=== PATIENT | male | born 1985 | race American Indian/Alaskan Native ===

== ENCOUNTER 2019-05-19 21:50 | Emergency (ER) | payer OTHER ==
--- NOTE | 2019-05-19 22:34 | Event Note ---
ED Screening Note Date of service: 05/19/19 Time: 22:33 ED Screening Note: 34 y/o male comes in for boil on stomach times 7 days. PMH DM. pain /. This initial assessment/diagnostic orders/clinical plan/treatment(s) is/are subject to change based on patients health status, clinical progression and re- assessment by fellow clinical providers in the ED. Further treatment and workup at subsequent clinical providers discretion. Patient/guardian urged not to elope from the ED as their condition may be serious if not clinically assessed and managed. Initial orders include:
[2019-05-19] MEDS ORDERED: IBUPROFEN PO ONE (23:41)
--- NOTE | 2019-05-19 23:49 | Emergency Department Report ---
- General Chief complaint: Skin/Abscess/Foreign Body Stated complaint: BOIL ON STOMACH Time Seen by Provider: 05/19/19 22:58 Source: patient Mode of arrival: Ambulatory Limitations: No Limitations - History of Present Illness Initial comments: Patient is a 34-year-old male who presents to the emergency room complaints of an abscess to his abdomen that began 7 days ago. He states he has had subjective fever. He denies any drainage. He states he gets these often. Patient states he drains them himself by using a needle. He denies any recent antibiotics. He has a past medical history of diabetes and uses insulin. He denies any allergies to medications. - Related Data Previous Rx's Medication Instructions Recorded Last Taken Type Sulfamethoxazole/Trimethoprim 1 each PO BID 14 Days #28 tablet 05/19/19 Unknown Rx [Bactrim DS TAB] Allergies Allergy/AdvReac Type Severity Reaction Status Date / Time No Known Allergies Allergy Unverified 05/19/19 22:05 Abscess Boil HPI - HPI Chief Complaint: Skin/Abscess/Foreign Body Stated Complaint: BOIL ON STOMACH Time Seen by Provider: 05/19/19 22:58 Home Medications: Previous Rx's Medication Instructions Recorded Last Taken Type Sulfamethoxazole/Trimethoprim 1 each PO BID 14 Days #28 tablet 05/19/19 Unknown Rx [Bactrim DS TAB] Allergies/Adverse Reactions: Allergies Allergy/AdvReac Type Severity Reaction Status Date / Time No Known Allergies Allergy Unverified 05/19/19 22:05 ED Review of Systems ROS: Stated complaint: BOIL ON STOMACH Other details as noted in HPI Comment: All other systems reviewed and negative ED Past Medical Hx - Past Medical History Previous Medical History?: Yes Hx Diabetes: Yes Additional medical history: Morbid Obesity - Social History Smoking Status: Never Smoker Substance Use Type: None - Medications Home Medications: Home Medications Medication Instructions Recorded Confirmed Last Taken Type Sulfamethoxazole/Trimethoprim 1 each PO BID 14 Days #28 tablet 05/19/19 Unknown Rx [Bactrim DS TAB] ED Physical Exam - General Limitations: No Limitations General appearance: alert, in no apparent distress - Head Head exam: Present: atraumatic, normocephalic - ENT ENT exam: Present: mucous membranes moist - Respiratory Respiratory exam: Present: normal lung sounds bilaterally. Absent: respiratory distress, wheezes, rales, rhonchi, stridor, chest wall tenderness, accessory muscle use, decreased breath sounds, prolonged expiratory - Cardiovascular Cardiovascular Exam: Present: regular rate, normal rhythm, normal heart sounds. Absent: systolic murmur, diastolic murmur, rubs, gallop - Neurological Exam Neurological exam: Present: alert, oriented X3 - Psychiatric Psychiatric exam: Present: normal affect, normal mood - Skin Skin exam: Present: other (multiple areas of scarring to the abdomen from previous abscess, 7 cm area of induration to the lower abdomen with multiple small areas of fluctuance, surrounding erythema) ED Course Vital Signs 05/19/19 05/20/19 05/20/19 22:33 00:07 00:10 Temperature 99.1 F 98.1 F Pulse Rate 100 H 98 H Respiratory 20 16 16 Rate Blood Pressure 146/98 Blood Pressure 137/80 [Left] O2 Sat by Pulse 98 100 Oximetry ED Medical Decision Making - Medical Decision Making Patient is a 34-year-old male who presents to the emergency room complaints of an abscess to his abdomen that began 7 days ago. He states he has had subjective fever. He denies any drainage. He states he gets these often. Patient states he drains them himself by using a needle. He denies any recent antibiotics. He has a past medical history of diabetes and uses insulin. He denies any allergies to medications. VSS. on exam: multiple areas of scarring to the abdomen from previous abscess, 7 cm area of induration to the lower abdomen with multiple small areas of fluctuance, surrounding erythema. there is not one central area of fluctuance that could be I&D, there are multiple small areas with a larger area of cellulitis present, will place on abx to cover for MRSA and have pt see a general surgeon for a surgical evaluation, pt is afebrile, non toxic appearing, and tolerating PO intake at this time, can follow up as an outpatient in 24 hours with general surgery. advised pt to please no longer use needles at home to drain the areas as this is not sterile and could be the cause of his cellulitis/abscesses currently. pt given prescription for bactrim, advised to take as prescribed. discussed with pt to follow up with a general surgeon in the next 24 hours. Return to the emergency room for any new or worsening symptoms. also discussed to follow up with PCP for better glycemic control. Critical care attestation.: If time is entered above; I have spent that time in minutes in the direct care of this critically ill patient, excluding procedure time. ED Disposition Clinical Impression: Abscess Cellulitis Qualifiers: Site of cellulitis: trunk Site of cellulitis of trunk: abdominal wall Qualified Code(s): L03.311 - Cellulitis of abdominal wall Disposition: TO HOME OR SELFCARE Is pt being admited?: No Does the pt Need Aspirin: No Condition: Stable Instructions: Cellulitis (ED), Abscess (ED) Additional Instructions: Please take medication as prescribed to completion. Follow up with a general surgeon in the next 24 hours. Return to the emergency room for any new or worsening symptoms. Prescriptions: Sulfamethoxazole/Trimethoprim [Bactrim DS TAB] 1 each PO BID 14 Days #28 tablet Referrals: [facility] [Outside] - 3-5 Days [facility] [Provider Group] - 3-5 Days [facility] [Outside] - 3-5 Days BARBARA HINKLE MD [Staff Physician] - 24 Hours Forms: Work/School Release Form(ED) Time of Disposition: 23:51 Print Language: POLISH
[2019-05-20 00:45] VITALS: BP 137/80
== END 2019-05-20 00:10 | disposition home or self-care (01) ==
LOC: ED 21:50
DX: L03.311 Cellulitis of abdominal wall (principal); L02.211 Cutaneous abscess of abdominal wall; E11.9 Type 2 diabetes mellitus without complications; E66.01 Morbid (severe) obesity due to excess calories; Z79.4 Long term (current) use of insulin

== ENCOUNTER 2019-05-27 21:42 | Inpatient (IN) | payer OTHER ==
--- NOTE | 2019-05-27 21:51 | Event Note ---
ED Screening Note ED Screening Note: pt was evaluated in the ED last week for cellulitis/abscess of the abdomen placed on bactrim advised to follow up with a general surgeon in the next 24 hours pt did not follow up presents now with worsening erythema and tachycardia, fever states the abscess has been draining BG 200-250 at home per pt This initial assessment/diagnostic orders/clinical plan/treatment(s) is/are subject to change based on patients health status, clinical progression and re- assessment by fellow clinical providers in the ED. Further treatment and workup at subsequent clinical providers discretion. Patient/guardian urged not to elope from the ED as their condition may be serious if not clinically assessed and managed. Initial orders include: sepsis protocol
[2019-05-27] MEDS ORDERED: NACL 0.9% 1000 ML IV ONE ×2 (21:52→22:18)
[2019-05-27 22:08] LABS: Hemoglobin 13.5 gm/dl (11.8-15.2); Mean Corpuscular HGB Conc 34 % (32-34); Mean Corpuscular Volume 90 fl (84-94); Platelet Count 266 K/mm3 (140-440); Red Blood Count 4.45 M/mm3 (3.65-5.03); Red Cell Distribution Width 15.1 % (13.2-15.2)
[2019-05-27] MEDS ORDERED: VANCOMYCIN 2,000 MG in NACL 0.9% 500 ML 500 ML IV ONE (22:18)
[2019-05-27 22:39] LABS: Alanine Aminotransferase 48 units/L (7-56); Albumin 2.7 g/dL (3.9-5); BUN/Creatinine Ratio 13; Blood Urea Nitrogen 12 mg/dL (9-20); Calcium 9.7 mg/dL (8.4-10.2); Hemolysis Index 40
[2019-05-27 22:43] LABS: Basophils % (Manual) 0 % (0.0-1.8); Total Cells Counted 100
[2019-05-27 22:44] LABS: Anisocytosis Few
[2019-05-27] MEDS: ZOSYN/NS 4.5GM/100ML 4.5 GM/100 ML VIAL IV SCH (22:57)
[2019-05-27] MEDS ORDERED: TYLENOL PO ONE (22:59)
[2019-05-27] MEDS ORDERED: MORPHINE IV ONE (22:59)
[2019-05-27] MEDS ORDERED: VANCOMYCIN PHARMACY TO DOSE IV SCH (23:00)
[2019-05-27 23:47] LABS: Bilirubin,Urine NEG (Negative); Blood,Urine NEG (Negative); Color,Urine Yellow (Yellow); RBC,Urine < 1.0 /HPF (0.0-6.0); WBC,Urine < 1.0 /HPF (0.0-6.0)
--- NOTE | 2019-05-28 00:23 | Cat Scan Report ---
CT ABDOMEN AND PELVIS WITH IV CONTRAST INDICATION: LLQ abdominal wall abscess cellulitis. COMPARISON: None available. TECHNIQUE: All CT scans at this facility use dose modulation, automated exposure control, iterative reconstructi on or weight based dosing, when appropriate, to reduce radiation dose to as low as reasonably achieva ble. FINDINGS: Lung Bases: Clear. Skeletal System: No acute abnormality. ABDOMEN: Liver: Normal. Gallbladder: Normal. Bile Ducts: Normal. Pancreas: Normal. Spleen: Normal. Adrenals: Normal. Right Kidney: Normal. Left Kidney: Normal. Stomach and Bowel: Normal. Lymph Nodes: No significant adenopathy. Aorta: No significant abnormality. Additional Findings: There is stranding within the left lower quadrant abdominal wall subcutaneous fa t. Inferomedially, there are a few punctate foci of gas in the superficial subcutaneous fat. No drain able fluid collection is seen. PELVIS: Colon: Normal aside from diverticulosis. Urinary Bladder and Distal Ureters: Normal. Appendix: Normal. Lymph Nodes: Left groin and left external iliac chain adenopathy is likely reactive. Additional Findings: None. IMPRESSION: 1. Cellulitis left lower quadrant abdominal wall. There are a few punctate foci of gas in the infero medial aspect of the inflammation facial is fat. No discrete, drainable abscess is seen. There is shannan ctive left groin/pelvic adenopathy. Signer Name: Lucius Anderson MD Signed: 05/28/2019 12:19 AM Workstation Name: [id number]
[2019-05-28] MEDS ORDERED: HumuLIN R IV ONE ×2 (00:48→14:54)
--- NOTE | 2019-05-28 00:48 | Emergency Department Report ---
ED Fever HPI - General Chief Complaint: Skin/Abscess/Foreign Body Stated Complaint: LEFT SIDE STOMACH PAIN/REDNESS Time Seen by Provider: 05/27/19 21:48 Source: patient, family, old records Exam Limitations: no limitations - History of Present Illness Initial Comments: Mr. Graves is a 34 yo male with hx of diabetes mellitus who presents with abscess cellulitis of the left lower abdominal wall. One week ago he was evaluated in our emergency department for abscess. In spite antibiotics the redness and abscess became larger. He has fever. He has generalized malaise. He has severe tenderness at the site of infection. His diabetes has not been well controlled due to lack of insurance. He does not have a primary physician. Timing/Duration: week (1), getting worse Fever Severity/Quality: greater than 100.5 F Associated Symptoms: rash ED Review of Systems ROS: Stated complaint: LEFT SIDE STOMACH PAIN/REDNESS Other details as noted in HPI Comment: All other systems reviewed and negative Constitutional: fever, malaise Skin: rash, lesions, change in color ED Past Medical Hx - Past Medical History Previous Medical History?: Yes Hx Diabetes: Yes Additional medical history: Morbid Obesity - Surgical History Past Surgical History?: No - Social History Smoking Status: Current Every Day Smoker Substance Use Type: Alcohol - Medications Home Medications: Home Medications Medication Instructions Recorded Confirmed Last Taken Type Sulfamethoxazole/Trimethoprim 1 each PO BID 14 Days #28 tablet 05/19/19 Unknown Rx [Bactrim DS TAB] ED Physical Exam - General Limitations: No Limitations General appearance: alert, in no apparent distress - Head Head exam: Present: atraumatic, normocephalic - Eye Eye exam: Present: normal appearance - ENT ENT exam: Present: mucous membranes moist - Neck Neck exam: Present: normal inspection, full ROM - Respiratory Respiratory exam: Present: normal lung sounds bilaterally. Absent: respiratory distress, wheezes, rales, rhonchi - Cardiovascular Cardiovascular Exam: Present: normal rhythm, tachycardia, normal heart sounds. Absent: systolic murmur, diastolic murmur, rubs, gallop - GI/Abdominal GI/Abdominal exam: Present: soft, normal bowel sounds. Absent: distended, tenderness, guarding, rebound - Rectal Rectal exam: Present: deferred - Extremities Exam Extremities exam: Present: normal inspection - Back Exam Back exam: Present: normal inspection - Neurological Exam Neurological exam: Present: alert, oriented X3 - Psychiatric Psychiatric exam: Present: normal affect, normal mood - Skin Skin exam: Present: warm, other (left lower abdominal wall: large area of erythema with scaling skin multiple Ulcers with underlying purulent) ED Course Vital Signs 05/27/19 05/27/19 05/27/19 21:48 22:14 22:16 Temperature 100.5 F H Pulse Rate 135 H 122 H 122 H Respiratory 18 19 18 Rate Blood Pressure 141/79 O2 Sat by Pulse 96 99 99 Oximetry 05/27/19 05/27/19 05/27/19 22:20 22:26 22:30 Temperature Pulse Rate 120 H 116 H 114 H Respiratory 15 22 23 Rate Blood Pressure O2 Sat by Pulse 98 99 98 Oximetry 05/27/19 05/27/19 05/27/19 22:36 22:40 22:44 Temperature 101.5 F H Pulse Rate 116 H 113 H Respiratory 21 19 Rate Blood Pressure O2 Sat by Pulse 98 99 Oximetry 05/27/19 05/27/19 05/27/19 22:46 22:50 22:55 Temperature Pulse Rate 114 H 120 H 117 H Respiratory 18 19 15 Rate Blood Pressure 154/85 O2 Sat by Pulse 99 100 99 Oximetry 05/27/19 05/27/19 05/28/19 23:26 23:30 00:16 Temperature Pulse Rate 112 H 110 H Respiratory 19 26 H Rate Blood Pressure 154/85 176/86 146/82 O2 Sat by Pulse 100 100 96 Oximetry ED Medical Decision Making - Lab Data Result diagrams: 05/27/19 21:55 05/27/19 21:55 Laboratory Results - last 24 hr 05/27/19 05/27/19 05/27/19 21:55 21:55 21:55 WBC 12.2 H RBC 4.45 Hgb 13.5 Hct 40.0 MCV 90 MCH 30 MCHC 34 RDW 15.1 Plt Count 266 Add Manual Diff Complete Total Counted 100 Seg Neuts % (Manual) 82.0 H Band Neutrophils % 0 Lymphocytes % (Manual) 10.0 L Reactive Lymphs % (Man) 0 Monocytes % (Manual) 7.0 Eosinophils % (Manual) 1.0 Basophils % (Manual) 0 Metamyelocytes % 0 Myelocytes % 0 Promyelocytes % 0 Blast Cells % 0 Nucleated RBC % Not Reportable Seg Neutrophils # Man 10.0 H Band Neutrophils # 0.0 Lymphocytes # (Manual) 1.2 Abs React Lymphs (Man) 0.0 Monocytes # (Manual) 0.9 H Eosinophils # (Manual) 0.1 Basophils # (Manual) 0.0 Metamyelocytes # 0.0 Myelocytes # 0.0 Promyelocytes # 0.0 Blast Cells # 0.0 WBC Morphology Not Reportable Hypersegmented Neuts Not Reportable Hyposegmented Neuts Not Reportable Hypogranular Neuts Not Reportable Smudge Cells Not Reportable Toxic Granulation Not Reportable Toxic Vacuolation Not Reportable Dohle Bodies Not Reportable Pelger-Huet Anomaly Not Reportable Carlotta Rods Not Reportable Platelet Estimate Appears normal Clumped Platelets Not Reportable Plt Clumps, EDTA Not Reportable Large Platelets Not Reportable Giant Platelets Not Reportable Platelet Satelliting Not Reportable Plt Morphology Comment Not Reportable RBC Morphology Not Reportable Dimorphic RBCs Not Reportable Polychromasia Not Reportable Hypochromasia Not Reportable Poikilocytosis Not Reportable Anisocytosis Few Microcytosis Not Reportable Macrocytosis Not Reportable Spherocytes Not Reportable Pappenheimer Bodies Not Reportable Sickle Cells Not Reportable Target Cells Not Reportable Tear Drop Cells Not Reportable Ovalocytes Not Reportable Helmet Cells Not Reportable [place] Bodies Not Reportable [place] Rings Not Reportable Grey Cells Not Reportable Bite Cells Not Reportable Crenated Cell Not Reportable Elliptocytes Not Reportable Acanthocytes (Spur) Not Reportable Rouleaux Not Reportable Hemoglobin C Crystals Not Reportable Schistocytes Not Reportable Malaria parasites Not Reportable Garth Bodies Not Reportable Hem Pathologist Commnt No Sodium 131 L Potassium 4.3 Chloride 95.1 L Carbon Dioxide 18 L Anion Gap 22 BUN 12 Creatinine 0.9 Estimated GFR > 60 BUN/Creatinine Ratio 13 Glucose 480 H Lactic Acid 1.60 Calcium 9.7 Total Bilirubin 0.30 AST 43 H ALT 48 Alkaline Phosphatase 163 H Total Protein 7.9 Albumin 2.7 L Albumin/Globulin Ratio 0.5 Urine Color Urine Turbidity Urine pH Ur Specific [place] Urine Protein Urine Glucose (UA) Urine Ketones Urine Blood Urine Nitrite Urine Bilirubin Urine Urobilinogen Ur Leukocyte Esterase Urine WBC (Auto) Urine RBC (Auto) U Epithel Cells (Auto) 05/27/19 23:33 WBC RBC Hgb Hct MCV MCH MCHC RDW Plt Count Add Manual Diff Total Counted Seg Neuts % (Manual) Band Neutrophils % Lymphocytes % (Manual) Reactive Lymphs % (Man) Monocytes % (Manual) Eosinophils % (Manual) Basophils % (Manual) Metamyelocytes % Myelocytes % Promyelocytes % Blast Cells % Nucleated RBC % Seg Neutrophils # Man Band Neutrophils # Lymphocytes # (Manual) Abs React Lymphs (Man) Monocytes # (Manual) Eosinophils # (Manual) Basophils # (Manual) Metamyelocytes # Myelocytes # Promyelocytes # Blast Cells # WBC Morphology Hypersegmented Neuts Hyposegmented Neuts Hypogranular Neuts Smudge Cells Toxic Granulation Toxic Vacuolation Dohle Bodies Pelger-Huet Anomaly Carlotta Rods Platelet Estimate Clumped Platelets Plt Clumps, EDTA Large Platelets Giant Platelets Platelet Satelliting Plt Morphology Comment RBC Morphology Dimorphic RBCs Polychromasia Hypochromasia Poikilocytosis Anisocytosis Microcytosis Macrocytosis Spherocytes Pappenheimer Bodies Sickle Cells Target Cells Tear Drop Cells Ovalocytes Helmet Cells [place] Bodies [place] Rings Grey Cells Bite Cells Crenated Cell Elliptocytes Acanthocytes (Spur) Rouleaux Hemoglobin C Crystals Schistocytes Malaria parasites Garth Bodies Hem Pathologist Commnt Sodium Potassium Chloride Carbon Dioxide Anion Gap BUN Creatinine Estimated GFR BUN/Creatinine Ratio Glucose Lactic Acid Calcium Total Bilirubin AST ALT Alkaline Phosphatase Total Protein Albumin Albumin/Globulin Ratio Urine Color Yellow Urine Turbidity Clear Urine pH 6.0 Ur Specific [place] 1.030 Urine Protein 30 mg/dl Urine Glucose (UA) >=500 Urine Ketones 20 Urine Blood Neg Urine Nitrite Neg Urine Bilirubin Neg Urine Urobilinogen 2.0 Ur Leukocyte Esterase Neg Urine WBC (Auto) < 1.0 Urine RBC (Auto) < 1.0 U Epithel Cells (Auto) 3.0 - Radiology Data Radiology results: report reviewed CT abdomen and pelvis revealed stranding in the subcutaneous fat with small foci of gas air - Medical Decision Making Extensive abdominal wall cellulitis and abscess admitted to the hospital service. Zosyn and vancomycin instituted in the emergency department. Code sepsis with appropriate protocol also initiated. Critical care attestation.: If time is entered above; I have spent that time in minutes in the direct care of this critically ill patient, excluding procedure time. ED Disposition Clinical Impression: Abscess, Cellulitis, Abdominal wall cellulitis, Diabetes mellitus type 1, uncontrolled, Acute hyperglycemia Disposition: [id number] OP ADMIT IP TO THIS HOSP Is pt being admited?: No Does the pt Need Aspirin: No Condition: Stable Referrals: PRIMARY CARE, [Primary Care Provider] - 3-5 Days
[2019-05-28] MEDS ORDERED: TYLENOL PO PRN (02:10)
[2019-05-28] MEDS ORDERED: D50W (25GM) Syringe IV PRN (02:13)
[2019-05-28] MEDS ORDERED: NACL 0.9% 1000 ML 1,000 ML IV SCH (03:00)
[2019-05-28] MEDS: ZOSYN/NS 4.5GM/100ML 4.5 GM/100 ML VIAL IV SCH ×3 (06:30→22:13)
[2019-05-28] MEDS: MORPHINE IV PRN (06:36)
--- NOTE | 2019-05-28 07:56 | History and Physical Report ---
CHIEF COMPLAINT: Pain and swelling in the anterior abdominal wall on the left side. HISTORY OF PRESENT ILLNESS: The patient is a 34-year-old male who said he had a boil in the anterior abdominal wall area located towards the center of the anterior abdominal area and he came to the Emergency Room. He was given a prescription for Bactrim and he went home and took the Bactrim for one week, but the swelling, pain and redness in the area continued to grow bigger with associated history of fever or chills. The patient denied history of nausea or vomiting. Denied history of chest pain or shortness of breath, and presented for evaluation. PAST MEDICAL HISTORY: Pertinent for diabetes mellitus, morbid obesity. PAST SURGICAL HISTORY: Unremarkable. FAMILY HISTORY: Reviewed and noncontributory. SOCIAL HISTORY: The patient smokes cigarettes, drinks alcohol, does not use illicit drug. MEDICATIONS: The patient is on Bactrim double strength one by mouth twice daily. ALLERGIES: There are no known drug allergies. REVIEW OF SYSTEMS: CONSTITUTIONAL: There is fever, there are chills, but no diaphoresis. HEENT: There is no headache or sore throat. CARDIOVASCULAR SYSTEM: There is no chest pain or orthopnea. RESPIRATORY SYSTEM: There is no shortness of breath or cough. GASTROINTESTINAL SYSTEM: There is no nausea, no vomiting, but there is abdominal pain and no constipation or diarrhea. NEUROLOGICAL SYSTEM: There is no numbness, no dizziness, no altered mental status. MUSCULOSKELETAL SYSTEM: There is no joint pain or swelling. DERMATOLOGICAL SYSTEM: There is skin swelling and redness and area of drainage, but no itching. GENITOURINARY SYSTEM: There is no dysuria, hematuria or flank pain. Rest of system review is normal. PHYSICAL EXAMINATION: GENERAL: At the time of exam, the patient was found to be alert, oriented x 3 and in mild distress due to pain in the anterior abdominal wall. VITAL SIGNS: Showed at the initial time of presentation, temperature of 100.5 degrees Fahrenheit, pulse of 135, respirations of 18, blood pressure 141/79, O2 sat of 96% on room air. HEENT: Showed pupils to be equal, round, reactive to light and accommodating. Extraocular muscles are intact. NECK: Supple with no JVD or carotid bruit. CARDIOVASCULAR SYSTEM: Showed normal first and second heart sounds with no gallops or murmurs. RESPIRATORY SYSTEM: Showed good air entry on both sides of the lungs with no abnormal breath sounds. GASTROINTESTINAL SYSTEM: Showed abdomen to be full, soft with tenderness in the lower left abdominal quadrant area and lower abdominal area below the umbilicus. There is no organomegaly elicited. NEUROLOGICAL SYSTEM: There is no focal neurological deficit. MUSCULOSKELETAL SYSTEM: There is no joint pain or swelling. DERMATOLOGICAL SYSTEM: Shows indurated area extending from the midline infraumbilical area stretching to the left lower quadrant abdominal area, going to the back with redness of the area and tenderness and area of fluid drainage. GENITOURINARY SYSTEM: There is no costovertebral angle tenderness. PERTINENT IMAGING STUDIES: The patient had CT of the abdomen and pelvis done which shows that there is stranding within the left lower quadrant abdominal wall subcutaneous fat. Inferomedially, there are a few punctate foci of gas in the superficial subcutaneous fat. No drainable fluid collection was seen. The pelvis area shows colon to be normal aside from diverticulosis seen and the urinary bladder was unremarkable. The CT reading was noted as showing cellulitis of the left lower quadrant abdominal wall with few punctate foci of gas in the inframedial aspect of the inflammation and no discrete drainable abscess was seen. There was finding of reactive left groin or pelvic adenopathy. LABORATORY RESULTS: The patient's CBC showed elevated white count of 12.2 thousand with normal hemoglobin, normal hematocrit and CBC differential showing elevated segmented neutrophil count of 82%. The patient's chemistry showed low sodium level of 131 and low chloride level of 95.1 with elevated blood glucose level of 480. The patient's liver transaminases show slight increase in AST of 43 with normal ALT and low albumin level of 2.7. The patient's urinalysis was unremarkable. DIAGNOSES: 1. Cellulitis of the anterior abdominal wall with small abscess. 2. Sepsis. PLAN OF CARE: 1. The patient will be admitted to telemetry. 2. The patient will continue IV vancomycin started in the Emergency Room with pharmacy to dose. 3. The patient will be on IV Zosyn 4.5 g q. 8 hours. 4. The patient will be on IV normal saline at 150 mL an hour having received the bolus dosing as needed for initial treatment of sepsis. 5. The patient will be on IV morphine 2 mg every 3 hours as needed for pain and IV Zofran 4 mg every 8 hours as needed for nausea and vomiting. 6. The patient will have surgical consult with Dr. Jaeger for possible drainage of an abscess. 7. The patient will be on Tylenol 650 mg by mouth every 4 hours for fever and headache and will be on heparin 5000 units subcutaneously q. 12 hours for DVT prophylaxis. 8. The patient will be on Accu-Chek before meals and at bedtime followed by moderate dose sliding scale using regular insulin coverage. 9. The patient's diet will be consistent carbohydrate diet. 10. The patient would continue Bactrim double strength that was prescribed for 2 weeks one by mouth twice daily. 11. Further management of the patient's condition will be dependent on the treatment status so far and surgical consult. JOB# [id number] OCN/NTS
[2019-05-28] MEDS: HEPARIN SUB-Q SCH ×2 (09:48→22:14)
[2019-05-28] MEDS: HumuLIN R SUB-Q SCH ×4 (09:54→22:15)
[2019-05-28] MEDS ORDERED: BACTRIM DS PO SCH (10:00)
[2019-05-28] MEDS: VANCOMYCIN 2,000 MG in NACL 0.9% 500 ML 500 ML IV SCH (13:54)
[2019-05-28] MEDS ORDERED: ROBINUL ONE (14:00)
[2019-05-28] MEDS ORDERED: ZOFRAN IV PRN (14:08)
[2019-05-28] MEDS ORDERED: SUBLIMAZE IV PRN (14:08)
--- NOTE | 2019-05-28 14:17 | Consultation ---
History of Present Illness Consult date: 05/28/19 Chief complaint: boil on abdomen - History of present illness History of present illness: 34 yo M with uncontrolled DM presented to ER due to increased pain and swelling at Left lower abdominal wall . He presented to ER 1 week ago with similar complaints and was diagnosed with cellulitis and given antibiotics. He returned however because the symptoms were worse. He has noticed that the redness and swelling now travels to the left side of his back. It is very tender. No drainage. No trauma. + fevers. He has had boils before which he drained on his own. Past History Past Medical History: diabetes, other (obesity) Past Surgical History: No surgical history Social history: smoking (1 pack per week) Family history: no significant family history Medications and Allergies Allergies Allergy/AdvReac Type Severity Reaction Status Date / Time No Known Allergies Allergy Verified 05/27/19 22:21 Home Medications Medication Instructions Recorded Confirmed Last Taken Type No Known Home Medications [No 05/28/19 05/28/19 Unknown History Reported Home Medications] Active Meds: Active Medications Acetaminophen (Tylenol) 650 mg PO Q4H PRN PRN Reason: Fever >101 Dextrose (D50w (25gm) Syringe) 50 ml IV PRN PRN PRN Reason: Hypoglycemia Fentanyl (Sublimaze) 50 mcg IV Q5MIN PRN PRN Reason: Pain , Severe (7-10) Heparin Sodium (Porcine) (Heparin) 5,000 unit SUB-Q Q12HR [facility] Last Admin: 05/28/19 09:48 Dose: 5,000 unit Documented by: Piperacillin Sod/Tazobactam Sod (Zosyn/Ns 4.5gm/100ml) 4.5 gm in 100 mls @ 200 mls/hr IV Q8HR [facility]; Protocol Last Admin: 05/28/19 13:56 Dose: 200 mls/hr Documented by: Sodium Chloride (Nacl 0.9% 1000 Ml) 1,000 mls @ 150 mls/hr IV DIRECT [facility] Vancomycin HCl 2,000 mg/ (Sodium Chloride) 540 mls @ 250 mls/hr IV Q12H [facility] Last Admin: 05/28/19 13:54 Dose: 250 mls/hr Documented by: Insulin Glargine (Lantus) 15 units SUB-Q QHS [facility] Insulin Human Regular (Humulin R) 0 units SUB-Q [facility]; Protocol Last Admin: 05/28/19 13:55 Dose: 6 units Documented by: Insulin Human Regular (Humulin R) 0 units SUB-Q QHS [facility]; Protocol Morphine Sulfate (Morphine) 2 mg IV Q3H PRN PRN Reason: Pain, Moderate (4-6) Last Admin: 05/28/19 06:36 Dose: 2 mg Documented by: Ondansetron HCl (Zofran) 4 mg IV Q8H PRN PRN Reason: Nausea And Vomiting Ondansetron HCl (Zofran) 4 mg IV ONCE PRN PRN Reason: Nausea And Vomiting Review of Systems All systems: negative (10 pt ROS performed and negative except for that listed in HPI) Exam Vital Signs Temp Pulse Resp BP Pulse Ox 100.5 F H 135 H 18 141/79 96 05/27/19 21:48 05/27/19 21:48 05/27/19 21:48 05/27/19 21:48 05/27/19 21:48 Narrative exam: Gen: AAOx3. NAD ENT: no scleral icterus or conjunctival pallor CV: S1, S2+ Resp: even and unlabored Abd: soft, ND, obese. L lower abdominal wall cellulitis, induration from mid lower abdomen towards the left lateral abdomen. 6-7 cm area in the left lower abdomen with skin changes, erythema, exquisite point tenderness. No crepitus or drainage. Small fluid filled blisters along area of induration Ext: no c/c/e Results - Labs 05/27/19 21:55 05/27/19 21:55 Abnormal lab results 05/27/19 05/27/19 05/28/19 Range/Units 21:55 21:55 02:38 WBC 12.2 H (4.5-11.0) K/mm3 Seg Neuts % (Manual) 82.0 H (40.0-70.0) % Lymphocytes % (Manual) 10.0 L (13.4-35.0) % Seg Neutrophils # Man 10.0 H (1.8-7.7) K/mm3 Monocytes # (Manual) 0.9 H (0.0-0.8) K/mm3 Sodium 131 L (137-145) mmol/L Chloride 95.1 L (98-107) mmol/L Carbon Dioxide 18 L (22-30) mmol/L Glucose 480 H (75-100) mg/dL POC Glucose 315 H (70-105) AST 43 H (5-40) units/L Alkaline Phosphatase 163 H (35-129) units/L Albumin 2.7 L (3.9-5) g/dL 05/28/19 Range/Units 08:49 WBC (4.5-11.0) K/mm3 Seg Neuts % (Manual) (40.0-70.0) % Lymphocytes % (Manual) (13.4-35.0) % Seg Neutrophils # Man (1.8-7.7) K/mm3 Monocytes # (Manual) (0.0-0.8) K/mm3 Sodium (137-145) mmol/L Chloride (98-107) mmol/L Carbon Dioxide (22-30) mmol/L Glucose (75-100) mg/dL POC Glucose 243 H (70-105) AST (5-40) units/L Alkaline Phosphatase (35-129) units/L Albumin (3.9-5) g/dL Diabetes panel 05/27/19 Range/Units 21:55 Sodium 131 L (137-145) mmol/L Potassium 4.3 (3.6-5.0) mmol/L Chloride 95.1 L (98-107) mmol/L Carbon Dioxide 18 L (22-30) mmol/L BUN 12 (9-20) mg/dL Creatinine 0.9 (0.8-1.5) mg/dL Glucose 480 H (75-100) mg/dL Calcium 9.7 (8.4-10.2) mg/dL AST 43 H (5-40) units/L ALT 48 (7-56) units/L Alkaline Phosphatase 163 H (35-129) units/L Total Protein 7.9 (6.3-8.2) g/dL Albumin 2.7 L (3.9-5) g/dL Calcium panel 05/27/19 Range/Units 21:55 Calcium 9.7 (8.4-10.2) mg/dL Albumin 2.7 L (3.9-5) g/dL Pituitary panel 05/27/19 Range/Units 21:55 Sodium 131 L (137-145) mmol/L Potassium 4.3 (3.6-5.0) mmol/L Chloride 95.1 L (98-107) mmol/L Carbon Dioxide 18 L (22-30) mmol/L BUN 12 (9-20) mg/dL Creatinine 0.9 (0.8-1.5) mg/dL Glucose 480 H (75-100) mg/dL Calcium 9.7 (8.4-10.2) mg/dL Adrenal panel 05/27/19 Range/Units 21:55 Sodium 131 L (137-145) mmol/L Potassium 4.3 (3.6-5.0) mmol/L Chloride 95.1 L (98-107) mmol/L Carbon Dioxide 18 L (22-30) mmol/L BUN 12 (9-20) mg/dL Creatinine 0.9 (0.8-1.5) mg/dL Glucose 480 H (75-100) mg/dL Calcium 9.7 (8.4-10.2) mg/dL Total Bilirubin 0.30 (0.1-1.2) mg/dL AST 43 H (5-40) units/L ALT 48 (7-56) units/L Alkaline Phosphatase 163 H (35-129) units/L Total Protein 7.9 (6.3-8.2) g/dL Albumin 2.7 L (3.9-5) g/dL - Imaging CT scan - abdomen: report reviewed, image reviewed CT scan - pelvis: report reviewed, image reviewed Assessment and Plan 34 yo m with 1. abdominal wall cellulitis, likely necrotizing soft tissue infection 2. uncontrolled DM 3. obesity Plan: 1. NPO 2. IVF 3. IV abx 4. ID consult 5. strict glucose control 6. needs urgent incision and drainage with debridement of devitalized tissue. All risks, benefits, alternatives discussed with patient and consent obtained. 7. wound care consult post op Thank you, please call with questions. D/W Dr. De La Torre
--- NOTE | 2019-05-28 14:24 | Anesthesia Day of Surgery ---
Anesthesia Day of Surgery - Day of Surgery Patient Examined: Yes Patient H&P Reviewed: Yes Patient is NPO: No (LUNCH)
--- NOTE | 2019-05-28 14:27 | Anesthesia Consultation ---
Anesthesia Consult and Med Hx Date of service: 05/28/19 - Airway Anesthetic Teeth Evaluation: Good ROM Head & Neck: Adequate Mental/Hyoid Distance: Adequate Mallampati Class: Class II Intubation Access Assessment: Probably Good - Pre-Operative Health Status ASA Pre-Surgery Classification: ASA3, Emergency Proposed Anesthetic Plan: General - Pulmonary Hx Smoking: Yes Hx Asthma: No COPD: No Hx Pneumonia: No Hx Sleep Apnea: No - Cardiovascular System Hx Heart Attack/AMI: No Hx Angina: No - Central Nervous System Hx Psychiatric Problems: No - Endocrine Hx End Stage Renal Disease: No Hx Liver Disease: Yes (Increased LFTs. Albumin 2.7) Hx Insulin Dependent Diabetes: Yes - Hematic Hx Anemia: No - Other Systems Hx Cancer: No
[2019-05-28] MEDS ORDERED: TYLENOL PO ONE (14:29)
[2019-05-28] MEDS ORDERED: NACL 0.9% 1000 ML 1,000 ML ONE (14:33)
[2019-05-28] MEDS ORDERED: DIPRIVAN 10 MG/ML IV ONE (14:37)
[2019-05-28] MEDS: NACL 0.9% 1000 ML 1,000 ML IV SCH (14:55)
[2019-05-28] MEDS ORDERED: VERSED IV NR (15:00)
[2019-05-28] MEDS ORDERED: REGLAN IV NR (15:00)
[2019-05-28] MEDS ORDERED: NEURONTIN PO NR (15:00)
[2019-05-28] MEDS ORDERED: KETALAR ONE (15:24)
[2019-05-28] MEDS ORDERED: MORPHINE IV ONE (15:29)
[2019-05-28] MEDS ORDERED: PROTONIX IV ONE (15:30)
[2019-05-28] MEDS ORDERED: BICITRA PO ONE (15:31)
[2019-05-28] MEDS ORDERED: SUBLIMAZE ONE ×2 (15:47→16:17)
[2019-05-28] MEDS ORDERED: NEO SYNEPHRINE/NS Syringe(OR USE) IV ONE (15:54)
[2019-05-28] MEDS ORDERED: ZOFRAN ONE (15:54)
[2019-05-28] MEDS ORDERED: XYLOCAINE MPF 2% ONE (15:54)
[2019-05-28] MEDS ORDERED: QUELICIN ONE (15:54)
--- NOTE | 2019-05-28 16:25 | Post Operative Note ---
Date of procedure: 05/28/19 Pre-op diagnosis: necrotizing fasciitis of lower abdominal wall Post-op diagnosis: same Findings: two large abscess cavities with necrotic tissue extending to the fascia. Medial lower abdominal wall wound: 2.2cmx2.5cmx1.2cm with 11cm tunneling towards 2 oclock Lateral left lower abdominal wall wound: 4.5cmx 8cm x 4.5cm with tunneling towards 2, 3, and 7 oclock Procedure: excisional debridement of lower abdominal wall necrotizing fasciitis Anesthesia: GUILLEA Surgeon: CASSI GONZALEZ Estimated blood loss: other (25cc) Pathology: list (wound cultures) Specimen disposition: to lab Condition: stable Disposition: PACU
--- NOTE | 2019-05-28 18:37 | Event Note ---
Date: 05/28/19 Patient 34-year-old presented with extensive abdominal wall cellulitis and abscess. Patient started on Zosyn and vancomycin. Hospital course complicated by uncontrolled diabetes. We'll #1 continue aggressive treatment of diabetes will most likely need increased doses of insulin and sliding scale. Patient evaluated by surgery found to have possible necrotizing fasciitis and was taken to the OR.
[2019-05-28] MEDS ORDERED: LANTUS SUB-Q SCH (22:00)
[2019-05-29] MEDS: TORADOL IV SCH ×4 (00:05→17:30)
[2019-05-29] MEDS: VANCOMYCIN 2,000 MG in NACL 0.9% 500 ML 500 ML IV SCH ×3 (00:06→23:55)
[2019-05-29] MEDS: ZOSYN/NS 4.5GM/100ML 4.5 GM/100 ML VIAL IV SCH ×3 (05:21→19:24)
[2019-05-29] MEDS: PERCOCET 5/325 PO PRN (05:27)
[2019-05-29 06:44] LABS: Hematocrit 32.3 % (35.5-45.6); Hemoglobin 10.9 gm/dl (11.8-15.2); Mean Corpuscular HGB Conc 34 % (32-34); Mean Corpuscular Volume 89 fl (84-94); Platelet Count 249 K/mm3 (140-440); Red Blood Count 3.63 M/mm3 (3.65-5.03)
[2019-05-29 07:41] LABS: Basophils % (Manual) 0 % (0.0-1.8); Total Cells Counted 100
[2019-05-29 07:42] LABS: Anisocytosis 1+; Platelet Estimate Consistent w Auto
[2019-05-29] MEDS: HEPARIN SUB-Q SCH ×2 (10:33→21:56)
[2019-05-29] MEDS: HumuLIN R SUB-Q SCH ×4 (10:36→21:57)
--- NOTE | 2019-05-29 10:47 | Progress Note ---
Assessment and Plan 34 yo M s/p excisional debridement of lower abdominal wall necrotizing fasciitis, POD 1 Plan: 1. IV abx 2. ID consult 3. follow up OR cultures 4. prn pain control 5. wound care consult - wounds seen with pewter caster - will apply wound vac to both open wounds and alginate dressing to superficial wounds 6. strict glucose control 7. diabetic diet 8. discussed with case management - will need wound vac, wound care clinic follow up on discharge Thank you, please call with questions Subjective Date of service: 05/29/19 Narrative: Pt seen and examined. Afebrile since surgery. No n/v. Pain is controlled. Objective Vital Signs - 12hr 05/28/19 05/29/19 05/29/19 23:11 00:05 03:27 Temperature 98.8 F 99.3 F Pulse Rate 87 93 H Respiratory 18 20 20 Rate Blood Pressure 154/75 153/90 O2 Sat by Pulse 100 93 Oximetry 05/29/19 05/29/19 05/29/19 04:00 05:27 09:26 Temperature 98.5 F Pulse Rate 93 H 100 H Respiratory 20 24 Rate Blood Pressure 127/75 O2 Sat by Pulse 95 Oximetry - General physical appearance Narrative Exam: Gen; AAOx3. NAD CV: s1, S2+ resp: even and unlabored Abd: soft, obese, ND. Mild TTP near sites of wound in lower abdomen. + erythema, induration. Partial thickness wounds along left lower abdominal wall at site of blisters. Slough at wound base. Open wounds - packing removed. Wounds clean without odor or drainage. Ext: no c/c/e - Labs 05/29/19 05:24 05/27/19 21:55 Diabetes panel 05/29/19 Range/Units 05:22 Hemoglobin A1c 17.1 H (4-6) %
[2019-05-29] MEDS ORDERED: DILAUDID IV ONE (11:00)
[2019-05-29] MEDS ORDERED: ALUM-MAG HYDROX-SIMETH 200-200-20MG/5ML PO ONE (11:11)
--- NOTE | 2019-05-29 13:38 | Consultation ---
History of Present Illness - Reason for Consult Consult date: 05/29/19 Nec fasciitis, abdominal wall abscess Requesting physician: CASSI GONZALEZ - History of Present Illness The patient is a 34-year-old male with morbid obesity, diabetes mellitus, prior skin infections requiring I&D presented to the emergency room a week prior with lower left abdominal wall cellulitis and abscess. He was given oral Bactrim and discharged. He returned to the emergency room and 05/27/2019 with worsening and no response to antibiotics. CT findings were concerning for cellulitis as well as some. General surgery was consulted and on 05/28/2019, patient was taken to the OR, underwent abscess drainage as well as debridement. OR findings showed large abscess cavities with necrotic tissue extending down to the level of the fascia. Infectious diseases was consulted for antibiotic recommendations. Patient otherwise denies any fever or chills. MAXIMUM TEMPERATURE on admission was 101.5. Afebrile today. Complains of abdominal pain on the left lower side especially when the medication wears off. Denies any antibiotic allergies. Review of Systems: General: no fevers,chills or rigors at present. Fever on admission. HEENT: no new visual disturbance Respiratory: No cough, sputum, hemoptysis or shortness of breath Cardiovascular: No chest pain, syncope Gastrointestinal: No nausea, vomiting or diarrhea Genitourinary: No dysuria or hematuria Musculoskeletal: No new or worsening neck pain or back pain Neurologic: No headaches, seizures Hematologic: No easy bruising or bleeding Endocrine: No night sweats or acute weight loss Skin: negative for rash, jaundice Psychiatric: No suicidal or homicidal ideation Past History Past Medical History: diabetes, other (obesity) Past Surgical History: No surgical history Social history: smoking (1 pack per week) Family history: no significant family history Medications and Allergies Allergies Allergy/AdvReac Type Severity Reaction Status Date / Time No Known Allergies Allergy Verified 05/27/19 22:21 Home Medications Medication Instructions Recorded Confirmed Last Taken Type No Known Home Medications [No 05/28/19 05/28/19 Unknown History Reported Home Medications] Active Meds: Active Medications Acetaminophen (Tylenol) 650 mg PO Q4H PRN PRN Reason: Fever >101 Dextrose (D50w (25gm) Syringe) 50 ml IV PRN PRN PRN Reason: Hypoglycemia Heparin Sodium (Porcine) (Heparin) 5,000 unit SUB-Q Q12HR [facility] Last Admin: 05/29/19 10:33 Dose: 5,000 unit Documented by: Vancomycin HCl 2,000 mg/ (Sodium Chloride) 540 mls @ 250 mls/hr IV Q12H [facility] Last Admin: 05/29/19 10:59 Dose: 250 mls/hr Documented by: Sodium Chloride (Nacl 0.9% 1000 Ml) 1,000 mls @ 75 mls/hr IV DIRECT [facility] Last Admin: 05/28/19 14:55 Dose: 75 mls/hr Documented by: Piperacillin Sod/Tazobactam Sod (Zosyn/Ns 4.5gm/100ml) 4.5 gm in 100 mls @ 200 mls/hr IV Q6HR [facility]; Protocol Insulin Glargine (Lantus) 25 units SUB-Q QHS [facility] Insulin Glargine (Lantus) 10 units SUB-Q QHS [facility] Insulin Human Isoph/Insulin Regular (Humulin 70/30) 30 unit SUB-Q BIDDIAB [facility] Insulin Human Regular (Humulin R) 0 units SUB-Q AC [facility]; Protocol Last Admin: 05/29/19 12:15 Dose: 8 units Documented by: Insulin Human Regular (Humulin R) 0 units SUB-Q QHS [facility]; Protocol Last Admin: 05/28/19 22:15 Dose: 8 units Documented by: Ketorolac Tromethamine (Toradol) 30 mg IV Q8H [facility] Stop: 06/02/19 16:59 Last Admin: 05/29/19 10:38 Dose: 30 mg Documented by: Morphine Sulfate (Morphine) 2 mg IV Q3H PRN PRN Reason: Pain , Severe (7-10) Last Admin: 05/28/19 06:36 Dose: 2 mg Documented by: Ondansetron HCl (Zofran) 4 mg IV Q8H PRN PRN Reason: Nausea And Vomiting Ondansetron HCl (Zofran) 4 mg IV ONCE PRN PRN Reason: Nausea And Vomiting Oxycodone/Acetaminophen (Percocet 5/325) 2 tab PO Q4H PRN PRN Reason: Pain, Moderate (4-6) Last Admin: 05/29/19 05:27 Dose: 2 tab Documented by: Physical Examination - Physical Exam Narrative exam: Physical Exam: Constitutional: Alert, cooperative. No acute distress. morbidly obese Head, Ears, Nose: Normocephalic, atraumatic. External ears, nose normal Eyes: Conjunctivae/corneas clear. No icterus. No ptosis. Neck: Supple, no meningeal signs Oral: dentition fair, no thrush Cardiovascular: S1, S2 normal. Respiratory: Good air entry, clear to auscultation bilaterally GI: Soft; bowel sounds normal. No peritoneal signs. LLQ abdominal wall with woundVAC, edema and tenderness Musculoskeletal: No pedal edema, no cyanosis. Morbidly obese Skin: No rash. Dry skin. Hem/Lymphatic: No palpable cervical or supraclavicular nodes. No lymphangitis Psych: Mood ok. Affect normal Neurological: Awake, alert, oriented. No gross abnormality - Constitutional Vitals: Vital Signs Temp Pulse Resp BP Pulse Ox 98.5 F 100 H 24 127/75 95 05/29/19 09:26 05/29/19 09:26 05/29/19 09:26 05/29/19 09:26 05/29/19 09:26 Temperature -Last 24 Hours Temperature 98.5 F Temperature 99.3 F Temperature 98.8 F Temperature 97.5 F Temperature 97.6 F Temperature 97.4 F Temperature 100.4 F Temperature 100.4 F Results - Labs CBC & Chem 7: 05/29/19 05:24 05/27/19 21:55 Labs: Abnormal lab results 05/28/19 05/28/19 05/28/19 Range/Units 14:59 16:46 20:57 RBC (3.65-5.03) M/mm3 Hgb (11.8-15.2) gm/dl Hct (35.5-45.6) % Seg Neuts % (Manual) (40.0-70.0) % Monocytes % (Manual) (0.0-7.3) % POC Glucose 376 H 221 H 403 H (70-105) Hemoglobin A1c (4-6) % 05/29/19 05/29/19 05/29/19 Range/Units 05:22 05:24 07:46 RBC 3.63 L (3.65-5.03) M/mm3 Hgb 10.9 L (11.8-15.2) gm/dl Hct 32.3 L D (35.5-45.6) % Seg Neuts % (Manual) 73.0 H (40.0-70.0) % Monocytes % (Manual) 10.0 H (0.0-7.3) % POC Glucose 294 H (70-105) Hemoglobin A1c 17.1 H (4-6) % 05/29/19 Range/Units 11:57 RBC (3.65-5.03) M/mm3 Hgb (11.8-15.2) gm/dl Hct (35.5-45.6) % Seg Neuts % (Manual) (40.0-70.0) % Monocytes % (Manual) (0.0-7.3) % POC Glucose 389 H (70-105) Hemoglobin A1c (4-6) % - Imaging and Cardiology CT scan - abdomen: report reviewed, image reviewed (LLQ abdominal wall cellulitis with gas.) Assessment and Plan Cultures: 05/27/2019 blood culture: No growth 05/28/2019 OR culture: In process. Gram stain showing gram-positive cocci in pairs and Gram variable rods. A/P: 34-year-old male with morbid obesity, diabetes mellitus, prior skin infections requiring I&D, admitted with: 1) Sepsis secondary to left lower abdominal wall abscess with necrotizing fasciitis: s/p OR on 05/28/2019, findings showed 2 large abscess cavities with necrotic tissue extending down to the level of the fascia. Failed Bactrim as outpatient. ?beta-hemolytic Strep infection. 2) Morbid obesity: dose abx accordingly. 3) Diabetes mellitus type 2, uncontrolled: recommend tight control. HbA1c 17.1. Recs: increased Zosyn dose to 4.5 gm q6 hrs given morbid obesity continue IV Vancomycin, target trough: 10-20 mcg/ml monitor creatinine continue wound care follow up OR culture Will follow along. Pricilla Oakley MD, FACP [facility] ([facility] C: [phone] O: [phone] F: [phone]
[2019-05-29] MEDS: MORPHINE IV PRN (15:42)
--- NOTE | 2019-05-29 18:35 | Progress Note ---
Assessment and Plan - Patient Problems (1) Abdominal wall cellulitis Current Visit: Yes Status: Acute Plan to address problem: Abdominal wall cellulitis turned into necrotizing fasciitis with gas. Patient status post surgical correction. Treat with Rocephin and vancomycin and aggressive local wound treatment. May need PICC line with IV antibiotics. (2) Diabetes mellitus type 1, uncontrolled Current Visit: Yes Status: Acute Plan to address problem: Patient has extremely uncontrolled diabetes noncompliant. Hemoglobin A1c was 17. We'll add insulin 70 3030 units twice a day and titrate accordingly. We'll give him some short acting and long-acting insulin. (3) Necrotizing fasciitis Current Visit: Yes Status: Acute Plan to address problem: Status post surgical debridement. Pain fairly well controlled. History Interval history: A shunt resting comfortably. After surgery. Pain relatively well controlled. Patient blood sugar was very high. Long discussion about patient vision to go home. Understands that he has to stay. Hospitalist Physical - Constitutional Vitals: Temp Pulse Resp BP Pulse Ox 98.2 F 89 22 126/69 97 05/29/19 13:36 05/29/19 13:36 05/29/19 13:36 05/29/19 13:36 05/29/19 13:36 General appearance: Present: no acute distress - EENT Eyes: Present: PERRL, EOM intact ENT: hearing intact, clear oral mucosa, dentition normal, no oropharyngeal erythema, no poor dentition, no thrush - Neck Neck: Absent: supple, normal ROM, enlarged thyroid, masses or JVD, cervical LAD - Respiratory Respiratory: bilateral: CTA - Cardiovascular Rhythm: regular Heart Sounds: Present: S1 & S2 - Extremities Extremities: no ischemia, pulses intact, pulses symmetrical, Full ROM Extremity abnormal: edema, erythema Peripheral Pulses: within normal limits - Abdominal General gastrointestinal: soft, tender, normal bowel sounds, absent bowel sounds, other (she has extensive cellulitis now bandaged with small amount of serosanguineous drainage.), no hepatomegaly, no splenomegaly - Integumentary Integumentary: Present: clear, warm, dry - Psychiatric Psychiatric: appropriate mood/affect, intact judgment & insight, memory intact - Neurologic Neurologic: CNII-XII intact, no focal deficits, moves all extremities Results - Labs CBC & Chem 7: 05/29/19 05:24 05/27/19 21:55 Labs: Laboratory Last Values WBC 8.2 K/mm3 (4.5-11.0) 05/29/19 05:24 RBC 3.63 M/mm3 (3.65-5.03) L 05/29/19 05:24 Hgb 10.9 gm/dl (11.8-15.2) L 05/29/19 05:24 Hct 32.3 % (35.5-45.6) L D 05/29/19 05:24 MCV 89 fl (84-94) 05/29/19 05:24 MCH 30 pg (28-32) 05/29/19 05:24 MCHC 34 % (32-34) 05/29/19 05:24 RDW 15.0 % (13.2-15.2) 05/29/19 05:24 Plt Count 249 K/mm3 (140-440) 05/29/19 05:24 Add Manual Diff Complete 05/29/19 05:24 Total Counted 100 05/29/19 05:24 Seg Neuts % (Manual) 73.0 % (40.0-70.0) H 05/29/19 05:24 0 % 05/29/19 05:24 15.0 % (13.4-35.0) 05/29/19 05:24 Reactive Lymphs % (Man) 1.0 % 05/29/19 05:24 10.0 % (0.0-7.3) H 05/29/19 05:24 1.0 % (0.0-4.3) 05/29/19 05:24 0 % (0.0-1.8) 05/29/19 05:24 0 % 05/29/19 05:24 0 % 05/29/19 05:24 0 % 05/29/19 05:24 0 % 05/29/19 05:24 Nucleated RBC % Not Reportable 05/29/19 05:24 Seg Neutrophils # Man 6.0 K/mm3 (1.8-7.7) 05/29/19 05:24 Band Neutrophils # 0.0 K/mm3 05/29/19 05:24 1.2 K/mm3 (1.2-5.4) 05/29/19 05:24 Abs React Lymphs (Man) 0.1 K/mm3 05/29/19 05:24 0.8 K/mm3 (0.0-0.8) 05/29/19 05:24 0.1 K/mm3 (0.0-0.4) 05/29/19 05:24 0.0 K/mm3 (0.0-0.1) 05/29/19 05:24 0.0 K/mm3 05/29/19 05:24 0.0 K/mm3 05/29/19 05:24 0.0 K/mm3 05/29/19 05:24 Blast Cells # 0.0 K/mm3 05/29/19 05:24 WBC Morphology Not Reportable 05/29/19 05:24 Hypersegmented Neuts Not Reportable 05/29/19 05:24 Hyposegmented Neuts Not Reportable 05/29/19 05:24 Hypogranular Neuts Not Reportable 05/29/19 05:24 Not Reportable 05/29/19 05:24 Not Reportable 05/29/19 05:24 Not Reportable 05/29/19 05:24 Not Reportable 05/29/19 05:24 Not Reportable 05/29/19 05:24 Not Reportable 05/29/19 05:24 Consistent w auto 05/29/19 05:24 Not Reportable 05/29/19 05:24 Plt Clumps, EDTA Not Reportable 05/29/19 05:24 Not Reportable 05/29/19 05:24 Not Reportable 05/29/19 05:24 Not Reportable 05/29/19 05:24 Plt Morphology Comment Not Reportable 05/29/19 05:24 RBC Morphology Not Reportable 05/29/19 05:24 Dimorphic RBCs Not Reportable 05/29/19 05:24 Not Reportable 05/29/19 05:24 Not Reportable 05/29/19 05:24 Not Reportable 05/29/19 05:24 1+ 05/29/19 05:24 Not Reportable 05/29/19 05:24 Not Reportable 05/29/19 05:24 Not Reportable 05/29/19 05:24 Not Reportable 05/29/19 05:24 Not Reportable 05/29/19 05:24 Not Reportable 05/29/19 05:24 Not Reportable 05/29/19 05:24 Not Reportable 05/29/19 05:24 Not Reportable 05/29/19 05:24 Not Reportable 05/29/19 05:24 Not Reportable 05/29/19 05:24 Not Reportable 05/29/19 05:24 Not Reportable 05/29/19 05:24 Not Reportable 05/29/19 05:24 Not Reportable 05/29/19 05:24 Acanthocytes (Spur) Not Reportable 05/29/19 05:24 Rouleaux Not Reportable 05/29/19 05:24 Not Reportable 05/29/19 05:24 Not Reportable 05/29/19 05:24 Not Reportable 05/29/19 05:24 Not Reportable 05/29/19 05:24 Hem Pathologist Commnt No 05/29/19 05:24 Sodium 131 mmol/L (137-145) L 05/27/19 21:55 Potassium 4.3 mmol/L (3.6-5.0) 05/27/19 21:55 Chloride 95.1 mmol/L (98-107) L 05/27/19 21:55 Carbon Dioxide 18 mmol/L (22-30) L 05/27/19 21:55 22 mmol/L 05/27/19 21:55 BUN 12 mg/dL (9-20) 05/27/19 21:55 0.9 mg/dL (0.8-1.5) 05/27/19 21:55 Estimated GFR > 60 ml/min 05/27/19 21:55 13 % 05/27/19 21:55 Glucose 480 mg/dL (75-100) H 05/27/19 21:55 POC Glucose 362 (70-105) H 05/29/19 16:38 17.1 % (4-6) H 05/29/19 05:22 Lactic Acid 0.80 mmol/L (0.7-2.0) 05/28/19 00:27 Calcium 9.7 mg/dL (8.4-10.2) 05/27/19 21:55 0.30 mg/dL (0.1-1.2) 05/27/19 21:55 AST 43 units/L (5-40) H 05/27/19 21:55 ALT 48 units/L (7-56) 05/27/19 21:55 163 units/L (35-129) H 05/27/19 21:55 7.9 g/dL (6.3-8.2) 05/27/19 21:55 2.7 g/dL (3.9-5) L 05/27/19 21:55 0.5 % 05/27/19 21:55 Yellow (Yellow) 05/27/19 23:33 Clear (Clear) 05/27/19 23:33 6.0 (5.0-7.0) 05/27/19 23:33 Ur Specific [place] 1.030 (1.003-1.030) 05/27/19 23:33 30 mg/dl mg/dL (Negative) 05/27/19 23:33 >=500 mg/dL (Negative) 05/27/19 23:33 20 mg/dL (Negative) 05/27/19 23:33 Neg (Negative) 05/27/19 23:33 Neg (Negative) 05/27/19 23:33 Neg (Negative) 05/27/19 23:33 2.0 mg/dL (<2.0) 05/27/19 23:33 Ur Leukocyte Esterase Neg (Negative) 05/27/19 23:33 < 1.0 /HPF (0.0-6.0) 05/27/19 23:33 < 1.0 /HPF (0.0-6.0) 05/27/19 23:33 U Epithel Cells (Auto) 3.0 /HPF (0-13.0) 05/27/19 23:33 Vancomycin Trough 8.4 ug/mL (5.0-20.0) 05/29/19 11:02 Active Medications - Current Medications Current Medications: Generic Name Dose Route Start Last Admin Trade Name Freq PRN Reason Stop Dose Admin Acetaminophen 650 mg 05/28/19 02:10 Tylenol PO Q4H PRN Fever >101 Dextrose 50 ml 05/28/19 02:13 D50w (25gm) Syringe IV PRN PRN Hypoglycemia Heparin Sodium (Porcine) 5,000 unit 05/28/19 10:00 05/29/19 10:33 Heparin SUB-Q 5,000 unit Q12HR LIBERTAD Administration Vancomycin HCl 2,000 mg/ 540 mls @ 250 mls/hr 05/28/19 12:00 05/29/19 10:59 Sodium Chloride IV 250 mls/hr Q12H LIBERTAD Administration Sodium Chloride 1,000 mls @ 75 mls/hr 05/28/19 16:00 05/28/19 14:55 Nacl 0.9% 1000 Ml IV 75 mls/hr DIRECT LIBERTAD Administration Piperacillin Sod/Tazobactam Sod 4.5 gm in 100 mls @ 200 mls/hr 05/29/19 14:00 05/29/19 15:44 Zosyn/Ns 4.5gm/100ml IV 200 mls/hr Q6HR LIBERTAD Administration Protocol Insulin Glargine 10 units 05/29/19 22:00 Lantus SUB-Q QHS LIBERTAD Insulin Human Isoph/Insulin Regular 30 unit 05/29/19 17:00 05/29/19 17:33 Humulin 70/30 SUB-Q 30 unit BIDDIAB LIBERTAD Administration Insulin Human Regular 0 units 05/28/19 07:30 05/29/19 17:33 Humulin R SUB-Q 8 units AC LIBERTAD Administration Protocol Insulin Human Regular 0 units 05/28/19 22:00 05/28/19 22:15 Humulin R SUB-Q 8 units QHS LIBERTAD Administration Protocol Ketorolac Tromethamine 30 mg 05/28/19 17:00 05/29/19 17:30 Toradol IV 06/02/19 16:59 30 mg Q8H LIBERTAD Administration Morphine Sulfate 2 mg 05/28/19 02:09 05/29/19 15:42 Morphine IV 2 mg Q3H PRN Administration Pain , Severe (7-10) Ondansetron HCl 4 mg 05/28/19 02:10 Zofran IV Q8H PRN Nausea And Vomiting Ondansetron HCl 4 mg 05/28/19 14:08 Zofran IV ONCE PRN Nausea And Vomiting Oxycodone/Acetaminophen 2 tab 05/28/19 16:20 05/29/19 05:27 Percocet 5/325 PO 2 tab Q4H PRN Administration Pain, Moderate (4-6) Nutrition/Malnutrition Assess - Dietary Evaluation Nutrition/Malnutrition Findings: Nutrition Notes Start: 05/28/19 13:42 Freq: Status: Active Protocol: Document 05/28/19 13:42 LANEY (Rec: 05/28/19 13:50 LANEY [email or web address]) Nutrition Notes Need for Assessment generated from: residential support worker,MST Initial or Follow up Brief Note Current Diagnosis Diabetes,Sepsis Other Pertinent Diagnosis Cellulitis of anterior abdominal wall with small abscess Current Diet Consistent CHO Labs/Tests BG 480 Na 131 Pertinent Medications Reviewed Height 6 ft 1 in Weight 151.2 kg [place] Body Weight (kg) 83.63 BMI 43.9 Intake Prior to Admission Fair Weight Status Morbidly Obese Subjective/Other Information Pt screened for malnutrition risk. He was diagnosed with DM 10 yrs ago; says he checks BS 2-3 times daily and takes insulin as prescribed. He does admit to overconsumption of CHO-rich foods. Very receptive to review of CHO- controlled diet principles and A1C. 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 Burn Absent Trauma Absent #1 Nutrition Diagnosis Limited adherence to nutrition -related recommendations Etiology knowledge deficit As Evidenced by Signs and Symptoms pt admission of the need to review DM diet principles and unaware of the relationship between wound healing and BS levels Nutrition Intervention Teaching Recipient Patient Learning Readiness Good Teaching Methods Discussion,Handout Response to Teaching Verbalize understanding Education Handouts Provided Hemoglobin A1C and Blood Sugar Control Carbohydrate Counting for People with Diabetes (Food Sources of Carbohydrates) Barriers to Learning No Barriers RD phone number provided Yes Patient aware of follow up options Yes Goal #1 Improved BS control Goal #2 Adherence to CHO-controlled diet Anticipated Discharge Needs: CHO-controlled diet Revisit per MD consult or patient Sign Off request:
--- NOTE | 2019-05-29 20:40 | Operative Report ---
PREOPERATIVE DIAGNOSIS: Necrotizing fasciitis of the lower abdominal wall. POSTOPERATIVE DIAGNOSIS: Necrotizing fasciitis of the lower abdominal wall. FINDINGS: Two large abscess cavities with necrotic tissue extending to the fascia, #1 medial lower abdominal wall wound measured 2.2 cm x 2.5 cm x 1.2 cm with 11 cm tunneling towards 2 o'clock position. A #2 lateral left lower abdominal wall wound 4.5 cm x 8 cm x 4.5 cm with tunneling towards the 2, 3 and 7 o'clock positions. PROCEDURE: Excisional debridement of lower abdominal wall necrotizing fasciitis. ANESTHESIA: General endotracheal anesthesia. SURGEON: Lakshmi Acharya DO ESTIMATED BLOOD LOSS: 25 mL. PATHOLOGY: Wound culture specimen. DISPOSITION: To lab. CONDITION AND DISPOSITION: The patient is stable to PACU. HISTORY OF PRESENT ILLNESS AND INDICATION: The patient is a 34-year-old male with uncontrolled diabetes, who presented to the hospital with complaints of worsening left lower abdominal cellulitis and pain. He was found to have an elevated white blood cell count and was continuing to have fevers. On physical exam, he was found to have a severe cellulitis of the lower abdominal wall on the left hand side with blistering as well as what appeared to be ischemia of portions of the skin and grayish drainage. Based on the physical exam, this was consistent with necrotizing fasciitis. The need for surgical debridement was explained to the patient and all questions answered. Consent was obtained. PROCEDURE IN DETAIL: The patient was identified in the preoperative area, taken back to the operating room and placed on the operating table in supine position. After anesthesia was induced, the abdomen was prepped and draped in the usual sterile fashion. Timeout was performed. I first started with the wound in the medial aspect of the lower abdominal wall. There were 2 open wounds here, which were draining purulent fluid. The skin bridge between the 2 wounds was excised using a #10 blade and the necrotic subcutaneous tissue was debrided using a combination of forceps electrocautery and scissors. The cavity was probed bluntly with a gloved finger until all loculations were broken up. The cavity tunneled to the 2 o'clock position, approximately 11 cm. All the purulent material was expressed. Hemostasis was achieved using electrocautery and pressure. I then turned my attention to the left lateral lower abdominal wall wound. The necrotic skin was excised using a #10 blade. Deep to the necrotic skin, there was a large cavity consisting of necrotic subcutaneous tissue extending to the fascia. This was debrided sharply using a combination of forceps, scissors and electrocautery. There were multiple abscess cavities tunneling to the 2, 3 and 7 o'clock position. The tunnels were extensive and could not be measured. There was a copious amount of purulent fluid. The wound was cultured. Once all loculations were broken up bluntly and all purulent material expressed and necrotic tissue excised, both wounds were irrigated with Pulsavac irrigation. Hemostasis was carefully ensured with electrocautery and pressure. Once hemostasis was ensured, the wounds were packed with a piece of saline moistened Kerlix, one in each wound. Wounds were covered with dry 4 x 4s, fluff gauze, ABD pads and Medipore tape. At the end of the case, all sponge, instrument, sharp counts were correct x 2. The patient was awoken from anesthesia, extubated, and taken to PACU in stable condition. JOB# [id number] TESSIE/DIANA
[2019-05-29] MEDS: LANTUS SUB-Q SCH (21:55)
[2019-05-29] MEDS ORDERED: LANTUS SUB-Q SCH (22:00)
[2019-05-30] MEDS: TORADOL IV SCH ×3 (00:01→17:01)
[2019-05-30] MEDS: ZOSYN/NS 4.5GM/100ML 4.5 GM/100 ML VIAL IV SCH ×4 (00:02→17:32)
[2019-05-30] MEDS: MORPHINE IV PRN ×2 (05:26→20:23)
[2019-05-30] MEDS: HumuLIN R SUB-Q SCH ×4 (09:10→21:48)
[2019-05-30] MEDS: HEPARIN SUB-Q SCH ×2 (09:19→21:46)
[2019-05-30] MEDS: NACL 0.9% 1000 ML 1,000 ML IV SCH (10:07)
--- NOTE | 2019-05-30 10:44 | Progress Note ---
Assessment and Plan Cultures: 05/27/2019 blood culture: No growth 05/28/2019 OR culture: In process. Gram stain showing gram-positive cocci in pairs and Gram variable rods. A/P: 34-year-old male with morbid obesity, diabetes mellitus, prior skin infections requiring I&D, admitted with: 1) Sepsis Improved, secondary to left lower abdominal wall abscess with necrotizing fasciitis: s/p OR on 05/28/2019, findings showed 2 large abscess cavities with necrotic tissue extending down to the level of the fascia. Failed Bactrim as outpatient. ?beta-hemolytic Strep infection. 2) Morbid obesity: dose abx accordingly. 3) Diabetes mellitus type 2, uncontrolled: recommend tight control. HbA1c 17.1. Recs: increased Zosyn dose to 4.5 gm q6 hrs given morbid obesity continue IV Vancomycin, target trough: 10-20 mcg/ml monitor creatinine continue wound care follow up OR culture Anticipate discharge on PO antibiotics NADIA [facility] M: [id number] O:[phone] Subjective Date of service: 05/30/19 Interval history: Patient seen and examined. Asleep, no acute distress reported. No fevers. Objective - Exam Narrative Exam: Constitutional: Asleep. Easy to arouse. No acute distress. morbidly obese Head, Ears, Nose: Normocephalic, atraumatic. External ears, nose normal Eyes: Conjunctivae/corneas clear. No icterus. No ptosis. Neck: Supple, no meningeal signs Oral: dentition fair, no thrush Cardiovascular: S1, S2 normal. Respiratory: Good air entry, clear to auscultation bilaterally GI: Soft; bowel sounds normal. No peritoneal signs. LLQ abdominal wall with woundVAC, edema and tenderness Musculoskeletal: No pedal edema, no cyanosis. Morbidly obese Skin: No rash. Dry skin. Hem/Lymphatic: No palpable cervical or supraclavicular nodes. No lymphangitis Psych: Mood ok. Affect normal Neurological: Asleep, easy to arouse. No gross abnormality - Constitutional Vitals: Vital Signs Temp Pulse Resp BP Pulse Ox 99.0 F 93 H 16 150/92 100 05/30/19 08:26 05/30/19 08:26 05/30/19 09:10 05/30/19 08:26 05/30/19 08:26 Temperature -Last 24 Hours Temperature 99.0 F Temperature 98.0 F Temperature 98.0 F Temperature 98.9 F Temperature 98.2 F Temperature 98.2 F - Labs CBC & Chem 7: 05/30/19 12:18 05/30/19 12:18 Labs: Abnormal lab results 05/29/19 05/29/19 05/29/19 Range/Units 11:57 16:38 20:40 POC Glucose 389 H 362 H 322 H (70-105) 05/30/19 Range/Units 07:32 POC Glucose 221 H (70-105)
[2019-05-30 12:36] LABS: Basophils % (Auto) 0.5 % (0.0-1.8); Eosinophils # (Auto) 0.1 K/mm3 (0.0-0.4); Eosinophils % (Auto) 1.4 % (0.0-4.3); Hematocrit 32.8 % (35.5-45.6); Lymphocytes # (Auto) 1.4 K/mm3 (1.2-5.4); Lymphocytes % (Auto) 19.4 % (13.4-35.0); Mean Corpuscular HGB Conc 33 % (32-34); Mean Corpuscular Volume 90 fl (84-94); Monocytes # (Auto) 0.8 K/mm3 (0.0-0.8); Monocytes % (Auto) 10.8 % (0.0-7.3); Platelet Count 281 K/mm3 (140-440); Red Blood Count 3.66 M/mm3 (3.65-5.03); Red Cell Distribution Width 15.2 % (13.2-15.2)
[2019-05-30 12:54] LABS: Calcium 8.3 mg/dL (8.4-10.2)
--- NOTE | 2019-05-30 13:27 | Progress Note ---
Assessment and Plan - Patient Problems (1) Abdominal wall cellulitis Current Visit: Yes Status: Acute Plan to address problem: Abdominal wall cellulitis turned into necrotizing fasciitis with gas. Patient status post surgical correction. Patient responding to surgical correction. Still has drain. Antibiotics changed to by mouth today. Will need to be observed over the weekend for necrotizing fasciitis. (2) Diabetes mellitus type 1, uncontrolled Current Visit: Yes Status: Acute Plan to address problem: PICC line necessary. Remains suboptimally controlled. We'll increase long- acting insulin to 35 twice a day. (3) Necrotizing fasciitis Current Visit: Yes Status: Acute Plan to address problem: Status post surgical debridement. Pain fairly well controlled. (4) Morbid obesity Current Visit: Yes Status: Acute Plan to address problem: Encourage decreased caloric intake and increase exercise. History Interval history: Patient doing well pain is controlled. Change to by mouth antibiotics today. Surgery watch patient over the weekend. Hospitalist Physical - Constitutional Vitals: Temp Pulse Resp BP Pulse Ox 99.0 F 94 H 16 150/92 100 05/30/19 08:26 05/30/19 11:37 05/30/19 09:40 05/30/19 08:26 05/30/19 08:26 General appearance: Present: no acute distress - EENT Eyes: Present: PERRL, EOM intact ENT: hearing intact, clear oral mucosa, dentition normal - Neck Neck: Present: supple, normal ROM. Absent: enlarged thyroid, masses or JVD, cervical LAD - Respiratory Respiratory effort: normal Respiratory: bilateral: CTA - Cardiovascular Rhythm: regular - Extremities Extremities: no ischemia, pulses intact, pulses symmetrical, No edema, normal temperature, normal color Peripheral Pulses: within normal limits - Abdominal General gastrointestinal: tender, non-distended, normal bowel sounds, other (patient has drain at the abdominal area serosanguineous drainage.) - Integumentary Integumentary: Present: clear - Psychiatric Psychiatric: appropriate mood/affect, intact judgment & insight - Neurologic Neurologic: CNII-XII intact, focal deficits, moves all extremities Results - Labs CBC & Chem 7: 05/30/19 12:18 05/30/19 12:18 Labs: Laboratory Last Values WBC 7.2 K/mm3 (4.5-11.0) 05/30/19 12:18 RBC 3.66 M/mm3 (3.65-5.03) 05/30/19 12:18 Hgb 11.0 gm/dl (11.8-15.2) L 05/30/19 12:18 Hct 32.8 % (35.5-45.6) L 05/30/19 12:18 MCV 90 fl (84-94) 05/30/19 12:18 MCH 30 pg (28-32) 05/30/19 12:18 MCHC 33 % (32-34) 05/30/19 12:18 RDW 15.2 % (13.2-15.2) 05/30/19 12:18 Plt Count 281 K/mm3 (140-440) 05/30/19 12:18 Lymph % (Auto) 19.4 % (13.4-35.0) 05/30/19 12:18 [place] % (Auto) 10.8 % (0.0-7.3) H 05/30/19 12:18 Eos % (Auto) 1.4 % (0.0-4.3) 05/30/19 12:18 Baso % (Auto) 0.5 % (0.0-1.8) 05/30/19 12:18 Lymph # 1.4 K/mm3 (1.2-5.4) 05/30/19 12:18 [place] # 0.8 K/mm3 (0.0-0.8) 05/30/19 12:18 Eos # 0.1 K/mm3 (0.0-0.4) 05/30/19 12:18 Baso # 0.0 K/mm3 (0.0-0.1) 05/30/19 12:18 Add Manual Diff Complete 05/29/19 05:24 Total Counted 100 05/29/19 05:24 Seg Neutrophils % 67.9 % (40.0-70.0) 05/30/19 12:18 Seg Neuts % (Manual) 73.0 % (40.0-70.0) H 05/29/19 05:24 0 % 05/29/19 05:24 15.0 % (13.4-35.0) 05/29/19 05:24 Reactive Lymphs % (Man) 1.0 % 05/29/19 05:24 10.0 % (0.0-7.3) H 05/29/19 05:24 1.0 % (0.0-4.3) 05/29/19 05:24 0 % (0.0-1.8) 05/29/19 05:24 0 % 05/29/19 05:24 0 % 05/29/19 05:24 0 % 05/29/19 05:24 0 % 05/29/19 05:24 Nucleated RBC % Not Reportable 05/29/19 05:24 Seg Neutrophils # 4.9 K/mm3 (1.8-7.7) 05/30/19 12:18 Seg Neutrophils # Man 6.0 K/mm3 (1.8-7.7) 05/29/19 05:24 Band Neutrophils # 0.0 K/mm3 05/29/19 05:24 1.2 K/mm3 (1.2-5.4) 05/29/19 05:24 Abs React Lymphs (Man) 0.1 K/mm3 05/29/19 05:24 0.8 K/mm3 (0.0-0.8) 05/29/19 05:24 0.1 K/mm3 (0.0-0.4) 05/29/19 05:24 0.0 K/mm3 (0.0-0.1) 05/29/19 05:24 0.0 K/mm3 05/29/19 05:24 0.0 K/mm3 05/29/19 05:24 0.0 K/mm3 05/29/19 05:24 Blast Cells # 0.0 K/mm3 05/29/19 05:24 WBC Morphology Not Reportable 05/29/19 05:24 Hypersegmented Neuts Not Reportable 05/29/19 05:24 Hyposegmented Neuts Not Reportable 05/29/19 05:24 Hypogranular Neuts Not Reportable 05/29/19 05:24 Not Reportable 05/29/19 05:24 Not Reportable 05/29/19 05:24 Not Reportable 05/29/19 05:24 Not Reportable 05/29/19 05:24 Not Reportable 05/29/19 05:24 Not Reportable 05/29/19 05:24 Consistent w auto 05/29/19 05:24 Not Reportable 05/29/19 05:24 Plt Clumps, EDTA Not Reportable 05/29/19 05:24 Not Reportable 05/29/19 05:24 Not Reportable 05/29/19 05:24 Not Reportable 05/29/19 05:24 Plt Morphology Comment Not Reportable 05/29/19 05:24 RBC Morphology Not Reportable 05/29/19 05:24 Dimorphic RBCs Not Reportable 05/29/19 05:24 Not Reportable 05/29/19 05:24 Not Reportable 05/29/19 05:24 Not Reportable 05/29/19 05:24 1+ 05/29/19 05:24 Not Reportable 05/29/19 05:24 Not Reportable 05/29/19 05:24 Not Reportable 05/29/19 05:24 Not Reportable 05/29/19 05:24 Not Reportable 05/29/19 05:24 Not Reportable 05/29/19 05:24 Not Reportable 05/29/19 05:24 Not Reportable 05/29/19 05:24 Not Reportable 05/29/19 05:24 Not Reportable 05/29/19 05:24 Not Reportable 05/29/19 05:24 Not Reportable 05/29/19 05:24 Not Reportable 05/29/19 05:24 Not Reportable 05/29/19 05:24 Not Reportable 05/29/19 05:24 Acanthocytes (Spur) Not Reportable 05/29/19 05:24 Rouleaux Not Reportable 05/29/19 05:24 Not Reportable 05/29/19 05:24 Not Reportable 05/29/19 05:24 Not Reportable 05/29/19 05:24 Not Reportable 05/29/19 05:24 Hem Pathologist Commnt No 05/29/19 05:24 Sodium 135 mmol/L (137-145) L 05/30/19 12:18 Potassium 4.2 mmol/L (3.6-5.0) 05/30/19 12:18 Chloride 103.5 mmol/L (98-107) 05/30/19 12:18 Carbon Dioxide 22 mmol/L (22-30) 05/30/19 12:18 14 mmol/L 05/30/19 12:18 BUN 10 mg/dL (9-20) 05/30/19 12:18 1.7 mg/dL (0.8-1.5) H D 05/30/19 12:18 Estimated GFR 57 ml/min 05/30/19 12:18 6 % 05/30/19 12:18 Glucose 364 mg/dL (75-100) H 05/30/19 12:18 POC Glucose 337 (70-105) H 05/30/19 11:52 17.1 % (4-6) H 05/29/19 05:22 Lactic Acid 0.80 mmol/L (0.7-2.0) 05/28/19 00:27 Calcium 8.3 mg/dL (8.4-10.2) L 05/30/19 12:18 0.30 mg/dL (0.1-1.2) 05/27/19 21:55 AST 43 units/L (5-40) H 05/27/19 21:55 ALT 48 units/L (7-56) 05/27/19 21:55 163 units/L (35-129) H 05/27/19 21:55 7.9 g/dL (6.3-8.2) 05/27/19 21:55 2.7 g/dL (3.9-5) L 05/27/19 21:55 0.5 % 05/27/19 21:55 Yellow (Yellow) 05/27/19 23:33 Clear (Clear) 05/27/19 23:33 6.0 (5.0-7.0) 05/27/19 23:33 Ur Specific [place] 1.030 (1.003-1.030) 05/27/19 23:33 30 mg/dl mg/dL (Negative) 05/27/19 23:33 >=500 mg/dL (Negative) 05/27/19 23:33 20 mg/dL (Negative) 05/27/19 23:33 Neg (Negative) 05/27/19 23:33 Neg (Negative) 05/27/19 23:33 Neg (Negative) 05/27/19 23:33 2.0 mg/dL (<2.0) 05/27/19 23:33 Ur Leukocyte Esterase Neg (Negative) 05/27/19 23:33 < 1.0 /HPF (0.0-6.0) 05/27/19 23:33 < 1.0 /HPF (0.0-6.0) 05/27/19 23:33 U Epithel Cells (Auto) 3.0 /HPF (0-13.0) 05/27/19 23:33 Vancomycin Trough 8.4 ug/mL (5.0-20.0) 05/29/19 11:02 Active Medications - Current Medications Current Medications: Generic Name Dose Route Start Last Admin Trade Name Freq PRN Reason Stop Dose Admin Acetaminophen 650 mg 05/28/19 02:10 Tylenol PO Q4H PRN Fever >101 Dextrose 50 ml 05/28/19 02:13 D50w (25gm) Syringe IV PRN PRN Hypoglycemia Heparin Sodium (Porcine) 5,000 unit 05/28/19 10:00 05/30/19 09:19 Heparin SUB-Q 5,000 unit Q12HR LIBERTAD Administration Sodium Chloride 1,000 mls @ 75 mls/hr 05/28/19 16:00 05/30/19 10:07 Nacl 0.9% 1000 Ml IV 75 mls/hr DIRECT LIBERTAD Administration Piperacillin Sod/Tazobactam Sod 4.5 gm in 100 mls @ 200 mls/hr 05/29/19 14:00 05/30/19 12:05 Zosyn/Ns 4.5gm/100ml IV 200 mls/hr Q6HR LIBERTAD Administration Protocol Vancomycin HCl 1,750 mg/ 535 mls @ 333.333 mls/hr 05/30/19 14:00 Sodium Chloride IV Q8HR LIBERTAD Insulin Glargine 10 units 05/29/19 22:00 05/29/19 21:55 Lantus SUB-Q 10 units QHS LIBERTAD Administration Insulin Human Isoph/Insulin Regular 35 unit 05/30/19 17:00 Humulin 70/30 SUB-Q BIDDIAB LIBERTAD Insulin Human Regular 0 units 05/28/19 07:30 05/30/19 12:04 Humulin R SUB-Q 6 units AC LIBERTAD Administration Protocol Insulin Human Regular 0 units 05/28/19 22:00 05/29/19 21:57 Humulin R SUB-Q 6 units QHS LIBERTAD Administration Protocol Ketorolac Tromethamine 30 mg 05/28/19 17:00 05/30/19 09:10 Toradol IV 06/02/19 16:59 30 mg Q8H LIBERTAD Administration Morphine Sulfate 2 mg 05/28/19 02:09 05/30/19 05:26 Morphine IV 2 mg Q3H PRN Administration Pain , Severe (7-10) Ondansetron HCl 4 mg 05/28/19 02:10 Zofran IV Q8H PRN Nausea And Vomiting Ondansetron HCl 4 mg 05/28/19 14:08 Zofran IV ONCE PRN Nausea And Vomiting Oxycodone/Acetaminophen 2 tab 05/28/19 16:20 05/29/19 05:27 Percocet 5/325 PO 2 tab Q4H PRN Administration Pain, Moderate (4-6) Nutrition/Malnutrition Assess - Dietary Evaluation Nutrition/Malnutrition Findings: Nutrition Notes Start: 05/28/19 13:42 Freq: Status: Active Protocol: Document 05/28/19 13:42 LANEY (Rec: 05/28/19 13:50 LANEY SRW- [email or web address]) Nutrition Notes 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 He was diagnosed with DM 10 yrs ago; says he checks BS 2-3 times daily and takes insulin as prescribed. He does admit to overconsumption of CHO-rich foods. Very receptive to review of CHO- controlled diet principles and A1C. Reports poor appetite [employer] (likely sec to sepsis). Burn Absent Trauma Absent #1 Nutrition Diagnosis Limited adherence to nutrition -related recommendations Etiology knowledge deficit As Evidenced by Signs and Symptoms pt admission of the need to review DM diet principles and unaware of the relationship between wound healing and BS levels Nutrition Intervention Teaching Recipient Patient Learning Readiness Good Teaching Methods Discussion,Handout Response to Teaching Verbalize understanding Education Handouts Provided Hemoglobin A1C and Blood Sugar Control Carbohydrate Counting for People with Diabetes (Food Sources of Carbohydrates) Barriers to Learning No Barriers RD phone number provided Yes Patient aware of follow up options Yes Goal #1 Improved BS control Goal #2 Adherence to CHO-controlled diet Anticipated Discharge Needs: CHO-controlled diet Revisit per MD consult or patient Sign Off request:
[2019-05-30] MEDS: VANCOMYCIN 1,750 MG in NACL 0.9% 500 ML 500 ML IV SCH ×2 (14:05→21:49)
--- NOTE | 2019-05-30 15:54 | Progress Note ---
Assessment and Plan 34 yo M s/p excisional debridement of lower abdominal wall necrotizing fasciitis, POD 2 Plan: 1. c/w IV abx per ID 2. c/w wound vac 3. follow up OR cultures 4. prn pain control 5. strict glucose control - BS still in 200s-300s 6. NPO p MN for OR tomorrow - Purulent fluid in wound vac. Needs wound washout, possible further debridement and wound vac placement. 7. discussed with case management - will need wound vac, wound care clinic follow up on discharge Discussed plan with patient who is agreeable. Thank you, please call with questions Subjective Date of service: 05/30/19 Narrative: Pt seen and examined. No acute complaints. No f/c. Objective Vital Signs - 12hr 05/30/19 05/30/19 05/30/19 04:00 04:38 05:26 Temperature 98.0 F Pulse Rate 88 89 Respiratory 18 20 Rate Blood Pressure 140/82 O2 Sat by Pulse 97 Oximetry 05/30/19 05/30/19 05/30/19 08:26 09:10 09:40 Temperature 99.0 F Pulse Rate 93 H Respiratory 16 16 16 Rate Blood Pressure 150/92 O2 Sat by Pulse 100 Oximetry 05/30/19 11:37 Temperature Pulse Rate 94 H Respiratory Rate Blood Pressure O2 Sat by Pulse Oximetry - General physical appearance Narrative Exam: Gen; AAOx3. NAD CV; s1, S2+ resp; even and unlabored Abd: soft, NT, ND. Induration of lower abdomen mildly improved, cellulitis. Wound vac and dressings in place. No leak from wound vac. Purulent drainage in vac tubing and canister. - Labs 05/30/19 12:18 05/30/19 12:18 Diabetes panel 05/30/19 Range/Units 12:18 Sodium 135 L (137-145) mmol/L Potassium 4.2 (3.6-5.0) mmol/L Chloride 103.5 (98-107) mmol/L Carbon Dioxide 22 (22-30) mmol/L BUN 10 (9-20) mg/dL Creatinine 1.7 H D (0.8-1.5) mg/dL Glucose 364 H (75-100) mg/dL Calcium 8.3 L (8.4-10.2) mg/dL Calcium panel 05/30/19 Range/Units 12:18 Calcium 8.3 L (8.4-10.2) mg/dL Pituitary panel 05/30/19 Range/Units 12:18 Sodium 135 L (137-145) mmol/L Potassium 4.2 (3.6-5.0) mmol/L Chloride 103.5 (98-107) mmol/L Carbon Dioxide 22 (22-30) mmol/L BUN 10 (9-20) mg/dL Creatinine 1.7 H D (0.8-1.5) mg/dL Glucose 364 H (75-100) mg/dL Calcium 8.3 L (8.4-10.2) mg/dL Adrenal panel 05/30/19 Range/Units 12:18 Sodium 135 L (137-145) mmol/L Potassium 4.2 (3.6-5.0) mmol/L Chloride 103.5 (98-107) mmol/L Carbon Dioxide 22 (22-30) mmol/L BUN 10 (9-20) mg/dL Creatinine 1.7 H D (0.8-1.5) mg/dL Glucose 364 H (75-100) mg/dL Calcium 8.3 L (8.4-10.2) mg/dL
[2019-05-30] MEDS: LANTUS SUB-Q SCH (21:47)
[2019-05-31] MEDS: TORADOL IV SCH ×3 (01:05→18:30)
[2019-05-31] MEDS: ZOSYN/NS 4.5GM/100ML 4.5 GM/100 ML VIAL IV SCH ×4 (02:30→18:29)
[2019-05-31] MEDS: ZOFRAN IV PRN ×2 (03:12→18:27)
[2019-05-31] MEDS ORDERED: BACITRACIN IR SCH (06:00)
[2019-05-31] MEDS: VANCOMYCIN 1,750 MG in NACL 0.9% 500 ML 500 ML IV SCH (06:10)
--- NOTE | 2019-05-31 08:11 | Progress Note ---
Assessment and Plan Assessment and plan: Abdominal wall necrotizing fasciitis/abscess. Patient is status post excisional debridement. Surgery following. Patient will have wound washout, possible further debridement and wound vac placement today. Continue with antibiotics per ID recommendations. Continue with wound VAC and follow-up or cultures. Pain control. Sepsis. Etiology secondary to above. Continue to follow cultures as above. Antibiotics per ID. Diabetes mellitus type 2, uncontrolled. Morbid obesity. History Interval history: No new issues overnight. Patient still complains of abdominal pain. Hospitalist Physical - Constitutional Vitals: Temp Pulse Resp BP Pulse Ox 98.0 F 75 18 128/78 97 05/31/19 04:12 05/31/19 04:12 05/31/19 04:12 05/31/19 04:12 05/31/19 04:12 General appearance: Present: no acute distress - EENT Eyes: Present: PERRL, EOM intact ENT: hearing intact, clear oral mucosa, dentition normal - Neck Neck: Present: supple, normal ROM - Respiratory Respiratory effort: normal Respiratory: bilateral: CTA - Cardiovascular Rhythm: regular Heart Sounds: Present: S1 & S2. Absent: gallop, rub - Extremities Extremities: no ischemia, No edema, Full ROM - Abdominal General gastrointestinal: soft, non-tender, non-distended, normal bowel sounds - Integumentary Integumentary: Present: clear, warm, dry - Neurologic Neurologic: CNII-XII intact, moves all extremities Results - Labs CBC & Chem 7: 05/30/19 12:18 05/30/19 12:18 Labs: Laboratory Last Values WBC 7.2 K/mm3 (4.5-11.0) 05/30/19 12:18 RBC 3.66 M/mm3 (3.65-5.03) 05/30/19 12:18 Hgb 11.0 gm/dl (11.8-15.2) L 05/30/19 12:18 Hct 32.8 % (35.5-45.6) L 05/30/19 12:18 MCV 90 fl (84-94) 05/30/19 12:18 MCH 30 pg (28-32) 05/30/19 12:18 MCHC 33 % (32-34) 05/30/19 12:18 RDW 15.2 % (13.2-15.2) 05/30/19 12:18 Plt Count 281 K/mm3 (140-440) 05/30/19 12:18 Lymph % (Auto) 19.4 % (13.4-35.0) 05/30/19 12:18 [place] % (Auto) 10.8 % (0.0-7.3) H 05/30/19 12:18 Eos % (Auto) 1.4 % (0.0-4.3) 05/30/19 12:18 Baso % (Auto) 0.5 % (0.0-1.8) 05/30/19 12:18 Lymph # 1.4 K/mm3 (1.2-5.4) 05/30/19 12:18 [place] # 0.8 K/mm3 (0.0-0.8) 05/30/19 12:18 Eos # 0.1 K/mm3 (0.0-0.4) 05/30/19 12:18 Baso # 0.0 K/mm3 (0.0-0.1) 05/30/19 12:18 Add Manual Diff Complete 05/29/19 05:24 Total Counted 100 05/29/19 05:24 Seg Neutrophils % 67.9 % (40.0-70.0) 05/30/19 12:18 Seg Neuts % (Manual) 73.0 % (40.0-70.0) H 05/29/19 05:24 0 % 05/29/19 05:24 15.0 % (13.4-35.0) 05/29/19 05:24 Reactive Lymphs % (Man) 1.0 % 05/29/19 05:24 10.0 % (0.0-7.3) H 05/29/19 05:24 1.0 % (0.0-4.3) 05/29/19 05:24 0 % (0.0-1.8) 05/29/19 05:24 0 % 05/29/19 05:24 0 % 05/29/19 05:24 0 % 05/29/19 05:24 0 % 05/29/19 05:24 Nucleated RBC % Not Reportable 05/29/19 05:24 Seg Neutrophils # 4.9 K/mm3 (1.8-7.7) 05/30/19 12:18 Seg Neutrophils # Man 6.0 K/mm3 (1.8-7.7) 05/29/19 05:24 Band Neutrophils # 0.0 K/mm3 05/29/19 05:24 1.2 K/mm3 (1.2-5.4) 05/29/19 05:24 Abs React Lymphs (Man) 0.1 K/mm3 05/29/19 05:24 0.8 K/mm3 (0.0-0.8) 05/29/19 05:24 0.1 K/mm3 (0.0-0.4) 05/29/19 05:24 0.0 K/mm3 (0.0-0.1) 05/29/19 05:24 0.0 K/mm3 05/29/19 05:24 0.0 K/mm3 05/29/19 05:24 0.0 K/mm3 05/29/19 05:24 Blast Cells # 0.0 K/mm3 05/29/19 05:24 WBC Morphology Not Reportable 05/29/19 05:24 Hypersegmented Neuts Not Reportable 05/29/19 05:24 Hyposegmented Neuts Not Reportable 05/29/19 05:24 Hypogranular Neuts Not Reportable 05/29/19 05:24 Not Reportable 05/29/19 05:24 Not Reportable 05/29/19 05:24 Not Reportable 05/29/19 05:24 Not Reportable 05/29/19 05:24 Not Reportable 05/29/19 05:24 Not Reportable 05/29/19 05:24 Consistent w auto 05/29/19 05:24 Not Reportable 05/29/19 05:24 Plt Clumps, EDTA Not Reportable 05/29/19 05:24 Not Reportable 05/29/19 05:24 Not Reportable 05/29/19 05:24 Not Reportable 05/29/19 05:24 Plt Morphology Comment Not Reportable 05/29/19 05:24 RBC Morphology Not Reportable 05/29/19 05:24 Dimorphic RBCs Not Reportable 05/29/19 05:24 Not Reportable 05/29/19 05:24 Not Reportable 05/29/19 05:24 Not Reportable 05/29/19 05:24 1+ 05/29/19 05:24 Not Reportable 05/29/19 05:24 Not Reportable 05/29/19 05:24 Not Reportable 05/29/19 05:24 Not Reportable 05/29/19 05:24 Not Reportable 05/29/19 05:24 Not Reportable 05/29/19 05:24 Not Reportable 05/29/19 05:24 Not Reportable 05/29/19 05:24 Not Reportable 05/29/19 05:24 Not Reportable 05/29/19 05:24 Not Reportable 05/29/19 05:24 Not Reportable 05/29/19 05:24 Not Reportable 05/29/19 05:24 Not Reportable 05/29/19 05:24 Not Reportable 05/29/19 05:24 Acanthocytes (Spur) Not Reportable 05/29/19 05:24 Rouleaux Not Reportable 05/29/19 05:24 Not Reportable 05/29/19 05:24 Not Reportable 05/29/19 05:24 Not Reportable 05/29/19 05:24 Not Reportable 05/29/19 05:24 Hem Pathologist Commnt No 05/29/19 05:24 Sodium 135 mmol/L (137-145) L 05/30/19 12:18 Potassium 4.2 mmol/L (3.6-5.0) 05/30/19 12:18 Chloride 103.5 mmol/L (98-107) 05/30/19 12:18 Carbon Dioxide 22 mmol/L (22-30) 05/30/19 12:18 14 mmol/L 05/30/19 12:18 BUN 10 mg/dL (9-20) 05/30/19 12:18 1.7 mg/dL (0.8-1.5) H D 05/30/19 12:18 Estimated GFR 57 ml/min 05/30/19 12:18 6 % 05/30/19 12:18 Glucose 364 mg/dL (75-100) H 05/30/19 12:18 POC Glucose 195 (70-105) H 05/31/19 07:36 17.1 % (4-6) H 05/29/19 05:22 Lactic Acid 0.80 mmol/L (0.7-2.0) 05/28/19 00:27 Calcium 8.3 mg/dL (8.4-10.2) L 05/30/19 12:18 0.30 mg/dL (0.1-1.2) 05/27/19 21:55 AST 43 units/L (5-40) H 05/27/19 21:55 ALT 48 units/L (7-56) 05/27/19 21:55 163 units/L (35-129) H 05/27/19 21:55 7.9 g/dL (6.3-8.2) 05/27/19 21:55 2.7 g/dL (3.9-5) L 05/27/19 21:55 0.5 % 05/27/19 21:55 Yellow (Yellow) 05/27/19 23:33 Clear (Clear) 05/27/19 23:33 6.0 (5.0-7.0) 05/27/19 23:33 Ur Specific [place] 1.030 (1.003-1.030) 05/27/19 23:33 30 mg/dl mg/dL (Negative) 05/27/19 23:33 >=500 mg/dL (Negative) 05/27/19 23:33 20 mg/dL (Negative) 05/27/19 23:33 Neg (Negative) 05/27/19 23:33 Neg (Negative) 05/27/19 23:33 Neg (Negative) 05/27/19 23:33 2.0 mg/dL (<2.0) 05/27/19 23:33 Ur Leukocyte Esterase Neg (Negative) 05/27/19 23:33 < 1.0 /HPF (0.0-6.0) 05/27/19 23:33 < 1.0 /HPF (0.0-6.0) 05/27/19 23:33 U Epithel Cells (Auto) 3.0 /HPF (0-13.0) 05/27/19 23:33 Vancomycin Trough 8.4 ug/mL (5.0-20.0) 05/29/19 11:02 Active Medications - Current Medications Current Medications: Generic Name Dose Route Start Last Admin Trade Name Freq PRN Reason Stop Dose Admin Acetaminophen 650 mg 05/28/19 02:10 Tylenol PO Q4H PRN Fever >101 Bacitracin 50,000 unit 05/31/19 06:00 Bacitracin IR 05/31/19 23:00 ONCE LIBERTAD Dextrose 50 ml 05/28/19 02:13 D50w (25gm) Syringe IV PRN PRN Hypoglycemia Heparin Sodium (Porcine) 5,000 unit 05/28/19 10:00 05/30/19 21:46 Heparin SUB-Q 5,000 unit Q12HR LIBERTAD Administration Sodium Chloride 1,000 mls @ 75 mls/hr 05/28/19 16:00 05/30/19 10:07 Nacl 0.9% 1000 Ml IV 75 mls/hr DIRECT LIBERTAD Administration Piperacillin Sod/Tazobactam Sod 4.5 gm in 100 mls @ 200 mls/hr 05/29/19 14:00 05/31/19 05:21 Zosyn/Ns 4.5gm/100ml IV 200 mls/hr Q6HR LIBERTAD Administration Protocol Vancomycin HCl 1,750 mg/ 535 mls @ 333.333 mls/hr 05/30/19 14:00 05/31/19 06:10 Sodium Chloride IV 333.333 mls/hr Q8HR LIBERTAD Administration Insulin Glargine 10 units 05/29/19 22:00 05/30/19 21:47 Lantus SUB-Q 10 units QHS LIBERTAD Administration Insulin Human Isoph/Insulin Regular 35 unit 05/30/19 17:00 05/30/19 17:33 Humulin 70/30 SUB-Q 35 unit BIDDIAB LIBERTAD Administration Insulin Human Regular 0 units 05/28/19 07:30 05/30/19 17:32 Humulin R SUB-Q 6 units AC LIBERTAD Administration Protocol Insulin Human Regular 0 units 05/28/19 22:00 05/30/19 21:48 Humulin R SUB-Q 6 units QHS LIBERTAD Administration Protocol Ketorolac Tromethamine 30 mg 05/28/19 17:00 05/31/19 01:05 Toradol IV 06/02/19 16:59 30 mg Q8H LIBERTAD Administration Morphine Sulfate 2 mg 05/28/19 02:09 05/30/19 20:23 Morphine IV 2 mg Q3H PRN Administration Pain , Severe (7-10) Ondansetron HCl 4 mg 05/28/19 02:10 05/31/19 03:12 Zofran IV 4 mg Q8H PRN Administration Nausea And Vomiting Ondansetron HCl 4 mg 05/28/19 14:08 Zofran IV ONCE PRN Nausea And Vomiting Oxycodone/Acetaminophen 2 tab 05/28/19 16:20 05/29/19 05:27 Percocet 5/325 PO 2 tab Q4H PRN Administration Pain, Moderate (4-6) Nutrition/Malnutrition Assess - Dietary Evaluation Nutrition/Malnutrition Findings: Nutrition Notes Start: 05/28/19 13:42 Freq: Status: Active Protocol: Document 05/28/19 13:42 LANEY (Rec: 05/28/19 13:50 LANEY [email or web address]) Nutrition Notes 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 He was diagnosed with DM 10 yrs ago; says he checks BS 2-3 times daily and takes insulin as prescribed. He does admit to overconsumption of CHO-rich foods. Very receptive to review of CHO- controlled diet principles and A1C. Reports poor appetite [employer]ENTICE (likely sec to sepsis). Burn Absent Trauma Absent #1 Nutrition Diagnosis Limited adherence to nutrition -related recommendations Etiology knowledge deficit As Evidenced by Signs and Symptoms pt admission of the need to review DM diet principles and unaware of the relationship between wound healing and BS levels Nutrition Intervention Teaching Recipient Patient Learning Readiness Good Teaching Methods Discussion,Handout Response to Teaching Verbalize understanding Education Handouts Provided Hemoglobin A1C and Blood Sugar Control Carbohydrate Counting for People with Diabetes (Food Sources of Carbohydrates) Barriers to Learning No Barriers RD phone number provided Yes Patient aware of follow up options Yes Goal #1 Improved BS control Goal #2 Adherence to CHO-controlled diet Anticipated Discharge Needs: CHO-controlled diet Revisit per MD consult or patient Sign Off request:
[2019-05-31] MEDS: HumuLIN R SUB-Q SCH ×4 (09:08→22:14)
[2019-05-31] MEDS: HEPARIN SUB-Q SCH ×2 (09:08→22:13)
--- NOTE | 2019-05-31 10:35 | Anesthesia Day of Surgery ---
Anesthesia Day of Surgery - Day of Surgery Patient Examined: Yes Patient H&P Reviewed: Yes Patient is NPO: Yes
[2019-05-31] MEDS ORDERED: DILAUDID ONE ×3 (10:40→13:12)
[2019-05-31] MEDS ORDERED: DIPRIVAN 10 MG/ML IV ONE ×3 (10:40→12:23)
[2019-05-31] MEDS ORDERED: XYLOCAINE MPF 2% ONE (10:40)
[2019-05-31] MEDS ORDERED: BACITRACIN ONE (10:44)
[2019-05-31] MEDS ORDERED: NACL P/F VIAL (10 ML) 10 ML ONE (10:44)
--- NOTE | 2019-05-31 11:08 | Progress Note ---
Assessment and Plan Cultures: 05/27/2019 blood culture: No growth 05/28/2019 OR culture: Moderated growth of usual skin julee 05/28/2019 Anaerobic culture: no growth A/P: 34-year-old male with morbid obesity, diabetes mellitus, prior skin infections requiring I&D, admitted with: 1) Sepsis Resolved, secondary to left lower abdominal wall abscess with necrotizing fasciitis: s/p OR on 05/28/2019, findings showed 2 large abscess cavities with necrotic tissue extending down to the level of the fascia. Failed Bactrim as outpatient. ?beta-hemolytic Strep infection. Purulent fluid in wound vac. Needs wound washout, possible further debridement and wound vac placement today- Dr. Acharya following 2) Morbid obesity: dose abx accordingly. 3) Diabetes mellitus type 2, uncontrolled: recommend tight control. HbA1c 17.1. Recs: Continue Zosyn dose to 4.5 gm q6 hrs given morbid obesity, D3 Discontinue IV Vancomycin, Anticipate discharge of Augmentin 875 mg PO BID for 5 days post Wound debridement monitor creatinine continue wound care follow-up ID clinic in 2 weeks (sent to curing supervisor) [facility]IA [facility] M: [phone] O:[phone] Subjective Date of service: 05/31/19 Objective - Constitutional Vitals: Vital Signs Temp Pulse Resp BP Pulse Ox 98.3 F 70 18 144/92 98 05/31/19 10:48 05/31/19 10:48 05/31/19 10:48 05/31/19 10:48 05/31/19 10:48 Temperature -Last 24 Hours Temperature 98.3 F Temperature 98.2 F Temperature 98.0 F Temperature 98.0 F Temperature 98.0 F Temperature 98.6 F - Labs CBC & Chem 7: 05/30/19 12:18 05/30/19 12:18 Labs: Abnormal lab results 05/30/19 05/30/19 05/30/19 Range/Units 11:52 12:18 12:18 Hgb 11.0 L (11.8-15.2) gm/dl Hct 32.8 L (35.5-45.6) % [place] % (Auto) 10.8 H (0.0-7.3) % Sodium 135 L (137-145) mmol/L Creatinine 1.7 H D (0.8-1.5) mg/dL Glucose 364 H (75-100) mg/dL POC Glucose 337 H (70-105) Calcium 8.3 L (8.4-10.2) mg/dL 05/30/19 05/30/19 05/31/19 Range/Units 16:57 21:07 07:36 Hgb (11.8-15.2) gm/dl Hct (35.5-45.6) % [place] % (Auto) (0.0-7.3) % Sodium (137-145) mmol/L Creatinine (0.8-1.5) mg/dL Glucose (75-100) mg/dL POC Glucose 318 H 327 H 195 H (70-105) Calcium (8.4-10.2) mg/dL
[2019-05-31] MEDS ORDERED: VERSED ONE (11:55)
[2019-05-31] MEDS ORDERED: XYLOCAINE 1% 20 mL ONE (11:59)
[2019-05-31] MEDS ORDERED: NACL 0.9% 1000 ML 1,000 ML ONE (12:04)
[2019-05-31] MEDS ORDERED: XYLOCAINE 2% INFILTRATI ONE (12:05)
[2019-05-31] MEDS ORDERED: BACITRACIN IR ONE (12:20)
[2019-05-31] MEDS ORDERED: DAKIN'S FULL STRENGTH IR ONE (13:00)
[2019-05-31] MEDS: DILAUDID IV PRN ×2 (13:10→13:20)
[2019-05-31] MEDS ORDERED: VERSED IV PRN (13:12)
--- NOTE | 2019-05-31 13:50 | Progress Note ---
Assessment and Plan Cultures: 05/27/2019 blood culture: No growth 05/28/2019 OR culture: Usual skin julee. A/P: 34-year-old male with morbid obesity, diabetes mellitus, prior skin infections requiring I&D, admitted with: 1) Sepsis secondary to left lower abdominal wall abscess with necrotizing fasciitis: s/p OR on 05/28/2019, findings showed 2 large abscess cavities with necrotic tissue extending down to the level of the fascia. Failed Bactrim as outpatient. ?beta-hemolytic Strep infection. Planned for additional debridement 05/31/2019 2) Morbid obesity: dose abx accordingly. 3) Diabetes mellitus type 2, uncontrolled: recommend tight control. HbA1c 17.1. Recs: continue high dose IV Zosyn 4.5 gm q6 hrs due to morbid obesity discontinued Vancomycin given no MRSA growth follow up OR findings today. Plan to continue abx for 5 days from last debridement. When ready for discharge, could do PO Augmentin 875 mg BID to complete the course continue tight glycemic control wound care Pricilla Oakley MD, FACP [facility] ([facility] C: [phone] O: [phone] F: [phone] Subjective Date of service: 05/31/19 Interval history: No fever. Denies any new complaints. Objective - Exam Narrative Exam: Physical Exam: Constitutional: Alert, cooperative. No acute distress. morbidly obese Head, Ears, Nose: Normocephalic, atraumatic. External ears, nose normal Eyes: Conjunctivae/corneas clear. No icterus. No ptosis. Neck: Supple, no meningeal signs Cardiovascular: S1, S2 normal. Respiratory: Good air entry, clear to auscultation bilaterally GI: Soft; bowel sounds normal. No peritoneal signs. LLQ abdominal wall with woundVAC, tenderness + Musculoskeletal: No pedal edema, no cyanosis. Morbidly obese Skin: No rash. Hem/Lymphatic: No palpable cervical or supraclavicular nodes. No lymphangitis Psych: Mood ok. Affect normal Neurological: Awake, alert, oriented. No gross abnormality - Constitutional Vitals: Vital Signs Temp Pulse Resp BP Pulse Ox 97.9 F 69 15 120/69 98 05/31/19 12:55 05/31/19 13:40 05/31/19 13:40 05/31/19 13:40 05/31/19 13:40 Temperature -Last 24 Hours Temperature 97.9 F Temperature 98.3 F Temperature 98.2 F Temperature 98.0 F Temperature 98.0 F Temperature 98.0 F Temperature 98.6 F - Labs CBC & Chem 7: 05/30/19 12:18 05/30/19 12:18 Labs: Abnormal lab results 05/30/19 05/30/19 05/31/19 Range/Units 16:57 21:07 07:36 POC Glucose 318 H 327 H 195 H (70-105) 05/31/19 05/31/19 Range/Units 10:58 13:12 POC Glucose 205 H 176 H (70-105)
--- NOTE | 2019-05-31 13:57 | Post Operative Note ---
Date of procedure: 05/31/19 Pre-op diagnosis: necrotizing fasciitis abdominal wall Post-op diagnosis: same Findings: multiple abscess cavities along lateral left abdominal wall with copious amount of purulent drainage and necrotic subcutaneous tissue Procedure: debridement of abdominal wall wound Anesthesia: MAC, local Surgeon: CASSI GONZALEZ Estimated blood loss: minimal Pathology: none Specimen disposition: to lab Condition: stable Disposition: PACU
[2019-05-31] MEDS ORDERED: BENADRYL PO ONE (14:40)
[2019-05-31] MEDS: NACL 0.9% 1000 ML 1,000 ML IV SCH (22:05)
[2019-05-31] MEDS: LANTUS SUB-Q SCH (22:13)
[2019-05-31] MEDS: MORPHINE IV PRN (22:14)
[2019-06-01] MEDS: TORADOL IV SCH ×3 (00:42→17:51)
[2019-06-01] MEDS: ZOSYN/NS 4.5GM/100ML 4.5 GM/100 ML VIAL IV SCH ×2 (00:43→05:09)
[2019-06-01] MEDS: HumuLIN R SUB-Q SCH ×4 (07:41→22:27)
--- NOTE | 2019-06-01 09:11 | Progress Note ---
Assessment and Plan Assessment and plan: Abdominal wall necrotizing fasciitis/abscess. Patient is status post excisional debridement 05/28/19. Surgery following. Patient with further debridement of abdominal wall on 05/31/19 that revealed multiple abscess cavities along lateral left abdominal wall with copious amount of purulent drainage and necrotic subcutaneous tissue. Continue with antibiotics per ID recommendations. Continue with wound VAC and follow-up OR cultures. Pain control. Dyspepsia. Add simethicone. Sepsis. Etiology secondary to above. Continue to follow cultures as above. Antibiotics per ID. Diabetes mellitus type 2, uncontrolled. Morbid obesity. History Interval history: No new issues overnight. Patient still complains of abdominal pain but more gas related this morning. Hospitalist Physical - Constitutional Vitals: Temp Pulse Resp BP Pulse Ox 98.2 F 76 18 157/93 95 06/01/19 08:14 06/01/19 08:14 06/01/19 08:14 06/01/19 08:14 06/01/19 08:14 General appearance: Present: no acute distress - EENT Eyes: Present: PERRL, EOM intact ENT: hearing intact, clear oral mucosa, dentition normal - Neck Neck: Present: supple, normal ROM - Respiratory Respiratory effort: normal Respiratory: bilateral: CTA - Cardiovascular Rhythm: regular Heart Sounds: Present: S1 & S2. Absent: gallop, rub - Extremities Extremities: no ischemia, No edema, Full ROM - Abdominal General gastrointestinal: soft, non-tender, non-distended, normal bowel sounds - Integumentary Integumentary: Present: clear, warm, dry - Neurologic Neurologic: CNII-XII intact, moves all extremities Results - Labs CBC & Chem 7: 05/30/19 12:18 06/01/19 05:45 Labs: Laboratory Last Values WBC 7.2 K/mm3 (4.5-11.0) 05/30/19 12:18 RBC 3.66 M/mm3 (3.65-5.03) 05/30/19 12:18 Hgb 11.0 gm/dl (11.8-15.2) L 05/30/19 12:18 Hct 32.8 % (35.5-45.6) L 05/30/19 12:18 MCV 90 fl (84-94) 05/30/19 12:18 MCH 30 pg (28-32) 05/30/19 12:18 MCHC 33 % (32-34) 05/30/19 12:18 RDW 15.2 % (13.2-15.2) 05/30/19 12:18 Plt Count 281 K/mm3 (140-440) 05/30/19 12:18 Lymph % (Auto) 19.4 % (13.4-35.0) 05/30/19 12:18 [place] % (Auto) 10.8 % (0.0-7.3) H 05/30/19 12:18 Eos % (Auto) 1.4 % (0.0-4.3) 05/30/19 12:18 Baso % (Auto) 0.5 % (0.0-1.8) 05/30/19 12:18 Lymph # 1.4 K/mm3 (1.2-5.4) 05/30/19 12:18 [place] # 0.8 K/mm3 (0.0-0.8) 05/30/19 12:18 Eos # 0.1 K/mm3 (0.0-0.4) 05/30/19 12:18 Baso # 0.0 K/mm3 (0.0-0.1) 05/30/19 12:18 Add Manual Diff Complete 05/29/19 05:24 Total Counted 100 05/29/19 05:24 Seg Neutrophils % 67.9 % (40.0-70.0) 05/30/19 12:18 Seg Neuts % (Manual) 73.0 % (40.0-70.0) H 05/29/19 05:24 0 % 05/29/19 05:24 15.0 % (13.4-35.0) 05/29/19 05:24 Reactive Lymphs % (Man) 1.0 % 05/29/19 05:24 10.0 % (0.0-7.3) H 05/29/19 05:24 1.0 % (0.0-4.3) 05/29/19 05:24 0 % (0.0-1.8) 05/29/19 05:24 0 % 05/29/19 05:24 0 % 05/29/19 05:24 0 % 05/29/19 05:24 0 % 05/29/19 05:24 Nucleated RBC % Not Reportable 05/29/19 05:24 Seg Neutrophils # 4.9 K/mm3 (1.8-7.7) 05/30/19 12:18 Seg Neutrophils # Man 6.0 K/mm3 (1.8-7.7) 05/29/19 05:24 Band Neutrophils # 0.0 K/mm3 05/29/19 05:24 1.2 K/mm3 (1.2-5.4) 05/29/19 05:24 Abs React Lymphs (Man) 0.1 K/mm3 05/29/19 05:24 0.8 K/mm3 (0.0-0.8) 05/29/19 05:24 0.1 K/mm3 (0.0-0.4) 05/29/19 05:24 0.0 K/mm3 (0.0-0.1) 05/29/19 05:24 0.0 K/mm3 05/29/19 05:24 0.0 K/mm3 05/29/19 05:24 0.0 K/mm3 05/29/19 05:24 Blast Cells # 0.0 K/mm3 05/29/19 05:24 WBC Morphology Not Reportable 05/29/19 05:24 Hypersegmented Neuts Not Reportable 05/29/19 05:24 Hyposegmented Neuts Not Reportable 05/29/19 05:24 Hypogranular Neuts Not Reportable 05/29/19 05:24 Not Reportable 05/29/19 05:24 Not Reportable 05/29/19 05:24 Not Reportable 05/29/19 05:24 Not Reportable 05/29/19 05:24 Not Reportable 05/29/19 05:24 Not Reportable 05/29/19 05:24 Consistent w auto 05/29/19 05:24 Not Reportable 05/29/19 05:24 Plt Clumps, EDTA Not Reportable 05/29/19 05:24 Not Reportable 05/29/19 05:24 Not Reportable 05/29/19 05:24 Not Reportable 05/29/19 05:24 Plt Morphology Comment Not Reportable 05/29/19 05:24 RBC Morphology Not Reportable 05/29/19 05:24 Dimorphic RBCs Not Reportable 05/29/19 05:24 Not Reportable 05/29/19 05:24 Not Reportable 05/29/19 05:24 Not Reportable 05/29/19 05:24 1+ 05/29/19 05:24 Not Reportable 05/29/19 05:24 Not Reportable 05/29/19 05:24 Not Reportable 05/29/19 05:24 Not Reportable 05/29/19 05:24 Not Reportable 05/29/19 05:24 Not Reportable 05/29/19 05:24 Not Reportable 05/29/19 05:24 Not Reportable 05/29/19 05:24 Not Reportable 05/29/19 05:24 Not Reportable 05/29/19 05:24 Not Reportable 05/29/19 05:24 Not Reportable 05/29/19 05:24 Not Reportable 05/29/19 05:24 Not Reportable 05/29/19 05:24 Not Reportable 05/29/19 05:24 Acanthocytes (Spur) Not Reportable 05/29/19 05:24 Rouleaux Not Reportable 05/29/19 05:24 Not Reportable 05/29/19 05:24 Not Reportable 05/29/19 05:24 Not Reportable 05/29/19 05:24 Not Reportable 05/29/19 05:24 Hem Pathologist Commnt No 05/29/19 05:24 Sodium 142 mmol/L (137-145) D 06/01/19 05:45 Potassium 4.4 mmol/L (3.6-5.0) 06/01/19 05:45 Chloride 109.2 mmol/L (98-107) H 06/01/19 05:45 Carbon Dioxide 20 mmol/L (22-30) L 06/01/19 05:45 17 mmol/L 06/01/19 05:45 BUN 26 mg/dL (9-20) H 06/01/19 05:45 5.6 mg/dL (0.8-1.5) H D 06/01/19 05:45 Estimated GFR 14 ml/min 06/01/19 05:45 5 % 06/01/19 05:45 Glucose 85 mg/dL (75-100) 06/01/19 05:45 POC Glucose 87 (70-105) 06/01/19 08:09 17.1 % (4-6) H 05/29/19 05:22 Lactic Acid 0.80 mmol/L (0.7-2.0) 05/28/19 00:27 Calcium 8.0 mg/dL (8.4-10.2) L 06/01/19 05:45 0.30 mg/dL (0.1-1.2) 05/27/19 21:55 AST 43 units/L (5-40) H 05/27/19 21:55 ALT 48 units/L (7-56) 05/27/19 21:55 163 units/L (35-129) H 05/27/19 21:55 7.9 g/dL (6.3-8.2) 05/27/19 21:55 2.7 g/dL (3.9-5) L 05/27/19 21:55 0.5 % 05/27/19 21:55 Yellow (Yellow) 05/27/19 23:33 Clear (Clear) 05/27/19 23:33 6.0 (5.0-7.0) 05/27/19 23:33 Ur Specific [place] 1.030 (1.003-1.030) 05/27/19 23:33 30 mg/dl mg/dL (Negative) 05/27/19 23:33 >=500 mg/dL (Negative) 05/27/19 23:33 20 mg/dL (Negative) 05/27/19 23:33 Neg (Negative) 05/27/19 23:33 Neg (Negative) 05/27/19 23:33 Neg (Negative) 05/27/19 23:33 2.0 mg/dL (<2.0) 05/27/19 23:33 Ur Leukocyte Esterase Neg (Negative) 05/27/19 23:33 < 1.0 /HPF (0.0-6.0) 05/27/19 23:33 < 1.0 /HPF (0.0-6.0) 05/27/19 23:33 U Epithel Cells (Auto) 3.0 /HPF (0-13.0) 05/27/19 23:33 Vancomycin Trough 67.6 ug/mL (5.0-20.0) H 05/31/19 15:08 Active Medications - Current Medications Current Medications: Generic Name Dose Route Start Last Admin Trade Name Freq PRN Reason Stop Dose Admin Acetaminophen 650 mg 05/28/19 02:10 Tylenol PO Q4H PRN Fever >101 Dextrose 50 ml 05/28/19 02:13 D50w (25gm) Syringe IV PRN PRN Hypoglycemia Heparin Sodium (Porcine) 5,000 unit 05/28/19 10:00 05/31/19 22:13 Heparin SUB-Q 5,000 unit Q12HR LIBERTAD Administration Hydromorphone HCl 0.5 mg 05/31/19 13:08 05/31/19 13:20 Dilaudid IV 0.5 mg Q10MIN PRN Administration Pain , Severe (7-10) Sodium Chloride 1,000 mls @ 75 mls/hr 05/28/19 16:00 05/31/19 22:05 Nacl 0.9% 1000 Ml IV 75 mls/hr DIRECT LIBERTAD Administration Piperacillin Sod/Tazobactam Sod 4.5 gm in 100 mls @ 200 mls/hr 05/29/19 14:00 06/01/19 05:09 Zosyn/Ns 4.5gm/100ml IV 200 mls/hr Q6HR LIBERTAD Administration Protocol Insulin Glargine 10 units 05/29/19 22:00 05/31/19 22:13 Lantus SUB-Q 10 units QHS [facility] Administration Insulin Human Isoph/Insulin Regular 35 unit 05/30/19 17:00 06/01/19 07:41 Humulin 70/30 SUB-Q Not Given BIDDIAB [facility] Insulin Human Regular 0 units 05/28/19 07:30 06/01/19 07:41 Humulin R SUB-Q Not Given AC [facility] Protocol Insulin Human Regular 0 units 05/28/19 22:00 05/31/19 22:14 Humulin R SUB-Q 4 units QHS [facility] Administration Protocol Ketorolac Tromethamine 30 mg 05/28/19 17:00 06/01/19 00:42 Toradol IV 06/02/19 16:59 30 mg Q8H LIBERTAD Administration Morphine Sulfate 2 mg 05/28/19 02:09 05/31/19 22:14 Morphine IV 2 mg Q3H PRN Administration Pain , Severe (7-10) Ondansetron HCl 4 mg 05/28/19 02:10 05/31/19 18:27 Zofran IV 4 mg Q8H PRN Administration Nausea And Vomiting Oxycodone/Acetaminophen 2 tab 05/28/19 16:20 05/29/19 05:27 Percocet 5/325 PO 2 tab Q4H PRN Administration Pain, Moderate (4-6) Nutrition/Malnutrition Assess - Dietary Evaluation Nutrition/Malnutrition Findings: Nutrition Notes Start: 05/28/19 13:42 Freq: Status: Active Protocol: Document 05/28/19 13:42 LANEY (Rec: 05/28/19 13:50 LANEY [email or web address]) Nutrition Notes Need for Assessment generated from: 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 He was diagnosed with DM 10 yrs ago; says he checks BS 2-3 times daily and takes insulin as prescribed. He does admit to overconsumption of CHO-rich foods. Very receptive to review of CHO- controlled diet principles and A1C. 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 Burn Absent Trauma Absent #1 Nutrition Diagnosis Limited adherence to nutrition -related recommendations Etiology knowledge deficit As Evidenced by Signs and Symptoms pt admission of the need to review DM diet principles and unaware of the relationship between wound healing and BS levels Nutrition Intervention Teaching Recipient Patient Learning Readiness Good Teaching Methods Discussion,Handout Response to Teaching Verbalize understanding Education Handouts Provided Hemoglobin A1C and Blood Sugar Control Carbohydrate Counting for People with Diabetes (Food Sources of Carbohydrates) Barriers to Learning No Barriers RD phone number provided Yes Patient aware of follow up options Yes Goal #1 Improved BS control Goal #2 Adherence to CHO-controlled diet Anticipated Discharge Needs: CHO-controlled diet Revisit per MD consult or patient Sign Off request:
[2019-06-01] MEDS: HEPARIN SUB-Q SCH ×2 (10:07→22:24)
--- NOTE | 2019-06-01 10:47 | Progress Note ---
Assessment and Plan - Patient Problems (1) Necrotizing fasciitis Current Visit: Yes Status: Acute Plan to address problem: 34 yo M s/p excisional debridement of lower abdominal wall necrotizing fasciitis x 2, POD 4, POD1 Plan: 1. c/w IV abx per ID 2. dressings to be changed in OR on Monday 3. follow up OR cultures 4. prn pain control 5. strict glucose control - BS still in 200s-300s 6. discussed with case management - will need wound vac, wound care clinic follow up on discharge 7. Dulcolax for constipation Subjective Date of service: 06/01/19 Patient Reports: Positive: nausea, other (constipation) Objective Vital Signs - 12hr 05/31/19 06/01/19 06/01/19 22:50 00:00 03:44 Temperature 98.5 F 98.2 F Pulse Rate 87 83 81 Pulse Rate [ From Monitor] Respiratory 19 20 Rate Blood Pressure 123/80 126/68 O2 Sat by Pulse 92 97 Oximetry 06/01/19 06/01/19 06/01/19 08:00 08:14 10:00 Temperature 98.2 F Pulse Rate 70 76 Pulse Rate [ 76 From Monitor] Respiratory 18 18 Rate Blood Pressure 157/93 O2 Sat by Pulse 95 95 Oximetry - General physical appearance no distress, no pain, other (easily awakened) - Respiratory normal expansion, normal respiratory effort - Abdomen soft, other (dressings intact. moderate drainage on flank dressing.) - Psychiatric oriented to time, oriented to person, oriented to place, speech is normal, memory intact - Labs 05/30/19 12:18 06/01/19 05:45 Diabetes panel 06/01/19 Range/Units 05:45 Sodium 142 D (137-145) mmol/L Potassium 4.4 (3.6-5.0) mmol/L Chloride 109.2 H (98-107) mmol/L Carbon Dioxide 20 L (22-30) mmol/L BUN 26 H (9-20) mg/dL Creatinine 5.6 H D (0.8-1.5) mg/dL Glucose 85 (75-100) mg/dL Calcium 8.0 L (8.4-10.2) mg/dL Calcium panel 06/01/19 Range/Units 05:45 Calcium 8.0 L (8.4-10.2) mg/dL Pituitary panel 06/01/19 Range/Units 05:45 Sodium 142 D (137-145) mmol/L Potassium 4.4 (3.6-5.0) mmol/L Chloride 109.2 H (98-107) mmol/L Carbon Dioxide 20 L (22-30) mmol/L BUN 26 H (9-20) mg/dL Creatinine 5.6 H D (0.8-1.5) mg/dL Glucose 85 (75-100) mg/dL Calcium 8.0 L (8.4-10.2) mg/dL Adrenal panel 06/01/19 Range/Units 05:45 Sodium 142 D (137-145) mmol/L Potassium 4.4 (3.6-5.0) mmol/L Chloride 109.2 H (98-107) mmol/L Carbon Dioxide 20 L (22-30) mmol/L BUN 26 H (9-20) mg/dL Creatinine 5.6 H D (0.8-1.5) mg/dL Glucose 85 (75-100) mg/dL Calcium 8.0 L (8.4-10.2) mg/dL
[2019-06-01] MEDS ORDERED: DULCOLAX PO ONE (11:00)
[2019-06-01] MEDS: NACL 0.9% 1000 ML 1,000 ML IV SCH (12:38)
[2019-06-01] MEDS: ZOSYN/NS 2.25 GM/50ML 2.25 GM/50 ML BAG IV SCH ×3 (12:38→23:25)
[2019-06-01] MEDS: LANTUS SUB-Q SCH (22:24)
[2019-06-01] MEDS: ZOFRAN IV PRN (23:22)
[2019-06-01] MEDS: MYLICON PO PRN (23:22)
[2019-06-02] MEDS: TORADOL IV SCH ×2 (01:55→09:34)
[2019-06-02] MEDS: NACL 0.9% 1000 ML 1,000 ML IV SCH (03:35)
[2019-06-02] MEDS: ZOSYN/NS 2.25 GM/50ML 2.25 GM/50 ML BAG IV SCH (05:42)
[2019-06-02 06:09] LABS: Basophils % (Auto) 0.1 % (0.0-1.8); Eosinophils # (Auto) 0.1 K/mm3 (0.0-0.4); Eosinophils % (Auto) 1.8 % (0.0-4.3); Hematocrit 30.9 % (35.5-45.6); Hemoglobin 10.3 gm/dl (11.8-15.2); Lymphocytes # (Auto) 1.7 K/mm3 (1.2-5.4); Lymphocytes % (Auto) 21.3 % (13.4-35.0); Mean Corpuscular HGB Conc 33 % (32-34); Mean Corpuscular Volume 91 fl (84-94); Monocytes % (Auto) 13.3 % (0.0-7.3); Platelet Count 344 K/mm3 (140-440); Red Blood Count 3.41 M/mm3 (3.65-5.03); Red Cell Distribution Width 15.3 % (13.2-15.2)
[2019-06-02 06:41] LABS: Calcium 8.1 mg/dL (8.4-10.2)
[2019-06-02] MEDS: HumuLIN R SUB-Q SCH ×4 (09:24→22:19)
[2019-06-02] MEDS: HEPARIN SUB-Q SCH ×2 (09:50→22:05)
--- NOTE | 2019-06-02 11:57 | Progress Note ---
Assessment and Plan Assessment and plan: Abdominal wall necrotizing fasciitis/abscess. Patient is status post excisional debridement 05/28/19. Surgery following. Patient with further debridement of abdominal wall on 05/31/19 that revealed multiple abscess cavities along lateral left abdominal wall with copious amount of purulent drainage and necrotic subcutaneous tissue. Continue with antibiotics per ID recommendations. Continue with wound VAC and follow-up OR cultures. Pain control. Sepsis. Etiology secondary to above. Continue to follow cultures as above. Antibiotics per ID. PEYTON. Etiology likely from supratherapeutic vancomycin. Vancomycin was discontinued on 05/24/2019. Urine eosinophils ordered, to evaluate for possibility of AIN. Also, consider sepsis/ATN as contributing as well. Nephrology consulted. Diabetes mellitus type 2. Better controlled. Continue Lantus insulin 70/30 insulin. Accu-Cheks and sliding scale insulin Morbid obesity. History Interval history: No new issues overnight. Patient still complains of abdominal pain Hospitalist Physical - Constitutional Vitals: Temp Pulse Resp BP Pulse Ox 98.4 F 70 18 146/88 96 06/02/19 08:10 06/02/19 08:10 06/02/19 08:10 06/02/19 08:10 06/02/19 08:10 General appearance: Present: no acute distress - EENT Eyes: Present: PERRL, EOM intact ENT: hearing intact, clear oral mucosa, dentition normal - Neck Neck: Present: supple, normal ROM - Respiratory Respiratory effort: normal Respiratory: bilateral: CTA - Cardiovascular Rhythm: regular Heart Sounds: Present: S1 & S2. Absent: gallop, rub - Extremities Extremities: no ischemia, No edema, Full ROM - Abdominal General gastrointestinal: soft, non-tender, non-distended, normal bowel sounds - Integumentary Integumentary: Present: clear, warm, dry - Neurologic Neurologic: CNII-XII intact, moves all extremities Results - Labs CBC & Chem 7: 06/02/19 04:24 06/02/19 04:24 Labs: Laboratory Last Values WBC 7.9 K/mm3 (4.5-11.0) 06/02/19 04:24 RBC 3.41 M/mm3 (3.65-5.03) L 06/02/19 04:24 Hgb 10.3 gm/dl (11.8-15.2) L 06/02/19 04:24 Hct 30.9 % (35.5-45.6) L 06/02/19 04:24 MCV 91 fl (84-94) 06/02/19 04:24 MCH 30 pg (28-32) 06/02/19 04:24 MCHC 33 % (32-34) 06/02/19 04:24 RDW 15.3 % (13.2-15.2) H 06/02/19 04:24 Plt Count 344 K/mm3 (140-440) 06/02/19 04:24 Lymph % (Auto) 21.3 % (13.4-35.0) 06/02/19 04:24 [place] % (Auto) 13.3 % (0.0-7.3) H 06/02/19 04:24 Eos % (Auto) 1.8 % (0.0-4.3) 06/02/19 04:24 Baso % (Auto) 0.1 % (0.0-1.8) 06/02/19 04:24 Lymph # 1.7 K/mm3 (1.2-5.4) 06/02/19 04:24 [place] # 1.0 K/mm3 (0.0-0.8) H 06/02/19 04:24 Eos # 0.1 K/mm3 (0.0-0.4) 06/02/19 04:24 Baso # 0.0 K/mm3 (0.0-0.1) 06/02/19 04:24 Add Manual Diff Complete 05/29/19 05:24 Total Counted 100 05/29/19 05:24 Seg Neutrophils % 63.5 % (40.0-70.0) 06/02/19 04:24 Seg Neuts % (Manual) 73.0 % (40.0-70.0) H 05/29/19 05:24 0 % 05/29/19 05:24 15.0 % (13.4-35.0) 05/29/19 05:24 Reactive Lymphs % (Man) 1.0 % 05/29/19 05:24 10.0 % (0.0-7.3) H 05/29/19 05:24 1.0 % (0.0-4.3) 05/29/19 05:24 0 % (0.0-1.8) 05/29/19 05:24 0 % 05/29/19 05:24 0 % 05/29/19 05:24 0 % 05/29/19 05:24 0 % 05/29/19 05:24 Nucleated RBC % Not Reportable 05/29/19 05:24 Seg Neutrophils # 5.0 K/mm3 (1.8-7.7) 06/02/19 04:24 Seg Neutrophils # Man 6.0 K/mm3 (1.8-7.7) 05/29/19 05:24 Band Neutrophils # 0.0 K/mm3 05/29/19 05:24 1.2 K/mm3 (1.2-5.4) 05/29/19 05:24 Abs React Lymphs (Man) 0.1 K/mm3 05/29/19 05:24 0.8 K/mm3 (0.0-0.8) 05/29/19 05:24 0.1 K/mm3 (0.0-0.4) 05/29/19 05:24 0.0 K/mm3 (0.0-0.1) 05/29/19 05:24 0.0 K/mm3 05/29/19 05:24 0.0 K/mm3 05/29/19 05:24 0.0 K/mm3 05/29/19 05:24 Blast Cells # 0.0 K/mm3 05/29/19 05:24 WBC Morphology Not Reportable 05/29/19 05:24 Hypersegmented Neuts Not Reportable 05/29/19 05:24 Hyposegmented Neuts Not Reportable 05/29/19 05:24 Hypogranular Neuts Not Reportable 05/29/19 05:24 Not Reportable 05/29/19 05:24 Not Reportable 05/29/19 05:24 Not Reportable 05/29/19 05:24 Not Reportable 05/29/19 05:24 Not Reportable 05/29/19 05:24 Not Reportable 05/29/19 05:24 Consistent w auto 05/29/19 05:24 Not Reportable 05/29/19 05:24 Plt Clumps, EDTA Not Reportable 05/29/19 05:24 Not Reportable 05/29/19 05:24 Not Reportable 05/29/19 05:24 Not Reportable 05/29/19 05:24 Plt Morphology Comment Not Reportable 05/29/19 05:24 RBC Morphology Not Reportable 05/29/19 05:24 Dimorphic RBCs Not Reportable 05/29/19 05:24 Not Reportable 05/29/19 05:24 Not Reportable 05/29/19 05:24 Not Reportable 05/29/19 05:24 1+ 05/29/19 05:24 Not Reportable 05/29/19 05:24 Not Reportable 05/29/19 05:24 Not Reportable 05/29/19 05:24 Not Reportable 05/29/19 05:24 Not Reportable 05/29/19 05:24 Not Reportable 05/29/19 05:24 Not Reportable 05/29/19 05:24 Not Reportable 05/29/19 05:24 Not Reportable 05/29/19 05:24 Not Reportable 05/29/19 05:24 Not Reportable 05/29/19 05:24 Not Reportable 05/29/19 05:24 Not Reportable 05/29/19 05:24 Not Reportable 05/29/19 05:24 Not Reportable 05/29/19 05:24 Acanthocytes (Spur) Not Reportable 05/29/19 05:24 [place]leaux Not Reportable 05/29/19 05:24 Not Reportable 05/29/19 05:24 Not Reportable 05/29/19 05:24 Not Reportable 05/29/19 05:24 Not Reportable 05/29/19 05:24 Hem Pathologist Commnt No 05/29/19 05:24 Sodium 142 mmol/L (137-145) 06/02/19 04:24 Potassium 4.7 mmol/L (3.6-5.0) 06/02/19 04:24 Chloride 109.1 mmol/L (98-107) H 06/02/19 04:24 Carbon Dioxide 18 mmol/L (22-30) L 06/02/19 04:24 20 mmol/L 06/02/19 04:24 BUN 29 mg/dL (9-20) H 06/02/19 04:24 6.5 mg/dL (0.8-1.5) H 06/02/19 04:24 Estimated GFR 12 ml/min 06/02/19 04:24 4 % 06/02/19 04:24 Glucose 121 mg/dL (75-100) H 06/02/19 04:24 POC Glucose 123 (70-105) H 06/02/19 08:15 17.1 % (4-6) H 05/29/19 05:22 Lactic Acid 0.80 mmol/L (0.7-2.0) 05/28/19 00:27 Calcium 8.1 mg/dL (8.4-10.2) L 06/02/19 04:24 0.30 mg/dL (0.1-1.2) 05/27/19 21:55 AST 43 units/L (5-40) H 05/27/19 21:55 ALT 48 units/L (7-56) 05/27/19 21:55 163 units/L (35-129) H 05/27/19 21:55 7.9 g/dL (6.3-8.2) 05/27/19 21:55 2.7 g/dL (3.9-5) L 05/27/19 21:55 0.5 % 05/27/19 21:55 Yellow (Yellow) 05/27/19 23:33 Clear (Clear) 05/27/19 23:33 6.0 (5.0-7.0) 05/27/19 23:33 Ur Specific [place] 1.030 (1.003-1.030) 05/27/19 23:33 30 mg/dl mg/dL (Negative) 05/27/19 23:33 >=500 mg/dL (Negative) 05/27/19 23:33 20 mg/dL (Negative) 05/27/19 23:33 Neg (Negative) 05/27/19 23:33 Neg (Negative) 05/27/19 23:33 Neg (Negative) 05/27/19 23:33 2.0 mg/dL (<2.0) 05/27/19 23:33 Ur Leukocyte Esterase Neg (Negative) 05/27/19 23:33 < 1.0 /HPF (0.0-6.0) 05/27/19 23:33 < 1.0 /HPF (0.0-6.0) 05/27/19 23:33 U Epithel Cells (Auto) 3.0 /HPF (0-13.0) 05/27/19 23:33 Vancomycin Trough 67.6 ug/mL (5.0-20.0) H 05/31/19 15:08 Active Medications - Current Medications Current Medications: Generic Name Dose Route Start Last Admin Trade Name Freq PRN Reason Stop Dose Admin Acetaminophen 650 mg 05/28/19 02:10 Tylenol PO Q4H PRN Fever >101 Dextrose 50 ml 05/28/19 02:13 D50w (25gm) Syringe IV PRN PRN Hypoglycemia Heparin Sodium (Porcine) 5,000 unit 05/28/19 10:00 06/02/19 09:50 Heparin SUB-Q 5,000 unit Q12HR LIBERTAD Administration Hydromorphone HCl 0.5 mg 05/31/19 13:08 05/31/19 13:20 Dilaudid IV 0.5 mg Q10MIN PRN Administration Pain , Severe (7-10) Sodium Chloride 1,000 mls @ 75 mls/hr 05/28/19 16:00 06/02/19 03:35 Nacl 0.9% 1000 Ml IV 75 mls/hr DIRECT LIBERTAD Administration Piperacillin Sod/Tazobactam Sod 2.25 gm in 50 mls @ 100 mls/hr 06/01/19 12:00 06/02/19 05:42 Zosyn/Ns 2.25 Gm/50ml IV 100 mls/hr Q6HR LIEBRTAD Administration Insulin Glargine 10 units 05/29/19 22:00 06/01/19 22:24 Lantus SUB-Q 10 units QHS LIBERTAD Administration Insulin Human Isoph/Insulin Regular 35 unit 05/30/19 17:00 06/02/19 09:37 Humulin 70/30 SUB-Q 35 unit BIDDIAB LIBERTAD Administration Insulin Human Regular 0 units 05/28/19 07:30 06/02/19 09:24 Humulin R SUB-Q Not Given AC LIBERTAD Protocol Insulin Human Regular 0 units 05/28/19 22:00 06/01/19 22:27 Humulin R SUB-Q 2 units QHS LIBERTAD Administration Protocol Ketorolac Tromethamine 30 mg 05/28/19 17:00 06/02/19 09:34 Toradol IV 06/02/19 16:59 30 mg Q8H LIBERTAD Administration Morphine Sulfate 2 mg 05/28/19 02:09 05/31/19 22:14 Morphine IV 2 mg Q3H PRN Administration Pain , Severe (7-10) Ondansetron HCl 4 mg 05/28/19 02:10 06/01/19 23:22 Zofran IV 4 mg Q8H PRN Administration Nausea And Vomiting Oxycodone/Acetaminophen 2 tab 05/28/19 16:20 05/29/19 05:27 Percocet 5/325 PO 2 tab Q4H PRN Administration Pain, Moderate (4-6) Simethicone 80 mg 06/01/19 09:11 06/01/19 23:22 Mylicon PO 80 mg Q6H PRN Administration Gas pain Nutrition/Malnutrition Assess - Dietary Evaluation Nutrition/Malnutrition Findings: Nutrition Notes Start: 05/28/19 13:42 Freq: Status: Active Protocol: Document 05/28/19 13:42 LANEY (Rec: 05/28/19 13:50 LANEY [email or web address]) Nutrition Notes Need for Assessment generated from: field court researcher,MST Initial or Follow up Brief Note Current Diagnosis Diabetes,Sepsis Other Pertinent Diagnosis Cellulitis of anterior abdominal wall with small abscess Current Diet Consistent CHO Labs/Tests BG 480 Na 131 Pertinent Medications Reviewed Height 6 ft 1 in Weight 151.2 kg [place] Body Weight (kg) 83.63 BMI 43.9 Intake Prior to Admission Fair Weight Status Morbidly Obese Subjective/Other Information Pt screened for malnutrition risk. He was diagnosed with DM 10 yrs ago; says he checks BS 2-3 times daily and takes insulin as prescribed. He does admit to overconsumption of CHO-rich foods. Very receptive to review of CHO- controlled diet principles and A1C. Reports poor appetite [employer]EE[employer] (likely sec to sepsis). Burn Absent Trauma Absent #1 Nutrition Diagnosis Limited adherence to nutrition -related recommendations Etiology knowledge deficit As Evidenced by Signs and Symptoms pt admission of the need to review DM diet principles and unaware of the relationship between wound healing and BS levels Nutrition Intervention Teaching Recipient Patient Learning Readiness Good Teaching Methods Discussion,Handout Response to Teaching Verbalize understanding Education Handouts Provided Hemoglobin A1C and Blood Sugar Control Carbohydrate Counting for People with Diabetes (Food Sources of Carbohydrates) Barriers to Learning No Barriers RD phone number provided Yes Patient aware of follow up options Yes Goal #1 Improved BS control Goal #2 Adherence to CHO-controlled diet Anticipated Discharge Needs: CHO-controlled diet Revisit per MD consult or patient Sign Off request:
--- NOTE | 2019-06-02 12:26 | Progress Note ---
Assessment and Plan - Patient Problems (1) Necrotizing fasciitis Current Visit: Yes Status: Acute Plan to address problem: 34 yo M s/p excisional debridement of lower abdominal wall necrotizing fasciitis x 2, POD 5, POD2 Plan: 1. c/w IV abx per ID 2. dressings to be changed in OR on Monday. (I asked the nursing staff to change the overlying ABD pads today. Packing will be changed in OR). 3. follow up OR cultures 4. prn pain control 5. strict glucose control - BS still in 200s-300s 6. discussed with case management - will need wound vac, wound care clinic follow up on discharge 7) Will discuss need for LESTER discharge with Dr. Acharya Subjective Date of service: 06/02/19 Patient Reports: Positive: nausea, other (Constipation better. Very worried about financial situation and losing home. Needs to be discharged LESTER). Negative: vomiting Objective Vital Signs - 12hr 06/02/19 06/02/19 06/02/19 04:03 06:00 08:10 Temperature 98.5 F 98.4 F Pulse Rate 67 67 70 Respiratory 20 18 Rate Blood Pressure 139/93 146/88 Blood Pressure [Right] O2 Sat by Pulse 97 96 Oximetry 06/02/19 12:20 Temperature 98.4 F Pulse Rate 74 Respiratory 18 Rate Blood Pressure Blood Pressure 188/106 [Right] O2 Sat by Pulse 95 Oximetry - General physical appearance no distress, no pain, other (sitting up in bed. Looks good) - Eyes normal occular movement - Respiratory normal expansion, normal respiratory effort - Integumentary other (dressing with moderate drainage) - Psychiatric oriented to time, oriented to person, oriented to place, speech is normal, memor y intact - Labs 06/02/19 04:24 06/02/19 04:24 Diabetes panel 06/02/19 Range/Units 04:24 Sodium 142 (137-145) mmol/L Potassium 4.7 (3.6-5.0) mmol/L Chloride 109.1 H (98-107) mmol/L Carbon Dioxide 18 L (22-30) mmol/L BUN 29 H (9-20) mg/dL Creatinine 6.5 H (0.8-1.5) mg/dL Glucose 121 H (75-100) mg/dL Calcium 8.1 L (8.4-10.2) mg/dL Calcium panel 06/02/19 Range/Units 04:24 Calcium 8.1 L (8.4-10.2) mg/dL Pituitary panel 06/02/19 Range/Units 04:24 Sodium 142 (137-145) mmol/L Potassium 4.7 (3.6-5.0) mmol/L Chloride 109.1 H (98-107) mmol/L Carbon Dioxide 18 L (22-30) mmol/L BUN 29 H (9-20) mg/dL Creatinine 6.5 H (0.8-1.5) mg/dL Glucose 121 H (75-100) mg/dL Calcium 8.1 L (8.4-10.2) mg/dL Adrenal panel 06/02/19 Range/Units 04:24 Sodium 142 (137-145) mmol/L Potassium 4.7 (3.6-5.0) mmol/L Chloride 109.1 H (98-107) mmol/L Carbon Dioxide 18 L (22-30) mmol/L BUN 29 H (9-20) mg/dL Creatinine 6.5 H (0.8-1.5) mg/dL Glucose 121 H (75-100) mg/dL Calcium 8.1 L (8.4-10.2) mg/dL
--- NOTE | 2019-06-02 13:23 | Progress Note ---
Assessment and Plan Cultures: 05/27/2019 blood culture: No growth 05/28/2019 OR culture: Usual skin julee. A/P: 34-year-old male with morbid obesity, diabetes mellitus, prior skin infections requiring I&D, admitted with: 1) Sepsis secondary to left lower abdominal wall abscess with necrotizing fasciitis: s/p OR on 05/28/2019, findings showed 2 large abscess cavities with necrotic tissue extending down to the level of the fascia. Failed Bactrim as outpatient. ?beta-hemolytic Strep infection. s/p additional debridement 05/31/2019. 2) Morbid obesity: dose abx accordingly. 3) Diabetes mellitus type 2, uncontrolled: recommend tight control. HbA1c 17.1. 4) PEYTON: creatinine much worsened. Likely from supratherapeutic vancomycin. Vancomycin was discontinued on 05/24/2019. Urine eosinophils ordered, to evaluate for possibility of AIN. Will avoid beta-lactams as well. Recs: d/florentin Zosyn urine eosinophils ordered started PO Linezolid 600 mg BID consider nephrology consult continue tight glycemic control wound care patient extremely concerned about finances, consider SW consult Pricilla Oakley MD, FACP [facility] C: [phone] O: [phone] F: [phone] Subjective Date of service: 06/02/19 Interval history: Denies any complaints but wants to go home. I explained him about his renal function. Objective - Exam Narrative Exam: Physical Exam: Constitutional: Alert, cooperative. No acute distress. morbidly obese Head, Ears, Nose: Normocephalic, atraumatic. External ears, nose normal Eyes: Conjunctivae/corneas clear. No icterus. No ptosis. Neck: Supple, no meningeal signs Cardiovascular: S1, S2 normal. Respiratory: Good air entry, clear to auscultation bilaterally GI: Soft; bowel sounds normal. No peritoneal signs. LLQ abdominal wall with drainage and dressings, tenderness + Musculoskeletal: No pedal edema, no cyanosis. Morbidly obese Skin: No rash. Hem/Lymphatic: No palpable cervical or supraclavicular nodes. No lymphangitis Psych: Mood ok. Affect normal Neurological: Awake, alert, oriented. No gross abnormality - Constitutional Vitals: Vital Signs Temp Pulse Resp BP Pulse Ox 98.4 F 74 18 188/106 95 06/02/19 12:20 06/02/19 12:20 06/02/19 12:20 06/02/19 12:20 06/02/19 12:20 Temperature -Last 24 Hours Temperature 98.4 F Temperature 98.4 F Temperature 98.5 F Temperature 98.4 F Temperature 98.4 F Temperature 98.4 F - Labs CBC & Chem 7: 06/02/19 04:24 06/02/19 04:24 Labs: Abnormal lab results 06/01/19 06/01/19 06/02/19 Range/Units 16:51 20:58 04:24 RBC 3.41 L (3.65-5.03) M/mm3 Hgb 10.3 L (11.8-15.2) gm/dl Hct 30.9 L (35.5-45.6) % RDW 15.3 H (13.2-15.2) % [place] % (Auto) 13.3 H (0.0-7.3) % [place] # 1.0 H (0.0-0.8) K/mm3 Chloride (98-107) mmol/L Carbon Dioxide (22-30) mmol/L BUN (9-20) mg/dL Creatinine (0.8-1.5) mg/dL Glucose (75-100) mg/dL POC Glucose 172 H 192 H (70-105) Calcium (8.4-10.2) mg/dL 06/02/19 06/02/19 06/02/19 Range/Units 04:24 08:15 12:15 RBC (3.65-5.03) M/mm3 Hgb (11.8-15.2) gm/dl Hct (35.5-45.6) % RDW (13.2-15.2) % [place] % (Auto) (0.0-7.3) % [place] # (0.0-0.8) K/mm3 Chloride 109.1 H (98-107) mmol/L Carbon Dioxide 18 L (22-30) mmol/L BUN 29 H (9-20) mg/dL Creatinine 6.5 H (0.8-1.5) mg/dL Glucose 121 H (75-100) mg/dL POC Glucose 123 H 147 H (70-105) Calcium 8.1 L (8.4-10.2) mg/dL
[2019-06-02] MEDS: ZYVOX PO SCH ×2 (16:30→22:04)
[2019-06-02] MEDS: ZOFRAN IV PRN (19:56)
--- NOTE | 2019-06-02 21:00 | Ultrasound Report ---
ULTRASOUND RENAL INDICATION: ARF COMPARISON: CT abdomen 05/27/2019. Graph note: Study was difficult and detail is limited due to the pat ient's size. FINDINGS: RIGHT KIDNEY: Size: 11.5 cm. Echogenicity: Normal. Cortical thickness: Normal. Stones: None. Hydronephrosis: None. Cyst or mass: None. LEFT KIDNEY: Size: 12.8 cm. Echogenicity: Normal. Cortical thickness: Normal. Stones: None. Hydronephrosis: None. Cyst or mass: None. Urinary Bladder: No significant abnormality. Free Fluid: None. Additional Findings: None. IMPRESSION: No acute sonographic abnormality of the kidneys Signer Name: Otilio Cooley MD Signed: 06/02/2019 8:55 PM Workstation Name: [id number]
[2019-06-02] MEDS: MORPHINE IV PRN (22:05)
[2019-06-02] MEDS: LANTUS SUB-Q SCH (22:18)
[2019-06-03] MEDS: ZOSYN/NS 2.25 GM/50ML 2.25 GM/50 ML BAG IV SCH (02:55)
[2019-06-03] MEDS: MYLICON PO PRN (03:03)
[2019-06-03] MEDS: HumuLIN R SUB-Q SCH ×4 (09:04→21:35)
--- NOTE | 2019-06-03 09:21 | Consultation ---
History of Present Illness - History of Present Illness Thank you for the consultation ! Patient was evaluated today,Please note that patient has been very disrespectful, It was very hard to obtain history from him, You kept on playing on his phone and would not pay attention, To the conversation Patient also has not been followed by physicain He Is poorly educated about his overall health which is not very good My assessment and plan are as follows Acute kidney injury in a patient who is 34-year-old creatinine was 1.7 on 05/30 and currently at 6.5, etiology of renal failure appears to be complex and multifactorial, we'll order labs as well as renal imaging Patient has also been exposed to radiocontrast on 05/27/2019, possibility of radiocontrast nephropathy could not be ruled out Rule out drug-induced renal failure/vancomycin toxicity may also have contributed to renal failure Patient has also been febrile, and is being treated for sepsis Was taking Bactrim in outpatient setting Treated for necrotizing fasciitis of lower abdominal wall, with surgery resulting in excisional debridement of the lower abdominal wall Patient's creatinine was normal baseline 0.9 as of 05/27/2019 Blood cultures negative for last 5 days Diabetes mellitus type 2 very poorly controlled hemoglobin A1c was 17.1 Vancomycin level was 67.6 Upon admission urinalysis showed evidence of 30 mg of protein but glucose was more than 500, admission blood sugar was 480 Metabolic acidosis current bicarbonate around 18 which was 22 on May 30 Anemia in renal failure current hemoglobin has declined to 10.3 from 11.0 Had a detailed discussion with patient about the plan of care from renal standpoint. All questions were answered labs and pertinent imaging findings were explained to the patient and simple Turkmen. Prognosis: Poor from renal standpoint patient quite likely may require renal replacement therapy We'll continue to follow and make recommendation from renal standpoint Thank you for the consultation. History of presenting illness; Patient is a 34-year-old the male who has been admitted here with the abdominal abscess, underwent surgical evacuation, has also been treated for sepsis, patient baseline creatinine was 0.9 upon admission which has currently increased to over 6 patient is also developing metabolic acidosis during this hospitalization, he has also been noted to have vancomycin toxicity. Patient denies using any form of mono struggle drug outpatient he was treated with Bactrim therapy that failed, Patient was also exposed radiocontrast during this admission, Events of this hospitalization noted Consultation was placed for management of acute renal failure He's a very poor historian, Throughout the conversation he used abusive language, Foul language, Have a significant number of curse words He was also very abrasive very rude Past medical history significant for: Poorly controlled diabetes Patient has not been seen and followed by physicians and outpatient setting He has known history of long-standing diabetes which is very poorly controlled Morbid obesity Lack of healthcare Current allergies: Reviewed Home medication/present medication: Reviewed Social history: Reviewed from the current chart Family history: Reviewed from the current chart Review of system is positive for; All other review of systems were negative Physical examination Vitals: Reviewed from this admission Gen.: No acute distress HEENT: Normocephalic/atraumatic skull oral mucosa moist minimal pallor no icterus or uremic order Neck: Supple without any thyromegaly nodular mass or JVD Chest: Clear to auscultation anteriorly few faint basilar crackles otherwise unremarkable Heart: Regular rate and rhythm S1 and S2 heard no S3-S4 no pericardial rub Abdomen: Soft nontender no guarding rigidity rebound organomegaly no suprapubic masses, no CVA tenderness no renal bruit Post surgical abdomen Back: No CVA tenderness Derm: No petechial rashes dry skin Extremity: Pulses palpable no peripheral cyanosis, 1+ edema dry skin Neurological: Alert awake follows commands Psychiatric: No agitation and aggression Labs and x-rays: Were reviewed from this admission Past History Past Medical History: diabetes, other (obesity) Past Surgical History: No surgical history Social history: smoking (1 pack per week) Family history: no significant family history Medications and Allergies Allergies Allergy/AdvReac Type Severity Reaction Status Date / Time No Known Allergies Allergy Verified 05/27/19 22:21 Home Medications Medication Instructions Recorded Confirmed Last Taken Type No Known Home Medications [No 05/28/19 05/28/19 Unknown History Reported Home Medications] Active Meds: Active Medications Acetaminophen (Tylenol) 650 mg PO Q4H PRN PRN Reason: Fever >101 Dextrose (D50w (25gm) Syringe) 50 ml IV PRN PRN PRN Reason: Hypoglycemia Last Admin: 06/03/19 08:48 Dose: 50 ml Documented by: Heparin Sodium (Porcine) (Heparin) 5,000 unit SUB-Q Q12HR LIBERTAD Last Admin: 06/02/19 22:05 Dose: 5,000 unit Documented by: Hydromorphone HCl (Dilaudid) 0.5 mg IV Q10MIN PRN PRN Reason: Pain , Severe (7-10) Last Admin: 05/31/19 13:20 Dose: 0.5 mg Documented by: Sodium Chloride (Nacl 0.9% 1000 Ml) 1,000 mls @ 75 mls/hr IV DIRECT LIBERTAD Last Admin: 06/02/19 03:35 Dose: 75 mls/hr Documented by: Insulin Glargine (Lantus) 10 units SUB-Q QHS [facility] Last Admin: 06/02/19 22:18 Dose: Not Given Documented by: Insulin Human Isoph/Insulin Regular (Humulin 70/30) 35 unit SUB-Q BIDDIAB [facility] Last Admin: 06/03/19 09:04 Dose: Not Given Documented by: Insulin Human Regular (Humulin R) 0 units SUB-Q [facility]; Protocol Last Admin: 06/03/19 09:04 Dose: Not Given Documented by: Insulin Human Regular (Humulin R) [facility]; Protocol Last Admin: 06/02/19 22:19 Dose: Not Given Documented by: Linezolid (Zyvox) 600 mg PO Q12HR [facility]; Protocol Last Admin: 06/02/19 22:04 Dose: 600 mg Documented by: Morphine Sulfate (Morphine) 2 mg IV Q3H PRN PRN Reason: Pain , Severe (7-10) Last Admin: 06/02/19 22:05 Dose: 2 mg Documented by: Ondansetron HCl (Zofran) 4 mg IV Q8H PRN PRN Reason: Nausea And Vomiting Last Admin: 06/02/19 19:56 Dose: 4 mg Documented by: Oxycodone/Acetaminophen (Percocet 5/325) 2 tab PO Q4H PRN PRN Reason: Pain, Moderate (4-6) Last Admin: 05/29/19 05:27 Dose: 2 tab Documented by: Simethicone (Mylicon) 80 mg PO Q6H PRN PRN Reason: Gas pain Last Admin: 06/03/19 03:03 Dose: 80 mg Documented by: Exam - Vital Signs Vital signs: Vital Signs Temp Pulse Resp BP Pulse Ox 100.5 F H 135 H 18 141/79 96 05/27/19 21:48 05/27/19 21:48 05/27/19 21:48 05/27/19 21:48 05/27/19 21:48 Results - Lab Results 06/02/19 04:24 06/03/19 09:40 Most recent lab results Calcium 8.1 mg/dL (8.4-10.2) L 06/02/19 04:24
[2019-06-03] MEDS: HEPARIN SUB-Q SCH ×2 (09:49→21:34)
[2019-06-03] MEDS: ZYVOX PO SCH ×2 (09:49→21:34)
--- NOTE | 2019-06-03 10:13 | Anesthesia Day of Surgery ---
Anesthesia Day of Surgery - Day of Surgery Patient Examined: Yes Patient H&P Reviewed: Yes Patient is NPO: Yes Beta Blockers: No
--- NOTE | 2019-06-03 10:16 | Anesthesia Consultation ---
Anesthesia Consult and Med Hx Date of service: 06/03/19 - Airway Anesthetic Teeth Evaluation: Poor ROM Head & Neck: Adequate Mental/Hyoid Distance: Adequate Mallampati Class: Class III Intubation Access Assessment: Possibly Difficult - Pulmonary Exam CTA: Yes - Cardiac Exam Cardiac Exam: No Murmur - Pre-Operative Health Status ASA Pre-Surgery Classification: ASA3 Proposed Anesthetic Plan: General - Pulmonary Hx Smoking: Yes Hx Asthma: No COPD: No Hx Pneumonia: No Hx Sleep Apnea: No - Cardiovascular System Hx Heart Attack/AMI: No Hx Angina: No - Central Nervous System Hx Psychiatric Problems: No - Endocrine Hx End Stage Renal Disease: No Hx Liver Disease: Yes (Increased LFTs. Albumin 2.7) Hx Insulin Dependent Diabetes: Yes - Hematic Hx Anemia: No - Other Systems Hx Cancer: No Hx Obesity: Yes
--- NOTE | 2019-06-03 10:17 | Progress Note ---
Assessment and Plan Cultures: 05/27/2019 blood culture: No growth 05/28/2019 OR culture: Usual skin julee. A/P: 34-year-old male with morbid obesity, diabetes mellitus, prior skin infections requiring I&D, admitted with: 1) Sepsis: secondary to left lower abdominal wall abscess with necrotizing fasciitis: s/p OR on 05/28/2019, findings showed 2 large abscess cavities with necrotic tissue extending down to the level of the fascia. Failed Bactrim as outpatient. ?beta-hemolytic Strep infection. s/p additional debridement 05/31/2019. OR culture +normal skin julee. 2) Morbid obesity: dose abx accordingly. 3) Diabetes mellitus type 2, uncontrolled: recommend tight control. HbA1c 17.1. 4) PEYTON: worsening ? vancomycin toxicity. Likely from supratherapeutic vancomycin. Vancomycin was discontinued on 05/31/2019. Urine eosinophils ordered, to evaluate for possibility of AIN. Will avoid beta-lactams as well. Recs: renal on board - patient may require HD urine eosinophils ordered continue PO Linezolid 600 mg BID D7 of 14 (D7, was on vancomycin 05/28-05/31) continue tight glycemic control wound care patient desires to go home minoo, I explained need to monitor his kidney function in patient. Will follow Nancy Collins MD Infectious Diseases [employer] [facility] M [phone] O [phone] Subjective Date of service: 06/03/19 Principal diagnosis: abdominal wall abscess Interval history: Patient feels frustrated, wants to go home. No fever. ROS +mild surg site pain, no fever, N/V/D Objective - Exam Narrative Exam: General: Alert, cooperative. Obese. Head, Ears, Nose: Normocephalic, atraumatic. External ears, nose normal Eyes: Conjunctivae/corneas clear. No icterus. No ptosis. Neck: Supple, no meningeal signs Cardiovascular: RRR Respiratory: Good air entry, clear to auscultation bilaterally GI: Soft; bowel sounds normal. No peritoneal signs. LLQ abdominal wall with drainage and dressings, tenderness + Musculoskeletal: No pedal edema, no cyanosis. Morbidly obese Skin: No rash. Hem/Lymphatic: No palpable cervical or supraclavicular nodes. No lymphangitis Psych: Mood ok. Affect normal Neurological: Awake, alert, oriented. - Constitutional Vitals: Vital Signs Temp Pulse Resp BP Pulse Ox 97.4 F L 71 20 140/76 98 06/03/19 03:41 06/03/19 03:41 06/03/19 03:41 06/03/19 03:41 06/03/19 03:41 Temperature -Last 24 Hours Temperature 97.4 F Temperature 97.2 F Temperature 98.2 F Temperature 98.3 F Temperature 98.4 F - Labs CBC & Chem 7: 06/02/19 04:24 06/03/19 09:40 Labs: Abnormal lab results 06/02/19 06/02/19 06/03/19 Range/Units 12:15 16:07 07:41 POC Glucose 147 H 125 H 67 L (70-105)
[2019-06-03 10:24] LABS: Calcium 8.7 mg/dL (8.4-10.2)
--- NOTE | 2019-06-03 11:05 | Progress Note ---
Assessment and Plan Assessment and plan: Abdominal wall necrotizing fasciitis/abscess. Patient is status post excisional debridement 05/28/19. Surgery following. Patient with further debridement of abdominal wall on 05/31/19 that revealed multiple abscess cavities along lateral left abdominal wall with copious amount of purulent drainage and necrotic subcutaneous tissue. Patient to have a third debridement today per surgery. Continue with antibiotics per ID recommendations. Pain control. Sepsis. Etiology secondary to above. Blood cultures negative. Antibiotics per ID. PEYTON. Creatinine continues to worsen. Patient may need renal replacement therapy. Etiology multifactorial potentially related to supratherapeutic vancomycin, radiocontrast nephropathy and sepsis/ATN. Vancomycin was discontinued on 05/24/2019. Urine eosinophils ordered, to evaluate for possibility of AIN. Nephrology following. Follow-up imaging. Diabetes mellitus type 2. Better controlled. Continue Lantus insulin 70/30 insulin. Accu-Cheks and sliding scale insulin Morbid obesity. History Interval history: Patient is a 34-year-old the male who has been admitted here with the abdominal abscess, underwent surgical evacuation, has also been treated for sepsis, patient baseline creatinine was 0.9 upon admission which has currently increased to over 6 patient is also developing metabolic acidosis during this hospitalization, he has also been noted to have vancomycin toxicity. Hospitalist Physical - Constitutional Vitals: Temp Pulse Resp BP Pulse Ox 97.4 F L 71 20 140/76 98 06/03/19 03:41 06/03/19 03:41 06/03/19 03:41 06/03/19 03:41 06/03/19 03:41 General appearance: Present: no acute distress - EENT Eyes: Present: PERRL, EOM intact ENT: hearing intact, clear oral mucosa, dentition normal - Neck Neck: Present: supple, normal ROM - Respiratory Respiratory effort: normal Respiratory: bilateral: CTA - Cardiovascular Rhythm: regular Heart Sounds: Present: S1 & S2. Absent: gallop, rub - Extremities Extremities: no ischemia, No edema, Full ROM - Abdominal General gastrointestinal: soft, non-tender, non-distended, normal bowel sounds - Integumentary Integumentary: Present: clear, warm, dry - Neurologic Neurologic: CNII-XII intact, moves all extremities Results - Labs CBC & Chem 7: 06/02/19 04:24 06/03/19 09:40 Labs: Laboratory Last Values WBC 7.9 K/mm3 (4.5-11.0) 06/02/19 04:24 RBC 3.41 M/mm3 (3.65-5.03) L 06/02/19 04:24 Hgb 10.3 gm/dl (11.8-15.2) L 06/02/19 04:24 Hct 30.9 % (35.5-45.6) L 06/02/19 04:24 MCV 91 fl (84-94) 06/02/19 04:24 MCH 30 pg (28-32) 06/02/19 04:24 MCHC 33 % (32-34) 06/02/19 04:24 RDW 15.3 % (13.2-15.2) H 06/02/19 04:24 Plt Count 344 K/mm3 (140-440) 06/02/19 04:24 Lymph % (Auto) 21.3 % (13.4-35.0) 06/02/19 04:24 [place] % (Auto) 13.3 % (0.0-7.3) H 06/02/19 04:24 Eos % (Auto) 1.8 % (0.0-4.3) 06/02/19 04:24 Baso % (Auto) 0.1 % (0.0-1.8) 06/02/19 04:24 Lymph # 1.7 K/mm3 (1.2-5.4) 06/02/19 04:24 [place] # 1.0 K/mm3 (0.0-0.8) H 06/02/19 04:24 Eos # 0.1 K/mm3 (0.0-0.4) 06/02/19 04:24 Baso # 0.0 K/mm3 (0.0-0.1) 06/02/19 04:24 Add Manual Diff Complete 05/29/19 05:24 Total Counted 100 05/29/19 05:24 Seg Neutrophils % 63.5 % (40.0-70.0) 06/02/19 04:24 Seg Neuts % (Manual) 73.0 % (40.0-70.0) H 05/29/19 05:24 0 % 05/29/19 05:24 15.0 % (13.4-35.0) 05/29/19 05:24 Reactive Lymphs % (Man) 1.0 % 05/29/19 05:24 10.0 % (0.0-7.3) H 05/29/19 05:24 1.0 % (0.0-4.3) 05/29/19 05:24 0 % (0.0-1.8) 05/29/19 05:24 0 % 05/29/19 05:24 0 % 05/29/19 05:24 0 % 05/29/19 05:24 0 % 05/29/19 05:24 Nucleated RBC % Not Reportable 05/29/19 05:24 Seg Neutrophils # 5.0 K/mm3 (1.8-7.7) 06/02/19 04:24 Seg Neutrophils # Man 6.0 K/mm3 (1.8-7.7) 05/29/19 05:24 Band Neutrophils # 0.0 K/mm3 05/29/19 05:24 1.2 K/mm3 (1.2-5.4) 05/29/19 05:24 Abs React Lymphs (Man) 0.1 K/mm3 05/29/19 05:24 0.8 K/mm3 (0.0-0.8) 05/29/19 05:24 0.1 K/mm3 (0.0-0.4) 05/29/19 05:24 0.0 K/mm3 (0.0-0.1) 05/29/19 05:24 0.0 K/mm3 05/29/19 05:24 0.0 K/mm3 05/29/19 05:24 0.0 K/mm3 05/29/19 05:24 Blast Cells # 0.0 K/mm3 05/29/19 05:24 WBC Morphology Not Reportable 05/29/19 05:24 Hypersegmented Neuts Not Reportable 05/29/19 05:24 Hyposegmented Neuts Not Reportable 05/29/19 05:24 Hypogranular Neuts Not Reportable 05/29/19 05:24 Not Reportable 05/29/19 05:24 Not Reportable 05/29/19 05:24 Not Reportable 05/29/19 05:24 Not Reportable 05/29/19 05:24 Not Reportable 05/29/19 05:24 Not Reportable 05/29/19 05:24 Consistent w auto 05/29/19 05:24 Not Reportable 05/29/19 05:24 Plt Clumps, EDTA Not Reportable 05/29/19 05:24 Not Reportable 05/29/19 05:24 Not Reportable 05/29/19 05:24 Not Reportable 05/29/19 05:24 Plt Morphology Comment Not Reportable 05/29/19 05:24 RBC Morphology Not Reportable 05/29/19 05:24 Dimorphic RBCs Not Reportable 05/29/19 05:24 Not Reportable 05/29/19 05:24 Not Reportable 05/29/19 05:24 Not Reportable 05/29/19 05:24 1+ 05/29/19 05:24 Not Reportable 05/29/19 05:24 Not Reportable 05/29/19 05:24 Not Reportable 05/29/19 05:24 Not Reportable 05/29/19 05:24 Not Reportable 05/29/19 05:24 Not Reportable 05/29/19 05:24 Not Reportable 05/29/19 05:24 Not Reportable 05/29/19 05:24 Not Reportable 05/29/19 05:24 Not Reportable 05/29/19 05:24 Not Reportable 05/29/19 05:24 Not Reportable 05/29/19 05:24 Not Reportable 05/29/19 05:24 Not Reportable 05/29/19 05:24 Not Reportable 05/29/19 05:24 Acanthocytes (Spur) Not Reportable 05/29/19 05:24 Rouleaux Not Reportable 05/29/19 05:24 Not Reportable 05/29/19 05:24 Not Reportable 05/29/19 05:24 Not Reportable 05/29/19 05:24 Not Reportable 05/29/19 05:24 Hem Pathologist Commnt No 05/29/19 05:24 Sodium 140 mmol/L (137-145) 06/03/19 09:40 Potassium 4.5 mmol/L (3.6-5.0) 06/03/19 09:40 Chloride 106.2 mmol/L (98-107) 06/03/19 09:40 Carbon Dioxide 16 mmol/L (22-30) L 06/03/19 09:40 22 mmol/L 06/03/19 09:40 BUN 32 mg/dL (9-20) H 06/03/19 09:40 7.8 mg/dL (0.8-1.5) H 06/03/19 09:40 Estimated GFR 10 ml/min 06/03/19 09:40 4 % 06/03/19 09:40 Glucose 73 mg/dL (75-100) L 06/03/19 09:40 POC Glucose 67 (70-105) L 06/03/19 07:41 17.1 % (4-6) H 05/29/19 05:22 292 Mosm/kg 06/03/19 09:40 Lactic Acid 0.80 mmol/L (0.7-2.0) 05/28/19 00:27 Calcium 8.7 mg/dL (8.4-10.2) 06/03/19 09:40 0.30 mg/dL (0.1-1.2) 05/27/19 21:55 AST 43 units/L (5-40) H 05/27/19 21:55 ALT 48 units/L (7-56) 05/27/19 21:55 163 units/L (35-129) H 05/27/19 21:55 66 units/L (55-170) 06/03/19 09:40 7.9 g/dL (6.3-8.2) 05/27/19 21:55 2.7 g/dL (3.9-5) L 05/27/19 21:55 0.5 % 05/27/19 21:55 Yellow (Yellow) 05/27/19 23:33 Clear (Clear) 05/27/19 23:33 6.0 (5.0-7.0) 05/27/19 23:33 Ur Specific [place] 1.030 (1.003-1.030) 05/27/19 23:33 30 mg/dl mg/dL (Negative) 05/27/19 23:33 >=500 mg/dL (Negative) 05/27/19 23:33 20 mg/dL (Negative) 05/27/19 23:33 Neg (Negative) 05/27/19 23:33 Neg (Negative) 05/27/19 23:33 Neg (Negative) 05/27/19 23:33 2.0 mg/dL (<2.0) 05/27/19 23:33 Ur Leukocyte Esterase Neg (Negative) 05/27/19 23:33 < 1.0 /HPF (0.0-6.0) 05/27/19 23:33 < 1.0 /HPF (0.0-6.0) 05/27/19 23:33 U Epithel Cells (Auto) 3.0 /HPF (0-13.0) 05/27/19 23:33 Vancomycin Trough 67.6 ug/mL (5.0-20.0) H 05/31/19 15:08 Active Medications - Current Medications Current Medications: Generic Name Dose Route Start Last Admin Trade Name Freq PRN Reason Stop Dose Admin Acetaminophen 650 mg 05/28/19 02:10 Tylenol PO Q4H PRN Fever >101 Dextrose 50 ml 05/28/19 02:13 06/03/19 08:48 D50w (25gm) Syringe IV 50 ml PRN PRN Administration Hypoglycemia Heparin Sodium (Porcine) 5,000 unit 05/28/19 10:00 06/03/19 09:49 Heparin SUB-Q Not Given Q12HR [facility] Hydromorphone HCl 0.5 mg 05/31/19 13:08 05/31/19 13:20 Dilaudid IV 0.5 mg Q10MIN PRN Administration Pain , Severe (7-10) Dextrose/Sodium Chloride 1,000 mls @ 100 mls/hr 06/03/19 11:00 D5/0.45ns IV DIRECT [facility] Insulin Glargine 10 units 05/29/19 22:00 06/02/19 22:18 Lantus SUB-Q Not Given QHS [facility] Insulin Human Isoph/Insulin Regular 35 unit 05/30/19 17:00 06/03/19 09:04 Humulin 70/30 SUB-Q Not Given BIDDIAB LIBERTAD Insulin Human Regular 0 units 05/28/19 07:30 06/03/19 09:04 Humulin R SUB-Q Not Given AC [facility] Protocol Insulin Human Regular 0 units 05/28/19 22:00 06/02/19 22:19 Humulin R SUB-Q Not Given QHS [facility] Protocol Linezolid 600 mg 06/02/19 13:00 06/03/19 09:49 Zyvox PO Not Given Q12HR [facility] Protocol Morphine Sulfate 2 mg 05/28/19 02:09 06/02/19 22:05 Morphine IV 2 mg Q3H PRN Administration Pain , Severe (7-10) Ondansetron HCl 4 mg 05/28/19 02:10 06/02/19 19:56 Zofran IV 4 mg Q8H PRN Administration Nausea And Vomiting Oxycodone/Acetaminophen 2 tab 05/28/19 16:20 05/29/19 05:27 Percocet 5/325 PO 2 tab Q4H PRN Administration Pain, Moderate (4-6) Simethicone 80 mg 06/01/19 09:11 06/03/19 03:03 Mylicon PO 80 mg Q6H PRN Administration Gas pain Nutrition/Malnutrition Assess - Dietary Evaluation Nutrition/Malnutrition Findings: Nutrition Notes Start: 05/28/19 13:42 Freq: Status: Active Protocol: Document 05/28/19 13:42 LANEY (Rec: 05/28/19 13:50 LANEY [email or web address]) Nutrition Notes Need for Assessment generated from: vocational rehabilitation specialist,MST Initial or Follow up Brief Note Current Diagnosis Diabetes,Sepsis Other Pertinent Diagnosis Cellulitis of anterior abdominal wall with small abscess Current Diet Consistent CHO Labs/Tests BG 480 Na 131 Pertinent Medications Reviewed Height 6 ft 1 in Weight 151.2 kg [place] Body Weight (kg) 83.63 BMI 43.9 Intake Prior to Admission Fair Weight Status Morbidly Obese Subjective/Other Information Pt screened for malnutrition risk. He was diagnosed with DM 10 yrs ago; says he checks BS 2-3 times daily and takes insulin as prescribed. He does admit to overconsumption of CHO-rich foods. Very receptive to review of CHO- controlled diet principles and A1C. 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 Burn Absent Trauma Absent #1 Nutrition Diagnosis Limited adherence to nutrition -related recommendations Etiology knowledge deficit As Evidenced by Signs and Symptoms pt admission of the need to review DM diet principles and unaware of the relationship between wound healing and BS levels Nutrition Intervention Teaching Recipient Patient Learning Readiness Good Teaching Methods Discussion,Handout Response to Teaching Verbalize understanding Education Handouts Provided Hemoglobin A1C and Blood Sugar Control Carbohydrate Counting for People with Diabetes (Food Sources of Carbohydrates) Barriers to Learning No Barriers RD phone number provided Yes Patient aware of follow up options Yes Goal #1 Improved BS control Goal #2 Adherence to CHO-controlled diet Anticipated Discharge Needs: CHO-controlled diet Revisit per MD consult or patient Sign Off request:
[2019-06-03] MEDS ORDERED: HYDROGEN PEROXIDE ONE (12:41)
[2019-06-03] MEDS ORDERED: MARCAINE 0.5% INFILTRATI ONE (12:41)
[2019-06-03] MEDS ORDERED: DIPRIVAN 10 MG/ML IV ONE ×2 (13:14→14:50)
[2019-06-03] MEDS ORDERED: SUBLIMAZE ONE (13:15)
--- NOTE | 2019-06-03 13:28 | Operative Report ---
PREOPERATIVE DIAGNOSIS: Necrotizing fasciitis of abdominal wall. POSTOPERATIVE DIAGNOSIS: Necrotizing fasciitis of abdominal wall. FINDINGS: Multiple abscess cavities along the left lateral abdominal wall with copious amount of purulent drainage and necrotic subcutaneous tissue. PROCEDURE: Debridement of abdominal wall wound. ANESTHESIA: MAC and local. SURGEON: Lakshmi Acharya DO ESTIMATED BLOOD LOSS: Minimal. PATHOLOGY: None. SPECIMEN DISPOSITION: None. CONDITION AND DISPOSITION: The patient is stable to PACU. HISTORY OF PRESENT ILLNESS AND INDICATION: The patient is a 34-year-old male with uncontrolled diabetes and hemoglobin A1c of 17, who presented to the Emergency Room with cellulitis of his left side of his abdominal wall along with some wounds. He was found to have necrotizing fasciitis and taken to the operating room urgently for debridement. The wounds were debrided and upon dressing change the following day, the wounds appeared clean and a wound VAC was placed. The patient was followed and the wound VAC started to put out purulent fluid and so the recommendation was to take him back to the operating room for further washout and possible debridement. All risks, benefits and alternatives to surgery were discussed with the patient. Consent obtained. PROCEDURE IN DETAIL: The patient was identified in his hospital room and taken down to the operating room and placed on the operating table in supine position. After anesthesia was induced, the abdomen and the area of the wound was prepped with Betadine and draped in the usual sterile fashion. Timeout was performed. An excisional debridement was performed of all necrotic skin and subcutaneous tissue of the abdomen using forceps Bovie electrocautery and 10 blade. Once all necrotic tissue, skin and subcutaneous tissue were debrided, the wounds were probed using a gloved finger in order to break up all loculations. Multiple tracts were found containing pus. All of the wounds on the left lateral abdominal wound were contiguous and formed and connected. The wounds were irrigated copiously with pulse lavage irrigation containing bacitracin. Once the wounds were copiously irrigated, the wounds were checked for hemostasis, which was carefully ensured carefully obtained using the Bovie electrocautery pressure as well as Surgicel packing. Once hemostasis was achieved, the wound was packed with Dakin's moistened Kerlix x 3 pieces. The wounds were then covered with 4 x 4 fluff gauze, ABD pads and Medipore tape. The patient tolerated the procedure well. He was awoken from anesthesia and taken to PACU in stable condition. At the end of the case, all sponge, instrument and sharp counts were correct x 2. JOB# [id number] TESSIE/DIANA
[2019-06-03] MEDS ORDERED: NACL 0.9% 1000 ML 1,000 ML ONE ×2 (13:54→15:59)
[2019-06-03] MEDS ORDERED: DILAUDID ONE ×2 (14:56→15:24)
[2019-06-03] MEDS ORDERED: ZEMURON IV ONE (15:00)
[2019-06-03] MEDS ORDERED: QUELICIN ONE (15:00)
[2019-06-03] MEDS ORDERED: ZOFRAN ONE (15:00)
--- NOTE | 2019-06-03 15:19 | Post Operative Note ---
Date of procedure: 06/03/19 Pre-op diagnosis: necrotizing fasciitis of abdominal wall Post-op diagnosis: same Findings: medial wound: 11cm x 3cm x 1.5cm lateral wound: 13.5 cm x 5.5 x 4.5 cm with tunneling towards 9 oclock about 11 cm and towards two other lateral wounds 2 small lateral wounds: 2 x1.2 x4.5 cm 2 x 1.5 x 4.5 cm All lateral wounds are connected Procedure: excisional debridement of abdominal wall necrotizing faciitis Anesthesia: GETA Surgeon: CASSI GONZALEZ Estimated blood loss: minimal Pathology: none Condition: stable Disposition: PACU
[2019-06-03] MEDS: MORPHINE IV PRN (16:43)
--- NOTE | 2019-06-03 16:56 | Post Anesthesia Evaluation ---
- Post Anesthesia Evaluation Patient Participated: Yes Airway Patent: Yes Stable Respiratory Function: Yes Nausea/Vomiting: No Temp > 96.8F: Yes Pain Manageable: Yes Adequeate Hydration: Yes Anesthesia Complications: No
[2019-06-03] MEDS: D5/0.45NS 1,000 ML IV SCH (17:05)
[2019-06-03 19:21] LABS: Creatinine,Urine 48.8 mg/dL (0.1-20.0)
[2019-06-03 19:22] LABS: Bacteria,Urine 1+ /HPF (Negative); Bilirubin,Urine NEG (Negative); Blood,Urine NEG (Negative); Color,Urine Straw (Yellow); Protein,Urine <15 mg/dL mg/dL (Negative); Urobilinogen,Urine < 2.0 mg/dL (<2.0)
[2019-06-03] MEDS: DILAUDID IV PRN (21:33)
[2019-06-03] MEDS: LANTUS SUB-Q SCH (21:35)
[2019-06-04] MEDS: D5/0.45NS 1,000 ML IV SCH (02:43)
[2019-06-04] MEDS: ZOFRAN IV PRN (04:50)
[2019-06-04] MEDS: MYLICON PO PRN (05:04)
[2019-06-04 06:36] LABS: Basophils % (Auto) 0.2 % (0.0-1.8); Eosinophils # (Auto) 0.1 K/mm3 (0.0-0.4); Eosinophils % (Auto) 1.3 % (0.0-4.3); Hematocrit 30.7 % (35.5-45.6); Hemoglobin 10.2 gm/dl (11.8-15.2); Lymphocytes # (Auto) 1.4 K/mm3 (1.2-5.4); Lymphocytes % (Auto) 18.8 % (13.4-35.0); Mean Corpuscular HGB Conc 33 % (32-34); Mean Corpuscular Volume 92 fl (84-94); Monocytes # (Auto) 0.7 K/mm3 (0.0-0.8); Monocytes % (Auto) 9.8 % (0.0-7.3); Red Blood Count 3.33 M/mm3 (3.65-5.03); Red Cell Distribution Width 15.5 % (13.2-15.2)
[2019-06-04 06:54] LABS: Platelet Count 377 K/mm3 (140-440)
[2019-06-04 06:56] LABS: Calcium 8.2 mg/dL (8.4-10.2)
[2019-06-04] MEDS ORDERED: D50W (25GM) Vial IV STA (07:54)
[2019-06-04] MEDS ORDERED: HumuLIN R IV ONE (08:15)
[2019-06-04] MEDS ORDERED: D50W (25GM) Syringe IV ONE (08:15)
[2019-06-04] MEDS ORDERED: CALCIUM GLUCONATE 1,000 MG in NACL 0.9% 100 ML IV ONE (08:30)
[2019-06-04] MEDS: KIONEX PO SCH ×2 (08:32→15:30)
--- NOTE | 2019-06-04 08:49 | Progress Note ---
Assessment and Plan Assessment and plan: Patient is a 34-year-old the male who has been admitted here with the abdominal abscess, underwent surgical evacuation, has also been treated for sepsis, patient baseline creatinine was 0.9 upon admission which has currently increased to over 6 patient is also developing metabolic acidosis during this h ospitalization, he has also been noted to have vancomycin toxicity. Abdominal wall necrotizing fasciitis/abscess. Patient is status post excisional debridement 05/28/19. Surgery following. Patient with further debridement of abdominal wall on 05/31/19 that revealed multiple abscess cavities along lateral left abdominal wall with copious amount of purulent drainage and necrotic subcutaneous tissue. Continue with antibiotics per ID recommendations. Pain control. Sepsis. Etiology secondary to above. Blood cultures negative. Antibiotics per ID. PEYTON due to ATN. Creatinine continues to worsen. Patient will need renal replacement therapy. Etiology multifactorial potentially related to supratherapeutic vancomycin, radiocontrast nephropathy and sepsis/ATN. Vancomycin was discontinued on 05/24/2019. Urine eosinophils ordered, to evaluate for possibility of AIN. Nephrology following. Discussed with Nephrology. Dr. Schumacher recommends vasc cath to start hemodialysis. Hyperkalemia gave Insulin, Dextrose, kayexalate, calcium gluconate. To start hemodialysis Diabetes mellitus type 2. Continue Lantus insulin 70/30 insulin. Accu-Cheks and sliding scale insulin Morbid obesity. patient states he wants to go home. I discussed with him that he needs to be stable before discharge. History Interval history: Patient states he wants to go home Hospitalist Physical - Physical exam Narrative exam: Gen: Not in acute distress, sitting up in bed, morbidly obese HEENT: Normocephalic, atraumatic Neck: supple, no JVD Heart: S1 and S2 reg, no murmurs, rubs or gallop Lungs: Clear, no crackles or wheeze Abd: soft, non tender, non distended, normal BS, wound vac to abdomen Ext: No edema, no clubbing, no cyanosis Neuro:awake,alert, Oriented X 3. No focal neuro signs Psych: agitated - Constitutional Vitals: Temp Pulse Resp BP Pulse Ox 98.4 F 70 18 138/76 97 06/04/19 08:27 06/04/19 08:27 06/04/19 08:27 06/04/19 08:27 06/04/19 08:27 General appearance: Present: no acute distress Results - Labs CBC & Chem 7: 06/04/19 05:43 06/04/19 05:43 Labs: Laboratory Last Values WBC 7.2 K/mm3 (4.5-11.0) 06/04/19 05:43 RBC 3.33 M/mm3 (3.65-5.03) L 06/04/19 05:43 Hgb 10.2 gm/dl (11.8-15.2) L 06/04/19 05:43 Hct 30.7 % (35.5-45.6) L 06/04/19 05:43 MCV 92 fl (84-94) 06/04/19 05:43 MCH 31 pg (28-32) 06/04/19 05:43 MCHC 33 % (32-34) 06/04/19 05:43 RDW 15.5 % (13.2-15.2) H 06/04/19 05:43 Plt Count 377 K/mm3 (140-440) 06/04/19 05:43 Lymph % (Auto) 18.8 % (13.4-35.0) 06/04/19 05:43 [place]aca % (Auto) 9.8 % (0.0-7.3) H 06/04/19 05:43 Eos % (Auto) 1.3 % (0.0-4.3) 06/04/19 05:43 Baso % (Auto) 0.2 % (0.0-1.8) 06/04/19 05:43 Lymph # 1.4 K/mm3 (1.2-5.4) 06/04/19 05:43 Baca # 0.7 K/mm3 (0.0-0.8) 06/04/19 05:43 Eos # 0.1 K/mm3 (0.0-0.4) 06/04/19 05:43 Baso # 0.0 K/mm3 (0.0-0.1) 06/04/19 05:43 Add Manual Diff Complete 05/29/19 05:24 Total Counted 100 05/29/19 05:24 Seg Neutrophils % 69.9 % (40.0-70.0) 06/04/19 05:43 Seg Neuts % (Manual) 73.0 % (40.0-70.0) H 05/29/19 05:24 0 % 05/29/19 05:24 15.0 % (13.4-35.0) 05/29/19 05:24 Reactive Lymphs % (Man) 1.0 % 05/29/19 05:24 10.0 % (0.0-7.3) H 05/29/19 05:24 1.0 % (0.0-4.3) 05/29/19 05:24 0 % (0.0-1.8) 05/29/19 05:24 0 % 05/29/19 05:24 0 % 05/29/19 05:24 0 % 05/29/19 05:24 0 % 05/29/19 05:24 Nucleated RBC % Not Reportable 05/29/19 05:24 Seg Neutrophils # 5.0 K/mm3 (1.8-7.7) 06/04/19 05:43 Seg Neutrophils # Man 6.0 K/mm3 (1.8-7.7) 05/29/19 05:24 Band Neutrophils # 0.0 K/mm3 05/29/19 05:24 1.2 K/mm3 (1.2-5.4) 05/29/19 05:24 Abs React Lymphs (Man) 0.1 K/mm3 05/29/19 05:24 0.8 K/mm3 (0.0-0.8) 05/29/19 05:24 0.1 K/mm3 (0.0-0.4) 05/29/19 05:24 0.0 K/mm3 (0.0-0.1) 05/29/19 05:24 0.0 K/mm3 05/29/19 05:24 0.0 K/mm3 05/29/19 05:24 0.0 K/mm3 05/29/19 05:24 Blast Cells # 0.0 K/mm3 05/29/19 05:24 WBC Morphology Not Reportable 05/29/19 05:24 Hypersegmented Neuts Not Reportable 05/29/19 05:24 Hyposegmented Neuts Not Reportable 05/29/19 05:24 Hypogranular Neuts Not Reportable 05/29/19 05:24 Not Reportable 05/29/19 05:24 Not Reportable 05/29/19 05:24 Not Reportable 05/29/19 05:24 Not Reportable 05/29/19 05:24 Not Reportable 05/29/19 05:24 Not Reportable 05/29/19 05:24 Consistent w auto 05/29/19 05:24 Not Reportable 05/29/19 05:24 Plt Clumps, EDTA Not Reportable 05/29/19 05:24 Not Reportable 05/29/19 05:24 Not Reportable 05/29/19 05:24 Not Reportable 05/29/19 05:24 Plt Morphology Comment Not Reportable 05/29/19 05:24 RBC Morphology Not Reportable 05/29/19 05:24 Dimorphic RBCs Not Reportable 05/29/19 05:24 Not Reportable 05/29/19 05:24 Not Reportable 05/29/19 05:24 Not Reportable 05/29/19 05:24 1+ 05/29/19 05:24 Not Reportable 05/29/19 05:24 Not Reportable 05/29/19 05:24 Not Reportable 05/29/19 05:24 Not Reportable 05/29/19 05:24 Not Reportable 05/29/19 05:24 Not Reportable 05/29/19 05:24 Not Reportable 05/29/19 05:24 Not Reportable 05/29/19 05:24 Not Reportable 05/29/19 05:24 Not Reportable 05/29/19 05:24 Not Reportable 05/29/19 05:24 Not Reportable 05/29/19 05:24 Not Reportable 05/29/19 05:24 Not Reportable 05/29/19 05:24 Not Reportable 05/29/19 05:24 Acanthocytes (Spur) Not Reportable 05/29/19 05:24 Rouleaux Not Reportable 05/29/19 05:24 Not Reportable 05/29/19 05:24 Not Reportable 05/29/19 05:24 Not Reportable 05/29/19 05:24 Not Reportable 05/29/19 05:24 Hem Pathologist Commnt No 05/29/19 05:24 Sodium 140 mmol/L (137-145) 06/04/19 05:43 Potassium 5.7 mmol/L (3.6-5.0) H D 06/04/19 05:43 Chloride 109.7 mmol/L (98-107) H 06/04/19 05:43 Carbon Dioxide 18 mmol/L (22-30) L 06/04/19 05:43 18 mmol/L 06/04/19 05:43 BUN 36 mg/dL (9-20) H 06/04/19 05:43 8.4 mg/dL (0.8-1.5) H 06/04/19 05:43 Estimated GFR 9 ml/min 06/04/19 05:43 4 % 06/04/19 05:43 Glucose 187 mg/dL (75-100) H 06/04/19 05:43 POC Glucose 182 (70-105) H 06/04/19 07:51 17.1 % (4-6) H 05/29/19 05:22 292 Mosm/kg 06/03/19 09:40 Lactic Acid 0.80 mmol/L (0.7-2.0) 05/28/19 00:27 Calcium 8.2 mg/dL (8.4-10.2) L 06/04/19 05:43 0.30 mg/dL (0.1-1.2) 05/27/19 21:55 AST 43 units/L (5-40) H 05/27/19 21:55 ALT 48 units/L (7-56) 05/27/19 21:55 163 units/L (35-129) H 05/27/19 21:55 66 units/L (55-170) 06/03/19 09:40 7.9 g/dL (6.3-8.2) 05/27/19 21:55 2.7 g/dL (3.9-5) L 05/27/19 21:55 0.5 % 05/27/19 21:55 Straw (Yellow) 06/03/19 18:44 Clear (Clear) 06/03/19 18:44 5.0 (5.0-7.0) 06/03/19 18:44 Ur Specific [place] 1.005 (1.003-1.030) 06/03/19 18:44 <15 mg/dl mg/dL (Negative) 06/03/19 18:44 Neg mg/dL (Negative) 06/03/19 18:44 Neg mg/dL (Negative) 06/03/19 18:44 Neg (Negative) 06/03/19 18:44 Neg (Negative) 06/03/19 18:44 Neg (Negative) 06/03/19 18:44 < 2.0 mg/dL (<2.0) 06/03/19 18:44 Ur Leukocyte Esterase Neg (Negative) 06/03/19 18:44 5.0 /HPF (0.0-6.0) 06/03/19 18:44 3.0 /HPF (0.0-6.0) 06/03/19 18:44 U Epithel Cells (Auto) < 1.0 /HPF (0-13.0) 06/03/19 18:44 1+ /HPF (Negative) 06/03/19 18:44 None seen (None Seen) 06/03/19 18:44 48.8 mg/dL (0.1-20.0) H 06/03/19 18:44 74 mmol/L 06/03/19 18:44 Vancomycin Trough 67.6 ug/mL (5.0-20.0) H 05/31/19 15:08 Active Medications - Current Medications Current Medications: Generic Name Dose Route Start Last Admin Trade Name Freq PRN Reason Stop Dose Admin Acetaminophen 650 mg 05/28/19 02:10 Tylenol PO Q4H PRN Fever >101 Dextrose 50 ml 05/28/19 02:13 06/03/19 08:48 D50w (25gm) Syringe IV 50 ml PRN PRN Administration Hypoglycemia Heparin Sodium (Porcine) 5,000 unit 05/28/19 10:00 06/03/19 21:34 Heparin SUB-Q 5,000 unit Q12HR LIBERTAD Administration Hydromorphone HCl 0.5 mg 06/03/19 14:48 06/03/19 21:33 Dilaudid IV 0.5 mg Q10MIN PRN Administration Pain , Severe (7-10) Insulin Glargine 10 units 05/29/19 22:00 06/03/19 21:35 Lantus SUB-Q 10 units QHS LIBERTAD Administration Insulin Human Regular 0 units 05/28/19 07:30 06/03/19 17:24 Humulin R SUB-Q Not Given [facility] Protocol Insulin Human Regular 0 units 05/28/19 22:00 06/03/19 21:35 Humulin R SUB-Q 3 units QHS LIBERTAD Administration Protocol Linezolid 600 mg 06/02/19 13:00 06/03/19 21:34 Zyvox PO 600 mg Q12HR LIBERTAD Administration Protocol Morphine Sulfate 2 mg 05/28/19 02:09 06/03/19 16:43 Morphine IV 2 mg Q3H PRN Administration Pain , Severe (7-10) Ondansetron HCl 4 mg 05/28/19 02:10 06/04/19 04:50 Zofran IV 4 mg Q8H PRN Administration Nausea And Vomiting Oxycodone/Acetaminophen 2 tab 05/28/19 16:20 05/29/19 05:27 Percocet 5/325 PO 2 tab Q4H PRN Administration Pain, Moderate (4-6) Simethicone 80 mg 06/01/19 09:11 06/04/19 05:04 Mylicon PO 80 mg Q6H PRN Administration Gas pain Sodium Polystyrene Sulfonate 30 gm 06/04/19 09:00 06/04/19 08:32 Kionex PO 06/04/19 15:01 30 gm Q6H LIBERTAD Administration Nutrition/Malnutrition Assess - Dietary Evaluation Nutrition/Malnutrition Findings: Nutrition Notes Start: 05/28/19 13:42 Freq: Status: Active Protocol: Document 05/28/19 13:42 LANEY (Rec: 05/28/19 13:50 LANEY [email or web address]) Nutrition Notes Need for Assessment 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 He was diagnosed with DM 10 yrs ago; says he checks BS 2-3 times daily and takes insulin as prescribed. He does admit to overconsumption of CHO-rich foods. Very receptive to review of CHO- controlled diet principles and A1C. 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 Burn Absent Trauma Absent #1 Nutrition Diagnosis Limited adherence to nutrition -related recommendations Etiology knowledge deficit As Evidenced by Signs and Symptoms pt admission of the need to review DM diet principles and unaware of the relationship between wound healing and BS levels Nutrition Intervention Teaching Recipient Patient Learning Readiness Good Teaching Methods Discussion,Handout Response to Teaching Verbalize understanding Education Handouts Provided Hemoglobin A1C and Blood Sugar Control Carbohydrate Counting for People with Diabetes (Food Sources of Carbohydrates) Barriers to Learning No Barriers RD phone number provided Yes Patient aware of follow up options Yes Goal #1 Improved BS control Goal #2 Adherence to CHO-controlled diet Anticipated Discharge Needs: CHO-controlled diet Revisit per MD consult or patient Sign Off request:
[2019-06-04] MEDS: HumuLIN R SUB-Q SCH ×4 (08:52→22:04)
[2019-06-04] MEDS: DILAUDID IV PRN (09:05)
[2019-06-04] MEDS: ZYVOX PO SCH ×2 (09:05→22:03)
[2019-06-04] MEDS: HEPARIN SUB-Q SCH ×2 (09:05→22:05)
--- NOTE | 2019-06-04 09:09 | Progress Note ---
Subjective Principal diagnosis: abdominal wall abscess Interval history: Patient was seen today for follow-up, regarding multiple renal related issues Events of 24 hours were noted Renal function is rapidly worsening Potassium is now 5.7 Patient is still very upset Patient denies any complaints of chest pain pressure or shortness of breath Interdisciplinary Notes were also reviewed from past 24 hours Vitals labs intake output medications: Reviewed Past medical history: Reviewed Allergies: Reviewed Social history: Reviewed Family history: Reviewed Physical examination Gen.: No acute distress HEENT: Mild pallor nor icterus no uremic order Neck: Supple without any mass or JVD Chest: Clear to auscultation anteriorly Heart: Regular rate and rhythm S1 and S2 heard Abdomen: Soft nontender no suprapubic fullness no masses no renal bruit Extremity: Edema , no peripheral cyanosis Skin: No petechial rashes dry skin Assessment and plan Rapidly evolving renal failure in a patient who is 34-year-old admitted with abd ominal wall abscess, vancomycin toxicity, now developing hyperkalemia worsening renal failure, patient does require immediate initiation of renal replacement therapy have educated him to the best of my knowledge and believe he remains very upset, despite counseling and education Have educated him about the nature and severity of renal failure need for immediate renal replacement therapy, it possibly may require renal biopsy if his renal function fail to improve but quite likely he does appear to have vancomycin-induced renal failure given the clinical scenario Possibility of infectious GN needs to be also ruled out, we'll follow-up on the complement levels, Patient is a very poorly educated as far as his health is concerned he did not had consistent healthcare, he feels very frustrated about his health issues, continues to use foul language despite counseling and education Have educated him to the best of my knowledge and believe about his renal failure need to start dialysis immediately today Renal prognosis remains guarded at this time Renal ultrasonogram does not show any abnormality at this point, which could be a normal looking diabetic kidney Significant lab finding were discussed with patient unexplained and simple Ukrainian Patient does have good understanding about renal related issues We'll continue to follow and make recommendation from renal standpoint Objective - Vital Signs Vital signs: Vital Signs - 12hr 06/03/19 06/03/19 06/03/19 21:33 21:52 22:03 Temperature Pulse Rate Respiratory 18 18 Rate Respiratory 18 Rate [abd] Blood Pressure O2 Sat by Pulse Oximetry 06/03/19 06/03/1919 22:21 22:46 03:19 Temperature 98.3 F 98.2 F Pulse Rate 75 61 Respiratory 18 20 19 Rate Respiratory Rate [abd] Blood Pressure 137/74 139/87 O2 Sat by Pulse 96 92 100 Oximetry 06/04/19 08:27 Temperature 98.4 F Pulse Rate 70 Respiratory 18 Rate Respiratory Rate [abd] Blood Pressure 138/76 O2 Sat by Pulse 97 Oximetry - Lab 06/04/19 05:43 06/04/19 05:43 Most recent lab results Calcium 8.2 mg/dL (8.4-10.2) L 06/04/19 05:43 48.8 mg/dL (0.1-20.0) H 06/03/19 18:44 74 mmol/L 06/03/19 18:44 Medications & Allergies - Medications Allergies/Adverse Reactions: Allergies No Known Allergies Allergy (Verified 05/27/19 22:21) Home Medications: Home Medications Medication Instructions Recorded Confirmed Last Taken Type No Known Home Medications [No 05/28/19 05/28/19 Unknown History Reported Home Medications] Active Medications: Generic Name Dose Route Start Last Admin Trade Name Freq PRN Reason Stop Dose Admin Acetaminophen 650 mg 05/28/19 02:10 Tylenol PO Q4H PRN Fever >101 Dextrose 50 ml 05/28/19 02:13 06/03/19 08:48 D50w (25gm) Syringe IV 50 ml PRN PRN Administration Hypoglycemia Heparin Sodium (Porcine) 5,000 unit 05/28/19 10:00 06/03/19 21:34 Heparin SUB-Q 5,000 unit Q12HR LIBERTAD Administration Hydromorphone HCl 0.5 mg 06/03/19 14:48 06/03/19 21:33 Dilaudid IV 0.5 mg Q10MIN PRN Administration Pain , Severe (7-10) Insulin Glargine 10 units 05/29/19 22:00 06/03/19 21:35 Lantus SUB-Q 10 units QHS LIBERTAD Administration Insulin Human Regular 0 units 05/28/19 07:30 06/04/19 08:52 Humulin R SUB-Q Not Given [facility] Protocol Insulin Human Regular 0 units 05/28/19 22:00 06/03/19 21:35 Humulin R SUB-Q 3 units QHS LIBERTAD Administration Protocol Linezolid 600 mg 06/02/19 13:00 06/03/19 21:34 Zyvox PO 600 mg Q12HR LIBERTAD Administration Protocol Morphine Sulfate 2 mg 05/28/19 02:09 06/03/19 16:43 Morphine IV 2 mg Q3H PRN Administration Pain , Severe (7-10) Ondansetron HCl 4 mg 05/28/19 02:10 06/04/19 04:50 Zofran IV 4 mg Q8H PRN Administration Nausea And Vomiting Oxycodone/Acetaminophen 2 tab 05/28/19 16:20 05/29/19 05:27 Percocet 5/325 PO 2 tab Q4H PRN Administration Pain, Moderate (4-6) Simethicone 80 mg 06/01/19 09:11 06/04/19 05:04 Mylicon PO 80 mg Q6H PRN Administration Gas pain Sodium Polystyrene Sulfonate 30 gm 06/04/19 09:00 06/04/19 08:32 Kionex PO 06/04/19 15:01 30 gm Q6H LIBERTAD Administration
--- NOTE | 2019-06-04 09:15 | Progress Note ---
Assessment and Plan 34 yo M s/p excisional debridement of lower abdominal wall necrotizing fasciitis and placement of wound vac, POD 1 s/p Excisional debridement of lower abdominal wall necrotizing fasciitis x 2 - 05/31/19 and 05/28/19 1. necrotizing fasciitis of abdominal wall 2. sepsis 3. uncontrolled DM 4. PEYTON Plan: 1. c/w abx per ID - on PO linezolid 2. c/w Wound vac to -125mmHg suction - to be changed by life insurance sales on scheduled basis. Home wound vac at bedside. 3. follow up OR cultures 4. prn PO pain control 5. strict glucose control 6. discussed with case management - will need wound care clinic follow up on discharge 7. 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 Understandably he is frustrated. I explained to him his current medical situation. I explained that he could have severe complications from the wound if it is left without proper wound care and that with his current kidney function, elevated K it is unsafe for him to go home. However, if he decides to go home, he will be doing so against medical advice. From surgical standpoint, he will need wound care clinic follow up set up prior to discharge. Subjective Date of service: 06/04/19 Narrative: Pt seen and examined. No acute medical complaints. He is upset about being in the hospital this long and frustrated about his home social situation. He states he needs to go back to work. Objective Vital Signs - 12hr 06/03/19 06/03/19 06/03/19 21:33 21:52 22:03 Temperature Pulse Rate Respiratory 18 18 Rate Respiratory 18 Rate [abd] Blood Pressure O2 Sat by Pulse Oximetry 06/03/19 06/03/19 06/04/19 22:21 22:46 03:19 Temperature 98.3 F 98.2 F Pulse Rate 75 61 Respiratory 18 20 19 Rate Respiratory Rate [abd] Blood Pressure 137/74 139/87 O2 Sat by Pulse 96 92 100 Oximetry 06/04/19 08:27 Temperature 98.4 F Pulse Rate 70 Respiratory 18 Rate Respiratory Rate [abd] Blood Pressure 138/76 O2 Sat by Pulse 97 Oximetry - General physical appearance Narrative Exam: Gen: AAOx3. NAD CV: S1, S2+ Resp: even and unlabored Abd: wound vac in place with good seal, dark serosang fluid in canister Ext: no c/c/e - Labs 06/04/19 05:43 06/04/19 05:43 Diabetes panel 06/03/19 06/04/19 Range/Units 09:40 05:43 Sodium 140 140 (137-145) mmol/L Potassium 4.5 5.7 H D (3.6-5.0) mmol/L Chloride 106.2 109.7 H (98-107) mmol/L Carbon Dioxide 16 L 18 L (22-30) mmol/L BUN 32 H 36 H (9-20) mg/dL Creatinine 7.8 H 8.4 H (0.8-1.5) mg/dL Glucose 73 L 187 H (75-100) mg/dL Calcium 8.7 8.2 L (8.4-10.2) mg/dL Calcium panel 06/03/19 06/04/19 Range/Units 09:40 05:43 Calcium 8.7 8.2 L (8.4-10.2) mg/dL Pituitary panel 06/03/19 06/04/19 Range/Units 09:40 05:43 Sodium 140 140 (137-145) mmol/L Potassium 4.5 5.7 H D (3.6-5.0) mmol/L Chloride 106.2 109.7 H (98-107) mmol/L Carbon Dioxide 16 L 18 L (22-30) mmol/L BUN 32 H 36 H (9-20) mg/dL Creatinine 7.8 H 8.4 H (0.8-1.5) mg/dL Glucose 73 L 187 H (75-100) mg/dL Calcium 8.7 8.2 L (8.4-10.2) mg/dL Adrenal panel 06/03/19 06/04/19 Range/Units 09:40 05:43 Sodium 140 140 (137-145) mmol/L Potassium 4.5 5.7 H D (3.6-5.0) mmol/L Chloride 106.2 109.7 H (98-107) mmol/L Carbon Dioxide 16 L 18 L (22-30) mmol/L BUN 32 H 36 H (9-20) mg/dL Creatinine 7.8 H 8.4 H (0.8-1.5) mg/dL Glucose 73 L 187 H (75-100) mg/dL Calcium 8.7 8.2 L (8.4-10.2) mg/dL
--- NOTE | 2019-06-04 09:45 | Operative Report ---
PREOPERATIVE DIAGNOSIS: Necrotizing fasciitis of abdominal wall. POSTOPERATIVE DIAGNOSIS: Necrotizing fasciitis of abdominal wall. FINDINGS: Four wounds 1. Medial most wound measured 11 x 3 cm x 1.5 cm 2. Lateral wound is 13.5 x 5.5 x 4.5 cm with tunneling towards 9 o'clock at about 11 cm, and towards two other lateral wounds 3. Two smaller little lateral wounds -- 2 x 1.2 x 4.5 cm, 2 x 1.5 x 4.5 cm. 4. All lateral wounds are connected. PROCEDURES: 1. Excisional debridement of abdominal wall necrotizing fasciitis. 2. Placement of abdominal wound VAC. ANESTHESIA: General endotracheal anesthesia, SURGEON: Lakshmi Acharya DO. ESTIMATED BLOOD LOSS: Minimal. PATHOLOGY: None. CONDITION DISPOSITION: The patient is stable to PACU. HISTORY OF PRESENT ILLNESS AND INDICATIONS: The patient is a 34-year-old male presented to the hospital with abdominal wall cellulitis, sepsis, and uncontrolled glucose. He was found to have necrotizing fasciitis and urgently taken to the operating room for debridement. This is his third debridement in the operating room. All risks, benefits and alternatives to surgery were discussed with the patient and consent obtained. DESCRIPTION OF PROCEDURE IN DETAIL: The patient was identified in the preoperative area, taken back to the operating room, placed on the operating table in supine position. After anesthesia was induced, the abdominal wall was prepped and draped in the usual sterile fashion. Timeout was performed. An excisional debridement was performed of all 4 wounds. The necrotic skin and subcutaneous tissue as well as slough was sharply debrided using forceps 10 blade and a curette. Once all of the necrotic tissue and slough was removed from all 4 wounds, the wounds were irrigated with pulse lavage. Hemostasis was then carefully obtained using a combination of pressure, Bovie electrocautery, and Leta powder. Once hemostasis was ensured, the wounds were measured and the measurements listed above. The wound VAC was then applied. One piece of black foam was placed in the medial most wound and secured with a Tegaderm dressing. A second piece of black foam was placed in the larger lateral wound, which was tunneled to the connecting two smaller lateral wounds. An additional one small piece of black foam was placed in each small lateral wound in order to fill in the wound. A total of 4 black sponge pieces were placed in the wounds collectively. Tegaderm dressings were applied. The wounds were bridged together in the usual fashion and the wound VAC applied. The wound VAC was set to -125 mmHg suction and all the foam was seen to be compressed. There was no leak and there was a good seal. At the end of the case, all sponge, instrument, sharp counts were correct x 2. The patient was awoken from anesthesia, extubated, and taken to PACU in stable condition. JOB# [id number] TESSIE/DIANA
[2019-06-04] MEDS: PERCOCET 5/325 PO PRN (11:30)
[2019-06-04] MEDS ORDERED: NACL 0.9% 100 ML IV PRN (12:12)
--- NOTE | 2019-06-04 12:44 | Progress Note ---
Assessment and Plan Cultures: 05/27/2019 blood culture: No growth 05/28/2019 OR culture: Usual skin julee. A/P: 34-year-old male with morbid obesity, diabetes mellitus, prior skin infections requiring I&D, admitted with: 1) Sepsis: secondary to left lower abdominal wall abscess with necrotizing fasciitis: s/p OR on 05/28/2019, findings showed 2 large abscess cavities with necrotic tissue extending down to the level of the fascia. Failed Bactrim as outpatient. ?beta-hemolytic Strep infection. s/p additional debridement 05/31/2019. OR culture +normal skin julee. Further debridement on 06/03 and wound VAC placement. 2) Morbid obesity: dose abx accordingly. 3) Diabetes mellitus type 2, uncontrolled: recommend tight control. HbA1c 17.1. 4) PEYTON: worsening ? vancomycin toxicity. Likely from supratherapeutic vancomycin. Vancomycin was discontinued on 05/31/2019. Urine eosinophils ordered, to evaluate for possibility of AIN. Will avoid beta-lactams as well. Recs: renal on board - patient may require HD continue PO Linezolid 600 mg BID D8 of 14 (D8, was on vancomycin 05/28-05/31) continue tight glycemic control wound care Will follow Nancy Collins MD Infectious Diseases [employer] [facility] M [phone] O [phone] Subjective Date of service: 06/04/19 Principal diagnosis: abdominal wall abscess Interval history: No complaints. wants to go home. No fever. ROS +mild surg site pain, no fever, N/V/D Objective - Exam Narrative Exam: General: Alert, cooperative. Obese. Head, Ears, Nose: Normocephalic, atraumatic. External ears, nose normal Eyes: Conjunctivae/corneas clear. No icterus. No ptosis. Neck: Supple, no meningeal signs Cardiovascular: RRR Respiratory: Good air entry, clear to auscultation bilaterally GI: Soft; bowel sounds normal. No peritoneal signs. LLQ abdominal wall with wound VAC Musculoskeletal: No pedal edema, no cyanosis. Morbidly obese Skin: No rash. Hem/Lymphatic: No palpable cervical or supraclavicular nodes. No lymphangitis Psych: Mood ok. Affect normal Neurological: Awake, alert, oriented. - Constitutional Vitals: Vital Signs Temp Pulse Resp BP Pulse Ox 98.4 F 70 18 138/76 97 06/04/19 08:27 06/04/19 08:27 06/04/19 08:27 06/04/19 08:27 06/04/19 08:27 Temperature -Last 24 Hours Temperature 98.4 F Temperature 98.2 F Temperature 98.3 F Temperature 97.7 F Temperature 97.8 F - Labs CBC & Chem 7: 06/04/19 05:43 06/04/19 05:43 Labs: Abnormal lab results 06/03/19 06/03/19 06/04/19 Range/Units 18:44 20:51 05:43 RBC 3.33 L (3.65-5.03) M/mm3 Hgb 10.2 L (11.8-15.2) gm/dl Hct 30.7 L (35.5-45.6) % RDW 15.5 H (13.2-15.2) % [place] % (Auto) 9.8 H (0.0-7.3) % Potassium (3.6-5.0) mmol/L Chloride (98-107) mmol/L Carbon Dioxide (22-30) mmol/L BUN (9-20) mg/dL Creatinine (0.8-1.5) mg/dL Glucose (75-100) mg/dL POC Glucose 235 H (70-105) Calcium (8.4-10.2) mg/dL Urine Creatinine 48.8 H (0.1-20.0) mg/dL 06/04/19 06/04/19 Range/Units 05:43 07:51 RBC (3.65-5.03) M/mm3 Hgb (11.8-15.2) gm/dl Hct (35.5-45.6) % RDW (13.2-15.2) % [place] % (Auto) (0.0-7.3) % Potassium 5.7 H D (3.6-5.0) mmol/L Chloride 109.7 H (98-107) mmol/L Carbon Dioxide 18 L (22-30) mmol/L BUN 36 H (9-20) mg/dL Creatinine 8.4 H (0.8-1.5) mg/dL Glucose 187 H (75-100) mg/dL POC Glucose 182 H (70-105) Calcium 8.2 L (8.4-10.2) mg/dL Urine Creatinine (0.1-20.0) mg/dL
[2019-06-04 14:13] LABS: Hepatitis B Surface Antigen Non-Reactive (Negative); Hepatitis C Virus Antibody Non-Reactive (NonReactive)
[2019-06-04] MEDS ORDERED: HEPARIN/NS 5000 UNIT/500ML(CATH LAB) 500 ML IR ONE (16:27)
[2019-06-04] MEDS ORDERED: XYLOCAINE 1%/ EPI 1:100,000 INFILTRATI ONE (16:27)
[2019-06-04] MEDS ORDERED: NACL 0.9% 250ML 250 ML ONE (16:27)
[2019-06-04] MEDS ORDERED: SUBLIMAZE ONE (16:52)
[2019-06-04] MEDS: HEPARIN 10,000 UNITS/10 ML ONE ×2 (16:52→16:53)
--- NOTE | 2019-06-04 18:24 | Operative Report ---
Operative Report Operative Report: Date of Procedure: 06/04/2019 Pre-operative Diagnosis: Acute Renal Failure Post-operative Diagnosis: Same Procedure(s): 1. Ultrasound-Guided Access Right Internal Jugular Vein 2. Placement of 16 cm Pre-Curved Vas-Cath 3. Radiologic Supervision with Interpretation Surgeon: Oscar Alexander M.D. Electrical Engineering Director: Sky Anesthesia: 2% lidocaine EBL: Minimal Counts: Correct Complications: None Condition: Stable Findings: Successful placement of right internal jugular vas cath with tip in the right atrium. Specimen: None Indication: The patient is a 34-year-old male who was admitted with necrotizing fasciitis requiring debridement. He is on vancomycin that has caused him to have acute renal failure progressing to needing dialysis. He is in need of a Vas-Cath for immediate dialysis. He was given the risks, benefits, and alternative procedures and consented to the procedure. Description of Procedure: The patient was brought to the laboratory administrative director and laid in supine position. His right neck and chest were then prepped and draped in normal sterile fashion. Ultrasound was used to identify the right internal jugular vein and confirmed patency. Once patency was confirmed the skin and soft tissue was anesthetized with lidocaine. An 11 blade was used to make a small stab incision and a jayleen ropuncture needle was used with ultrasound guidance and the right internal jugular vein. A 0.018 wire was advanced to the Ranjith puncture needle and the needle was removed and exchanged for a micropuncture sheath. The dilator and wire were removed and a 0.035 J-wire was advanced through the sheath and down into the inferior vena cava. The micropuncture sheath was removed and the tract was dilated. The Vas-Cath was then inserted by Seldinger technique. The wire was removed and both ports were aspirated and flushed and probably the appropriate amount of heparin. The catheter was then sewn into position with a 2-0 Ethilon and then dressed with sterile dressing. The final fluoroscopy demonstrated the catheter was in adequate position without any evidence and with arise. The patient tolerated the procedure well. All sponge, needle, instrument counts were correct. The patient was transported to the recovery area in stable condition.
[2019-06-04] MEDS: MORPHINE IV PRN (22:04)
[2019-06-04] MEDS: LANTUS SUB-Q SCH (22:05)
[2019-06-05] MEDS: MYLICON PO PRN (04:28)
[2019-06-05] MEDS: ZOFRAN IV PRN ×2 (04:28→17:32)
[2019-06-05 06:45] LABS: Hematocrit 26.9 % (35.5-45.6); Hemoglobin 9.1 gm/dl (11.8-15.2); Mean Corpuscular HGB Conc 34 % (32-34); Mean Corpuscular Volume 90 fl (84-94); Platelet Count 360 K/mm3 (140-440)
[2019-06-05 07:05] LABS: Calcium 8.5 mg/dL (8.4-10.2)
[2019-06-05] MEDS: HumuLIN R SUB-Q SCH ×4 (07:54→21:57)
--- NOTE | 2019-06-05 09:11 | Progress Note ---
Assessment and Plan Assessment and plan: Patient is a 34-year-old the male who has been admitted here with the abdominal abscess, underwent surgical evacuation, has also been treated for sepsis, patient baseline creatinine was 0.9 upon admission which has currently increased to over 6 patient is also developing metabolic acidosis during this h ospitalization, he has also been noted to have vancomycin toxicity. Abdominal wall necrotizing fasciitis/abscess. Patient is status post excisional debridement 05/28/19. Surgery following. Patient with further debridement of abdominal wall on 05/31/19 that revealed multiple abscess cavities along lateral left abdominal wall with copious amount of purulent drainage and necrotic subcutaneous tissue. Continue with antibiotics per ID recommendations. Pain control. Sepsis. Etiology secondary to above. Blood cultures negative. Antibiotics per ID. PEYTON due to ATN. Creatinine continues to worsen. Patient will need renal replacement therapy. Etiology multifactorial potentially related to supratherapeutic vancomycin, radiocontrast nephropathy and sepsis/ATN. Vancomycin was discontinued on 05/24/2019. Nephrology following. Discussed with Nephrology. Dr. Schumacher recommended vasc cath, placed 06/04 started hemodialysis 06/04. Hyperkalemia Now resolved after Insulin, Dextrose, kayexalate, calcium gluconate. Started hemodialysis 06/05 Diabetes mellitus type 2. Continue Lantus insulin 70/30 insulin. Accu-Cheks and sliding scale insulin Morbid obesity. patient again states he wants to go home. I discussed with him that he needs to be stable before discharge. History Interval history: Started on dialysis yesterday Hospitalist Physical - Physical exam Narrative exam: Gen: Not in acute distress, sitting up in bed, morbidly obese HEENT: Normocephalic, atraumatic Neck: supple, no JVD Heart: S1 and S2 reg, no murmurs, rubs or gallop Lungs: Clear, no crackles or wheeze Abd: soft, non tender, non distended, normal BS, wound vac to abdomen Ext: No edema, no clubbing, no cyanosis Neuro:awake,alert, Oriented X 3. No focal neuro signs Psych: normal mood - Constitutional Vitals: Temp Pulse Resp BP Pulse Ox 98.8 F 68 18 146/68 95 06/05/19 07:26 06/05/19 07:26 06/05/19 07:26 06/05/19 07:26 06/05/19 07:26 General appearance: Present: no acute distress Results - Labs CBC & Chem 7: 06/05/19 04:57 06/05/19 04:57 Labs: Laboratory Last Values WBC 8.0 K/mm3 (4.5-11.0) 06/05/19 04:57 RBC 3.00 M/mm3 (3.65-5.03) L 06/05/19 04:57 Hgb 9.1 gm/dl (11.8-15.2) L 06/05/19 04:57 Hct 26.9 % (35.5-45.6) L 06/05/19 04:57 MCV 90 fl (84-94) 06/05/19 04:57 MCH 31 pg (28-32) 06/05/19 04:57 MCHC 34 % (32-34) 06/05/19 04:57 RDW 15.0 % (13.2-15.2) 06/05/19 04:57 Plt Count 360 K/mm3 (140-440) 06/05/19 04:57 Lymph % (Auto) 18.8 % (13.4-35.0) 06/04/19 05:43 [place] % (Auto) 9.8 % (0.0-7.3) H 06/04/19 05:43 Eos % (Auto) 1.3 % (0.0-4.3) 06/04/19 05:43 Baso % (Auto) 0.2 % (0.0-1.8) 06/04/19 05:43 Lymph # 1.4 K/mm3 (1.2-5.4) 06/04/19 05:43 [place] # 0.7 K/mm3 (0.0-0.8) 06/04/19 05:43 Eos # 0.1 K/mm3 (0.0-0.4) 06/04/19 05:43 Baso # 0.0 K/mm3 (0.0-0.1) 06/04/19 05:43 Add Manual Diff Complete 05/29/19 05:24 Total Counted 100 05/29/19 05:24 Seg Neutrophils % 69.9 % (40.0-70.0) 06/04/19 05:43 Seg Neuts % (Manual) 73.0 % (40.0-70.0) H 05/29/19 05:24 0 % 05/29/19 05:24 15.0 % (13.4-35.0) 05/29/19 05:24 Reactive Lymphs % (Man) 1.0 % 05/29/19 05:24 10.0 % (0.0-7.3) H 05/29/19 05:24 1.0 % (0.0-4.3) 05/29/19 05:24 0 % (0.0-1.8) 05/29/19 05:24 0 % 05/29/19 05:24 0 % 05/29/19 05:24 0 % 05/29/19 05:24 0 % 05/29/19 05:24 Nucleated RBC % Not Reportable 05/29/19 05:24 Seg Neutrophils # 5.0 K/mm3 (1.8-7.7) 06/04/19 05:43 Seg Neutrophils # Man 6.0 K/mm3 (1.8-7.7) 05/29/19 05:24 Band Neutrophils # 0.0 K/mm3 05/29/19 05:24 1.2 K/mm3 (1.2-5.4) 05/29/19 05:24 Abs React Lymphs (Man) 0.1 K/mm3 05/29/19 05:24 0.8 K/mm3 (0.0-0.8) 05/29/19 05:24 0.1 K/mm3 (0.0-0.4) 05/29/19 05:24 0.0 K/mm3 (0.0-0.1) 05/29/19 05:24 0.0 K/mm3 05/29/19 05:24 0.0 K/mm3 05/29/19 05:24 0.0 K/mm3 05/29/19 05:24 Blast Cells # 0.0 K/mm3 05/29/19 05:24 WBC Morphology Not Reportable 05/29/19 05:24 Hypersegmented Neuts Not Reportable 05/29/19 05:24 Hyposegmented Neuts Not Reportable 05/29/19 05:24 Hypogranular Neuts Not Reportable 05/29/19 05:24 Not Reportable 05/29/19 05:24 Not Reportable 05/29/19 05:24 Not Reportable 05/29/19 05:24 Not Reportable 05/29/19 05:24 Not Reportable 05/29/19 05:24 Not Reportable 05/29/19 05:24 Consistent w auto 05/29/19 05:24 Not Reportable 05/29/19 05:24 Plt Clumps, EDTA Not Reportable 05/29/19 05:24 Not Reportable 05/29/19 05:24 Not Reportable 05/29/19 05:24 Not Reportable 05/29/19 05:24 Plt Morphology Comment Not Reportable 05/29/19 05:24 RBC Morphology Not Reportable 05/29/19 05:24 Dimorphic RBCs Not Reportable 05/29/19 05:24 Not Reportable 05/29/19 05:24 Not Reportable 05/29/19 05:24 Not Reportable 05/29/19 05:24 1+ 05/29/19 05:24 Not Reportable 05/29/19 05:24 Not Reportable 05/29/19 05:24 Not Reportable 05/29/19 05:24 Not Reportable 05/29/19 05:24 Not Reportable 05/29/19 05:24 Not Reportable 05/29/19 05:24 Not Reportable 05/29/19 05:24 Not Reportable 05/29/19 05:24 Not Reportable 05/29/19 05:24 Not Reportable 05/29/19 05:24 Not Reportable 05/29/19 05:24 Not Reportable 05/29/19 05:24 Not Reportable 05/29/19 05:24 Not Reportable 05/29/19 05:24 Not Reportable 05/29/19 05:24 Acanthocytes (Spur) Not Reportable 05/29/19 05:24 Rouleaux Not Reportable 05/29/19 05:24 Not Reportable 05/29/19 05:24 Not Reportable 05/29/19 05:24 Not Reportable 05/29/19 05:24 Not Reportable 05/29/19 05:24 Hem Pathologist Commnt No 05/29/19 05:24 Sodium 142 mmol/L (137-145) 06/05/19 04:57 Potassium 4.3 mmol/L (3.6-5.0) D 06/05/19 04:57 Chloride 105.3 mmol/L (98-107) 06/05/19 04:57 Carbon Dioxide 25 mmol/L (22-30) D 06/05/19 04:57 16 mmol/L 06/05/19 04:57 BUN 19 mg/dL (9-20) 06/05/19 04:57 5.7 mg/dL (0.8-1.5) H 06/05/19 04:57 Estimated GFR 14 ml/min 06/05/19 04:57 3 % 06/05/19 04:57 Glucose 122 mg/dL (75-100) H 06/05/19 04:57 POC Glucose 112 (70-105) H 06/05/19 07:24 17.1 % (4-6) H 05/29/19 05:22 292 Mosm/kg 06/03/19 09:40 Lactic Acid 0.80 mmol/L (0.7-2.0) 05/28/19 00:27 Calcium 8.5 mg/dL (8.4-10.2) 06/05/19 04:57 0.30 mg/dL (0.1-1.2) 05/27/19 21:55 AST 43 units/L (5-40) H 05/27/19 21:55 ALT 48 units/L (7-56) 05/27/19 21:55 163 units/L (35-129) H 05/27/19 21:55 66 units/L (55-170) 06/03/19 09:40 7.9 g/dL (6.3-8.2) 05/27/19 21:55 2.7 g/dL (3.9-5) L 05/27/19 21:55 0.5 % 05/27/19 21:55 Straw (Yellow) 06/03/19 18:44 Clear (Clear) 06/03/19 18:44 5.0 (5.0-7.0) 06/03/19 18:44 Ur Specific Hye 1.005 (1.003-1.030) 06/03/19 18:44 <15 mg/dl mg/dL (Negative) 06/03/19 18:44 Neg mg/dL (Negative) 06/03/19 18:44 Neg mg/dL (Negative) 06/03/19 18:44 Neg (Negative) 06/03/19 18:44 Neg (Negative) 06/03/19 18:44 Neg (Negative) 06/03/19 18:44 < 2.0 mg/dL (<2.0) 06/03/19 18:44 Ur Leukocyte Esterase Neg (Negative) 06/03/19 18:44 5.0 /HPF (0.0-6.0) 06/03/19 18:44 3.0 /HPF (0.0-6.0) 06/03/19 18:44 U Epithel Cells (Auto) < 1.0 /HPF (0-13.0) 06/03/19 18:44 1+ /HPF (Negative) 06/03/19 18:44 None seen (None Seen) 06/03/19 18:44 48.8 mg/dL (0.1-20.0) H 06/03/19 18:44 74 mmol/L 06/03/19 18:44 Vancomycin Trough 67.6 ug/mL (5.0-20.0) H 05/31/19 15:08 Hepatitis A IgM Ab Non-reactive (NonReactive) 06/04/19 12:58 Hep Bs Antigen Non-reactive (Negative) 06/04/19 12:58 Hep B Core IgM Ab Non-reactive (NonReactive) 06/04/19 12:58 Non-reactive (NonReactive) 06/04/19 12:58 Active Medications - Current Medications Current Medications: Generic Name Dose Route Start Last Admin Trade Name Freq PRN Reason Stop Dose Admin Acetaminophen 650 mg 05/28/19 02:10 Tylenol PO Q4H PRN Fever >101 Dextrose 50 ml 05/28/19 02:13 06/03/19 08:48 D50w (25gm) Syringe IV 50 ml PRN PRN Administration Hypoglycemia Heparin Sodium (Porcine) 5,000 unit 05/28/19 10:00 06/04/19 22:05 Heparin SUB-Q 5,000 unit Q12HR LIBERTAD Administration Sodium Chloride 100 mls @ 999 mls/hr 06/04/19 12:12 Nacl 0.9% IV DANG PRN Hypotension Insulin Glargine 10 units 05/29/19 22:00 06/04/19 22:05 Lantus SUB-Q 10 units QHS LIBERTAD Administration Insulin Human Regular 0 units 05/28/19 07:30 06/05/19 07:54 Humulin R SUB-Q Not Given AC [facility] Protocol Insulin Human Regular 0 units 05/28/19 22:00 06/04/19 22:04 Humulin R SUB-Q 2 units QHS [facility] Administration Protocol Linezolid 600 mg 06/02/19 13:00 06/04/19 22:03 Zyvox PO 600 mg Q12HR [facility] Administration Protocol Morphine Sulfate 2 mg 05/28/19 02:09 06/04/19 22:04 Morphine IV 2 mg Q3H PRN Administration Pain , Severe (7-10) Ondansetron HCl 4 mg 06/04/19 22:23 06/05/19 04:28 Zofran IV 4 mg Q4H PRN Administration Nausea And Vomiting Oxycodone/Acetaminophen 2 tab 05/28/19 16:20 06/04/19 11:30 Percocet 5/325 PO 2 tab Q4H PRN Administration Pain, Moderate (4-6) Simethicone 80 mg 06/01/19 09:11 06/05/19 04:28 Mylicon PO 80 mg Q6H PRN Administration Gas pain Nutrition/Malnutrition Assess - Dietary Evaluation Nutrition/Malnutrition Findings: Nutrition Notes Start: 05/28/19 13:42 Freq: Status: Active Protocol: Document 05/28/19 13:42 LANEY (Rec: 05/28/19 13:50 LANEY [email or web address]) Nutrition Notes Need for Assessment generated from: finish sander,MST Initial or Follow up Brief Note Current Diagnosis Diabetes,Sepsis Other Pertinent Diagnosis Cellulitis of anterior abdominal wall with small abscess Current Diet Consistent CHO Labs/Tests BG 480 Na 131 Pertinent Medications Reviewed Height 6 ft 1 in Weight 151.2 kg [place] Body Weight (kg) 83.63 BMI 43.9 Intake Prior to Admission Fair Weight Status Morbidly Obese Subjective/Other Information Pt screened for malnutrition risk. He was diagnosed with DM 10 yrs ago; says he checks BS 2-3 times daily and takes insulin as prescribed. He does admit to overconsumption of CHO-rich foods. Very receptive to review of CHO- controlled diet principles and A1C. 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 Burn Absent Trauma Absent #1 Nutrition Diagnosis Limited adherence to nutrition -related recommendations Etiology knowledge deficit As Evidenced by Signs and Symptoms pt admission of the need to review DM diet principles and unaware of the relationship between wound healing and BS levels Nutrition Intervention Teaching Recipient Patient Learning Readiness Good Teaching Methods Discussion,Handout Response to Teaching Verbalize understanding Education Handouts Provided Hemoglobin A1C and Blood Sugar Control Carbohydrate Counting for People with Diabetes (Food Sources of Carbohydrates) Barriers to Learning No Barriers RD phone number provided Yes Patient aware of follow up options Yes Goal #1 Improved BS control Goal #2 Adherence to CHO-controlled diet Anticipated Discharge Needs: CHO-controlled diet Revisit per MD consult or patient Sign Off request:
[2019-06-05] MEDS: ZYVOX PO SCH ×2 (09:31→21:56)
[2019-06-05] MEDS: HEPARIN SUB-Q SCH ×2 (09:31→21:57)
[2019-06-05] MEDS: MORPHINE IV PRN ×2 (10:51→17:26)
--- NOTE | 2019-06-05 12:25 | Progress Note ---
Subjective Principal diagnosis: abdominal wall abscess Interval history: Patient was seen today for follow-up, regarding multiple renal related issues Post HD , non oliguric Patient denies any complaints of chest pain pressure or shortness of breath Interdisciplinary Notes were also reviewed from past 24 hours Vitals labs intake output medications: Reviewed Past medical history: Reviewed Allergies: Reviewed Social history: Reviewed Family history: Reviewed Physical examination Gen.: No acute distress HEENT: Mild pallor nor icterus no uremic order Neck: Supple without any mass or JVD Chest: Clear to auscultation anteriorly Heart: Regular rate and rhythm S1 and S2 heard Abdomen: Soft nontender no suprapubic fullness no masses no renal bruit Extremity: Edema , no peripheral cyanosis Skin: No petechial rashes dry skin Assessment and plan acute kidney injury multifactorial etiology required hemodialysis, nonoliguric Currentlys/p HD x 1 , non oliguric Hold HD today, monitor labs Possibility of infectious GN needs to be also ruled out, we'll follow-up on the complement levels, Patient is a very poorly educated as far as his health is concerned he did not had consistent healthcare, he feels very frustrated about his health issues, continues to use foul language despite counseling and education Acute kidney injury: No indication for renal replacement therapy patient is currently nonoliguric has clear lung robin no peripheral edema increase oral hydration patient appears to have adjusted very well Extensively counseled and educated regarding all the renal-related issues now has much better understanding, he seems to be more receptive to treatment Educated about uncontrolled diabetes lifestyle changes that needs to be made need to lose weight, patient is receptive Monitor dialysis-related labs reevaluate him tomorrow morning when necessary dialysis for now Follow and make recommendation from renal standpoint Renal ultrasonogram does not show any abnormality at this point, which could be a normal looking diabetic kidney We'll continue to follow and make recommendation from renal standpoint Objective - Vital Signs Vital signs: Vital Signs - 12hr 06/05/19 06/05/19 03:45 07:26 Temperature 98.8 F 98.8 F Pulse Rate 75 68 Respiratory 20 18 Rate Blood Pressure 159/91 146/68 O2 Sat by Pulse 91 95 Oximetry - Lab 06/05/19 04:57 06/05/19 04:57 Most recent lab results Calcium 8.5 mg/dL (8.4-10.2) 06/05/19 04:57 48.8 mg/dL (0.1-20.0) H 06/03/19 18:44 74 mmol/L 06/03/19 18:44 Medications & Allergies - Medications Allergies/Adverse Reactions: Allergies No Known Allergies Allergy (Verified 05/27/19 22:21) Home Medications: Home Medications Medication Instructions Recorded Confirmed Last Taken Type No Known Home Medications [No 05/28/19 05/28/19 Unknown History Reported Home Medications] Active Medications: Generic Name Dose Route Start Last Admin Trade Name Lester PRN Reason Stop Dose Admin Acetaminophen 650 mg 05/28/19 02:10 Tylenol PO Q4H PRN Fever >101 Dextrose 50 ml 05/28/19 02:13 06/03/19 08:48 D50w (25gm) Syringe IV 50 ml PRN PRN Administration Hypoglycemia Heparin Sodium (Porcine) 5,000 unit 05/28/19 10:00 06/05/19 09:31 Heparin SUB-Q 5,000 unit Q12HR LIBERTAD Administration Sodium Chloride 100 mls @ 999 mls/hr 06/04/19 12:12 Nacl 0.9% IV DANG PRN Hypotension Insulin Glargine 10 units 05/29/19 22:00 06/04/19 22:05 Lantus SUB-Q 10 units QHS [facility] Administration Insulin Human Regular 0 units 05/28/19 07:30 06/05/19 07:54 Humulin R SUB-Q Not Given AC [facility] Protocol Insulin Human Regular 0 units 05/28/19 22:00 06/04/19 22:04 Humulin R SUB-Q 2 units QHS [facility] Administration Protocol Linezolid 600 mg 06/02/19 13:00 06/05/19 09:31 Zyvox PO 600 mg Q12HR [facility] Administration Protocol Morphine Sulfate 2 mg 05/28/19 02:09 06/05/19 10:51 Morphine IV 2 mg Q3H PRN Administration Pain , Severe (7-10) Ondansetron HCl 4 mg 06/04/19 22:23 06/05/19 04:28 Zofran IV 4 mg Q4H PRN Administration Nausea And Vomiting Oxycodone/Acetaminophen 2 tab 05/28/19 16:20 06/04/19 11:30 Percocet 5/325 PO 2 tab Q4H PRN Administration Pain, Moderate (4-6) Simethicone 80 mg 06/01/19 09:11 06/05/19 04:28 Mylicon PO 80 mg Q6H PRN Administration Gas pain
[2019-06-05] MEDS: LANTUS SUB-Q SCH (21:56)
[2019-06-06 05:22] LABS: Calcium 8.3 mg/dL (8.4-10.2)
[2019-06-06] MEDS: HumuLIN R SUB-Q SCH ×4 (08:43→22:00)
--- NOTE | 2019-06-06 09:00 | Progress Note ---
Assessment and Plan Assessment and plan: Patient is a 34-year-old the male who has been admitted here with the abdominal abscess, underwent surgical evacuation, has also been treated for sepsis, patient baseline creatinine was 0.9 upon admission which has currently increased to over 6 patient is also developing metabolic acidosis during this h ospitalization, he has also been noted to have vancomycin toxicity. Abdominal wall necrotizing fasciitis/abscess. Patient is status post excisional debridement 05/28/19. Surgery following. Patient with further debridement of abdominal wall on 05/31/19 that revealed multiple abscess cavities along lateral left abdominal wall with copious amount of purulent drainage and necrotic subcutaneous tissue. Continue with antibiotics per ID recommendations. Pain control. Sepsis. Etiology secondary to above. Blood cultures negative. Antibiotics per ID. PEYTON due to ATN. Creatinine continues to worsen. Patient will need renal replacement therapy. Etiology multifactorial potentially related to supratherapeutic vancomycin, radiocontrast nephropathy and sepsis/ATN. Vancomycin was discontinued on 05/24/2019. Nephrology following. Discussed with Nephrology. Dr. Schumacher recommended vasc cath, placed 06/04 started hemodialysis 06/04. Hyperkalemia Now resolved after Insulin, Dextrose, kayexalate, calcium gluconate. Started hemodialysis 06/04 Diabetes mellitus type 2. Continue Lantus insulin 70/30 insulin. Accu-Cheks and sliding scale insulin Morbid obesity. History Interval history: Started on dialysis Hospitalist Physical - Physical exam Narrative exam: Gen: Not in acute distress, sitting up in bed, morbidly obese HEENT: Normocephalic, atraumatic Neck: supple, no JVD Heart: S1 and S2 reg, no murmurs, rubs or gallop Lungs: Clear, no crackles or wheeze Abd: soft, non tender, non distended, normal BS, wound vac to abdomen Ext: No edema, no clubbing, no cyanosis Neuro:awake,alert, Oriented X 3. No focal neuro signs Psych: normal mood - Constitutional Vitals: Temp Pulse Resp BP Pulse Ox 98.2 F 59 L 20 142/80 97 06/06/19 04:27 06/06/19 04:27 06/06/19 04:27 06/06/19 04:27 06/06/19 04:27 General appearance: Present: no acute distress Results - Labs CBC & Chem 7: 06/05/19 04:57 06/06/19 04:20 Labs: Laboratory Last Values WBC 8.0 K/mm3 (4.5-11.0) 06/05/19 04:57 RBC 3.00 M/mm3 (3.65-5.03) L 06/05/19 04:57 Hgb 9.1 gm/dl (11.8-15.2) L 06/05/19 04:57 Hct 26.9 % (35.5-45.6) L 06/05/19 04:57 MCV 90 fl (84-94) 06/05/19 04:57 MCH 31 pg (28-32) 06/05/19 04:57 MCHC 34 % (32-34) 06/05/19 04:57 RDW 15.0 % (13.2-15.2) 06/05/19 04:57 Plt Count 360 K/mm3 (140-440) 06/05/19 04:57 Lymph % (Auto) 18.8 % (13.4-35.0) 06/04/19 05:43 [place] % (Auto) 9.8 % (0.0-7.3) H 06/04/19 05:43 Eos % (Auto) 1.3 % (0.0-4.3) 06/04/19 05:43 Baso % (Auto) 0.2 % (0.0-1.8) 06/04/19 05:43 Lymph # 1.4 K/mm3 (1.2-5.4) 06/04/19 05:43 [place]les # 0.7 K/mm3 (0.0-0.8) 06/04/19 05:43 Eos # 0.1 K/mm3 (0.0-0.4) 06/04/19 05:43 Baso # 0.0 K/mm3 (0.0-0.1) 06/04/19 05:43 Add Manual Diff Complete 05/29/19 05:24 Total Counted 100 05/29/19 05:24 Seg Neutrophils % 69.9 % (40.0-70.0) 06/04/19 05:43 Seg Neuts % (Manual) 73.0 % (40.0-70.0) H 05/29/19 05:24 0 % 05/29/19 05:24 15.0 % (13.4-35.0) 05/29/19 05:24 Reactive Lymphs % (Man) 1.0 % 05/29/19 05:24 10.0 % (0.0-7.3) H 05/29/19 05:24 1.0 % (0.0-4.3) 05/29/19 05:24 0 % (0.0-1.8) 05/29/19 05:24 0 % 05/29/19 05:24 0 % 05/29/19 05:24 0 % 05/29/19 05:24 0 % 05/29/19 05:24 Nucleated RBC % Not Reportable 05/29/19 05:24 Seg Neutrophils # 5.0 K/mm3 (1.8-7.7) 06/04/19 05:43 Seg Neutrophils # Man 6.0 K/mm3 (1.8-7.7) 05/29/19 05:24 Band Neutrophils # 0.0 K/mm3 05/29/19 05:24 1.2 K/mm3 (1.2-5.4) 05/29/19 05:24 Abs React Lymphs (Man) 0.1 K/mm3 05/29/19 05:24 0.8 K/mm3 (0.0-0.8) 05/29/19 05:24 0.1 K/mm3 (0.0-0.4) 05/29/19 05:24 0.0 K/mm3 (0.0-0.1) 05/29/19 05:24 0.0 K/mm3 05/29/19 05:24 0.0 K/mm3 05/29/19 05:24 0.0 K/mm3 05/29/19 05:24 Blast Cells # 0.0 K/mm3 05/29/19 05:24 WBC Morphology Not Reportable 05/29/19 05:24 Hypersegmented Neuts Not Reportable 05/29/19 05:24 Hyposegmented Neuts Not Reportable 05/29/19 05:24 Hypogranular Neuts Not Reportable 05/29/19 05:24 Not Reportable 05/29/19 05:24 Not Reportable 05/29/19 05:24 Not Reportable 05/29/19 05:24 Not Reportable 05/29/19 05:24 Not Reportable 05/29/19 05:24 Not Reportable 05/29/19 05:24 Consistent w auto 05/29/19 05:24 Not Reportable 05/29/19 05:24 Plt Clumps, EDTA Not Reportable 05/29/19 05:24 Not Reportable 05/29/19 05:24 Not Reportable 05/29/19 05:24 Not Reportable 05/29/19 05:24 Plt Morphology Comment Not Reportable 05/29/19 05:24 RBC Morphology Not Reportable 05/29/19 05:24 Dimorphic RBCs Not Reportable 05/29/19 05:24 Not Reportable 05/29/19 05:24 Not Reportable 05/29/19 05:24 Not Reportable 05/29/19 05:24 1+ 05/29/19 05:24 Not Reportable 05/29/19 05:24 Not Reportable 05/29/19 05:24 Not Reportable 05/29/19 05:24 Not Reportable 05/29/19 05:24 Not Reportable 05/29/19 05:24 Not Reportable 05/29/19 05:24 Not Reportable 05/29/19 05:24 Not Reportable 05/29/19 05:24 Not Reportable 05/29/19 05:24 Not Reportable 05/29/19 05:24 Not Reportable 05/29/19 05:24 Not Reportable 05/29/19 05:24 Not Reportable 05/29/19 05:24 Not Reportable 05/29/19 05:24 Not Reportable 05/29/19 05:24 Acanthocytes (Spur) Not Reportable 05/29/19 05:24 Rouleaux Not Reportable 05/29/19 05:24 Not Reportable 05/29/19 05:24 Not Reportable 05/29/19 05:24 Not Reportable 05/29/19 05:24 Not Reportable 05/29/19 05:24 Hem Pathologist Commnt No 05/29/19 05:24 Sodium 143 mmol/L (137-145) 06/06/19 04:20 Potassium 4.7 mmol/L (3.6-5.0) 06/06/19 04:20 Chloride 104.4 mmol/L (98-107) 06/06/19 04:20 Carbon Dioxide 25 mmol/L (22-30) 06/06/19 04:20 18 mmol/L 06/06/19 04:20 BUN 24 mg/dL (9-20) H 06/06/19 04:20 6.8 mg/dL (0.8-1.5) H 06/06/19 04:20 Estimated GFR 11 ml/min 06/06/19 04:20 4 % 06/06/19 04:20 Glucose 107 mg/dL (75-100) H 06/06/19 04:20 POC Glucose 109 (70-105) H 06/06/19 08:38 17.1 % (4-6) H 05/29/19 05:22 292 Mosm/kg 06/03/19 09:40 Lactic Acid 0.80 mmol/L (0.7-2.0) 05/28/19 00:27 Calcium 8.3 mg/dL (8.4-10.2) L 06/06/19 04:20 0.30 mg/dL (0.1-1.2) 05/27/19 21:55 AST 43 units/L (5-40) H 05/27/19 21:55 ALT 48 units/L (7-56) 05/27/19 21:55 163 units/L (35-129) H 05/27/19 21:55 66 units/L (55-170) 06/03/19 09:40 7.9 g/dL (6.3-8.2) 05/27/19 21:55 2.7 g/dL (3.9-5) L 05/27/19 21:55 0.5 % 05/27/19 21:55 Straw (Yellow) 06/03/19 18:44 Clear (Clear) 06/03/19 18:44 5.0 (5.0-7.0) 06/03/19 18:44 Ur Specific [place] 1.005 (1.003-1.030) 06/03/19 18:44 <15 mg/dl mg/dL (Negative) 06/03/19 18:44 Neg mg/dL (Negative) 06/03/19 18:44 Neg mg/dL (Negative) 06/03/19 18:44 Neg (Negative) 06/03/19 18:44 Neg (Negative) 07/15/19 18:44 Neg (Negative) 06/03/19 18:44 < 2.0 mg/dL (<2.0) 06/03/19 18:44 Ur Leukocyte Esterase Neg (Negative) 06/03/19 18:44 5.0 /HPF (0.0-6.0) 06/03/19 18:44 3.0 /HPF (0.0-6.0) 06/03/19 18:44 U Epithel Cells (Auto) < 1.0 /HPF (0-13.0) 06/03/19 18:44 1+ /HPF (Negative) 06/03/19 18:44 None seen (None Seen) 06/03/19 18:44 48.8 mg/dL (0.1-20.0) H 06/03/19 18:44 74 mmol/L 06/03/19 18:44 Vancomycin Trough 67.6 ug/mL (5.0-20.0) H 05/31/19 15:08 204 mg/dL (82-185) H 06/03/19 09:40 40 mg/dL (15-53) 06/03/19 09:40 Hepatitis A IgM Ab Non-reactive (NonReactive) 06/04/19 12:58 Hep Bs Antigen Non-reactive (Negative) 06/04/19 12:58 Hep B Core IgM Ab Non-reactive (NonReactive) 06/04/19 12:58 Non-reactive (NonReactive) 06/04/19 12:58 Active Medications - Current Medications Current Medications: Generic Name Dose Route Start Last Admin Trade Name Freq PRN Reason Stop Dose Admin Acetaminophen 650 mg 05/28/19 02:10 Tylenol PO Q4H PRN Fever >101 Dextrose 50 ml 05/28/19 02:13 06/03/19 08:48 D50w (25gm) Syringe IV 50 ml PRN PRN Administration Hypoglycemia Heparin Sodium (Porcine) 5,000 unit 05/28/19 10:00 06/05/19 21:57 Heparin SUB-Q 5,000 unit Q12HR [facility] Administration Hydromorphone HCl 0.5 mg 06/06/19 11:00 Dilaudid IV 06/06/19 16:00 ONCE NR Sodium Chloride 100 mls @ 999 mls/hr 06/04/19 12:12 Nacl 0.9% IV DANG PRN Hypotension Insulin Glargine 10 units 05/29/19 22:00 06/05/19 21:56 Lantus SUB-Q 10 units QHS [facility] Administration Insulin Human Regular 0 units 05/28/19 07:30 06/06/19 08:43 Humulin R SUB-Q Not Given AC [facility] Protocol Insulin Human Regular 0 units 05/28/19 22:00 06/05/19 21:57 Humulin R SUB-Q Not Given QHS [facility] Protocol Linezolid 600 mg 06/02/19 13:00 06/05/19 21:56 Zyvox PO 600 mg Q12HR [facility] Administration Protocol Morphine Sulfate 2 mg 05/28/19 02:09 06/05/19 17:26 Morphine IV 2 mg Q3H PRN Administration Pain , Severe (7-10) Ondansetron HCl 4 mg 06/04/19 22:23 06/05/19 17:32 Zofran IV 4 mg Q4H PRN Administration Nausea And Vomiting Oxycodone/Acetaminophen 2 tab 05/28/19 16:20 06/04/19 11:30 Percocet 5/325 PO 2 tab Q4H PRN Administration Pain, Moderate (4-6) Simethicone 80 mg 06/01/19 09:11 06/05/19 04:28 Mylicon PO 80 mg Q6H PRN Administration Gas pain Nutrition/Malnutrition Assess - Dietary Evaluation Nutrition/Malnutrition Findings: Nutrition Notes Start: 05/28/19 13:42 Freq: Status: Active Protocol: Document 05/28/19 13:42 LANEY (Rec: 05/28/19 13:50 LANEY [email or web address]) Nutrition Notes 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 He was diagnosed with DM 10 yrs ago; says he checks BS 2-3 times daily and takes insulin as prescribed. He does admit to overconsumption of CHO-rich foods. Very receptive to review of CHO- controlled diet principles and A1C. 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 Burn Absent Trauma Absent #1 Nutrition Diagnosis Limited adherence to nutrition -related recommendations Etiology knowledge deficit As Evidenced by Signs and Symptoms pt admission of the need to review DM diet principles and unaware of the relationship between wound healing and BS levels Nutrition Intervention Teaching Recipient Patient Learning Readiness Good Teaching Methods Discussion,Handout Response to Teaching Verbalize understanding Education Handouts Provided Hemoglobin A1C and Blood Sugar Control Carbohydrate Counting for People with Diabetes (Food Sources of Carbohydrates) Barriers to Learning No Barriers RD phone number provided Yes Patient aware of follow up options Yes Goal #1 Improved BS control Goal #2 Adherence to CHO-controlled diet Anticipated Discharge Needs: CHO-controlled diet Revisit per MD consult or patient Sign Off request:
--- NOTE | 2019-06-06 09:05 | Progress Note ---
Subjective Principal diagnosis: abdominal wall abscess Interval history: Patient was seen today for follow-up of multiple renal related issues No complaints of any chest pain pressure or shortness of breath no nausea vomiting Tolerating dialysis treatment very well No swelling or shortness of breath Interdisciplinary notes that also reviewed Events of 24 hours vitals labs intake output medications were reviewed Past medical history: Reviewed Family history: Reviewed Social history: Reviewed Allergies: Reviewed Physical examination: Vitals: Reviewed HEENT: No pallor or icterus oral mucosa moist Central venous catheter site unremarkable Neck: Supple no JVD no thyromegaly Chest: Bilateral clear to auscultation anteriorly Heart: Regular rate and rhythm S1-S2 heard no S3-S4 Abdomen: Soft nontender no voluntary guarding rigidity rebound Extremity: Dry skin less than 1+ peripheral edema Psychiatric: No evidence of agitation and aggression noted Dermatology: No petechial rashes Labs and x-rays: Reviewed from today Assessment and plan Acute kidney injury: Multifactorial in etiology resulting from contrast, vancomycin toxicity patient may have underlying chronic kidney disease possibility of immune complex GN could not be ruled out he is already getting treatment for infection however patient will need renal replacement therapy today, we will arrange for that and follow up on the lab Treatment plan was discussed with patient He will need to be reassessed on a daily basis Currently he is nonoliguric does not appear to have any swelling Patient currently does not have any JVD, Avoid nephrotoxic medication monitor renal function Likely he will require renal replacement therapy if his creatinine continues to worsen/ or ifthe renal function does not improve We'll continue to follow and make recommendation for renal standpoint Objective - Vital Signs Vital signs: Vital Signs - 12hr 06/05/19 06/06/19 06/06/19 23:19 00:26 04:27 Temperature 98.2 F 98.2 F 98.2 F Pulse Rate 58 L 62 59 L Respiratory 18 18 20 Rate Blood Pressure 142/80 Blood Pressure 137/77 [Left] O2 Sat by Pulse 98 97 Oximetry - Lab 06/05/19 04:57 06/07/19 04:56 Most recent lab results Calcium 8.3 mg/dL (8.4-10.2) L 06/06/19 04:20 48.8 mg/dL (0.1-20.0) H 06/03/19 18:44 74 mmol/L 06/03/19 18:44 Medications & Allergies - Medications Allergies/Adverse Reactions: Allergies No Known Allergies Allergy (Verified 05/27/19 22:21) Home Medications: Home Medications Medication Instructions Recorded Confirmed Last Taken Type No Known Home Medications [No 05/28/19 05/28/19 Unknown History Reported Home Medications] Active Medications: Generic Name Dose Route Start Last Admin Trade Name Freq PRN Reason Stop Dose Admin Acetaminophen 650 mg 05/28/19 02:10 Tylenol PO Q4H PRN Fever >101 Dextrose 50 ml 05/28/19 02:13 06/03/19 08:48 D50w (25gm) Syringe IV 50 ml PRN PRN Administration Hypoglycemia Heparin Sodium (Porcine) 5,000 unit 05/28/19 10:00 06/05/19 21:57 Heparin SUB-Q 5,000 unit Q12HR [facility] Administration Hydromorphone HCl 0.5 mg 06/06/19 11:00 Dilaudid IV 06/06/19 16:00 ONCE NR Sodium Chloride 100 mls @ 999 mls/hr 06/04/19 12:12 Nacl 0.9% IV DANG PRN Hypotension Insulin Glargine 10 units 05/29/19 22:00 06/05/19 21:56 Lantus SUB-Q 10 units QHS [facility] Administration Insulin Human Regular 0 units 05/28/19 07:30 06/06/19 08:43 Humulin R SUB-Q Not Given [facility] Protocol Insulin Human Regular 0 units 05/28/19 22:00 06/05/19 21:57 [facility] Protocol Linezolid 600 mg 06/02/19 13:00 06/05/19 21:56 Zyvox PO 600 mg Q12HR [facility] Administration Protocol Morphine Sulfate 2 mg 05/28/19 02:09 06/05/19 17:26 Morphine IV 2 mg Q3H PRN Administration Pain , Severe (7-10) Ondansetron HCl 4 mg 06/04/19 22:23 06/05/19 17:32 Zofran IV 4 mg Q4H PRN Administration Nausea And Vomiting Oxycodone/Acetaminophen 2 tab 05/28/19 16:20 06/04/19 11:30 Percocet 5/325 PO 2 tab Q4H PRN Administration Pain, Moderate (4-6) Simethicone 80 mg 06/01/19 09:11 06/05/19 04:28 Mylicon PO 80 mg Q6H PRN Administration Gas pain
[2019-06-06] MEDS ORDERED: NACL 0.9% 100 ML IV PRN (09:26)
[2019-06-06] MEDS: HEPARIN SUB-Q SCH ×2 (09:37→21:38)
[2019-06-06] MEDS: ZYVOX PO SCH ×2 (09:37→21:38)
[2019-06-06] MEDS ORDERED: DILAUDID IV NR (11:00)
--- NOTE | 2019-06-06 17:05 | Event Note ---
Date: 06/06/19 Patient in HD for most of the afternoon and wound vac could not be changed by photo equipment technician. Will follow up in am and attempt vac change at bedside. Will premedicate with pain meds. If he does not tolerate bedside vac change, may need to consider return to OR and vac change under sedation. Chart reviewed. Vitals are stable and WBC is within normal limits.
[2019-06-06] MEDS: LANTUS SUB-Q SCH (21:38)
[2019-06-06] MEDS: ZOFRAN IV PRN (21:38)
[2019-06-07 05:49] LABS: Calcium 8.3 mg/dL (8.4-10.2)
[2019-06-07] MEDS: HumuLIN R SUB-Q SCH ×4 (07:30→22:00)
--- NOTE | 2019-06-07 09:25 | Progress Note ---
Subjective Principal diagnosis: abdominal wall abscess Interval history: Patient was seen today for follow-up of multiple renal related issues No complaints of any chest pain pressure or shortness of breath he wants to know if he can go home and do dialysis outside He also wants to know why can't the machine improve his kidney function Interdisciplinary notes that also reviewed Events of 24 hours vitals labs intake output medications were reviewed Past medical history: Reviewed Family history: Reviewed Social history: Reviewed Allergies: Reviewed Physical examination: Vitals: Reviewed HEENT: No pallor or icterus oral mucosa moist Central venous catheter site unremarkable Neck: Supple no JVD no thyromegaly Chest: Bilateral clear to auscultation anteriorly Heart: Regular rate and rhythm S1-S2 heard no S3-S4 Abdomen: Soft nontender no voluntary guarding rigidity rebound Extremity: Dry skin less than 1+ peripheral edema Psychiatric: No evidence of agitation and aggression noted Dermatology: No petechial rashes Labs and x-rays: Reviewed from today Assessment and plan Acute kidney injury: Multifactorial in etiology resulting from contrast, vancomycin toxicity patient may have underlying chronic kidney disease given that he has long-standing history of diabetes and obesity and has never seen and followed up with physicians He has been initiated on renal replacement therapy due to acute severe renal failure, he will need to be reevaluated tomorrow morning for hemodialysis needs ? Catheter malfunction? Highly catabolic patient has had abscess that was evacuated Currently we will need to monitor his renal function and intake and output monitoring Patient is currently uninsured and cannot get outpatient dialysis facility [facility] educated this patient about his renal prognosis which is felt to be guarded to poor this time Likely he will require renal replacement therapy if his creatinine continues to worsen/ or ifthe renal function does not improve We'll continue to follow and make recommendation for renal standpoint Objective - Vital Signs Vital signs: Vital Signs - 12hr 06/06/19 06/07/19 06/07/19 22:00 00:20 04:20 Temperature 98.3 F 98.5 F Pulse Rate 51 L 53 L Respiratory 18 19 19 Rate Blood Pressure 147/98 152/84 O2 Sat by Pulse 98 98 90 Oximetry - Lab 06/05/19 04:57 06/07/19 04:56 Most recent lab results Calcium 8.3 mg/dL (8.4-10.2) L 06/07/19 04:56 48.8 mg/dL (0.1-20.0) H 06/03/19 18:44 74 mmol/L 06/03/19 18:44 Medications & Allergies - Medications Allergies/Adverse Reactions: Allergies No Known Allergies Allergy (Verified 05/27/19 22:21) Home Medications: Home Medications Medication Instructions Recorded Confirmed Last Taken Type No Known Home Medications [No 05/28/19 05/28/19 Unknown History Reported Home Medications] Active Medications: Generic Name Dose Route Start Last Admin Trade Name Freq PRN Reason Stop Dose Admin Acetaminophen 650 mg 05/28/19 02:10 Tylenol PO Q4H PRN Fever >101 Dextrose 50 ml 05/28/19 02:13 06/03/19 08:48 D50w (25gm) Syringe IV 50 ml PRN PRN Administration Hypoglycemia Heparin Sodium (Porcine) 5,000 unit 05/28/19 10:00 06/06/19 21:38 Heparin SUB-Q 5,000 unit Q12HR [facility] Administration Sodium Chloride 100 mls @ 999 mls/hr 06/06/19 09:26 Nacl 0.9% IV DANG PRN Hypotension Insulin Glargine 10 units 05/29/19 22:00 06/06/19 21:38 Lantus SUB-Q 10 units QHS [facility] Administration Insulin Human Regular 0 units 05/28/19 07:30 06/06/19 17:36 Humulin R SUB-Q Not Given [facility] Protocol Insulin Human Regular 0 units 05/28/19 22:00 06/06/19 22:00 [facility]Q [facility] Protocol Linezolid 600 mg 06/02/19 13:00 06/06/19 21:38 Zyvox PO 600 mg Q12HR [facility] Administration Protocol Morphine Sulfate 2 mg 05/28/19 02:09 06/05/19 17:26 Morphine IV 2 mg Q3H PRN Administration Pain , Severe (7-10) Ondansetron HCl 4 mg 06/04/19 22:23 06/06/19 21:38 Zofran IV 4 mg Q4H PRN Administration Nausea And Vomiting Oxycodone/Acetaminophen 2 tab 05/28/19 16:20 06/04/19 11:30 Percocet 5/325 PO 2 tab Q4H PRN Administration Pain, Moderate (4-6) Simethicone 80 mg 06/01/19 09:11 06/05/19 04:28 Mylicon PO 80 mg Q6H PRN Administration Gas pain
--- NOTE | 2019-06-07 09:43 | Progress Note ---
Assessment and Plan Assessment and plan: Patient is a 34-year-old the male who has been admitted here with the abdominal abscess, underwent surgical evacuation, has also been treated for sepsis, patient baseline creatinine was 0.9 upon admission which has currently increased to over 6 patient is also developing metabolic acidosis during this h ospitalization, he has also been noted to have vancomycin toxicity. Abdominal wall necrotizing fasciitis/abscess. Patient is status post excisional debridement 05/28/19. Surgery following. Patient with further debridement of abdominal wall on 05/31/19 that revealed multiple abscess cavities along lateral left abdominal wall with copious amount of purulent drainage and necrotic subcutaneous tissue. Wound vac to abdomen. Continue with antibiotics per ID recommendations. Pain control. Sepsis. Etiology secondary to above. Blood cultures negative. Antibiotics per ID. PEYTON due to ATN. Creatinine continues to worsen. Patient will need renal replacement therapy. Etiology multifactorial potentially related to supratherapeutic vancomycin, radiocontrast nephropathy and sepsis/ATN. Vancom ycin was discontinued on 05/24/2019. Nephrology following. Discussed with Nephrology. Dr. Schumacher recommended vasc cath, placed 06/04 started hemodialysis 06/04. Hyperkalemia Now resolved after Insulin, Dextrose, kayexalate, calcium gluconate. Started hemodialysis 06/04 Diabetes mellitus type 2. Continue Lantus insulin 70/30 insulin. Accu-Cheks and sliding scale insulin Morbid obesity. History Interval history: Started on dialysis Asking about going home Hospitalist Physical - Physical exam Narrative exam: Gen: Not in acute distress, sitting up in bed, morbidly obese HEENT: Normocephalic, atraumatic Neck: supple, no JVD Heart: S1 and S2 reg, no murmurs, rubs or gallop Lungs: Clear, no crackles or wheeze Abd: soft, non tender, non distended, normal BS, wound vac to abdomen Ext: No edema, no clubbing, no cyanosis Neuro:awake,alert, Oriented X 3. No focal neuro signs Psych: normal mood - Constitutional Vitals: Temp Pulse Resp BP Pulse Ox 98.5 F 53 L 19 152/84 90 06/07/19 04:20 06/07/19 04:20 06/07/19 04:20 06/07/19 04:20 06/07/19 04:20 General appearance: Present: no acute distress Results - Labs CBC & Chem 7: 06/05/19 04:57 06/07/19 04:56 Labs: Laboratory Last Values WBC 8.0 K/mm3 (4.5-11.0) 06/05/19 04:57 RBC 3.00 M/mm3 (3.65-5.03) L 06/05/19 04:57 Hgb 9.1 gm/dl (11.8-15.2) L 06/05/19 04:57 Hct 26.9 % (35.5-45.6) L 06/05/19 04:57 MCV 90 fl (84-94) 06/05/19 04:57 MCH 31 pg (28-32) 06/05/19 04:57 MCHC 34 % (32-34) 06/05/19 04:57 RDW 15.0 % (13.2-15.2) 06/05/19 04:57 Plt Count 360 K/mm3 (140-440) 06/05/19 04:57 Lymph % (Auto) 18.8 % (13.4-35.0) 06/04/19 05:43 [place] % (Auto) 9.8 % (0.0-7.3) H 06/04/19 05:43 Eos % (Auto) 1.3 % (0.0-4.3) 06/04/19 05:43 Baso % (Auto) 0.2 % (0.0-1.8) 06/04/19 05:43 Lymph # 1.4 K/mm3 (1.2-5.4) 06/04/19 05:43 [place] # 0.7 K/mm3 (0.0-0.8) 06/04/19 05:43 Eos # 0.1 K/mm3 (0.0-0.4) 06/04/19 05:43 Baso # 0.0 K/mm3 (0.0-0.1) 06/04/19 05:43 Add Manual Diff Complete 05/29/19 05:24 Total Counted 100 05/29/19 05:24 Seg Neutrophils % 69.9 % (40.0-70.0) 06/04/19 05:43 Seg Neuts % (Manual) 73.0 % (40.0-70.0) H 05/29/19 05:24 0 % 05/29/19 05:24 15.0 % (13.4-35.0) 05/29/19 05:24 Reactive Lymphs % (Man) 1.0 % 05/29/19 05:24 10.0 % (0.0-7.3) H 05/29/19 05:24 1.0 % (0.0-4.3) 05/29/19 05:24 0 % (0.0-1.8) 05/29/19 05:24 0 % 05/29/19 05:24 0 % 05/29/19 05:24 0 % 05/29/19 05:24 0 % 05/29/19 05:24 Nucleated RBC % Not Reportable 05/29/19 05:24 Seg Neutrophils # 5.0 K/mm3 (1.8-7.7) 06/04/19 05:43 Seg Neutrophils # Man 6.0 K/mm3 (1.8-7.7) 05/29/19 05:24 Band Neutrophils # 0.0 K/mm3 05/29/19 05:24 1.2 K/mm3 (1.2-5.4) 05/29/19 05:24 Abs React Lymphs (Man) 0.1 K/mm3 05/29/19 05:24 0.8 K/mm3 (0.0-0.8) 05/29/19 05:24 0.1 K/mm3 (0.0-0.4) 05/29/19 05:24 0.0 K/mm3 (0.0-0.1) 05/29/19 05:24 0.0 K/mm3 05/29/19 05:24 0.0 K/mm3 05/29/19 05:24 0.0 K/mm3 05/29/19 05:24 Blast Cells # 0.0 K/mm3 05/29/19 05:24 WBC Morphology Not Reportable 05/29/19 05:24 Hypersegmented Neuts Not Reportable 05/29/19 05:24 Hyposegmented Neuts Not Reportable 05/29/19 05:24 Hypogranular Neuts Not Reportable 05/29/19 05:24 Not Reportable 05/29/19 05:24 Not Reportable 05/29/19 05:24 Not Reportable 05/29/19 05:24 Not Reportable 05/29/19 05:24 Not Reportable 05/29/19 05:24 Not Reportable 05/29/19 05:24 Consistent w auto 05/29/19 05:24 Not Reportable 05/29/19 05:24 Plt Clumps, EDTA Not Reportable 05/29/19 05:24 Not Reportable 05/29/19 05:24 Not Reportable 05/29/19 05:24 Not Reportable 05/29/19 05:24 Plt Morphology Comment Not Reportable 05/29/19 05:24 RBC Morphology Not Reportable 05/29/19 05:24 Dimorphic RBCs Not Reportable 05/29/19 05:24 Not Reportable 05/29/19 05:24 Not Reportable 05/29/19 05:24 Not Reportable 05/29/19 05:24 1+ 05/29/19 05:24 Not Reportable 05/29/19 05:24 Not Reportable 05/29/19 05:24 Not Reportable 05/29/19 05:24 Not Reportable 05/29/19 05:24 Not Reportable 05/29/19 05:24 Not Reportable 05/29/19 05:24 Not Reportable 05/29/19 05:24 Not Reportable 05/29/19 05:24 Not Reportable 05/29/19 05:24 Not Reportable 05/29/19 05:24 Not Reportable 05/29/19 05:24 Not Reportable 05/29/19 05:24 Not Reportable 05/29/19 05:24 Not Reportable 05/29/19 05:24 Not Reportable 05/29/19 05:24 Acanthocytes (Spur) Not Reportable 05/29/19 05:24 Rouleaux Not Reportable 05/29/19 05:24 Not Reportable 05/29/19 05:24 Not Reportable 05/29/19 05:24 Not Reportable 05/29/19 05:24 Not Reportable 05/29/19 05:24 Hem Pathologist Commnt No 05/29/19 05:24 Sodium 143 mmol/L (137-145) 06/07/19 04:56 Potassium 4.3 mmol/L (3.6-5.0) 06/07/19 04:56 Chloride 103.0 mmol/L (98-107) 06/07/19 04:56 Carbon Dioxide 26 mmol/L (22-30) 06/07/19 04:56 18 mmol/L 06/07/19 04:56 BUN 20 mg/dL (9-20) 06/07/19 04:56 6.3 mg/dL (0.8-1.5) H 06/07/19 04:56 Estimated GFR 13 ml/min 06/07/19 04:56 3 % 06/07/19 04:56 Glucose 122 mg/dL (75-100) H 06/07/19 04:56 POC Glucose 115 (70-105) H 06/07/19 07:55 17.1 % (4-6) H 05/29/19 05:22 292 Mosm/kg 06/03/19 09:40 Lactic Acid 0.80 mmol/L (0.7-2.0) 05/28/19 00:27 Calcium 8.3 mg/dL (8.4-10.2) L 06/07/19 04:56 0.30 mg/dL (0.1-1.2) 05/27/19 21:55 AST 43 units/L (5-40) H 05/27/19 21:55 ALT 48 units/L (7-56) 05/27/19 21:55 163 units/L (35-129) H 05/27/19 21:55 66 units/L (55-170) 06/03/19 09:40 7.9 g/dL (6.3-8.2) 05/27/19 21:55 2.7 g/dL (3.9-5) L 05/27/19 21:55 0.5 % 05/27/19 21:55 Straw (Yellow) 06/03/19 18:44 Clear (Clear) 06/03/19 18:44 5.0 (5.0-7.0) 06/03/19 18:44 Ur Specific [place] 1.005 (1.003-1.030) 06/03/19 18:44 <15 mg/dl mg/dL (Negative) 06/03/19 18:44 Neg mg/dL (Negative) 06/03/19 18:44 Neg mg/dL (Negative) 06/03/19 18:44 Neg (Negative) 06/03/19 18:44 Neg (Negative) 06/03/19 18:44 Neg (Negative) 06/03/19 18:44 < 2.0 mg/dL (<2.0) 06/03/19 18:44 Ur Leukocyte Esterase Neg (Negative) 06/03/19 18:44 5.0 /HPF (0.0-6.0) 06/03/19 18:44 3.0 /HPF (0.0-6.0) 06/03/19 18:44 U Epithel Cells (Auto) < 1.0 /HPF (0-13.0) 06/03/19 18:44 1+ /HPF (Negative) 06/03/19 18:44 None seen (None Seen) 06/03/19 18:44 48.8 mg/dL (0.1-20.0) H 06/03/19 18:44 74 mmol/L 06/03/19 18:44 Vancomycin Trough 67.6 ug/mL (5.0-20.0) H 05/31/19 15:08 204 mg/dL (82-185) H 06/03/19 09:40 40 mg/dL (15-53) 06/03/19 09:40 Hepatitis A IgM Ab Non-reactive (NonReactive) 06/04/19 12:58 Hep Bs Antigen Non-reactive (Negative) 06/04/19 12:58 Hep B Core IgM Ab Non-reactive (NonReactive) 06/04/19 12:58 Non-reactive (NonReactive) 06/04/19 12:58 Active Medications - Current Medications Current Medications: Generic Name Dose Route Start Last Admin Trade Name Brentq PRN Reason Stop Dose Admin Acetaminophen 650 mg 05/28/19 02:10 Tylenol PO Q4H PRN Fever >101 Dextrose 50 ml 05/28/19 02:13 06/03/19 08:48 D50w (25gm) Syringe IV 50 ml PRN PRN Administration Hypoglycemia Heparin Sodium (Porcine) 5,000 unit 05/28/19 10:00 06/06/19 21:38 Heparin SUB-Q 5,000 unit Q12HR LIBERTAD Administration Sodium Chloride 100 mls @ 999 mls/hr 06/06/19 09:26 Nacl 0.9% IV DANG PRN Hypotension Insulin Glargine 10 units 05/29/19 22:00 06/06/19 21:38 Lantus SUB-Q 10 units QHS [facility] Administration Insulin Human Regular 0 units 05/28/19 07:30 06/06/19 17:36 Humulin R SUB-Q Not Given AC [facility] Protocol Insulin Human Regular 0 units 05/28/19 22:00 06/06/19 22:00 Humulin R SUB-Q Not Given QHS [facility] Protocol Linezolid 600 mg 06/02/19 13:00 06/06/19 21:38 Zyvox PO 600 mg Q12HR [facility] Administration Protocol Morphine Sulfate 2 mg 05/28/19 02:09 06/05/19 17:26 Morphine IV 2 mg Q3H PRN Administration Pain , Severe (7-10) Ondansetron HCl 4 mg 06/04/19 22:23 06/06/19 21:38 Zofran IV 4 mg Q4H PRN Administration Nausea And Vomiting Oxycodone/Acetaminophen 2 tab 05/28/19 16:20 06/04/19 11:30 Percocet 5/325 PO 2 tab Q4H PRN Administration Pain, Moderate (4-6) Simethicone 80 mg 06/01/19 09:11 06/05/19 04:28 Mylicon PO 80 mg Q6H PRN Administration Gas pain Nutrition/Malnutrition Assess - Dietary Evaluation Nutrition/Malnutrition Findings: Nutrition Notes Start: 05/28/19 13:42 Freq: Status: Active Protocol: Document 05/28/19 13:42 LANEY (Rec: 05/28/19 13:50 LANEY [email or web address]) Nutrition Notes Need for Assessment generated from: wood bucker,MST Initial or Follow up Brief Note Current Diagnosis Diabetes,Sepsis Other Pertinent Diagnosis Cellulitis of anterior abdominal wall with small abscess Current Diet Consistent CHO Labs/Tests BG 480 Na 131 Pertinent Medications Reviewed Height 6 ft 1 in Weight 151.2 kg [place] Body Weight (kg) 83.63 BMI 43.9 Intake Prior to Admission Fair Weight Status Morbidly Obese Subjective/Other Information Pt screened for malnutrition risk. He was diagnosed with DM 10 yrs ago; says he checks BS 2-3 times daily and takes insulin as prescribed. He does admit to overconsumption of CHO-rich foods. Very receptive to review of CHO- controlled diet principles and A1C. Reports poor appetite [employer] (likely sec to sepsis). Burn Absent Trauma Absent #1 Nutrition Diagnosis Limited adherence to nutrition -related recommendations Etiology knowledge deficit As Evidenced by Signs and Symptoms pt admission of the need to review DM diet principles and unaware of the relationship between wound healing and BS levels Nutrition Intervention Teaching Recipient Patient Learning Readiness Good Teaching Methods Discussion,Handout Response to Teaching Verbalize understanding Education Handouts Provided Hemoglobin A1C and Blood Sugar Control Carbohydrate Counting for People with Diabetes (Food Sources of Carbohydrates) Barriers to Learning No Barriers RD phone number provided Yes Patient aware of follow up options Yes Goal #1 Improved BS control Goal #2 Adherence to CHO-controlled diet Anticipated Discharge Needs: CHO-controlled diet Revisit per MD consult or patient Sign Off request:
[2019-06-07] MEDS: HEPARIN SUB-Q SCH ×2 (10:00→21:50)
[2019-06-07] MEDS: ZYVOX PO SCH ×2 (10:00→21:51)
[2019-06-07] MEDS ORDERED: DILAUDID IV STA (11:08)
--- NOTE | 2019-06-07 11:46 | Progress Note ---
Assessment and Plan 34 yo M s/p excisional debridement of lower abdominal wall necrotizing fasciitis and placement of wound vac, POD 4 s/p Excisional debridement of lower abdominal wall necrotizing fasciitis x 2 - 05/31/19 and 05/28/19 1. necrotizing fasciitis of abdominal wall 2. sepsis 3. uncontrolled DM 4. PEYTON Plan: 1. c/w abx per ID - on PO linezolid 2. Pt did not tolerate bedside wound vac change despite premedication- will need to remove and replace in OR today. Patient has been NPO. Consent obtained. 3. prn PO pain control 4. strict glucose control 5. discussed with case management - will need wound care clinic follow up on discharge I feel that due to the extensive nature of the wounds, the patient will greatly benefit from continued application of wound vac. This will accelerate healing and keep excess fluid out of the wounds. However, if patient continues to be noncompliant or demonstrates that he cannot tolerate vac changes at bedside once he is discharged, may need to start wet to dry dressing changes daily. While he is in the hospital, we will continue wound vac but this may require multiple trips back to the OR for sedation. I explained this to the patient and he understands. Subjective Date of service: 06/07/19 Narrative: Pt seen and examined. No f/c. Had HD yesterday. States he turned off the wound vac because it was beeping and indicating a blockage all day yesterday. Objective Vital Signs - 12hr 06/07/19 06/07/19 00:20 04:20 Temperature 98.3 F 98.5 F Pulse Rate 51 L 53 L Respiratory 19 19 Rate Blood Pressure 147/98 152/84 O2 Sat by Pulse 98 90 Oximetry - General physical appearance Narrative Exam: Gen: AAOx3. NAD CV: s1, S2+ resp: even and unlabored Abd; soft, NT, ND. Obese. Wound dressing soaked and peeling off. Wound vac co nnected but off. Wound vac change: Dressing removed after IV pain medication given to patient. Bl ack foam of medial-most wound and two lateral-most wounds removed (3 pieces). Attempted removal of black foam from lateral wound but patient did not tolerate this due to pain. Wounds covered with 4x4 gauze and coversite dressings. - Labs 06/05/19 04:57 06/07/19 04:56 Diabetes panel 06/07/19 Range/Units 04:56 Sodium 143 (137-145) mmol/L Potassium 4.3 (3.6-5.0) mmol/L Chloride 103.0 (98-107) mmol/L Carbon Dioxide 26 (22-30) mmol/L BUN 20 (9-20) mg/dL Creatinine 6.3 H (0.8-1.5) mg/dL Glucose 122 H (75-100) mg/dL Calcium 8.3 L (8.4-10.2) mg/dL Calcium panel 06/07/19 Range/Units 04:56 Calcium 8.3 L (8.4-10.2) mg/dL Pituitary panel 06/07/19 Range/Units 04:56 Sodium 143 (137-145) mmol/L Potassium 4.3 (3.6-5.0) mmol/L Chloride 103.0 (98-107) mmol/L Carbon Dioxide 26 (22-30) mmol/L BUN 20 (9-20) mg/dL Creatinine 6.3 H (0.8-1.5) mg/dL Glucose 122 H (75-100) mg/dL Calcium 8.3 L (8.4-10.2) mg/dL Adrenal panel 06/07/19 Range/Units 04:56 Sodium 143 (137-145) mmol/L Potassium 4.3 (3.6-5.0) mmol/L Chloride 103.0 (98-107) mmol/L Carbon Dioxide 26 (22-30) mmol/L BUN 20 (9-20) mg/dL Creatinine 6.3 H (0.8-1.5) mg/dL Glucose 122 H (75-100) mg/dL Calcium 8.3 L (8.4-10.2) mg/dL
[2019-06-07] MEDS ORDERED: DIPRIVAN 10 MG/ML IV ONE ×2 (14:45→15:12)
--- NOTE | 2019-06-07 15:32 | Operative Report ---
Operative Report Operative Report: Date of procedure: 06/07/19 Pre-op diagnosis: necrotizing fasciitis of abdominal wall Post-op diagnosis: same Findings: 1 piece of black sponge removed (3 other pieces removed at bedside) 4 pieces of black sponge placed into wounds No significant change in wound size Procedure: wound vac removal and placement Anesthesia: MAC Surgeon: CASSI GONZALEZ Estimated blood loss: minimal Pathology: none Condition: stable Disposition: PACU HPI and indication: 34 yo M with uncontrolled DM who was taken to OR multiple times for debridement of abdominal wall necrotizing fasciitis and wound vac placement. The patient was due for wound vac change and could not tolerate complete removal of the dressing at the bedside despite premedication with IV pain meds. It was therefore recommended the wound vac dressing be removed in OR under sedation and vac be replaced. Consent obtained from patient. Procedure in detail: Pt identified in his hospital bed and brought straight to the OR. After anesthesia was induced, time out was performed. The abdominal wall dressing was removed and one piece of black sponge from large lateral wound was removed. Three other pieces placed were already removed at bedside. The wound beds were clean with red granulation tissue. No purulent drainage or odor. The wound was checked for hemostasis which was achieved with minimal cautery and surgicel/pressure. 4 pieces of black sponge were placed total, one in to each wound bed. The wounds were bridged in the usual fashion. The wafer was applied to the largest, lateral wound and hooked to -125mmhg suction. All foam compressed. There was no leak and a good seal. The patient tolerated the procedure well. All instrument, sharp, and sponge counts were correct. The patient was awoken from anesthesia and taken to PACU in stable condition.
[2019-06-07] MEDS ORDERED: DILAUDID ONE (15:38)
[2019-06-07] MEDS ORDERED: XYLOCAINE MPF 2% ONE (15:41)
[2019-06-07] MEDS ORDERED: ZOFRAN IV PRN (15:45)
[2019-06-07] MEDS: DILAUDID IV PRN ×2 (15:46→15:56)
--- NOTE | 2019-06-07 17:54 | Anesthesia Day of Surgery ---
Anesthesia Day of Surgery - Day of Surgery Patient Examined: Yes Patient H&P Reviewed: Yes Patient is NPO: Yes
--- NOTE | 2019-06-07 18:19 | Progress Note ---
Assessment and Plan Cultures: 05/27/2019 blood culture: No growth 05/28/2019 OR culture: Usual skin julee. A/P: 34-year-old male with morbid obesity, diabetes mellitus, prior skin infections requiring I&D, admitted with: 1) Sepsis: secondary to left lower abdominal wall abscess with necrotizing fasciitis: s/p OR on 05/28/2019, findings showed 2 large abscess cavities with necrotic tissue extending down to the level of the fascia. Failed Bactrim as outpatient. ?beta-hemolytic Strep infection. s/p additional debridement 05/31/2019. OR culture +normal skin julee. Further debridement on 06/03 and wound VAC placement. 2) Morbid obesity: dose abx accordingly. 3) Diabetes mellitus type 2, uncontrolled: recommend tight control. HbA1c 17.1. 4) PEYTON: worsening ? vancomycin toxicity. Now on HD. Likely from supratherapeutic vancomycin. Vancomycin was discontinued on 05/31/2019. Urine eosinophils ordered, to evaluate for possibility of AIN. Will avoid beta-lactams as well. Recs: continue PO Linezolid 600 mg BID D10 of 14 (was on vancomycin 05/28-05/31) continue tight glycemic control wound care Will follow Nancy Collins MD Infectious Diseases [facility] [facility] M [phone] O [phone] Subjective Date of service: 06/07/19 Principal diagnosis: abdominal wall abscess Interval history: No complaints. No fever. ROS +mild surg site pain, no fever, N/V/D Objective - Exam Narrative Exam: General: Alert, cooperative. Obese. Head, Ears, Nose: Normocephalic, atraumatic. External ears, nose normal Eyes: Conjunctivae/corneas clear. No icterus. No ptosis. Neck: Supple, no meningeal signs Cardiovascular: RRR Respiratory: Good air entry, clear to auscultation bilaterally GI: Soft; bowel sounds normal. No peritoneal signs. LLQ abdominal wall with wound VAC with a leak Musculoskeletal: No pedal edema, no cyanosis. Morbidly obese Skin: No rash. Hem/Lymphatic: No palpable cervical or supraclavicular nodes. No lymphangitis Psych: Mood ok. Affect normal Neurological: Awake, alert, oriented. - Constitutional Vitals: Vital Signs Temp Pulse Resp BP Pulse Ox 97.5 F L 52 L 15 135/97 99 06/07/19 16:30 06/07/19 16:45 06/07/19 16:45 06/07/19 16:45 06/07/19 16:45 Temperature -Last 24 Hours Temperature 97.5 F Temperature 97.8 F Temperature 98.5 F Temperature 98.3 F Temperature 98.7 F - Labs CBC & Chem 7: 06/05/19 04:57 06/07/19 04:56 Labs: Abnormal lab results 06/06/19 06/07/19 06/07/19 Range/Units 21:37 04:56 07:55 Creatinine 6.3 H (0.8-1.5) mg/dL Glucose 122 H (75-100) mg/dL POC Glucose 145 H 115 H (70-105) Calcium 8.3 L (8.4-10.2) mg/dL 06/07/19 Range/Units 12:37 Creatinine (0.8-1.5) mg/dL Glucose (75-100) mg/dL POC Glucose 114 H (70-105) Calcium (8.4-10.2) mg/dL
[2019-06-07] MEDS: ZOFRAN IV PRN (21:50)
[2019-06-07] MEDS: LANTUS SUB-Q SCH (22:00)
[2019-06-07] MEDS: MORPHINE IV PRN (22:35)
[2019-06-08 05:45] LABS: Calcium 8.4 mg/dL (8.4-10.2)
[2019-06-08] MEDS: HumuLIN R SUB-Q SCH ×4 (07:30→21:30)
[2019-06-08] MEDS ORDERED: NACL 0.9% 100 ML IV PRN (09:02)
[2019-06-08] MEDS: ZYVOX PO SCH ×2 (09:59→21:28)
[2019-06-08] MEDS: HEPARIN SUB-Q SCH ×2 (09:59→21:29)
--- NOTE | 2019-06-08 11:32 | Progress Note ---
Assessment and Plan 34 yo M s/p wound vac change, POD 1 and excisional debridement of lower abdominal wall necrotizing fasciitis and placement of wound vac, POD 5 s/p Excisional debridement of lower abdominal wall necrotizing fasciitis x 2 - 05/31/19 and 05/28/19 1. necrotizing fasciitis of abdominal wall 2. sepsis 3. uncontrolled DM 4. PEYTON Plan: 1. c/w abx per ID - on PO linezolid 2. continue wound vac to -125mmHg suction - will need change on Monday 3. prn PO pain control 4. strict glucose control 5. discussed with case management - will need wound care clinic follow up on discharge I feel that due to the extensive nature of the wounds, the patient will greatly benefit from continued application of wound vac. This will accelerate healing and keep excess fluid out of the wounds. However, if patient continues to be noncompliant or demonstrates that he cannot tolerate vac changes at bedside once he is discharged, may need to start wet to dry dressing changes daily. While he is in the hospital, we will continue wound vac but this may require multiple trips back to the OR for sedation. I explained this to the patient and he understands. Objective Vital Signs - 12hr 06/08/19 06/08/19 06/08/19 00:54 04:27 08:28 Temperature 98.2 F 98.6 F Pulse Rate 56 L 56 L 55 L Pulse Rate [ From Monitor] Respiratory 18 20 16 Rate Blood Pressure 145/76 149/75 Blood Pressure 131/74 [Left] O2 Sat by Pulse 99 95 98 Oximetry 06/08/19 10:00 Temperature Pulse Rate Pulse Rate [ 55 L From Monitor] Respiratory 16 Rate Blood Pressure Blood Pressure [Left] O2 Sat by Pulse 98 Oximetry - Labs 06/05/19 04:57 06/08/19 04:43 Diabetes panel 06/08/19 Range/Units 04:43 Sodium 143 (137-145) mmol/L Potassium 4.5 (3.6-5.0) mmol/L Chloride 103.3 (98-107) mmol/L Carbon Dioxide 26 (22-30) mmol/L BUN 23 H (9-20) mg/dL Creatinine 7.5 H (0.8-1.5) mg/dL Glucose 115 H (75-100) mg/dL Calcium 8.4 (8.4-10.2) mg/dL Calcium panel 06/08/19 Range/Units 04:43 Calcium 8.4 (8.4-10.2) mg/dL Pituitary panel 06/08/19 Range/Units 04:43 Sodium 143 (137-145) mmol/L Potassium 4.5 (3.6-5.0) mmol/L Chloride 103.3 (98-107) mmol/L Carbon Dioxide 26 (22-30) mmol/L BUN 23 H (9-20) mg/dL Creatinine 7.5 H (0.8-1.5) mg/dL Glucose 115 H (75-100) mg/dL Calcium 8.4 (8.4-10.2) mg/dL Adrenal panel 06/08/19 Range/Units 04:43 Sodium 143 (137-145) mmol/L Potassium 4.5 (3.6-5.0) mmol/L Chloride 103.3 (98-107) mmol/L Carbon Dioxide 26 (22-30) mmol/L BUN 23 H (9-20) mg/dL Creatinine 7.5 H (0.8-1.5) mg/dL Glucose 115 H (75-100) mg/dL Calcium 8.4 (8.4-10.2) mg/dL
--- NOTE | 2019-06-08 12:27 | Progress Note ---
Assessment and Plan Impression * Acute kidney injury * Abdominal wall abscess * Obesity * Diabetes * Hyperkalemia Recommendations * Etiology of his acute kidney injury most likely ATN. Most likely secondary to contrast nephropathy, sepsis and vancomycin toxicity * No evidence of renal recovery at this time. * Patient is currently with a Vas-Cath. He will needed to be converted to PermCath prior to discharge once cleared by ID * Wound care and antibiotic as per infectious disease/surgical services * Patient is not ready for discharge from renal standpoint * Patient is scheduled for hemodialysis for today * Reassess need for next dialysis next Monday or Monday Subjective Date of service: 06/08/19 Principal diagnosis: abdominal wall abscess Interval history: Patient is awake and alert. Wants to go home. When I told him that he is medically not ready to go home, he became very angry and started cursing Objective - Vital Signs Vital signs: Vital Signs - 12hr 06/08/19 06/08/19 06/08/19 00:54 04:27 08:28 Temperature 98.2 F 98.6 F Pulse Rate 56 L 56 L 55 L Pulse Rate [ From Monitor] Respiratory 18 20 16 Rate Blood Pressure 145/76 149/75 Blood Pressure 131/74 [Left] O2 Sat by Pulse 99 95 98 Oximetry 06/08/19 10:00 Temperature Pulse Rate Pulse Rate [ 55 L From Monitor] Respiratory 16 Rate Blood Pressure Blood Pressure [Left] O2 Sat by Pulse 98 Oximetry - General Appearance General appearance: well-developed, well-nourished, appears stated age EENT: PERRL, mucous membranes moist Neck: no JVD, no thyromegaly, no carotid bruit, supple, other (right IJ Vas-Cath in place) Respiratory: Present: Clear to Ascultation Cardiology: regular, normal heart rate, S1S2, no murmurs Gastrointestinal: normoactive bowel sounds, other (wound VAC in his left a bdominal wall) Integumentary: other (1+ edema) - Lab 06/05/19 04:57 06/08/19 04:43 Most recent lab results Calcium 8.4 mg/dL (8.4-10.2) 06/08/19 04:43 48.8 mg/dL (0.1-20.0) H 06/03/19 18:44 74 mmol/L 06/03/19 18:44 Medications & Allergies - Medications Allergies/Adverse Reactions: Allergies No Known Allergies Allergy (Verified 05/27/19 22:21) Home Medications: Home Medications Medication Instructions Recorded Confirmed Last Taken Type No Known Home Medications [No 05/28/19 05/28/19 Unknown History Reported Home Medications] Active Medications: Generic Name Dose Route Start Last Admin Trade Name Freq PRN Reason Stop Dose Admin Acetaminophen 650 mg 05/28/19 02:10 Tylenol PO Q4H PRN Fever >101 Dextrose 50 ml 05/28/19 02:13 06/03/19 08:48 D50w (25gm) Syringe IV 50 ml PRN PRN Administration Hypoglycemia Heparin Sodium (Porcine) 5,000 unit 05/28/19 10:00 06/08/19 09:59 Heparin SUB-Q 5,000 unit Q12HR LIBERTAD Administration Sodium Chloride 100 mls @ 999 mls/hr 06/06/19 09:26 Nacl 0.9% IV DANG PRN Hypotension Sodium Chloride 100 mls @ 999 mls/hr 06/08/19 09:02 Nacl 0.9% IV DANG PRN Hypotension Insulin Glargine 10 units 05/29/19 22:00 06/07/19 22:00 Lantus SUB-Q Not Given QHS [facility] Insulin Human Regular 0 units 05/28/19 07:30 06/08/19 07:30 Humulin R SUB-Q Not Given [facility] Protocol Insulin Human Regular 0 units 05/28/19 22:00 06/07/19 22:00 [facility] Line[facility] 600 mg 06/02/19 13:00 06/08/19 09:59 Zyvox PO 600 mg Q12HR [facility] Administration Protocol Morphine Sulfate 2 mg 05/28/19 02:09 06/07/19 22:35 Morphine IV 2 mg Q3H PRN Administration Pain , Severe (7-10) Ondansetron HCl 4 mg 06/04/19 22:23 06/07/19 21:50 Zofran IV 4 mg Q4H PRN Administration Nausea And Vomiting Ondansetron HCl 4 mg 06/07/19 15:45 Zofran IV ONCE PRN Nausea And Vomiting Oxycodone/Acetaminophen 2 tab 05/28/19 16:20 06/04/19 11:30 Percocet 5/325 PO 2 tab Q4H PRN Administration Pain, Moderate (4-6) Simethicone 80 mg 06/01/19 09:11 06/05/19 04:28 Mylicon PO 80 mg Q6H PRN Administration Gas pain
--- NOTE | 2019-06-08 13:55 | Progress Note ---
Assessment and Plan Assessment and plan: Patient is a 34-year-old the male who has been admitted here with the abdominal abscess, underwent surgical evacuation, has also been treated for sepsis, patient baseline creatinine was 0.9 upon admission which has currently increased to over 6 patient is also developing metabolic acidosis during this h ospitalization, he has also been noted to have vancomycin toxicity. Abdominal wall necrotizing fasciitis/abscess. Patient is status post excisional debridement 05/28/19. Surgery following. Patient with further debridement of abdominal wall on 05/31/19 that revealed multiple abscess cavities along lateral left abdominal wall with copious amount of purulent drainage and necrotic subcutaneous tissue. Wound vac to abdomen. Continue with antibiotics per ID recommendations. Pain control. Sepsis. Etiology secondary to above. Blood cultures negative. Antibiotics per ID. PEYTON due to ATN. Creatinine continues to worsen. Patient will need renal replacement therapy. Etiology multifactorial potentially related to supratherapeutic vancomycin, radiocontrast nephropathy and sepsis/ATN. Vancom ycin was discontinued on 05/24/2019. Nephrology following. Discussed with Nephrology. Dr. Schumacher recommended vasc cath, placed 06/04 started hemodialysis 06/04. Hyperkalemia Now resolved after Insulin, Dextrose, kayexalate, calcium gluconate. Started hemodialysis 06/04 Diabetes mellitus type 2. Continue Lantus insulin 70/30 insulin. Accu-Cheks and sliding scale insulin Morbid obesity. History Interval history: Started on dialysis Asking about going home Hospitalist Physical - Physical exam Narrative exam: Gen: Not in acute distress, sitting up in bed, morbidly obese HEENT: Normocephalic, atraumatic Neck: supple, no JVD Heart: S1 and S2 reg, no murmurs, rubs or gallop Lungs: Clear, no crackles or wheeze Abd: soft, non tender, non distended, normal BS, wound vac to abdomen Ext: No edema, no clubbing, no cyanosis Neuro:awake,alert, Oriented X 3. No focal neuro signs Psych: normal mood - Constitutional Vitals: Temp Pulse Resp BP Pulse Ox 98.2 F 54 L 18 158/85 98 06/08/19 11:05 06/08/19 13:30 06/08/19 11:05 06/08/19 13:30 06/08/19 10:00 General appearance: Present: no acute distress Results - Labs CBC & Chem 7: 06/09/19 05:49 06/09/19 05:49 Labs: Laboratory Last Values WBC 8.0 K/mm3 (4.5-11.0) 06/05/19 04:57 RBC 3.00 M/mm3 (3.65-5.03) L 06/05/19 04:57 Hgb 9.1 gm/dl (11.8-15.2) L 06/05/19 04:57 Hct 26.9 % (35.5-45.6) L 06/05/19 04:57 MCV 90 fl (84-94) 06/05/19 04:57 MCH 31 pg (28-32) 06/05/19 04:57 MCHC 34 % (32-34) 06/05/19 04:57 RDW 15.0 % (13.2-15.2) 06/05/19 04:57 Plt Count 360 K/mm3 (140-440) 06/05/19 04:57 Lymph % (Auto) 18.8 % (13.4-35.0) 06/04/19 05:43 [place] % (Auto) 9.8 % (0.0-7.3) H 06/04/19 05:43 Eos % (Auto) 1.3 % (0.0-4.3) 06/04/19 05:43 Baso % (Auto) 0.2 % (0.0-1.8) 06/04/19 05:43 Lymph # 1.4 K/mm3 (1.2-5.4) 06/04/19 05:43 [place] # 0.7 K/mm3 (0.0-0.8) 06/04/19 05:43 Eos # 0.1 K/mm3 (0.0-0.4) 06/04/19 05:43 Baso # 0.0 K/mm3 (0.0-0.1) 06/04/19 05:43 Add Manual Diff Complete 05/29/19 05:24 Total Counted 100 05/29/19 05:24 Seg Neutrophils % 69.9 % (40.0-70.0) 06/04/19 05:43 Seg Neuts % (Manual) 73.0 % (40.0-70.0) H 05/29/19 05:24 0 % 05/29/19 05:24 15.0 % (13.4-35.0) 05/29/19 05:24 Reactive Lymphs % (Man) 1.0 % 05/29/19 05:24 10.0 % (0.0-7.3) H 05/29/19 05:24 1.0 % (0.0-4.3) 05/29/19 05:24 0 % (0.0-1.8) 05/29/19 05:24 0 % 05/29/19 05:24 0 % 05/29/19 05:24 0 % 05/29/19 05:24 0 % 05/29/19 05:24 Nucleated RBC % Not Reportable 05/29/19 05:24 Seg Neutrophils # 5.0 K/mm3 (1.8-7.7) 06/04/19 05:43 Seg Neutrophils # Man 6.0 K/mm3 (1.8-7.7) 05/29/19 05:24 Band Neutrophils # 0.0 K/mm3 05/29/19 05:24 1.2 K/mm3 (1.2-5.4) 05/29/19 05:24 Abs React Lymphs (Man) 0.1 K/mm3 05/29/19 05:24 0.8 K/mm3 (0.0-0.8) 05/29/19 05:24 0.1 K/mm3 (0.0-0.4) 05/29/19 05:24 0.0 K/mm3 (0.0-0.1) 05/29/19 05:24 0.0 K/mm3 05/29/19 05:24 0.0 K/mm3 05/29/19 05:24 0.0 K/mm3 05/29/19 05:24 Blast Cells # 0.0 K/mm3 05/29/19 05:24 WBC Morphology Not Reportable 05/29/19 05:24 Hypersegmented Neuts Not Reportable 05/29/19 05:24 Hyposegmented Neuts Not Reportable 05/29/19 05:24 Hypogranular Neuts Not Reportable 05/29/19 05:24 Not Reportable 05/29/19 05:24 Not Reportable 05/29/19 05:24 Not Reportable 05/29/19 05:24 Not Reportable 05/29/19 05:24 Not Reportable 05/29/19 05:24 Not Reportable 05/29/19 05:24 Consistent w auto 05/29/19 05:24 Not Reportable 05/29/19 05:24 Plt Clumps, EDTA Not Reportable 05/29/19 05:24 Not Reportable 05/29/19 05:24 Not Reportable 05/29/19 05:24 Not Reportable 05/29/19 05:24 Plt Morphology Comment Not Reportable 05/29/19 05:24 RBC Morphology Not Reportable 05/29/19 05:24 Dimorphic RBCs Not Reportable 05/29/19 05:24 Not Reportable 05/29/19 05:24 Not Reportable 05/29/19 05:24 Not Reportable 05/29/19 05:24 1+ 05/29/19 05:24 Not Reportable 05/29/19 05:24 Not Reportable 05/29/19 05:24 Not Reportable 05/29/19 05:24 Not Reportable 05/29/19 05:24 Not Reportable 05/29/19 05:24 Not Reportable 05/29/19 05:24 Not Reportable 05/29/19 05:24 Not Reportable 05/29/19 05:24 Not Reportable 05/29/19 05:24 Not Reportable 05/29/19 05:24 Not Reportable 05/29/19 05:24 Not Reportable 05/29/19 05:24 Not Reportable 05/29/19 05:24 Not Reportable 05/29/19 05:24 Not Reportable 05/29/19 05:24 Acanthocytes (Spur) Not Reportable 05/29/19 05:24 Rouleaux Not Reportable 05/29/19 05:24 Not Reportable 05/29/19 05:24 Not Reportable 05/29/19 05:24 Not Reportable 05/29/19 05:24 Not Reportable 05/29/19 05:24 Hem Pathologist Commnt No 05/29/19 05:24 Sodium 143 mmol/L (137-145) 06/08/19 04:43 Potassium 4.5 mmol/L (3.6-5.0) 06/08/19 04:43 Chloride 103.3 mmol/L (98-107) 06/08/19 04:43 Carbon Dioxide 26 mmol/L (22-30) 06/08/19 04:43 18 mmol/L 06/08/19 04:43 BUN 23 mg/dL (9-20) H 06/08/19 04:43 7.5 mg/dL (0.8-1.5) H 06/08/19 04:43 Estimated GFR 10 ml/min 06/08/19 04:43 3 % 06/08/19 04:43 Glucose 115 mg/dL (75-100) H 06/08/19 04:43 POC Glucose 109 (70-105) H 06/08/19 08:33 17.1 % (4-6) H 05/29/19 05:22 292 Mosm/kg 06/03/19 09:40 Lactic Acid 0.80 mmol/L (0.7-2.0) 05/28/19 00:27 Calcium 8.4 mg/dL (8.4-10.2) 06/08/19 04:43 0.30 mg/dL (0.1-1.2) 05/27/19 21:55 AST 43 units/L (5-40) H 05/27/19 21:55 ALT 48 units/L (7-56) 05/27/19 21:55 163 units/L (35-129) H 05/27/19 21:55 66 units/L (55-170) 06/03/19 09:40 7.9 g/dL (6.3-8.2) 05/27/19 21:55 2.7 g/dL (3.9-5) L 05/27/19 21:55 0.5 % 05/27/19 21:55 Straw (Yellow) 06/03/19 18:44 Clear (Clear) 06/03/19 18:44 5.0 (5.0-7.0) 06/03/19 18:44 Ur Specific [place] 1.005 (1.003-1.030) 06/03/19 18:44 <15 mg/dl mg/dL (Negative) 06/03/19 18:44 Neg mg/dL (Negative) 06/03/19 18:44 Neg mg/dL (Negative) 06/03/19 18:44 Neg (Negative) 06/03/19 18:44 Neg (Negative) 06/03/19 18:44 Neg (Negative) 06/03/19 18:44 < 2.0 mg/dL (<2.0) 06/03/19 18:44 Ur Leukocyte Esterase Neg (Negative) 06/03/19 18:44 5.0 /HPF (0.0-6.0) 06/03/19 18:44 3.0 /HPF (0.0-6.0) 06/03/19 18:44 U Epithel Cells (Auto) < 1.0 /HPF (0-13.0) 06/03/19 18:44 1+ /HPF (Negative) 06/03/19 18:44 None seen (None Seen) 06/03/19 18:44 48.8 mg/dL (0.1-20.0) H 06/03/19 18:44 74 mmol/L 06/03/19 18:44 Vancomycin Trough 67.6 ug/mL (5.0-20.0) H 05/31/19 15:08 204 mg/dL (82-185) H 06/03/19 09:40 40 mg/dL (15-53) 06/03/19 09:40 Hepatitis A IgM Ab Non-reactive (NonReactive) 06/04/19 12:58 Hep Bs Antigen Non-reactive (Negative) 06/04/19 12:58 Hep B Core IgM Ab Non-reactive (NonReactive) 06/04/19 12:58 Non-reactive (NonReactive) 06/04/19 12:58 Active Medications - Current Medications Current Medications: Generic Name Dose Route Start Last Admin Trade Name Freq PRN Reason Stop Dose Admin Acetaminophen 650 mg 05/28/19 02:10 Tylenol PO Q4H PRN Fever >101 Dextrose 50 ml 05/28/19 02:13 06/03/19 08:48 D50w (25gm) Syringe IV 50 ml PRN PRN Administration Hypoglycemia Heparin Sodium (Porcine) 5,000 unit 05/28/19 10:00 06/08/19 09:59 Heparin SUB-Q 5,000 unit Q12HR LIBERTAD Administration Sodium Chloride 100 mls @ 999 mls/hr 06/06/19 09:26 Nacl 0.9% IV DANG PRN Hypotension Sodium Chloride 100 mls @ 999 mls/hr 06/08/19 09:02 Nacl 0.9% IV DANG PRN Hypotension Insulin Glargine 10 units 05/29/19 22:00 06/07/19 22:00 Lantus SUB-Q Not Given QHS [facility] Insulin Human Regular 0 units 05/28/19 07:30 06/08/19 11:30 Humulin R SUB-Q Not Given [facility] Protocol Insulin Human Regular 0 units 05/28/19 22:00 06/07/19 22:00 [facility] Linezolid 600 mg 06/02/19 13:00 06/08/19 09:59 Zyvox PO 600 mg Q12HR [facility] Administration Protocol Morphine Sulfate 2 mg 05/28/19 02:09 06/07/19 22:35 Morphine IV 2 mg Q3H PRN Administration Pain , Severe (7-10) Ondansetron HCl 4 mg 06/04/19 22:23 06/07/19 21:50 Zofran IV 4 mg Q4H PRN Administration Nausea And Vomiting Ondansetron HCl 4 mg 06/07/19 15:45 Zofran IV ONCE PRN Nausea And Vomiting Oxycodone/Acetaminophen 2 tab 05/28/19 16:20 06/04/19 11:30 Percocet 5/325 PO 2 tab Q4H PRN Administration Pain, Moderate (4-6) Simethicone 80 mg 06/01/19 09:11 06/05/19 04:28 Mylicon PO 80 mg Q6H PRN Administration Gas pain Nutrition/Malnutrition Assess - Dietary Evaluation Nutrition/Malnutrition Findings: Nutrition Notes Start: 05/28/19 13:42 Freq: Status: Active Protocol: Document 05/28/19 13:42 LANEY (Rec: 05/28/19 13:50 LANEY [email or web address]) Nutrition Notes Need for Assessment generated from: faro dealer,MST Initial or Follow up Brief Note Current Diagnosis Diabetes,Sepsis Other Pertinent Diagnosis Cellulitis of anterior abdominal wall with small abscess Current Diet Consistent CHO Labs/Tests BG 480 Na 131 Pertinent Medications Reviewed Height 6 ft 1 in Weight 151.2 kg [place] Body Weight (kg) 83.63 BMI 43.9 Intake Prior to Admission Fair Weight Status Morbidly Obese Subjective/Other Information Pt screened for malnutrition risk. He was diagnosed with DM 10 yrs ago; says he checks BS 2-3 times daily and takes insulin as prescribed. He does admit to overconsumption of CHO-rich foods. Very receptive to review of CHO- controlled diet principles and A1C. 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 Burn Absent Trauma Absent #1 Nutrition Diagnosis Limited adherence to nutrition -related recommendations Etiology knowledge deficit As Evidenced by Signs and Symptoms pt admission of the need to review DM diet principles and unaware of the relationship between wound healing and BS levels Nutrition Intervention Teaching Recipient Patient Learning Readiness Good Teaching Methods Discussion,Handout Response to Teaching Verbalize understanding Education Handouts Provided Hemoglobin A1C and Blood Sugar Control Carbohydrate Counting for People with Diabetes (Food Sources of Carbohydrates) Barriers to Learning No Barriers RD phone number provided Yes Patient aware of follow up options Yes Goal #1 Improved BS control Goal #2 Adherence to CHO-controlled diet Anticipated Discharge Needs: CHO-controlled diet Revisit per MD consult or patient Sign Off request:
--- NOTE | 2019-06-08 15:35 | Event Note ---
Date: 06/08/19 Reviewed nephrology note. Once cleared from ID perspective for tunneled catheter placement, will place permcath from [facility] to facilitate dialysis as an outpatient.
--- NOTE | 2019-06-08 16:08 | Progress Note ---
Assessment and Plan 34 yo M s/p wound vac change, POD 1 s/p excisional debridement of lower abdominal wall necrotizing fasciitis and placement of wound vac, POD 5 s/p Excisional debridement of lower abdominal wall necrotizing fasciitis x 2 - 05/31/19 and 05/28/19 1. necrotizing fasciitis of abdominal wall 2. sepsis 3. uncontrolled DM 4. PEYTON on HD Plan: 1. c/w abx per ID - on PO linezolid 2. c/w wound vac to -125mmhg suction - will change on Monday. 3. prn PO pain control 4. strict glucose control 5. discussed with case management - will need wound care clinic follow up on discharge Thank you, please call with questions. Subjective Date of service: 06/08/19 Narrative: Pt seen and examined. No acute complaints. States vac turned off last night because it was not charged. Once plugged into international representative, it started working. No f/c Objective Vital Signs - 12hr 06/08/19 06/08/19 06/08/19 04:27 08:28 10:00 Temperature 98.2 F 98.6 F Pulse Rate 56 L 55 L Pulse Rate [ 55 L From Monitor] Respiratory 20 16 16 Rate Blood Pressure 149/75 Blood Pressure 131/74 [Left] O2 Sat by Pulse 95 98 98 Oximetry 06/08/19 06/08/19 06/08/19 11:05 11:12 11:15 Temperature 98.2 F Pulse Rate 63 50 L 50 L Pulse Rate [ From Monitor] Respiratory 18 Rate Blood Pressure 144/75 140/75 156/82 Blood Pressure [Left] O2 Sat by Pulse Oximetry 06/08/19 06/08/19 06/08/19 11:30 11:45 12:00 Temperature Pulse Rate 55 L 54 L 55 L Pulse Rate [ From Monitor] Respiratory Rate Blood Pressure 144/64 150/67 145/75 Blood Pressure [Left] O2 Sat by Pulse Oximetry 06/08/19 06/08/19 06/08/19 12:30 12:45 13:00 Temperature Pulse Rate 67 56 L 51 L Pulse Rate [ From Monitor] Respiratory Rate Blood Pressure 147/71 150/85 153/81 Blood Pressure [Left] O2 Sat by Pulse Oximetry 06/08/19 06/08/19 13:15 13:30 Temperature Pulse Rate 49 L 54 L Pulse Rate [ From Monitor] Respiratory Rate Blood Pressure 159/83 158/85 Blood Pressure [Left] O2 Sat by Pulse Oximetry - General physical appearance Narrative Exam: Gen: AAOx3. NAD CV: s1, S2+ Resp; even and unlabored Abd: soft, wound vac in place with good seal and no leak. Serosang drainage in canister Ext: no c/c/e - Labs 06/05/19 04:57 06/08/19 04:43 Diabetes panel 06/08/19 Range/Units 04:43 Sodium 143 (137-145) mmol/L Potassium 4.5 (3.6-5.0) mmol/L Chloride 103.3 (98-107) mmol/L Carbon Dioxide 26 (22-30) mmol/L BUN 23 H (9-20) mg/dL Creatinine 7.5 H (0.8-1.5) mg/dL Glucose 115 H (75-100) mg/dL Calcium 8.4 (8.4-10.2) mg/dL Calcium panel 06/08/19 Range/Units 04:43 Calcium 8.4 (8.4-10.2) mg/dL Pituitary panel 06/08/19 Range/Units 04:43 Sodium 143 (137-145) mmol/L Potassium 4.5 (3.6-5.0) mmol/L Chloride 103.3 (98-107) mmol/L Carbon Dioxide 26 (22-30) mmol/L BUN 23 H (9-20) mg/dL Creatinine 7.5 H (0.8-1.5) mg/dL Glucose 115 H (75-100) mg/dL Calcium 8.4 (8.4-10.2) mg/dL Adrenal panel 06/08/19 Range/Units 04:43 Sodium 143 (137-145) mmol/L Potassium 4.5 (3.6-5.0) mmol/L Chloride 103.3 (98-107) mmol/L Carbon Dioxide 26 (22-30) mmol/L BUN 23 H (9-20) mg/dL Creatinine 7.5 H (0.8-1.5) mg/dL Glucose 115 H (75-100) mg/dL Calcium 8.4 (8.4-10.2) mg/dL
[2019-06-08] MEDS: LANTUS SUB-Q SCH (21:29)
[2019-06-08] MEDS: MORPHINE IV PRN (21:29)
[2019-06-09 06:36] LABS: Hematocrit 25.4 % (35.5-45.6); Hemoglobin 8.6 gm/dl (11.8-15.2); Mean Corpuscular HGB Conc 34 % (32-34); Mean Corpuscular Volume 90 fl (84-94); Platelet Count 322 K/mm3 (140-440); Red Blood Count 2.83 M/mm3 (3.65-5.03); Red Cell Distribution Width 15.2 % (13.2-15.2)
[2019-06-09 06:58] LABS: Calcium 8.3 mg/dL (8.4-10.2)
[2019-06-09] MEDS: HumuLIN R SUB-Q SCH ×4 (07:30→21:25)
[2019-06-09] MEDS: PERCOCET 5/325 PO PRN ×4 (08:45→21:23)
--- NOTE | 2019-06-09 08:52 | Progress Note ---
Assessment and Plan Assessment and plan: Patient is a 34-year-old the male who has been admitted here with the abdominal abscess, underwent surgical evacuation, has also been treated for sepsis, patient baseline creatinine was 0.9 upon admission which has currently increased to over 6 patient is also developing metabolic acidosis during this h ospitalization, he has also been noted to have vancomycin toxicity. Abdominal wall necrotizing fasciitis/abscess. Patient is status post excisional debridement 05/28/19. Surgery following. Patient with further debridement of abdominal wall on 05/31/19 that revealed multiple abscess cavities along lateral left abdominal wall with copious amount of purulent drainage and necrotic subcutaneous tissue. Wound vac to abdomen. Continue with antibiotics per ID recommendations: Zyvox till . Sepsis. Etiology secondary to above. Blood cultures negative. Antibiotics per ID. PEYTON due to ATN. Creatinine continues to worsen. Patient will need renal replacement therapy. Etiology multifactorial potentially related to supratherapeutic vancomycin, radiocontrast nephropathy and sepsis/ATN. Van comycin was discontinued on 05/24/2019. Nephrology following. Discussed with Nephrology. Dr. Schumacher recommended vasc cath, placed 06/04 started hemodialysis 06/04. Cr 5.9 today Hyperkalemia Now resolved after Insulin, Dextrose, kayexalate, calcium gluconate. Started hemodialysis 06/04 Diabetes mellitus type 2. Continue Lantus insulin 70/30 insulin. Accu-Cheks and sliding scale insulin Morbid obesity. History Interval history: Started on dialysis Upset that he cannot go home yet Hospitalist Physical - Physical exam Narrative exam: Gen: Not in acute distress, sitting up in bed, morbidly obese HEENT: Normocephalic, atraumatic Neck: supple, no JVD Heart: S1 and S2 reg, no murmurs, rubs or gallop Lungs: Clear, no crackles or wheeze Abd: soft, non tender, non distended, normal BS, wound vac to abdomen Ext: No edema, no clubbing, no cyanosis Neuro:awake,alert, Oriented X 3. No focal neuro signs Psych: normal mood - Constitutional Vitals: Temp Pulse Resp BP Pulse Ox 98.4 F 52 L 18 143/82 100 06/09/19 04:31 06/09/19 04:31 06/09/19 04:31 06/09/19 04:31 06/09/19 04:31 General appearance: Present: no acute distress Results - Labs CBC & Chem 7: 06/09/19 05:49 06/09/19 05:49 Labs: Laboratory Last Values WBC 6.1 K/mm3 (4.5-11.0) 06/09/19 05:49 RBC 2.83 M/mm3 (3.65-5.03) L 06/09/19 05:49 Hgb 8.6 gm/dl (11.8-15.2) L 06/09/19 05:49 Hct 25.4 % (35.5-45.6) L 06/09/19 05:49 MCV 90 fl (84-94) 06/09/19 05:49 MCH 30 pg (28-32) 06/09/19 05:49 MCHC 34 % (32-34) 06/09/19 05:49 RDW 15.2 % (13.2-15.2) 06/09/19 05:49 Plt Count 322 K/mm3 (140-440) 06/09/19 05:49 Lymph % (Auto) 18.8 % (13.4-35.0) 06/04/19 05:43 [place] % (Auto) 9.8 % (0.0-7.3) H 06/04/19 05:43 Eos % (Auto) 1.3 % (0.0-4.3) 06/04/19 05:43 Baso % (Auto) 0.2 % (0.0-1.8) 06/04/19 05:43 Lymph # 1.4 K/mm3 (1.2-5.4) 06/04/19 05:43 [place] # 0.7 K/mm3 (0.0-0.8) 06/04/19 05:43 Eos # 0.1 K/mm3 (0.0-0.4) 06/04/19 05:43 Baso # 0.0 K/mm3 (0.0-0.1) 06/04/19 05:43 Add Manual Diff Complete 05/29/19 05:24 Total Counted 100 05/29/19 05:24 Seg Neutrophils % 69.9 % (40.0-70.0) 06/04/19 05:43 Seg Neuts % (Manual) 73.0 % (40.0-70.0) H 05/29/19 05:24 0 % 05/29/19 05:24 15.0 % (13.4-35.0) 05/29/19 05:24 Reactive Lymphs % (Man) 1.0 % 05/29/19 05:24 10.0 % (0.0-7.3) H 05/29/19 05:24 1.0 % (0.0-4.3) 05/29/19 05:24 0 % (0.0-1.8) 05/29/19 05:24 0 % 05/29/19 05:24 0 % 05/29/19 05:24 0 % 05/29/19 05:24 0 % 05/29/19 05:24 Nucleated RBC % Not Reportable 05/29/19 05:24 Seg Neutrophils # 5.0 K/mm3 (1.8-7.7) 06/04/19 05:43 Seg Neutrophils # Man 6.0 K/mm3 (1.8-7.7) 05/29/19 05:24 Band Neutrophils # 0.0 K/mm3 05/29/19 05:24 1.2 K/mm3 (1.2-5.4) 05/29/19 05:24 Abs React Lymphs (Man) 0.1 K/mm3 05/29/19 05:24 0.8 K/mm3 (0.0-0.8) 05/29/19 05:24 0.1 K/mm3 (0.0-0.4) 05/29/19 05:24 0.0 K/mm3 (0.0-0.1) 05/29/19 05:24 0.0 K/mm3 05/29/19 05:24 0.0 K/mm3 05/29/19 05:24 0.0 K/mm3 05/29/19 05:24 Blast Cells # 0.0 K/mm3 05/29/19 05:24 WBC Morphology Not Reportable 05/29/19 05:24 Hypersegmented Neuts Not Reportable 05/29/19 05:24 Hyposegmented Neuts Not Reportable 05/29/19 05:24 Hypogranular Neuts Not Reportable 05/29/19 05:24 Not Reportable 05/29/19 05:24 Not Reportable 05/29/19 05:24 Not Reportable 05/29/19 05:24 Not Reportable 05/29/19 05:24 Not Reportable 05/29/19 05:24 Not Reportable 05/29/19 05:24 Consistent w auto 05/29/19 05:24 Not Reportable 05/29/19 05:24 Plt Clumps, EDTA Not Reportable 05/29/19 05:24 Not Reportable 05/29/19 05:24 Not Reportable 05/29/19 05:24 Not Reportable 05/29/19 05:24 Plt Morphology Comment Not Reportable 05/29/19 05:24 RBC Morphology Not Reportable 05/29/19 05:24 Dimorphic RBCs Not Reportable 05/29/19 05:24 Not Reportable 05/29/19 05:24 Not Reportable 05/29/19 05:24 Not Reportable 05/29/19 05:24 1+ 05/29/19 05:24 Not Reportable 05/29/19 05:24 Not Reportable 05/29/19 05:24 Not Reportable 05/29/19 05:24 Not Reportable 05/29/19 05:24 Not Reportable 05/29/19 05:24 Not Reportable 05/29/19 05:24 Not Reportable 05/29/19 05:24 Not Reportable 05/29/19 05:24 Not Reportable 05/29/19 05:24 Not Reportable 05/29/19 05:24 Not Reportable 05/29/19 05:24 Not Reportable 05/29/19 05:24 Not Reportable 05/29/19 05:24 Not Reportable 05/29/19 05:24 Not Reportable 05/29/19 05:24 Acanthocytes (Spur) Not Reportable 05/29/19 05:24 Rouleaux Not Reportable 05/29/19 05:24 Not Reportable 05/29/19 05:24 Not Reportable 05/29/19 05:24 Not Reportable 05/29/19 05:24 Not Reportable 05/29/19 05:24 Hem Pathologist Commnt No 05/29/19 05:24 Sodium 141 mmol/L (137-145) 06/09/19 05:49 Potassium 4.0 mmol/L (3.6-5.0) 06/09/19 05:49 Chloride 101.4 mmol/L (98-107) 06/09/19 05:49 Carbon Dioxide 28 mmol/L (22-30) 06/09/19 05:49 16 mmol/L 06/09/19 05:49 BUN 20 mg/dL (9-20) 06/09/19 05:49 5.9 mg/dL (0.8-1.5) H 06/09/19 05:49 Estimated GFR 14 ml/min 06/09/19 05:49 3 % 06/09/19 05:49 Glucose 114 mg/dL (75-100) H 06/09/19 05:49 POC Glucose 120 (70-105) H 06/09/19 08:16 17.1 % (4-6) H 05/29/19 05:22 292 Mosm/kg 06/03/19 09:40 Lactic Acid 0.80 mmol/L (0.7-2.0) 05/28/19 00:27 Calcium 8.3 mg/dL (8.4-10.2) L 06/09/19 05:49 0.30 mg/dL (0.1-1.2) 05/27/19 21:55 AST 43 units/L (5-40) H 05/27/19 21:55 ALT 48 units/L (7-56) 05/27/19 21:55 163 units/L (35-129) H 05/27/19 21:55 66 units/L (55-170) 06/03/19 09:40 7.9 g/dL (6.3-8.2) 05/27/19 21:55 2.7 g/dL (3.9-5) L 05/27/19 21:55 0.5 % 05/27/19 21:55 Straw (Yellow) 06/03/19 18:44 Clear (Clear) 06/03/19 18:44 5.0 (5.0-7.0) 06/03/19 18:44 Ur Specific [place] 1.005 (1.003-1.030) 06/03/19 18:44 <15 mg/dl mg/dL (Negative) 06/03/19 18:44 Neg mg/dL (Negative) 06/03/19 18:44 Neg mg/dL (Negative) 06/03/19 18:44 Neg (Negative) 06/03/19 18:44 Neg (Negative) 06/03/19 18:44 Neg (Negative) 06/03/19 18:44 < 2.0 mg/dL (<2.0) 06/03/19 18:44 Ur Leukocyte Esterase Neg (Negative) 06/03/19 18:44 5.0 /HPF (0.0-6.0) 06/03/19 18:44 3.0 /HPF (0.0-6.0) 06/03/19 18:44 U Epithel Cells (Auto) < 1.0 /HPF (0-13.0) 06/03/19 18:44 1+ /HPF (Negative) 06/03/19 18:44 None seen (None Seen) 06/03/19 18:44 48.8 mg/dL (0.1-20.0) H 06/03/19 18:44 74 mmol/L 06/03/19 18:44 Vancomycin Trough 67.6 ug/mL (5.0-20.0) H 05/31/19 15:08 204 mg/dL (82-185) H 06/03/19 09:40 40 mg/dL (15-53) 06/03/19 09:40 Hepatitis A IgM Ab Non-reactive (NonReactive) 06/04/19 12:58 Hep Bs Antigen Non-reactive (Negative) 06/04/19 12:58 Hep B Core IgM Ab Non-reactive (NonReactive) 06/04/19 12:58 Non-reactive (NonReactive) 06/04/19 12:58 Active Medications - Current Medications Current Medications: Generic Name Dose Route Start Last Admin Trade Name Freq PRN Reason Stop Dose Admin Acetaminophen 650 mg 05/28/19 02:10 Tylenol PO Q4H PRN Fever >101 Dextrose 50 ml 05/28/19 02:13 06/03/19 08:48 D50w (25gm) Syringe IV 50 ml PRN PRN Administration Hypoglycemia Heparin Sodium (Porcine) 5,000 unit 05/28/19 10:00 06/08/19 21:29 Heparin SUB-Q 5,000 unit Q12HR LIBERTAD Administration Sodium Chloride 100 mls @ 999 mls/hr 06/06/19 09:26 Nacl 0.9% IV DANG PRN Hypotension Sodium Chloride 100 mls @ 999 mls/hr 06/08/19 09:02 Nacl 0.9% IV DANG PRN Hypotension Insulin Glargine 10 units 05/29/19 22:00 06/08/19 21:29 Lantus SUB-Q 10 units QHS [facility] Administration Insulin Human Regular 0 units 05/28/19 07:30 06/08/19 17:27 Humulin R SUB-Q Not Given AC [facility] Protocol Insulin Human Regular 0 units 05/28/19 22:00 06/08/19 21:30 [facility]-Q [facility] Protocol Linezolid 600 mg 06/02/19 13:00 06/08/19 21:28 Zyvox PO 600 mg Q12HR [facility] Administration Protocol Morphine Sulfate 2 mg 05/28/19 02:09 06/08/19 21:29 Morphine IV 2 mg Q3H PRN Administration Pain , Severe (7-10) Ondansetron HCl 4 mg 06/04/19 22:23 06/07/19 21:50 Zofran IV 4 mg Q4H PRN Administration Nausea And Vomiting Ondansetron HCl 4 mg 06/07/19 15:45 Zofran IV ONCE PRN Nausea And Vomiting Oxycodone/Acetaminophen 2 tab 05/28/19 16:20 06/04/19 11:30 Percocet 5/325 PO 2 tab Q4H PRN Administration Pain, Moderate (4-6) Simethicone 80 mg 06/01/19 09:11 06/05/19 04:28 Mylicon PO 80 mg Q6H PRN Administration Gas pain Nutrition/Malnutrition Assess - Dietary Evaluation Nutrition/Malnutrition Findings: Nutrition Notes Start: 05/28/19 13:42 Freq: Status: Active Protocol: Document 05/28/19 13:42 LANEY (Rec: 05/28/19 13:50 LANEY [email or web address]) Nutrition Notes 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 He was diagnosed with DM 10 yrs ago; says he checks BS 2-3 times daily and takes insulin as prescribed. He does admit to overconsumption of CHO-rich foods. Very receptive to review of CHO- controlled diet principles and A1C. 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 Burn Absent Trauma Absent #1 Nutrition Diagnosis Limited adherence to nutrition -related recommendations Etiology knowledge deficit As Evidenced by Signs and Symptoms pt admission of the need to review DM diet principles and unaware of the relationship between wound healing and BS levels Nutrition Intervention Teaching Recipient Patient Learning Readiness Good Teaching Methods Discussion,Handout Response to Teaching Verbalize understanding Education Handouts Provided Hemoglobin A1C and Blood Sugar Control Carbohydrate Counting for People with Diabetes (Food Sources of Carbohydrates) Barriers to Learning No Barriers RD phone number provided Yes Patient aware of follow up options Yes Goal #1 Improved BS control Goal #2 Adherence to CHO-controlled diet Anticipated Discharge Needs: CHO-controlled diet Revisit per MD consult or patient Sign Off request:
[2019-06-09] MEDS: ZYVOX PO SCH ×2 (10:18→21:22)
[2019-06-09] MEDS: HEPARIN SUB-Q SCH ×2 (10:18→21:22)
--- NOTE | 2019-06-09 10:53 | Progress Note ---
Assessment and Plan 34 yo M s/p wound vac change, POD 2 s/p excisional debridement of lower abdominal wall necrotizing fasciitis and placement of wound vac, POD 6 s/p Excisional debridement of lower abdominal wall necrotizing fasciitis x 2 - 05/31/19 and 05/28/19 1. necrotizing fasciitis of abdominal wall 2. sepsis 3. uncontrolled DM 4. PEYTON on HD Plan: 1. c/w abx per ID 2. c/w wound vac to -125mmhg suction - will change tomorrow. 3. prn PO pain control 4. strict glucose control 5. discussed with case management - will need wound care clinic follow up on discharge 6. Clear liquid diet for breakfast tomorrow and NPO after that for possible OR if he does not tolerate bedside vac change Thank you, please call with questions. Subjective Date of service: 06/09/19 Narrative: Pt seen and examined. No acute complaints. Objective Vital Signs - 12hr 06/08/19 06/09/19 23:28 04:31 Temperature 98.0 F 98.4 F Pulse Rate 57 L 52 L Respiratory 18 18 Rate Blood Pressure 148/73 143/82 O2 Sat by Pulse 96 100 Oximetry - General physical appearance Narrative Exam: Gen: AAOx3. NAD CV: s1, S2+ resp; even and unlabored Abd: soft, wound vac in place with good seal, no leak - changed to portable vac - Labs 06/09/19 05:49 06/10/19 04:02 Diabetes panel 06/09/19 Range/Units 05:49 Sodium 141 (137-145) mmol/L Potassium 4.0 (3.6-5.0) mmol/L Chloride 101.4 (98-107) mmol/L Carbon Dioxide 28 (22-30) mmol/L BUN 20 (9-20) mg/dL Creatinine 5.9 H (0.8-1.5) mg/dL Glucose 114 H (75-100) mg/dL Calcium 8.3 L (8.4-10.2) mg/dL Calcium panel 06/09/19 Range/Units 05:49 Calcium 8.3 L (8.4-10.2) mg/dL Pituitary panel 06/09/19 Range/Units 05:49 Sodium 141 (137-145) mmol/L Potassium 4.0 (3.6-5.0) mmol/L Chloride 101.4 (98-107) mmol/L Carbon Dioxide 28 (22-30) mmol/L BUN 20 (9-20) mg/dL Creatinine 5.9 H (0.8-1.5) mg/dL Glucose 114 H (75-100) mg/dL Calcium 8.3 L (8.4-10.2) mg/dL Adrenal panel 06/09/19 Range/Units 05:49 Sodium 141 (137-145) mmol/L Potassium 4.0 (3.6-5.0) mmol/L Chloride 101.4 (98-107) mmol/L Carbon Dioxide 28 (22-30) mmol/L BUN 20 (9-20) mg/dL Creatinine 5.9 H (0.8-1.5) mg/dL Glucose 114 H (75-100) mg/dL Calcium 8.3 L (8.4-10.2) mg/dL
[2019-06-09] MEDS: LANTUS SUB-Q SCH (21:26)
[2019-06-10] MEDS: ZOFRAN IV PRN (03:08)
[2019-06-10 05:21] LABS: Calcium 8.5 mg/dL (8.4-10.2)
--- NOTE | 2019-06-10 09:55 | Progress Note ---
Assessment and Plan Cultures: 05/27/2019 blood culture: No growth 05/28/2019 OR culture: Usual skin julee. A/P: 34-year-old male with morbid obesity, diabetes mellitus, prior skin infections requiring I&D, admitted with: 1) Sepsis: Resolved. secondary to left lower abdominal wall abscess with necrotizing fasciitis: s/p OR on 05/28/2019, findings showed 2 large abscess cavities with necrotic tissue extending down to the level of the fascia. Failed Bactrim as outpatient. ?beta-hemolytic Strep infection. s/p additional debridement 05/31/2019. OR culture +normal skin julee. Further debridement on 06/03 and wound VAC placement. 2) Morbid obesity: dose abx accordingly. 3) Diabetes mellitus type 2, uncontrolled: recommend tight control. HbA1c 17.1. 4) PEYTON: worsening ? vancomycin toxicity. Now on HD. Likely from supratherapeutic vancomycin. Vancomycin was discontinued on 05/31/2019. Urine eosinophils ordered, to evaluate for possibility of AIN. Will avoid beta-lactams as well. Recs: continue PO Linezolid 600 mg BID , last dose today continue tight glycemic control follow-up with wound care Patient hostile and combative with staff and providers ID is signing off [facility] [employer] M: [phone] O:[phone] Subjective Date of service: 06/10/19 Principal diagnosis: abdominal wall abscess Interval history: Patient seen in room. Extremely hostile and combative. Unable to access. Objective - Exam Narrative Exam: Constitutional: Awake. Hostile. Combative. Head, Ears, Nose: Normocephalic, atraumatic. External ears, nose normal Eyes: unable to access Neck: unable to access Oral:unable to access Cardiovascular: S1, S2 normal. Respiratory:unable to access GI: unable to access Musculoskeletal: unable to access Skin: unable to access Hem/Lymphatic: unable to access Psych: combative Neurological: Awake. Alert. Combative - Constitutional Vitals: Vital Signs Temp Pulse Resp BP Pulse Ox 98.3 F 62 18 147/77 92 06/10/19 03:08 06/10/19 03:08 06/10/19 03:08 06/10/19 03:08 06/10/19 03:08 Temperature -Last 24 Hours Temperature 98.3 F Temperature 98.0 F Temperature 97.6 F Temperature 98.3 F - Labs CBC & Chem 7: 06/09/19 05:49 06/10/19 04:02 Labs: Abnormal lab results 06/09/19 06/09/19 06/10/19 Range/Units 11:25 20:28 04:02 BUN 24 H (9-20) mg/dL Creatinine 6.7 H (0.8-1.5) mg/dL Glucose 104 H (75-100) mg/dL POC Glucose 133 H 165 H (70-105)
[2019-06-10] MEDS: HumuLIN R SUB-Q SCH ×4 (10:18→21:52)
[2019-06-10] MEDS: ZYVOX PO SCH ×2 (10:18→21:49)
[2019-06-10] MEDS: HEPARIN SUB-Q SCH ×2 (10:18→21:23)
--- NOTE | 2019-06-10 10:37 | Progress Note ---
Assessment and Plan Assessment and plan: Patient is a 34-year-old the male who has been admitted here with abdominal abscess, underwent surgical evacuation, has also been treated for sepsis. His baseline creatinine was 0.9 upon admission which increased to 8.4 . He was diagnosed with acute kidney injury due to ATN due to contrast nephropathy, vancomycin toxicity, Sepsis. His renal function continued to worsen so was started on dialysis 06/04 and is still on dialysis. he is very upset that he cannot go home and is verbally abusive to staff including Doctors. Abdominal wall necrotizing fasciitis/abscess. Patient is status post excisional debridement 05/28/19. Surgery following. Patient with further debridement of abdominal wall on 05/31/19 that revealed multiple abscess cavities along lateral left abdominal wall with copious amount of purulent drainage and necrotic subcutaneous tissue. Wound vac to abdomen. Continue with antibiotics per ID recommendations: Zyvox till 06/11 Sepsis. Etiology secondary to above. Blood cultures negative. Antibiotics per ID. To complete last dose of Zyvox 06/11 PEYTON due to ATN, multifactorial :contrast nephropathy, vancomycin toxicity, sepsis and possible baseline CKD. Creatinine continued to worsen, so started on dialysis . Vancomycin was discontinued on 05/24/2019. Nephrology following. Discussed with Nephrology. Dr. Schumacher recommended vasc cath, placed 06/04 started hemodialysis 06/04. Still on dialysis Hyperkalemia Now resolved after Insulin, Dextrose, kayexalate, calcium gluconate. Started hemodialysis 06/04 Diabetes mellitus type 2. Continue Lantus insulin 70/30 insulin. Accu-Cheks and sliding scale insulin Morbid obesity. Disposition. Patient still has PEYTON, on dialysis not ready for discharge History Interval history: Started on dialysis Upset that he cannot go home yet Hospitalist Physical - Physical exam Narrative exam: Gen: Not in acute distress, sitting up in bed, morbidly obese HEENT: Normocephalic, atraumatic Neck: supple, no JVD Heart: S1 and S2 reg, no murmurs, rubs or gallop Lungs: Clear, no crackles or wheeze Abd: soft, non tender, non distended, normal BS, wound vac to abdomen Ext: No edema, no clubbing, no cyanosis Neuro:awake,alert, Oriented X 3. No focal neuro signs - Constitutional Vitals: Temp Pulse Resp BP Pulse Ox 98.3 F 62 18 147/77 92 07/22/19 03:08 06/10/19 03:08 06/10/19 03:08 06/10/19 03:08 06/10/19 03:08 General appearance: Present: no acute distress Results - Labs CBC & Chem 7: 06/09/19 05:49 06/10/19 04:02 Labs: Laboratory Last Values WBC 6.1 K/mm3 (4.5-11.0) 06/09/19 05:49 RBC 2.83 M/mm3 (3.65-5.03) L 06/09/19 05:49 Hgb 8.6 gm/dl (11.8-15.2) L 06/09/19 05:49 Hct 25.4 % (35.5-45.6) L 06/09/19 05:49 MCV 90 fl (84-94) 06/09/19 05:49 MCH 30 pg (28-32) 06/09/19 05:49 MCHC 34 % (32-34) 06/09/19 05:49 RDW 15.2 % (13.2-15.2) 06/09/19 05:49 Plt Count 322 K/mm3 (140-440) 06/09/19 05:49 Lymph % (Auto) 18.8 % (13.4-35.0) 06/04/19 05:43 [place] % (Auto) 9.8 % (0.0-7.3) H 06/04/19 05:43 Eos % (Auto) 1.3 % (0.0-4.3) 06/04/19 05:43 Baso % (Auto) 0.2 % (0.0-1.8) 06/04/19 05:43 Lymph # 1.4 K/mm3 (1.2-5.4) 06/04/19 05:43 [place] # 0.7 K/mm3 (0.0-0.8) 06/04/19 05:43 Eos # 0.1 K/mm3 (0.0-0.4) 06/04/19 05:43 Baso # 0.0 K/mm3 (0.0-0.1) 06/04/19 05:43 Add Manual Diff Complete 05/29/19 05:24 Total Counted 100 05/29/19 05:24 Seg Neutrophils % 69.9 % (40.0-70.0) 06/04/19 05:43 Seg Neuts % (Manual) 73.0 % (40.0-70.0) H 05/29/19 05:24 0 % 05/29/19 05:24 15.0 % (13.4-35.0) 05/29/19 05:24 Reactive Lymphs % (Man) 1.0 % 05/29/19 05:24 10.0 % (0.0-7.3) H 05/29/19 05:24 1.0 % (0.0-4.3) 05/29/19 05:24 0 % (0.0-1.8) 05/29/19 05:24 0 % 05/29/19 05:24 0 % 05/29/19 05:24 0 % 05/29/19 05:24 0 % 05/29/19 05:24 Nucleated RBC % Not Reportable 05/29/19 05:24 Seg Neutrophils # 5.0 K/mm3 (1.8-7.7) 06/04/19 05:43 Seg Neutrophils # Man 6.0 K/mm3 (1.8-7.7) 05/29/19 05:24 Band Neutrophils # 0.0 K/mm3 05/29/19 05:24 1.2 K/mm3 (1.2-5.4) 05/29/19 05:24 Abs React Lymphs (Man) 0.1 K/mm3 05/29/19 05:24 0.8 K/mm3 (0.0-0.8) 05/29/19 05:24 0.1 K/mm3 (0.0-0.4) 05/29/19 05:24 0.0 K/mm3 (0.0-0.1) 05/29/19 05:24 0.0 K/mm3 05/29/19 05:24 0.0 K/mm3 05/29/19 05:24 0.0 K/mm3 05/29/19 05:24 Blast Cells # 0.0 K/mm3 05/29/19 05:24 WBC Morphology Not Reportable 05/29/19 05:24 Hypersegmented Neuts Not Reportable 05/29/19 05:24 Hyposegmented Neuts Not Reportable 05/29/19 05:24 Hypogranular Neuts Not Reportable 05/29/19 05:24 Not Reportable 05/29/19 05:24 Not Reportable 05/29/19 05:24 Not Reportable 05/29/19 05:24 Not Reportable 05/29/19 05:24 Not Reportable 05/29/19 05:24 Not Reportable 05/29/19 05:24 Consistent w auto 05/29/19 05:24 Not Reportable 05/29/19 05:24 Plt Clumps, EDTA Not Reportable 05/29/19 05:24 Not Reportable 05/29/19 05:24 Not Reportable 05/29/19 05:24 Not Reportable 05/29/19 05:24 Plt Morphology Comment Not Reportable 05/29/19 05:24 RBC Morphology Not Reportable 05/29/19 05:24 Dimorphic RBCs Not Reportable 05/29/19 05:24 Not Reportable 05/29/19 05:24 Not Reportable 05/29/19 05:24 Not Reportable 05/29/19 05:24 1+ 05/29/19 05:24 Not Reportable 05/29/19 05:24 Not Reportable 05/29/19 05:24 Not Reportable 05/29/19 05:24 Not Reportable 05/29/19 05:24 Not Reportable 05/29/19 05:24 Not Reportable 05/29/19 05:24 Not Reportable 05/29/19 05:24 Not Reportable 05/29/19 05:24 Not Reportable 05/29/19 05:24 Not Reportable 05/29/19 05:24 Not Reportable 05/29/19 05:24 Not Reportable 05/29/19 05:24 Not Reportable 05/29/19 05:24 Not Reportable 05/29/19 05:24 Not Reportable 05/29/19 05:24 Acanthocytes (Spur) Not Reportable 05/29/19 05:24 Rouleaux Not Reportable 05/29/19 05:24 Not Reportable 05/29/19 05:24 Not Reportable 05/29/19 05:24 Not Reportable 05/29/19 05:24 Not Reportable 05/29/19 05:24 Hem Pathologist Commnt No 05/29/19 05:24 Sodium 145 mmol/L (137-145) 06/10/19 04:02 Potassium 3.7 mmol/L (3.6-5.0) 06/10/19 04:02 Chloride 102.6 mmol/L (98-107) 06/10/19 04:02 Carbon Dioxide 27 mmol/L (22-30) 06/10/19 04:02 19 mmol/L 06/10/19 04:02 BUN 24 mg/dL (9-20) H 06/10/19 04:02 6.7 mg/dL (0.8-1.5) H 06/10/19 04:02 Estimated GFR 12 ml/min 06/10/19 04:02 4 % 06/10/19 04:02 Glucose 104 mg/dL (75-100) H 06/10/19 04:02 POC Glucose 99 (70-105) 06/10/19 08:46 17.1 % (4-6) H 05/29/19 05:22 292 Mosm/kg 06/03/19 09:40 Lactic Acid 0.80 mmol/L (0.7-2.0) 05/28/19 00:27 Calcium 8.5 mg/dL (8.4-10.2) 06/10/19 04:02 0.30 mg/dL (0.1-1.2) 05/27/19 21:55 AST 43 units/L (5-40) H 05/27/19 21:55 ALT 48 units/L (7-56) 05/27/19 21:55 163 units/L (35-129) H 05/27/19 21:55 66 units/L (55-170) 06/03/19 09:40 7.9 g/dL (6.3-8.2) 05/27/19 21:55 2.7 g/dL (3.9-5) L 05/27/19 21:55 0.5 % 05/27/19 21:55 Straw (Yellow) 06/03/19 18:44 Clear (Clear) 06/03/19 18:44 5.0 (5.0-7.0) 06/03/19 18:44 Ur Specific [place] 1.005 (1.003-1.030) 06/03/19 18:44 <15 mg/dl mg/dL (Negative) 06/03/19 18:44 Neg mg/dL (Negative) 06/03/19 18:44 Neg mg/dL (Negative) 06/03/19 18:44 Neg (Negative) 06/03/19 18:44 Neg (Negative) 06/03/19 18:44 Neg (Negative) 06/03/19 18:44 < 2.0 mg/dL (<2.0) 06/03/19 18:44 Ur Leukocyte Esterase Neg (Negative) 06/03/19 18:44 5.0 /HPF (0.0-6.0) 06/03/19 18:44 3.0 /HPF (0.0-6.0) 06/03/19 18:44 U Epithel Cells (Auto) < 1.0 /HPF (0-13.0) 06/03/19 18:44 1+ /HPF (Negative) 06/03/19 18:44 None seen (None Seen) 06/03/19 18:44 48.8 mg/dL (0.1-20.0) H 06/03/19 18:44 74 mmol/L 06/03/19 18:44 Vancomycin Trough 67.6 ug/mL (5.0-20.0) H 05/31/19 15:08 204 mg/dL (82-185) H 06/03/19 09:40 40 mg/dL (15-53) 06/03/19 09:40 Hepatitis A IgM Ab Non-reactive (NonReactive) 06/04/19 12:58 Hep Bs Antigen Non-reactive (Negative) 06/04/19 12:58 Hep B Core IgM Ab Non-reactive (NonReactive) 06/04/19 12:58 Non-reactive (NonReactive) 06/04/19 12:58 Active Medications - Current Medications Current Medications: Generic Name Dose Route Start Last Admin Trade Name Freq PRN Reason Stop Dose Admin Acetaminophen 650 mg 05/28/19 02:10 Tylenol PO Q4H PRN Fever >101 Dextrose 50 ml 05/28/19 02:13 06/03/19 08:48 D50w (25gm) Syringe IV 50 ml PRN PRN Administration Hypoglycemia Heparin Sodium (Porcine) 5,000 unit 05/28/19 10:00 06/09/19 21:22 Heparin SUB-Q 5,000 unit Q12HR [facility] Administration Sodium Chloride 100 mls @ 999 mls/hr 06/06/19 09:26 Nacl 0.9% IV DANG PRN Hypotension Sodium Chloride 100 mls @ 999 mls/hr 06/08/19 09:02 Nacl 0.9% IV DANG PRN Hypotension Insulin Glargine 10 units 05/29/19 22:00 06/09/19 21:26 Lantus SUB-Q 10 units QHS [facility] Administration Insulin Human Regular 0 units 05/28/19 07:30 06/10/19 10:18 Humulin R SUB-Q Not Given AC [facility] Protocol Insulin Human Regular 0 units 05/28/19 22:00 06/09/19 21:25 Humulin R SUB-Q 2 units QHS [facility] Administration Protocol Linezolid 600 mg 06/02/19 13:00 06/10/19 10:18 Zyvox PO 06/11/19 23:59 600 mg Q12HR [facility] Administration Protocol Morphine Sulfate 2 mg 05/28/19 02:09 06/08/19 21:29 Morphine IV 2 mg Q3H PRN Administration Pain , Severe (7-10) Ondansetron HCl 4 mg 06/04/19 22:23 06/10/19 03:08 Zofran IV 4 mg Q4H PRN Administration Nausea And Vomiting Ondansetron HCl 4 mg 06/07/19 15:45 Zofran IV ONCE PRN Nausea And Vomiting Oxycodone/Acetaminophen 2 tab 05/28/19 16:20 06/09/19 21:23 Percocet 5/325 PO 2 tab Q4H PRN Administration Pain, Moderate (4-6) Simethicone 80 mg 06/01/19 09:11 06/05/19 04:28 Mylicon PO 80 mg Q6H PRN Administration Gas pain Nutrition/Malnutrition Assess - Dietary Evaluation Nutrition/Malnutrition Findings: Nutrition Notes Start: 05/28/19 13:42 Freq: Status: Active Protocol: Document 05/28/19 13:42 LANEY (Rec: 05/28/19 13:50 LANEY [email or web address]) Nutrition Notes Need for Assessment generated from: design studio consultant,MST Initial or Follow up Brief Note Current Diagnosis Diabetes,Sepsis Other Pertinent Diagnosis Cellulitis of anterior abdominal wall with small abscess Current Diet Consistent CHO Labs/Tests BG 480 Na 131 Pertinent Medications Reviewed Height 6 ft 1 in Weight 151.2 kg [place] Body Weight (kg) 83.63 BMI 43.9 Intake Prior to Admission Fair Weight Status Morbidly Obese Subjective/Other Information Pt screened for malnutrition risk. He was diagnosed with DM 10 yrs ago; says he checks BS 2-3 times daily and takes insulin as prescribed. He does admit to overconsumption of CHO-rich foods. Very receptive to review of CHO- controlled diet principles and A1C. Reports poor appetite CHIEF RELAY TESTER (likely sec to sepsis). Burn Absent Trauma Absent #1 Nutrition Diagnosis Limited adherence to nutrition -related recommendations Etiology knowledge deficit As Evidenced by Signs and Symptoms pt admission of the need to review DM diet principles and unaware of the relationship between wound healing and BS levels Nutrition Intervention Teaching Recipient Patient Learning Readiness Good Teaching Methods Discussion,Handout Response to Teaching Verbalize understanding Education Handouts Provided Hemoglobin A1C and Blood Sugar Control Carbohydrate Counting for People with Diabetes (Food Sources of Carbohydrates) Barriers to Learning No Barriers RD phone number provided Yes Patient aware of follow up options Yes Goal #1 Improved BS control Goal #2 Adherence to CHO-controlled diet Anticipated Discharge Needs: CHO-controlled diet Revisit per MD consult or patient Sign Off request:
[2019-06-10] MEDS: DILAUDID IV PRN (12:41)
[2019-06-10] MEDS: PERCOCET 5/325 PO PRN (15:51)
--- NOTE | 2019-06-10 16:01 | Progress Note ---
Assessment and Plan 34 yo M s/p wound vac change, POD 3 s/p excisional debridement of lower abdominal wall necrotizing fasciitis and placement of wound vac, POD 7 s/p Excisional debridement of lower abdominal wall necrotizing fasciitis x 2 - 05/31/19 and 05/28/19 1. necrotizing fasciitis of abdominal wall 2. sepsis 3. uncontrolled DM 4. PEYTON on HD Plan: 1. c/w abx per ID 2. wounds healing well - c/w wound vac to -125mmhg suction - will be changed at bedside every Monday and per bus operator 3. prn PO pain control 4. strict glucose control 5. discussed with case management - will need wound care clinic follow up on discharge 6. diabetic diet Ok to dc with wound vac when cleared by medical team Thank you, please call with questions. Subjective Date of service: 06/10/19 Narrative: Pt seen and examined. No acute complaints. Tolerated bedside wound vac change today Objective Vital Signs - 12hr 06/10/19 06/10/19 08:42 13:12 Temperature 98.6 F 98.0 F Pulse Rate 58 L 49 L Respiratory 18 20 Rate Blood Pressure 129/72 138/81 O2 Sat by Pulse 95 97 Oximetry - General physical appearance Narrative Exam: Gen: AAOx3. NAD CV: s1, S2+ resp; even and unlabored Abd: soft, wound vac in place with good seal, no leak Photos of wound reviewed from dressing change today - Labs 06/09/19 05:49 06/10/19 04:02 Diabetes panel 06/10/19 Range/Units 04:02 Sodium 145 (137-145) mmol/L Potassium 3.7 (3.6-5.0) mmol/L Chloride 102.6 (98-107) mmol/L Carbon Dioxide 27 (22-30) mmol/L BUN 24 H (9-20) mg/dL Creatinine 6.7 H (0.8-1.5) mg/dL Glucose 104 H (75-100) mg/dL Calcium 8.5 (8.4-10.2) mg/dL Calcium panel 06/10/19 Range/Units 04:02 Calcium 8.5 (8.4-10.2) mg/dL Pituitary panel 06/10/19 Range/Units 04:02 Sodium 145 (137-145) mmol/L Potassium 3.7 (3.6-5.0) mmol/L Chloride 102.6 (98-107) mmol/L Carbon Dioxide 27 (22-30) mmol/L BUN 24 H (9-20) mg/dL Creatinine 6.7 H (0.8-1.5) mg/dL Glucose 104 H (75-100) mg/dL Calcium 8.5 (8.4-10.2) mg/dL Adrenal panel 06/10/19 Range/Units 04:02 Sodium 145 (137-145) mmol/L Potassium 3.7 (3.6-5.0) mmol/L Chloride 102.6 (98-107) mmol/L Carbon Dioxide 27 (22-30) mmol/L BUN 24 H (9-20) mg/dL Creatinine 6.7 H (0.8-1.5) mg/dL Glucose 104 H (75-100) mg/dL Calcium 8.5 (8.4-10.2) mg/dL
--- NOTE | 2019-06-10 16:41 | Progress Note ---
Assessment and Plan - Patient Problems (1) Acute kidney injury (PEYTON) with acute tubular necrosis (ATN) Current Visit: Yes Status: Acute Plan to address problem: acute kidney injury 2/2 ATN Markedly elevated Vancomycin trough : 67!!!! baseline creatinine : 0.9mg/dl appears non oliguric per report needs Vas cath changed to Perm cath Discussed he is not a safe discharge with renal failure and no outpatient dialysis social work to assist with dialysis placement Needs Perm cath From renal perspective not a safe discharge . (2) Abscess Current Visit: Yes Status: Acute Plan to address problem: Abdominal wall abscess continue antibiotics. (3) Diabetes mellitus type 1, uncontrolled Current Visit: Yes Status: Acute Plan to address problem: DM type I uncontrolled. Ensure medications monitor fingerstick. (4) Anemia Current Visit: Yes Status: Acute Qualifiers: Other causes of anemia: chronic disease, other Plan to address problem: Moderate anemia : Hb: 8.6g/dl monitor CBC. Subjective Principal diagnosis: abdominal wall abscess Interval history: 34 year old with medical history signficant for Morbid obesity , necrotizing fascitis , Acute kidney injury seen today Patient demanding to be discharged today reports improving urine output however creatinine is still rising had edema , denies any shortness of breath. Objective - Vital Signs Vital signs: Vital Signs - 12hr 06/10/19 06/10/19 08:42 13:12 Temperature 98.6 F 98.0 F Pulse Rate 58 L 49 L Respiratory 18 20 Rate Blood Pressure 129/72 138/81 O2 Sat by Pulse 95 97 Oximetry - General Appearance General appearance: well-developed, well-nourished EENT: ATNC, PERRL, mucous membranes moist Neck: no JVD Respiratory: Present: Clear to Ascultation Cardiology: regular, S1S2 Gastrointestinal: normal, normoactive bowel sounds Integumentary: no rash Neurologic: alert and oriented x3, CN 3-12 intact Psychiatric: mood/affect appropriate - Lab 06/09/19 05:49 06/10/19 04:02 Most recent lab results Calcium 8.5 mg/dL (8.4-10.2) 06/10/19 04:02 48.8 mg/dL (0.1-20.0) H 06/03/19 18:44 74 mmol/L 06/03/19 18:44 - Imaging Kidney/bladder ultrasound: image reviewed (I reviewed renal ULtrasound with large kidneys bilaterally. ) Medications & Allergies - Medications Allergies/Adverse Reactions: Allergies No Known Allergies Allergy (Verified 05/27/19 22:21) Home Medications: Home Medications Medication Instructions Recorded Confirmed Last Taken Type No Known Home Medications [No 05/28/19 05/28/19 Unknown History Reported Home Medications] Active Medications: Generic Name Dose Route Start Last Admin Trade Name Lester PRN Reason Stop Dose Admin Acetaminophen 650 mg 05/28/19 02:10 Tylenol PO Q4H PRN Fever >101 Dextrose 50 ml 05/28/19 02:13 06/03/19 08:48 D50w (25gm) Syringe IV 50 ml PRN PRN Administration Hypoglycemia Heparin Sodium (Porcine) 5,000 unit 05/28/19 10:00 06/10/19 10:18 Heparin SUB-Q 5,000 unit Q12HR [facility]ERT[facility] Administration Hydromorphone HCl 0.5 mg 06/10/19 10:44 06/10/19 12:41 Dilaudid IV 0.5 mg ONCE PRN Administration Pain , Severe (7-10) Sodium Chloride 100 mls @ 999 mls/hr 06/08/19 09:02 Nacl 0.9% IV DANG PRN Hypotension Insulin Glargine 10 units 05/29/19 22:00 06/09/19 21:26 Lantus SUB-Q 10 units QHS [facility] Administration Insulin Human Regular 0 units 05/28/19 07:30 06/10/19 12:47 Humulin R SUB-Q Not Given AC [facility] Protocol Insulin Human Regular 0 units 05/28/19 22:00 06/09/19 21:25 Humulin R SUB-Q 2 units QHS [facility] Administration Protocol Linezolid 600 mg 06/02/19 13:00 06/10/19 10:18 Zyvox PO 06/11/19 23:59 600 mg Q12HR [facility]ERT[facility] Administration Protocol Morphine Sulfate 2 mg 05/28/19 02:09 06/08/19 21:29 Morphine IV 2 mg Q3H PRN Administration Pain , Severe (7-10) Ondansetron HCl 4 mg 06/04/19 22:23 06/10/19 03:08 Zofran IV 4 mg Q4H PRN Administration Nausea And Vomiting Oxycodone/Acetaminophen 2 tab 05/28/19 16:20 07/22/19 15:51 Percocet 5/325 PO 2 tab Q4H PRN Administration Pain, Moderate (4-6) Simethicone 80 mg 06/01/19 09:11 06/05/19 04:28 Mylicon PO 80 mg Q6H PRN Administration Gas pain
[2019-06-10] MEDS: LANTUS SUB-Q SCH (21:23)
[2019-06-11 05:18] LABS: Calcium 8.5 mg/dL (8.4-10.2)
[2019-06-11] MEDS: HumuLIN R SUB-Q SCH ×4 (09:00→22:33)
[2019-06-11] MEDS: ZYVOX PO SCH ×2 (11:01→22:31)
[2019-06-11] MEDS: HEPARIN SUB-Q SCH ×2 (11:02→22:33)
[2019-06-11] MEDS: ZOFRAN IV PRN (11:14)
--- NOTE | 2019-06-11 14:51 | Progress Note ---
Assessment and Plan - Patient Problems (1) Acute kidney injury (PEYTON) with acute tubular necrosis (ATN) Current Visit: Yes Status: Acute Plan to address problem: acute kidney injury 2/2 ATN Markedly elevated Vancomycin trough : 67!!!! Possible vancomycin associated ATN baseline creatinine : 0.9mg/dl appears non oliguric per report Currently has vascular catheter Discussed he is not a safe discharge with renal failure and no outpatient dialysis social work to assist with dialysis placement We'll hold off tunneled dialysis catheter Placement We'll assess need for dialysis needs we will hold off dialysis today as creatinine appears to be in Plateau phase (2) Abscess Current Visit: Yes Status: Acute Plan to address problem: Abdominal wall abscess continue antibiotics. (3) Diabetes mellitus type 1, uncontrolled Current Visit: Yes Status: Acute Plan to address problem: DM type I uncontrolled. Ensure medications monitor fingerstick. (4) Anemia Current Visit: Yes Status: Acute Qualifiers: Other causes of anemia: chronic disease, other Plan to address problem: Moderate anemia : Hb: 8.6g/dl We'll do 10,000 units of Epogen monitor CBC. Subjective Principal diagnosis: abdominal wall abscess Interval history: 34 year old with medical history signficant for Morbid obesity , necrotizing fascitis , Acute kidney injury seen today Patient was scheduled for tunnel dialysis catheter placement today However creatinine appears to be plateau phase has edema , denies any shortness of breath. We'll hold off dialysis placement Objective - Vital Signs Vital signs: Vital Signs - 12hr 06/11/19 05:37 Temperature 98.8 F Pulse Rate 55 L Respiratory 18 Rate Blood Pressure 119/60 O2 Sat by Pulse 95 Oximetry - General Appearance General appearance: well-developed, well-nourished EENT: ATNC, PERRL, mucous membranes moist Neck: no JVD Respiratory: Present: Clear to Ascultation Cardiology: regular, S1S2 Gastrointestinal: normal, normoactive bowel sounds Integumentary: no rash Neurologic: no focal deficit, alert and oriented x3 Psychiatric: mood/affect appropriate - Lab 06/09/19 05:49 06/11/19 04:38 Most recent lab results Calcium 8.5 mg/dL (8.4-10.2) 06/11/19 04:38 48.8 mg/dL (0.1-20.0) H 06/03/19 18:44 74 mmol/L 06/03/19 18:44 - Imaging Chest x-ray: image reviewed (I reviewed renal ultrasound with LARGE KIDNEYS BILATERALLY) Medications & Allergies - Medications Allergies/Adverse Reactions: Allergies No Known Allergies Allergy (Verified 05/27/19 22:21) Home Medications: Home Medications Medication Instructions Recorded Confirmed Last Taken Type No Known Home Medications [No 05/28/19 05/28/19 Unknown History Reported Home Medications] Active Medications: Generic Name Dose Route Start Last Admin Trade Name Lester PRN Reason Stop Dose Admin Acetaminophen 650 mg 05/28/19 02:10 Tylenol PO Q4H PRN Fever >101 Dextrose 50 ml 05/28/19 02:13 06/03/19 08:48 D50w (25gm) Syringe IV 50 ml PRN PRN Administration Hypoglycemia Heparin Sodium (Porcine) 5,000 unit 05/28/19 10:00 06/11/19 11:02 Heparin SUB-Q 5,000 unit Q12HR [facility] Administration Hydromorphone HCl 0.5 mg 06/10/19 10:44 06/10/19 12:41 Dilaudid IV 0.5 mg ONCE PRN Administration Pain , Severe (7-10) Sodium Chloride 100 mls @ 999 mls/hr 06/08/19 09:02 Nacl 0.9% IV DANG PRN Hypotension Insulin Glargine 10 units 05/29/19 22:00 06/10/19 21:23 Lantus SUB-Q 10 units QHS [facility] Administration Insulin Human Regular 0 units 05/28/19 07:30 06/11/19 12:44 Humulin R SUB-Q Not Given [facility] Protocol Insulin Human Regular 0 units 05/28/19 22:00 06/10/19 21:52 [facility]-Q [facility] Protocol Linezolid 600 mg 06/02/19 13:00 06/11/19 11:01 Zyvox PO 06/11/19 23:59 600 mg Q12HR [facility] Administration Protocol Morphine Sulfate 2 mg 05/28/19 02:09 06/08/19 21:29 Morphine IV 2 mg Q3H PRN Administration Pain , Severe (7-10) Ondansetron HCl 4 mg 06/04/19 22:23 06/11/19 11:14 Zofran IV 4 mg Q4H PRN Administration Nausea And Vomiting Oxycodone/Acetaminophen 2 tab 05/28/19 16:20 06/10/19 15:51 Percocet 5/325 PO 2 tab Q4H PRN Administration Pain, Moderate (4-6) Simethicone 80 mg 06/01/19 09:11 06/05/19 04:28 Mylicon PO 80 mg Q6H PRN Administration Gas pain
[2019-06-11] MEDS ORDERED: PROCRIT SUB-Q ONE (15:05)
--- NOTE | 2019-06-11 17:12 | Progress Note ---
Assessment and Plan Assessment and plan: Patient is a 34-year-old the male who has been admitted here with abdominal abscess, underwent surgical evacuation, has also been treated for sepsis. His baseline creatinine was 0.9 upon admission which increased to 8.4 . He was diagnosed with acute kidney injury due to ATN due to contrast nephropathy, vancomycin toxicity, Sepsis. His renal function continued to worsen so was started on dialysis 06/04 and is still on dialysis. he is very upset that he cannot go home and is verbally abusive to staff including Doctors. PEYTON due to ATN, multifactorial :contrast nephropathy, vancomycin toxicity, sep sis and possible baseline CKD. Creatinine continued to worsen, so started on dialysis . Vancomycin was discontinued on 05/24/2019. Nephrology following. Discussed with Nephrology. Dr. Schumacher recommended vasc cath, placed 06/04 started hemodialysis 06/04. Still on dialysis Abdominal wall necrotizing fasciitis/abscess. Patient is status post excisional debridement 05/28/19. Surgery following. Patient with further debridement of abdominal wall on 05/31/19 that revealed multiple abscess cavities along lateral left abdominal wall with copious amount of purulent drainage and necrotic subcutaneous tissue. Wound vac to abdomen. Continue with antibiotics per ID recommendations: Zyvox till 06/11 Sepsis. Etiology secondary to above. Blood cultures negative. Antibiotics per ID. To complete last dose of Zyvox 06/11 Hyperkalemia Now resolved after Insulin, Dextrose, kayexalate, calcium gluconate. Started hemodialysis 06/04 Diabetes mellitus type 2. Continue Lantus insulin 70/30 insulin. Accu-Cheks and sliding scale insulin Morbid obesity. Disposition. Patient still has PEYTON, on dialysis not ready for discharge History Interval history: Patient seen and examined resting comfortable with no new complaints. Hospitalist Physical - Physical exam Narrative exam: Gen: Not in acute distress,Lying in bed, morbidly obese HEENT: Normocephalic, atraumatic Neck: supple, no JVD Heart: S1 and S2 reg, no murmurs, rubs or gallop Lungs: Clear, no crackles or wheeze Abd: soft, non tender, non distended, normal BS, wound vac to abdomen Ext: No edema, no clubbing, no cyanosis Neuro:awake,alert, Oriented X 3. No focal neuro signs - Constitutional Vitals: Temp Pulse Resp BP Pulse Ox 98.8 F 55 L 18 119/60 95 06/11/19 05:37 06/11/19 05:37 06/11/19 05:37 06/11/19 05:37 06/11/19 05:37 General appearance: Present: no acute distress Results - Labs CBC & Chem 7: 06/09/19 05:49 06/12/19 05:50 Labs: Laboratory Last Values WBC 6.1 K/mm3 (4.5-11.0) 06/09/19 05:49 RBC 2.83 M/mm3 (3.65-5.03) L 06/09/19 05:49 Hgb 8.6 gm/dl (11.8-15.2) L 06/09/19 05:49 Hct 25.4 % (35.5-45.6) L 06/09/19 05:49 MCV 90 fl (84-94) 06/09/19 05:49 MCH 30 pg (28-32) 06/09/19 05:49 MCHC 34 % (32-34) 06/09/19 05:49 RDW 15.2 % (13.2-15.2) 06/09/19 05:49 Plt Count 322 K/mm3 (140-440) 06/09/19 05:49 Lymph % (Auto) 18.8 % (13.4-35.0) 06/04/19 05:43 [place] % (Auto) 9.8 % (0.0-7.3) H 06/04/19 05:43 Eos % (Auto) 1.3 % (0.0-4.3) 06/04/19 05:43 Baso % (Auto) 0.2 % (0.0-1.8) 06/04/19 05:43 Lymph # 1.4 K/mm3 (1.2-5.4) 06/04/19 05:43 [place] # 0.7 K/mm3 (0.0-0.8) 06/04/19 05:43 Eos # 0.1 K/mm3 (0.0-0.4) 06/04/19 05:43 Baso # 0.0 K/mm3 (0.0-0.1) 06/04/19 05:43 Add Manual Diff Complete 05/29/19 05:24 Total Counted 100 05/29/19 05:24 Seg Neutrophils % 69.9 % (40.0-70.0) 06/04/19 05:43 Seg Neuts % (Manual) 73.0 % (40.0-70.0) H 05/29/19 05:24 0 % 05/29/19 05:24 15.0 % (13.4-35.0) 05/29/19 05:24 Reactive Lymphs % (Man) 1.0 % 05/29/19 05:24 10.0 % (0.0-7.3) H 05/29/19 05:24 1.0 % (0.0-4.3) 05/29/19 05:24 0 % (0.0-1.8) 05/29/19 05:24 0 % 05/29/19 05:24 0 % 05/29/19 05:24 0 % 05/29/19 05:24 0 % 05/29/19 05:24 Nucleated RBC % Not Reportable 05/29/19 05:24 Seg Neutrophils # 5.0 K/mm3 (1.8-7.7) 06/04/19 05:43 Seg Neutrophils # Man 6.0 K/mm3 (1.8-7.7) 05/29/19 05:24 Band Neutrophils # 0.0 K/mm3 05/29/19 05:24 1.2 K/mm3 (1.2-5.4) 05/29/19 05:24 Abs React Lymphs (Man) 0.1 K/mm3 05/29/19 05:24 0.8 K/mm3 (0.0-0.8) 05/29/19 05:24 0.1 K/mm3 (0.0-0.4) 05/29/19 05:24 0.0 K/mm3 (0.0-0.1) 05/29/19 05:24 0.0 K/mm3 05/29/19 05:24 0.0 K/mm3 05/29/19 05:24 0.0 K/mm3 05/29/19 05:24 Blast Cells # 0.0 K/mm3 05/29/19 05:24 WBC Morphology Not Reportable 05/29/19 05:24 Hypersegmented Neuts Not Reportable 05/29/19 05:24 Hyposegmented Neuts Not Reportable 05/29/19 05:24 Hypogranular Neuts Not Reportable 05/29/19 05:24 Not Reportable 05/29/19 05:24 Not Reportable 05/29/19 05:24 Not Reportable 05/29/19 05:24 Not Reportable 05/29/19 05:24 Not Reportable 05/29/19 05:24 Not Reportable 05/29/19 05:24 Consistent w auto 05/29/19 05:24 Not Reportable 05/29/19 05:24 Plt Clumps, EDTA Not Reportable 05/29/19 05:24 Not Reportable 05/29/19 05:24 Not Reportable 05/29/19 05:24 Not Reportable 05/29/19 05:24 Plt Morphology Comment Not Reportable 05/29/19 05:24 RBC Morphology Not Reportable 05/29/19 05:24 Dimorphic RBCs Not Reportable 05/29/19 05:24 Not Reportable 05/29/19 05:24 Not Reportable 05/29/19 05:24 Not Reportable 05/29/19 05:24 1+ 05/29/19 05:24 Not Reportable 05/29/19 05:24 Not Reportable 05/29/19 05:24 Not Reportable 05/29/19 05:24 Not Reportable 05/29/19 05:24 Not Reportable 05/29/19 05:24 Not Reportable 05/29/19 05:24 Not Reportable 05/29/19 05:24 Not Reportable 05/29/19 05:24 Not Reportable 05/29/19 05:24 Not Reportable 05/29/19 05:24 Not Reportable 05/29/19 05:24 Not Reportable 05/29/19 05:24 Not Reportable 05/29/19 05:24 Not Reportable 05/29/19 05:24 Not Reportable 05/29/19 05:24 Acanthocytes (Spur) Not Reportable 05/29/19 05:24 Rouleaux Not Reportable 05/29/19 05:24 Not Reportable 05/29/19 05:24 Not Reportable 05/29/19 05:24 Not Reportable 05/29/19 05:24 Not Reportable 05/29/19 05:24 Hem Pathologist Commnt No 05/29/19 05:24 Sodium 143 mmol/L (137-145) 06/11/19 04:38 Potassium 4.0 mmol/L (3.6-5.0) 06/11/19 04:38 Chloride 101.8 mmol/L (98-107) 06/11/19 04:38 Carbon Dioxide 28 mmol/L (22-30) 06/11/19 04:38 17 mmol/L 06/11/19 04:38 BUN 9 mg/dL (9-20) 06/11/19 04:38 6.8 mg/dL (0.8-1.5) H 06/11/19 04:38 Estimated GFR 11 ml/min 06/11/19 04:38 1 % 06/11/19 04:38 Glucose 106 mg/dL (75-100) H 06/11/19 04:38 POC Glucose 101 (70-105) 06/11/19 11:56 17.1 % (4-6) H 05/29/19 05:22 292 Mosm/kg 06/03/19 09:40 Lactic Acid 0.80 mmol/L (0.7-2.0) 05/28/19 00:27 Calcium 8.5 mg/dL (8.4-10.2) 06/11/19 04:38 0.30 mg/dL (0.1-1.2) 05/27/19 21:55 AST 43 units/L (5-40) H 05/27/19 21:55 ALT 48 units/L (7-56) 05/27/19 21:55 163 units/L (35-129) H 05/27/19 21:55 66 units/L (55-170) 06/03/19 09:40 7.9 g/dL (6.3-8.2) 05/27/19 21:55 2.7 g/dL (3.9-5) L 05/27/19 21:55 0.5 % 05/27/19 21:55 Straw (Yellow) 06/03/19 18:44 Clear (Clear) 06/03/19 18:44 5.0 (5.0-7.0) 06/03/19 18:44 Ur Specific [place] 1.005 (1.003-1.030) 06/03/19 18:44 <15 mg/dl mg/dL (Negative) 06/03/19 18:44 Neg mg/dL (Negative) 06/03/19 18:44 Neg mg/dL (Negative) 06/03/19 18:44 Neg (Negative) 06/03/19 18:44 Neg (Negative) 06/03/19 18:44 Neg (Negative) 06/03/19 18:44 < 2.0 mg/dL (<2.0) 06/03/19 18:44 Ur Leukocyte Esterase Neg (Negative) 06/03/19 18:44 5.0 /HPF (0.0-6.0) 06/03/19 18:44 3.0 /HPF (0.0-6.0) 06/03/19 18:44 U Epithel Cells (Auto) < 1.0 /HPF (0-13.0) 06/03/19 18:44 1+ /HPF (Negative) 06/03/19 18:44 None seen (None Seen) 06/03/19 18:44 48.8 mg/dL (0.1-20.0) H 06/03/19 18:44 74 mmol/L 06/03/19 18:44 Vancomycin Trough 67.6 ug/mL (5.0-20.0) H 05/31/19 15:08 204 mg/dL (82-185) H 06/03/19 09:40 40 mg/dL (15-53) 06/03/19 09:40 Hepatitis A IgM Ab Non-reactive (NonReactive) 06/04/19 12:58 Hep Bs Antigen Non-reactive (Negative) 06/04/19 12:58 Hep B Core IgM Ab Non-reactive (NonReactive) 06/04/19 12:58 Non-reactive (NonReactive) 06/04/19 12:58 Active Medications - Current Medications Current Medications: Generic Name Dose Route Start Last Admin Trade Name Freq PRN Reason Stop Dose Admin Acetaminophen 650 mg 05/28/19 02:10 Tylenol PO Q4H PRN Fever >101 Dextrose 50 ml 05/28/19 02:13 06/03/19 08:48 D50w (25gm) Syringe IV 50 ml PRN PRN Administration Hypoglycemia Heparin Sodium (Porcine) 5,000 unit 05/28/19 10:00 06/11/19 11:02 Heparin SUB-Q 5,000 unit Q12HR LIBERTAD Administration Hydromorphone HCl 0.5 mg 06/10/19 10:44 06/10/19 12:41 Dilaudid IV 0.5 mg ONCE PRN Administration Pain , Severe (7-10) Sodium Chloride 100 mls @ 999 mls/hr 06/08/19 09:02 Nacl 0.9% IV DANG PRN Hypotension Insulin Glargine 10 units 05/29/19 22:00 06/10/19 21:23 Lantus SUB-Q 10 units QHS [facility] Administration Insulin Human Regular 0 units 05/28/19 07:30 06/11/19 12:44 Humulin R SUB-Q Not Given AC [facility] Protocol Insulin Human Regular 0 units 05/28/19 22:00 06/10/19 21:52 [facility]Q [facility] Protocol Linezolid 600 mg 06/02/19 13:00 06/11/19 11:01 Zyvox PO 06/11/19 23:59 600 mg Q12HR LIBERTAD Administration Protocol Morphine Sulfate 2 mg 05/28/19 02:09 06/08/19 21:29 Morphine IV 2 mg Q3H PRN Administration Pain , Severe (7-10) Ondansetron HCl 4 mg 06/04/19 22:23 06/11/19 11:14 Zofran IV 4 mg Q4H PRN Administration Nausea And Vomiting Oxycodone/Acetaminophen 2 tab 05/28/19 16:20 06/10/19 15:51 Percocet 5/325 PO 2 tab Q4H PRN Administration Pain, Moderate (4-6) Simethicone 80 mg 06/01/19 09:11 06/05/19 04:28 Mylicon PO 80 mg Q6H PRN Administration Gas pain Nutrition/Malnutrition Assess - Dietary Evaluation Nutrition/Malnutrition Findings: Nutrition Notes Start: 05/28/19 13:42 Freq: Status: Active Protocol: Document 05/28/19 13:42 LANEY (Rec: 05/28/19 13:50 LANEY [email or web address]) Nutrition Notes Need for Assessment generated from: air value tester,MST Initial or Follow up Brief Note Current Diagnosis Diabetes,Sepsis Other Pertinent Diagnosis Cellulitis of anterior abdominal wall with small abscess Current Diet Consistent CHO Labs/Tests BG 480 Na 131 Pertinent Medications Reviewed Height 6 ft 1 in Weight 151.2 kg [place] Body Weight (kg) 83.63 BMI 43.9 Intake Prior to Admission Fair Weight Status Morbidly Obese Subjective/Other Information Pt screened for malnutrition risk. He was diagnosed with DM 10 yrs ago; says he checks BS 2-3 times daily and takes insulin as prescribed. He does admit to overconsumption of CHO-rich foods. Very receptive to review of CHO- controlled diet principles and A1C. 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 Burn Absent Trauma Absent #1 Nutrition Diagnosis Limited adherence to nutrition -related recommendations Etiology knowledge deficit As Evidenced by Signs and Symptoms pt admission of the need to review DM diet principles and unaware of the relationship between wound healing and BS levels Nutrition Intervention Teaching Recipient Patient Learning Readiness Good Teaching Methods Discussion,Handout Response to Teaching Verbalize understanding Education Handouts Provided Hemoglobin A1C and Blood Sugar Control Carbohydrate Counting for People with Diabetes (Food Sources of Carbohydrates) Barriers to Learning No Barriers RD phone number provided Yes Patient aware of follow up options Yes Goal #1 Improved BS control Goal #2 Adherence to CHO-controlled diet Anticipated Discharge Needs: CHO-controlled diet Revisit per MD consult or patient Sign Off request:
--- NOTE | 2019-06-11 18:46 | XRay Report ---
CHEST 1 VIEW 06/11/2019 5:45 PM INDICATION / CLINICAL INFORMATION: too. COMPARISON: None available. FINDINGS: SUPPORT DEVICES: Right internal jugular catheter projects over SVC. HEART / MEDIASTINUM: No significant abnormality. LUNGS / PLEURA: No significant pulmonary or pleural abnormality. No pneumothorax. ADDITIONAL FINDINGS: No significant additional findings. IMPRESSION: 1. No acute findings. Signer Name: Livan Santiago MD Signed: 06/11/2019 6:41 PM Workstation Name: [id number]
[2019-06-11] MEDS: LANTUS SUB-Q SCH (22:34)
[2019-06-12 06:34] LABS: Calcium 8.6 mg/dL (8.4-10.2)
[2019-06-12] MEDS: HumuLIN R SUB-Q SCH ×4 (07:30→21:26)
[2019-06-12] MEDS: HEPARIN SUB-Q SCH ×2 (09:46→21:25)
--- NOTE | 2019-06-12 16:09 | Progress Note ---
Assessment and Plan - Patient Problems (1) Acute kidney injury (PEYTON) with acute tubular necrosis (ATN) Current Visit: Yes Status: Acute Plan to address problem: acute kidney injury 2/2 ATN Markedly elevated Vancomycin trough : 67!!!! Possible vancomycin associated ATN baseline creatinine : 0.9mg/dl appears non oliguric per report Currently has vascular catheter Creatinine appears to be in plateau phase increase fluid intake. We'll hold off dialysis for now. (2) Abscess Current Visit: Yes Status: Acute Plan to address problem: Abdominal wall abscess completed Linezolid . (3) Diabetes mellitus type 1, uncontrolled Current Visit: Yes Status: Acute Plan to address problem: DM type I uncontrolled. Ensure medications monitor fingerstick. (4) Anemia Current Visit: Yes Status: Acute Qualifiers: Other causes of anemia: chronic disease, other Plan to address problem: Moderate anemia : Hb: 8.6g/dl received 10,000 units of Epogen monitor CBC. (5) Hypernatremia Current Visit: Yes Status: Acute Plan to address problem: Hypernatremia - increase fluid intake. Subjective Principal diagnosis: abdominal wall abscess Interval history: 34 year old with medical history signficant for Morbid obesity , necrotizing fascitis , Acute kidney injury seen today Patient reports good urine output Still has a temporary vas cath will hold off Perm cath and further dialysis. has edema , denies any shortness of breath. Denies any fever or chills Anxious why antibiotics was stopped , Per chart has completed antibiotic regimen. Objective - Vital Signs Vital signs: Vital Signs - 12hr 06/12/19 06/12/19 06:51 11:37 Temperature 97.9 F 98.4 F Pulse Rate 59 L 47 L Respiratory 20 22 Rate Blood Pressure 130/72 141/77 O2 Sat by Pulse 96 98 Oximetry - General Appearance General appearance: well-developed, well-nourished EENT: ATNC, PERRL Neck: no JVD Respiratory: Present: Clear to Ascultation Cardiology: regular, S1S2 Gastrointestinal: normal, normoactive bowel sounds Integumentary: no rash Neurologic: CN 3-12 intact Musculoskeletal: cyanosis Psychiatric: mood/affect appropriate - Lab 06/09/19 05:49 06/12/19 05:50 Most recent lab results Calcium 8.6 mg/dL (8.4-10.2) 06/12/19 05:50 48.8 mg/dL (0.1-20.0) H 06/03/19 18:44 74 mmol/L 06/03/19 18:44 - Imaging Chest x-ray: image reviewed (i reviewed CXR with ) Medications & Allergies - Medications Allergies/Adverse Reactions: Allergies No Known Allergies Allergy (Verified 05/27/19 22:21) Home Medications: Home Medications Medication Instructions Recorded Confirmed Last Taken Type No Known Home Medications [No 05/28/19 05/28/19 Unknown History Reported Home Medications] Active Medications: Generic Name Dose Route Start Last Admin Trade Name Freq PRN Reason Stop Dose Admin Acetaminophen 650 mg 05/28/19 02:10 Tylenol PO Q4H PRN Fever >101 Dextrose 50 ml 05/28/19 02:13 06/03/19 08:48 D50w (25gm) Syringe IV 50 ml PRN PRN Administration Hypoglycemia Heparin Sodium (Porcine) 5,000 unit 05/28/19 10:00 06/12/19 09:46 Heparin SUB-Q 5,000 unit Q12HR LIBERTAD Administration Hydromorphone HCl 0.5 mg 06/10/19 10:44 06/10/19 12:41 Dilaudid IV 0.5 mg ONCE PRN Administration Pain , Severe (7-10) Sodium Chloride 100 mls @ 999 mls/hr 06/08/19 09:02 Nacl 0.9% IV DANG PRN Hypotension Insulin Glargine 10 units 05/29/19 22:00 06/11/19 22:34 Lantus SUB-Q Not Given [facility] Insulin Human Regular 0 units 05/28/19 07:30 06/12/19 12:45 Humulin R SUB-Q Not Given [facility] Protocol Insulin Human Regular 0 units 05/28/19 22:00 06/11/19 22:33 Humulin R SUB-Q Not Given [facility] Protocol Morphine Sulfate 2 mg 05/28/19 02:09 06/08/19 21:29 Morphine IV 2 mg Q3H PRN Administration Pain , Severe (7-10) Ondansetron HCl 4 mg 06/04/19 22:23 06/11/19 11:14 Zofran IV 4 mg Q4H PRN Administration Nausea And Vomiting Oxycodone/Acetaminophen 2 tab 05/28/19 16:20 06/10/19 15:51 Percocet 5/325 PO 2 tab Q4H PRN Administration Pain, Moderate (4-6) Simethicone 80 mg 06/01/19 09:11 06/05/19 04:28 Mylicon PO 80 mg Q6H PRN Administration Gas pain
--- NOTE | 2019-06-12 16:27 | Progress Note ---
Assessment and Plan Assessment and plan: Patient is a 34-year-old the male who has been admitted here with abdominal abscess, underwent surgical evacuation, has also been treated for sepsis. His baseline creatinine was 0.9 upon admission which increased to 8.4 . He was diagnosed with acute kidney injury due to ATN due to contrast nephropathy, vancomycin toxicity, Sepsis. His renal function continued to worsen so was started on dialysis 06/04 and is still on dialysis. he is very upset that he cannot go home and is verbally abusive to staff including Doctors. PEYTON due to ATN, multifactorial :contrast nephropathy, vancomycin toxicity, seps is and possible baseline CKD. Creatinine continued to worsen, so started on dialysis . Vancomycin was discontinued on 05/24/2019. Continues to monitor through Nephrology following. Discussed with Nephrology. Dr. Schumacher recommended vasc cath, placed 06/04 started hemodialysis 06/04. HD held and monitoring for renal improvement Abdominal wall necrotizing fasciitis/abscess. Patient is status post excisional debridement 05/28/19. Surgery following. Patient with further debridement of abdominal wall on 05/31/19 that revealed multiple abscess cavities along lateral left abdominal wall with copious amount of purulent drainage and necrotic subcutaneous tissue. Wound vac to abdomen. Zyvox completed 06/11 Sepsis. Etiology secondary to above. Blood cultures negative. Antibiotics per ID. completed last dose of Zyvox 06/11 Hyperkalemia Now resolved after Insulin, Dextrose, kayexalate, calcium gluconate. Started hemodialysis 06/04 Diabetes mellitus type 2. Continue Lantus insulin 70/30 insulin. Accu-Cheks and sliding scale insulin Morbid obesity. Disposition. Patient still has PEYTON, awaiting to see if renal recovery without dialysis and also outpatient management of patients wound prior to discharge History Interval history: Patient seen and examined resting comfortable with no new complaints. Sitting up, concerned about abx that was stopped, advised patient on ID thinking. Hospitalist Physical - Physical exam Narrative exam: Gen: Not in acute distress,Lying in bed, morbidly obese HEENT: Normocephalic, atraumatic Neck: supple, no JVD Heart: S1 and S2 reg, no murmurs, rubs or gallop Lungs: Clear, no crackles or wheeze Abd: soft, non tender, non distended, normal BS, wound vac to abdomen Ext: No edema, no clubbing, no cyanosis Neuro:awake,alert, Oriented X 3. No focal neuro signs - Constitutional Vitals: Temp Pulse Resp BP Pulse Ox 98.4 F 47 L 22 141/77 98 06/12/19 11:37 06/12/19 11:37 06/12/19 11:37 06/12/19 11:37 06/12/19 11:37 General appearance: Present: no acute distress Results - Labs CBC & Chem 7: 06/09/19 05:49 06/12/19 05:50 Labs: Laboratory Last Values WBC 6.1 K/mm3 (4.5-11.0) 06/09/19 05:49 RBC 2.83 M/mm3 (3.65-5.03) L 06/09/19 05:49 Hgb 8.6 gm/dl (11.8-15.2) L 06/09/19 05:49 Hct 25.4 % (35.5-45.6) L 06/09/19 05:49 MCV 90 fl (84-94) 06/09/19 05:49 MCH 30 pg (28-32) 06/09/19 05:49 MCHC 34 % (32-34) 06/09/19 05:49 RDW 15.2 % (13.2-15.2) 06/09/19 05:49 Plt Count 322 K/mm3 (140-440) 06/09/19 05:49 Lymph % (Auto) 18.8 % (13.4-35.0) 06/04/19 05:43 Luna % (Auto) 9.8 % (0.0-7.3) H 06/04/19 05:43 Eos % (Auto) 1.3 % (0.0-4.3) 06/04/19 05:43 Baso % (Auto) 0.2 % (0.0-1.8) 06/04/19 05:43 Lymph # 1.4 K/mm3 (1.2-5.4) 06/04/19 05:43 Luna # 0.7 K/mm3 (0.0-0.8) 06/04/19 05:43 Eos # 0.1 K/mm3 (0.0-0.4) 06/04/19 05:43 Baso # 0.0 K/mm3 (0.0-0.1) 06/04/19 05:43 Add Manual Diff Complete 05/29/19 05:24 Total Counted 100 05/29/19 05:24 Seg Neutrophils % 69.9 % (40.0-70.0) 06/04/19 05:43 Seg Neuts % (Manual) 73.0 % (40.0-70.0) H 05/29/19 05:24 0 % 05/29/19 05:24 15.0 % (13.4-35.0) 05/29/19 05:24 Reactive Lymphs % (Man) 1.0 % 05/29/19 05:24 10.0 % (0.0-7.3) H 05/29/19 05:24 1.0 % (0.0-4.3) 05/29/19 05:24 0 % (0.0-1.8) 05/29/19 05:24 0 % 05/29/19 05:24 0 % 05/29/19 05:24 0 % 05/29/19 05:24 0 % 05/29/19 05:24 Nucleated RBC % Not Reportable 05/29/19 05:24 Seg Neutrophils # 5.0 K/mm3 (1.8-7.7) 06/04/19 05:43 Seg Neutrophils # Man 6.0 K/mm3 (1.8-7.7) 05/29/19 05:24 Band Neutrophils # 0.0 K/mm3 05/29/19 05:24 1.2 K/mm3 (1.2-5.4) 05/29/19 05:24 Abs React Lymphs (Man) 0.1 K/mm3 05/29/19 05:24 0.8 K/mm3 (0.0-0.8) 05/29/19 05:24 0.1 K/mm3 (0.0-0.4) 05/29/19 05:24 0.0 K/mm3 (0.0-0.1) 05/29/19 05:24 0.0 K/mm3 05/29/19 05:24 0.0 K/mm3 05/29/19 05:24 0.0 K/mm3 05/29/19 05:24 Blast Cells # 0.0 K/mm3 05/29/19 05:24 WBC Morphology Not Reportable 05/29/19 05:24 Hypersegmented Neuts Not Reportable 05/29/19 05:24 Hyposegmented Neuts Not Reportable 05/29/19 05:24 Hypogranular Neuts Not Reportable 05/29/19 05:24 Not Reportable 05/29/19 05:24 Not Reportable 05/29/19 05:24 Not Reportable 05/29/19 05:24 Not Reportable 05/29/19 05:24 Not Reportable 05/29/19 05:24 Not Reportable 05/29/19 05:24 Consistent w auto 05/29/19 05:24 Not Reportable 05/29/19 05:24 Plt Clumps, EDTA Not Reportable 05/29/19 05:24 Not Reportable 05/29/19 05:24 Not Reportable 05/29/19 05:24 Not Reportable 05/29/19 05:24 Plt Morphology Comment Not Reportable 05/29/19 05:24 RBC Morphology Not Reportable 05/29/19 05:24 Dimorphic RBCs Not Reportable 05/29/19 05:24 Not Reportable 05/29/19 05:24 Not Reportable 05/29/19 05:24 Not Reportable 05/29/19 05:24 1+ 05/29/19 05:24 Not Reportable 05/29/19 05:24 Not Reportable 05/29/19 05:24 Not Reportable 05/29/19 05:24 Not Reportable 05/29/19 05:24 Not Reportable 05/29/19 05:24 Not Reportable 05/29/19 05:24 Not Reportable 05/29/19 05:24 Not Reportable 05/29/19 05:24 Not Reportable 05/29/19 05:24 Not Reportable 05/29/19 05:24 Not Reportable 05/29/19 05:24 Not Reportable 05/29/19 05:24 Not Reportable 05/29/19 05:24 Not Reportable 05/29/19 05:24 Not Reportable 05/29/19 05:24 Acanthocytes (Spur) Not Reportable 05/29/19 05:24 Rouleaux Not Reportable 05/29/19 05:24 Not Reportable 05/29/19 05:24 Not Reportable 05/29/19 05:24 Not Reportable 05/29/19 05:24 Not Reportable 05/29/19 05:24 Hem Pathologist Commnt No 05/29/19 05:24 Sodium 147 mmol/L (137-145) H 06/12/19 05:50 Potassium 4.0 mmol/L (3.6-5.0) 06/12/19 05:50 Chloride 103.1 mmol/L (98-107) 06/12/19 05:50 Carbon Dioxide 28 mmol/L (22-30) 06/12/19 05:50 20 mmol/L 06/12/19 05:50 BUN 26 mg/dL (9-20) H 06/12/19 05:50 6.5 mg/dL (0.8-1.5) H 06/12/19 05:50 Estimated GFR 12 ml/min 06/12/19 05:50 4 % 06/12/19 05:50 Glucose 104 mg/dL (75-100) H 06/12/19 05:50 POC Glucose 124 (70-105) H 06/12/19 11:46 17.1 % (4-6) H 05/29/19 05:22 292 Mosm/kg 06/03/19 09:40 Lactic Acid 0.80 mmol/L (0.7-2.0) 05/28/19 00:27 Calcium 8.6 mg/dL (8.4-10.2) 06/12/19 05:50 0.30 mg/dL (0.1-1.2) 05/27/19 21:55 AST 43 units/L (5-40) H 05/27/19 21:55 ALT 48 units/L (7-56) 05/27/19 21:55 163 units/L (35-129) H 05/27/19 21:55 66 units/L (55-170) 06/03/19 09:40 7.9 g/dL (6.3-8.2) 05/27/19 21:55 2.7 g/dL (3.9-5) L 05/27/19 21:55 0.5 % 05/27/19 21:55 Straw (Yellow) 06/03/19 18:44 Clear (Clear) 06/03/19 18:44 5.0 (5.0-7.0) 06/03/19 18:44 Ur Specific [place] 1.005 (1.003-1.030) 06/03/19 18:44 <15 mg/dl mg/dL (Negative) 06/03/19 18:44 Neg mg/dL (Negative) 06/03/19 18:44 Neg mg/dL (Negative) 06/03/19 18:44 Neg (Negative) 06/03/19 18:44 Neg (Negative) 06/03/19 18:44 Neg (Negative) 06/03/19 18:44 < 2.0 mg/dL (<2.0) 06/03/19 18:44 Ur Leukocyte Esterase Neg (Negative) 06/03/19 18:44 5.0 /HPF (0.0-6.0) 06/03/19 18:44 3.0 /HPF (0.0-6.0) 06/03/19 18:44 U Epithel Cells (Auto) < 1.0 /HPF (0-13.0) 06/03/19 18:44 1+ /HPF (Negative) 06/03/19 18:44 None seen (None Seen) 06/03/19 18:44 48.8 mg/dL (0.1-20.0) H 06/03/19 18:44 74 mmol/L 06/03/19 18:44 Vancomycin Trough 67.6 ug/mL (5.0-20.0) H 05/31/19 15:08 204 mg/dL (82-185) H 06/03/19 09:40 40 mg/dL (15-53) 06/03/19 09:40 Hepatitis A IgM Ab Non-reactive (NonReactive) 06/04/19 12:58 Hep Bs Antigen Non-reactive (Negative) 06/04/19 12:58 Hep B Core IgM Ab Non-reactive (NonReactive) 06/04/19 12:58 Non-reactive (NonReactive) 06/04/19 12:58 Active Medications - Current Medications Current Medications: Generic Name Dose Route Start Last Admin Trade Name Freq PRN Reason Stop Dose Admin Acetaminophen 650 mg 05/28/19 02:10 Tylenol PO Q4H PRN Fever >101 Dextrose 50 ml 05/28/19 02:13 06/03/19 08:48 D50w (25gm) Syringe IV 50 ml PRN PRN Administration Hypoglycemia Heparin Sodium (Porcine) 5,000 unit 05/28/19 10:00 06/12/19 09:46 Heparin SUB-Q 5,000 unit Q12HR LIBERTAD Administration Hydromorphone HCl 0.5 mg 06/10/19 10:44 06/10/19 12:41 Dilaudid IV 0.5 mg ONCE PRN Administration Pain , Severe (7-10) Sodium Chloride 100 mls @ 999 mls/hr 06/08/19 09:02 Nacl 0.9% IV DANG PRN Hypotension Insulin Glargine 10 units 05/29/19 22:00 06/11/19 22:34 Lantus SUB-Q Not Given [facility] Insulin Human Regular 0 units 05/28/19 07:30 06/12/19 12:45 Humulin R SUB-Q Not Given [facility] Protocol Insulin Human Regular 0 units 05/28/19 22:00 06/11/19 22:33 Humulin R SUB-Q Not Given [facility] Protocol Morphine Sulfate 2 mg 05/28/19 02:09 06/08/19 21:29 Morphine IV 2 mg Q3H PRN Administration Pain , Severe (7-10) Ondansetron HCl 4 mg 06/04/19 22:23 06/11/19 11:14 Zofran IV 4 mg Q4H PRN Administration Nausea And Vomiting Oxycodone/Acetaminophen 2 tab 05/28/19 16:20 06/10/19 15:51 Percocet 5/325 PO 2 tab Q4H PRN Administration Pain, Moderate (4-6) Simethicone 80 mg 06/01/19 09:11 06/05/19 04:28 Mylicon PO 80 mg Q6H PRN Administration Gas pain Nutrition/Malnutrition Assess - Dietary Evaluation Nutrition/Malnutrition Findings: Nutrition Notes Start: 05/28/19 13:42 Freq: Status: Active Protocol: Document 05/28/19 13:42 LANEY (Rec: 05/28/19 13:50 LANEY SR- [email or web address]) Nutrition Notes 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 He was diagnosed with DM 10 yrs ago; says he checks BS 2-3 times daily and takes insulin as prescribed. He does admit to overconsumption of CHO-rich foods. Very receptive to review of CHO- controlled diet principles and A1C. 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 Burn Absent Trauma Absent #1 Nutrition Diagnosis Limited adherence to nutrition -related recommendations Etiology knowledge deficit As Evidenced by Signs and Symptoms pt admission of the need to review DM diet principles and unaware of the relationship between wound healing and BS levels Nutrition Intervention Teaching Recipient Patient Learning Readiness Good Teaching Methods Discussion,Handout Response to Teaching Verbalize understanding Education Handouts Provided Hemoglobin A1C and Blood Sugar Control Carbohydrate Counting for People with Diabetes (Food Sources of Carbohydrates) Barriers to Learning No Barriers RD phone number provided Yes Patient aware of follow up options Yes Goal #1 Improved BS control Goal #2 Adherence to CHO-controlled diet Anticipated Discharge Needs: CHO-controlled diet Revisit per MD consult or patient Sign Off request:
[2019-06-12] MEDS: LANTUS SUB-Q SCH (21:26)
[2019-06-12] MEDS: ZOFRAN IV PRN (22:33)
[2019-06-13] MEDS: HumuLIN R SUB-Q SCH ×4 (08:19→22:26)
[2019-06-13 09:14] LABS: Calcium 9.1 mg/dL (8.4-10.2)
--- NOTE | 2019-06-13 10:13 | Progress Note ---
Assessment and Plan - Patient Problems (1) Acute kidney injury (PEYTON) with acute tubular necrosis (ATN) Current Visit: Yes Status: Acute Plan to address problem: acute kidney injury 2/2 ATN Markedly elevated Vancomycin trough : 67!!!! Possible vancomycin associated ATN baseline creatinine : 0.9mg/dl appears non oliguric per report Currently has vascular catheter Renal function is improving creatinine trend 6.7--6.8--6.5--5.9 No indication for dialysis today increase fluid intake. We'll continue to monitor renal function closely. (2) Abscess Current Visit: Yes Status: Acute Plan to address problem: Abdominal wall abscess completed Linezolid . has wound vac. (3) Diabetes mellitus type 1, uncontrolled Current Visit: Yes Status: Acute Plan to address problem: DM type I uncontrolled. Ensure medications monitor fingerstick. (4) Anemia Current Visit: Yes Status: Acute Qualifiers: Other causes of anemia: chronic disease, other Plan to address problem: Moderate anemia : Hb: 8.6g/dl received 10,000 units of Epogen monitor CBC. (5) Hypernatremia Current Visit: Yes Status: Acute Plan to address problem: Hypernatremia :Resolving - increase fluid intake. - Ensure access to free water. Subjective Principal diagnosis: abdominal wall abscess Interval history: 34 year old with medical history signficant for Morbid obesity , necrotizing fascitis , Acute kidney injury seen today Patient reports good urine output Still has a temporary vas cath will hold off Perm cath and further dialysis. Lower extremity swelling has resolved denies any shortness of breath. Denies any fever or chills Now off antibiotics. Objective - Vital Signs Vital signs: Vital Signs - 12hr 06/12/19 06/13/19 22:21 04:46 Temperature 98.1 F 97.9 F Pulse Rate 46 L Respiratory 22 18 Rate Blood Pressure 128/71 130/78 O2 Sat by Pulse 97 Oximetry - General Appearance General appearance: well-developed, well-nourished, obese EENT: ATNC, PERRL Neck: no JVD Respiratory: Present: Decreased Breath Sounds Cardiology: regular, S1S2 Gastrointestinal: normal, normoactive bowel sounds Integumentary: no rash Neurologic: alert and oriented x3, CN 3-12 intact Psychiatric: mood/affect appropriate - Lab 06/09/19 05:49 06/13/19 08:39 Most recent lab results Calcium 9.1 mg/dL (8.4-10.2) 06/13/19 08:39 48.8 mg/dL (0.1-20.0) H 06/03/19 18:44 74 mmol/L 06/03/19 18:44 - Imaging Chest x-ray: image reviewed (I reviewed CXR without overt edema. ) Medications & Allergies - Medications Allergies/Adverse Reactions: Allergies No Known Allergies Allergy (Verified 05/27/19 22:21) Home Medications: Home Medications Medication Instructions Recorded Confirmed Last Taken Type No Known Home Medications [No 05/28/19 05/28/19 Unknown History Reported Home Medications] Active Medications: Generic Name Dose Route Start Last Admin Trade Name Freq PRN Reason Stop Dose Admin Acetaminophen 650 mg 05/28/19 02:10 Tylenol PO Q4H PRN Fever >101 Dextrose 50 ml 05/28/19 02:13 06/03/19 08:48 D50w (25gm) Syringe IV 50 ml PRN PRN Administration Hypoglycemia Heparin Sodium (Porcine) 5,000 unit 05/28/19 10:00 06/12/19 21:25 Heparin SUB-Q 5,000 unit Q12HR LIBERTAD Administration Hydromorphone HCl 0.5 mg 06/10/19 10:44 06/10/19 12:41 Dilaudid IV 0.5 mg ONCE PRN Administration Pain , Severe (7-10) Sodium Chloride 100 mls @ 999 mls/hr 06/08/19 09:02 Nacl 0.9% IV DANG PRN Hypotension Insulin Glargine 10 units 05/29/19 22:00 06/12/19 21:26 Lantus SUB-Q 10 units QHS LIBERTAD Administration Insulin Human Regular 0 units 05/28/19 07:30 06/13/19 08:19 Humulin R SUB-Q Not Given [facility] Protocol Insulin Human Regular 0 units 05/28/19 22:00 06/12/19 21:26 Humulin R SUB-Q 2 units QHS LIBERTAD Administration Protocol Morphine Sulfate 2 mg 05/28/19 02:09 06/08/19 21:29 Morphine IV 2 mg Q3H PRN Administration Pain , Severe (7-10) Ondansetron HCl 4 mg 06/04/19 22:23 06/12/19 22:33 Zofran IV 4 mg Q4H PRN Administration Nausea And Vomiting Oxycodone/Acetaminophen 2 tab 05/28/19 16:20 06/10/19 15:51 Percocet 5/325 PO 2 tab Q4H PRN Administration Pain, Moderate (4-6) Simethicone 80 mg 06/01/19 09:11 06/05/19 04:28 Mylicon PO 80 mg Q6H PRN Administration Gas pain
[2019-06-13] MEDS: HEPARIN SUB-Q SCH ×2 (10:43→22:18)
[2019-06-13] MEDS: DILAUDID IV PRN (13:11)
[2019-06-13] MEDS: PERCOCET 5/325 PO PRN (15:22)
--- NOTE | 2019-06-13 15:28 | Progress Note ---
Assessment and Plan Assessment and plan: Patient is a 34-year-old the male who has been admitted here with abdominal abscess, underwent surgical evacuation, has also been treated for sepsis. His baseline creatinine was 0.9 upon admission which increased to 8.4 . He was diagnosed with acute kidney injury due to ATN due to contrast nephropathy, vancomycin toxicity, Sepsis. His renal function continued to worsen so was started on dialysis 06/04 and is still on dialysis. he is very upset that he cannot go home and is verbally abusive to staff including Doctors. PEYTON due to ATN, multifactorial :contrast nephropathy, vancomycin toxicity, seps is and possible baseline CKD. Creatinine continued to worsen, so started on dialysis . Vancomycin was discontinued on 05/24/2019. Continues to monitor through Renal function showing some improvement Nephrology following. Discussed with Nephrology. Dr. Schumacher recommended vasc cath, placed 06/04 started hemodialysis 06/04. HD held and monitoring for renal improvement Abdominal wall necrotizing fasciitis/abscess. Patient is status post excisional debridement 05/28/19. Surgery following. Patient with further debridement of abdominal wall on 05/31/19 that revealed multiple abscess cavities along lateral left abdominal wall with copious amount of purulent drainage and necrotic subcutaneous tissue. Wound vac to abdomen. Zyvox completed 06/11 Sepsis. Etiology secondary to above. Blood cultures negative. Antibiotics per ID. completed last dose of Zyvox 06/11 Hyperkalemia Now resolved after Insulin, Dextrose, kayexalate, calcium gluconate. Started hemodialysis 06/04 Diabetes mellitus type 2. Continue Lantus insulin 70/30 insulin. Accu-Cheks and sliding scale insulin Morbid obesity. Disposition. Patient still has PEYTON, awaiting to see if renal recovery without dialysis and also outpatient management of patients wound prior to discharge History Interval history: Patient seen and examined resting comfortable with no new complaints. Sitting up Hospitalist Physical - Physical exam Narrative exam: Gen: Not in acute distress,Lying in bed, morbidly obese HEENT: Normocephalic, atraumatic Neck: supple, no JVD Heart: S1 and S2 reg, no murmurs, rubs or gallop Lungs: Clear, no crackles or wheeze Abd: soft, non tender, non distended, normal BS, wound vac to abdomen Ext: No edema, no clubbing, no cyanosis Neuro:awake,alert, Oriented X 3. No focal neuro signs - Constitutional Vitals: Temp Pulse Resp BP Pulse Ox 98.6 F 52 L 22 111/82 97 06/13/19 11:05 06/13/19 11:05 06/13/19 11:05 06/13/19 11:05 06/13/19 11:05 General appearance: Present: no acute distress Results - Labs CBC & Chem 7: 06/09/19 05:49 06/13/19 08:39 Labs: Laboratory Last Values WBC 6.1 K/mm3 (4.5-11.0) 06/09/19 05:49 RBC 2.83 M/mm3 (3.65-5.03) L 06/09/19 05:49 Hgb 8.6 gm/dl (11.8-15.2) L 06/09/19 05:49 Hct 25.4 % (35.5-45.6) L 06/09/19 05:49 MCV 90 fl (84-94) 06/09/19 05:49 MCH 30 pg (28-32) 06/09/19 05:49 MCHC 34 % (32-34) 06/09/19 05:49 RDW 15.2 % (13.2-15.2) 06/09/19 05:49 Plt Count 322 K/mm3 (140-440) 06/09/19 05:49 Lymph % (Auto) 18.8 % (13.4-35.0) 06/04/19 05:43 [place] % (Auto) 9.8 % (0.0-7.3) H 06/04/19 05:43 Eos % (Auto) 1.3 % (0.0-4.3) 06/04/19 05:43 Baso % (Auto) 0.2 % (0.0-1.8) 06/04/19 05:43 Lymph # 1.4 K/mm3 (1.2-5.4) 06/04/19 05:43 [place] # 0.7 K/mm3 (0.0-0.8) 06/04/19 05:43 Eos # 0.1 K/mm3 (0.0-0.4) 06/04/19 05:43 Baso # 0.0 K/mm3 (0.0-0.1) 06/04/19 05:43 Add Manual Diff Complete 05/29/19 05:24 Total Counted 100 05/29/19 05:24 Seg Neutrophils % 69.9 % (40.0-70.0) 06/04/19 05:43 Seg Neuts % (Manual) 73.0 % (40.0-70.0) H 05/29/19 05:24 0 % 05/29/19 05:24 15.0 % (13.4-35.0) 05/29/19 05:24 Reactive Lymphs % (Man) 1.0 % 05/29/19 05:24 10.0 % (0.0-7.3) H 05/29/19 05:24 1.0 % (0.0-4.3) 05/29/19 05:24 0 % (0.0-1.8) 05/29/19 05:24 0 % 05/29/19 05:24 0 % 05/29/19 05:24 0 % 05/29/19 05:24 0 % 05/29/19 05:24 Nucleated RBC % Not Reportable 05/29/19 05:24 Seg Neutrophils # 5.0 K/mm3 (1.8-7.7) 06/04/19 05:43 Seg Neutrophils # Man 6.0 K/mm3 (1.8-7.7) 05/29/19 05:24 Band Neutrophils # 0.0 K/mm3 05/29/19 05:24 1.2 K/mm3 (1.2-5.4) 05/29/19 05:24 Abs React Lymphs (Man) 0.1 K/mm3 05/29/19 05:24 0.8 K/mm3 (0.0-0.8) 05/29/19 05:24 0.1 K/mm3 (0.0-0.4) 05/29/19 05:24 0.0 K/mm3 (0.0-0.1) 05/29/19 05:24 0.0 K/mm3 05/29/19 05:24 0.0 K/mm3 05/29/19 05:24 0.0 K/mm3 05/29/19 05:24 Blast Cells # 0.0 K/mm3 05/29/19 05:24 WBC Morphology Not Reportable 05/29/19 05:24 Hypersegmented Neuts Not Reportable 05/29/19 05:24 Hyposegmented Neuts Not Reportable 05/29/19 05:24 Hypogranular Neuts Not Reportable 05/29/19 05:24 Not Reportable 05/29/19 05:24 Not Reportable 05/29/19 05:24 Not Reportable 05/29/19 05:24 Not Reportable 05/29/19 05:24 Not Reportable 05/29/19 05:24 Not Reportable 05/29/19 05:24 Consistent w auto 05/29/19 05:24 Not Reportable 05/29/19 05:24 Plt Clumps, EDTA Not Reportable 05/29/19 05:24 Not Reportable 05/29/19 05:24 Not Reportable 05/29/19 05:24 Not Reportable 05/29/19 05:24 Plt Morphology Comment Not Reportable 05/29/19 05:24 RBC Morphology Not Reportable 05/29/19 05:24 Dimorphic RBCs Not Reportable 05/29/19 05:24 Not Reportable 05/29/19 05:24 Not Reportable 05/29/19 05:24 Not Reportable 05/29/19 05:24 1+ 05/29/19 05:24 Not Reportable 05/29/19 05:24 Not Reportable 05/29/19 05:24 Not Reportable 05/29/19 05:24 Not Reportable 05/29/19 05:24 Not Reportable 05/29/19 05:24 Not Reportable 05/29/19 05:24 Not Reportable 05/29/19 05:24 Not Reportable 05/29/19 05:24 Not Reportable 05/29/19 05:24 Not Reportable 05/29/19 05:24 Not Reportable 05/29/19 05:24 Not Reportable 05/29/19 05:24 Not Reportable 05/29/19 05:24 Not Reportable 05/29/19 05:24 Not Reportable 05/29/19 05:24 Acanthocytes (Spur) Not Reportable 05/29/19 05:24 Rouleaux Not Reportable 05/29/19 05:24 Not Reportable 05/29/19 05:24 Not Reportable 05/29/19 05:24 Not Reportable 05/29/19 05:24 Not Reportable 05/29/19 05:24 Hem Pathologist Commnt No 05/29/19 05:24 Sodium 145 mmol/L (137-145) 06/13/19 08:39 Potassium 4.4 mmol/L (3.6-5.0) 06/13/19 08:39 Chloride 102.5 mmol/L (98-107) 06/13/19 08:39 Carbon Dioxide 26 mmol/L (22-30) 06/13/19 08:39 21 mmol/L 06/13/19 08:39 BUN 29 mg/dL (9-20) H 06/13/19 08:39 5.9 mg/dL (0.8-1.5) H 06/13/19 08:39 Estimated GFR 14 ml/min 06/13/19 08:39 5 % 06/13/19 08:39 Glucose 95 mg/dL (75-100) 06/13/19 08:39 POC Glucose 123 (70-105) H 06/13/19 12:03 17.1 % (4-6) H 05/29/19 05:22 292 Mosm/kg 06/03/19 09:40 Lactic Acid 0.80 mmol/L (0.7-2.0) 05/28/19 00:27 Calcium 9.1 mg/dL (8.4-10.2) 06/13/19 08:39 0.30 mg/dL (0.1-1.2) 05/27/19 21:55 AST 43 units/L (5-40) H 05/27/19 21:55 ALT 48 units/L (7-56) 05/27/19 21:55 163 units/L (35-129) H 05/27/19 21:55 66 units/L (55-170) 06/03/19 09:40 7.9 g/dL (6.3-8.2) 05/27/19 21:55 2.7 g/dL (3.9-5) L 05/27/19 21:55 0.5 % 05/27/19 21:55 Straw (Yellow) 06/03/19 18:44 Clear (Clear) 06/03/19 18:44 5.0 (5.0-7.0) 06/03/19 18:44 Ur Specific [place] 1.005 (1.003-1.030) 06/03/19 18:44 <15 mg/dl mg/dL (Negative) 06/03/19 18:44 Neg mg/dL (Negative) 06/03/19 18:44 Neg mg/dL (Negative) 06/03/19 18:44 Neg (Negative) 06/03/19 18:44 Neg (Negative) 06/03/19 18:44 Neg (Negative) 06/03/19 18:44 < 2.0 mg/dL (<2.0) 06/03/19 18:44 Ur Leukocyte Esterase Neg (Negative) 06/03/19 18:44 5.0 /HPF (0.0-6.0) 06/03/19 18:44 3.0 /HPF (0.0-6.0) 06/03/19 18:44 U Epithel Cells (Auto) < 1.0 /HPF (0-13.0) 06/03/19 18:44 1+ /HPF (Negative) 06/03/19 18:44 None seen (None Seen) 06/03/19 18:44 48.8 mg/dL (0.1-20.0) H 06/03/19 18:44 74 mmol/L 06/03/19 18:44 Vancomycin Trough 67.6 ug/mL (5.0-20.0) H 05/31/19 15:08 204 mg/dL (82-185) H 06/03/19 09:40 40 mg/dL (15-53) 06/03/19 09:40 Hepatitis A IgM Ab Non-reactive (NonReactive) 06/04/19 12:58 Hep Bs Antigen Non-reactive (Negative) 06/04/19 12:58 Hep B Core IgM Ab Non-reactive (NonReactive) 06/04/19 12:58 Non-reactive (NonReactive) 06/04/19 12:58 Active Medications - Current Medications Current Medications: Generic Name Dose Route Start Last Admin Trade Name Freq PRN Reason Stop Dose Admin Acetaminophen 650 mg 05/28/19 02:10 Tylenol PO Q4H PRN Fever >101 Dextrose 50 ml 05/28/19 02:13 06/03/19 08:48 D50w (25gm) Syringe IV 50 ml PRN PRN Administration Hypoglycemia Heparin Sodium (Porcine) 5,000 unit 05/28/19 10:00 06/13/19 10:43 Heparin SUB-Q 5,000 unit Q12HR LIBERTAD Administration Hydromorphone HCl 0.5 mg 06/10/19 10:44 06/13/19 13:11 Dilaudid IV 0.5 mg ONCE PRN Administration Pain , Severe (7-10) Sodium Chloride 100 mls @ 999 mls/hr 06/08/19 09:02 Nacl 0.9% IV DANG PRN Hypotension Insulin Glargine 10 units 05/29/19 22:00 06/12/19 21:26 Lantus SUB-Q 10 units QHS [facility] Administration Insulin Human Regular 0 units 05/28/19 07:30 06/13/19 13:01 Humulin R SUB-Q Not Given AC [facility] Protocol Insulin Human Regular 0 units 05/28/19 22:00 06/12/19 21:26 Humulin R SUB-Q 2 units QHS [facility] Administration Protocol Morphine Sulfate 2 mg 05/28/19 02:09 06/08/19 21:29 Morphine IV 2 mg Q3H PRN Administration Pain , Severe (7-10) Ondansetron HCl 4 mg 06/04/19 22:23 06/12/19 22:33 Zofran IV 4 mg Q4H PRN Administration Nausea And Vomiting Oxycodone/Acetaminophen 2 tab 05/28/19 16:20 06/13/19 15:22 Percocet 5/325 PO 2 tab Q4H PRN Administration Pain, Moderate (4-6) Simethicone 80 mg 06/01/19 09:11 06/05/19 04:28 Mylicon PO 80 mg Q6H PRN Administration Gas pain Nutrition/Malnutrition Assess - Dietary Evaluation Nutrition/Malnutrition Findings: Nutrition Notes Start: 05/28/19 13:42 Freq: Status: Active Protocol: Document 05/28/19 13:42 LANEY (Rec: 05/28/19 13:50 LANEY KABA-FNSERVICNATALIE 1) Nutrition Notes Need for Assessment generated from: chief accounting officer,MST Initial or Follow up Brief Note Current Diagnosis Diabetes,Sepsis Other Pertinent Diagnosis Cellulitis of anterior abdominal wall with small abscess Current Diet Consistent CHO Labs/Tests BG 480 Na 131 Pertinent Medications Reviewed Height 6 ft 1 in Weight 151.2 kg [place] Body Weight (kg) 83.63 BMI 43.9 Intake Prior to Admission Fair Weight Status Morbidly Obese Subjective/Other Information Pt screened for malnutrition risk. He was diagnosed with DM 10 yrs ago; says he checks BS 2-3 times daily and takes insulin as prescribed. He does admit to overconsumption of CHO-rich foods. Very receptive to review of CHO- controlled diet principles and A1C. Reports poor appetite SERVICE TECH (likely sec to sepsis). Burn Absent Trauma Absent #1 Nutrition Diagnosis Limited adherence to nutrition -related recommendations Etiology knowledge deficit As Evidenced by Signs and Symptoms pt admission of the need to review DM diet principles and unaware of the relationship between wound healing and BS levels Nutrition Intervention Teaching Recipient Patient Learning Readiness Good Teaching Methods Discussion,Handout Response to Teaching Verbalize understanding Education Handouts Provided Hemoglobin A1C and Blood Sugar Control Carbohydrate Counting for People with Diabetes (Food Sources of Carbohydrates) Barriers to Learning No Barriers RD phone number provided Yes Patient aware of follow up options Yes Goal #1 Improved BS control Goal #2 Adherence to CHO-controlled diet Anticipated Discharge Needs: CHO-controlled diet Revisit per MD consult or patient Sign Off request:
[2019-06-13] MEDS: LANTUS SUB-Q SCH (22:35)
[2019-06-14] MEDS: HumuLIN R SUB-Q SCH ×4 (08:00→22:51)
--- NOTE | 2019-06-14 09:25 | Progress Note ---
Assessment and Plan - Patient Problems (1) Acute kidney injury (PEYTON) with acute tubular necrosis (ATN) Current Visit: Yes Status: Acute Plan to address problem: acute kidney injury 2/2 ATN Markedly elevated Vancomycin trough : 67!!!! Possible vancomycin associated ATN baseline creatinine : 0.9mg/dl appears non oliguric per report Currently has vascular catheter Renal function is improving creatinine trend 6.7--6.8--6.5--5.9--5.8 appears slightly dry Discussed with nursing staff need for strict input and output Will start IV fluids. No indication for dialysis today increase fluid intake. We'll continue to monitor renal function closely. (2) Abscess Current Visit: Yes Status: Acute Plan to address problem: Abdominal wall abscess completed Linezolid . has wound vac. (3) Diabetes mellitus type 1, uncontrolled Current Visit: Yes Status: Acute Plan to address problem: DM type I uncontrolled. Ensure medications monitor fingerstick. (4) Anemia Current Visit: Yes Status: Acute Qualifiers: Other causes of anemia: chronic disease, other Plan to address problem: Moderate anemia : Hb: 8.6g/dl received 10,000 units of Epogen monitor CBC. Subjective Principal diagnosis: abdominal wall abscess Interval history: 34 year old with medical history signficant for Morbid obesity , necrotizing fascitis , Acute kidney injury seen today Patient reports good urine output Still has a temporary vas cath Discussed need for Strict input and output dry extremities. Denies any fever or chills no shortness of breath. Objective - Vital Signs Vital signs: Vital Signs - 12hr 06/13/19 06/14/19 06/14/19 21:45 04:15 05:16 Temperature 98.2 F 97.9 F Pulse Rate 56 L 49 L Respiratory 24 20 Rate Respiratory 20 Rate [abd] Blood Pressure 124/76 124/62 O2 Sat by Pulse 97 95 Oximetry - General Appearance General appearance: well-developed, well-nourished EENT: ATNC, PERRL, mucous membranes moist Neck: no JVD Respiratory: Present: Clear to Ascultation Cardiology: regular, S1S2 Gastrointestinal: normal, normoactive bowel sounds Integumentary: no rash Neurologic: alert and oriented x3, CN 3-12 intact Psychiatric: mood/affect appropriate - Lab 06/09/19 05:49 06/14/19 06:30 Most recent lab results Calcium 9.0 mg/dL (8.4-10.2) 06/14/19 06:30 48.8 mg/dL (0.1-20.0) H 06/03/19 18:44 74 mmol/L 06/03/19 18:44 - Imaging Chest x-ray: image reviewed (I reviewed CXR without overt edema. ) Medications & Allergies - Medications Allergies/Adverse Reactions: Allergies No Known Allergies Allergy (Verified 05/27/19 22:21) Home Medications: Home Medications Medication Instructions Recorded Confirmed Last Taken Type No Known Home Medications [No 05/28/19 05/28/19 Unknown History Reported Home Medications] Active Medications: Generic Name Dose Route Start Last Admin Trade Name Freq PRN Reason Stop Dose Admin Acetaminophen 650 mg 05/28/19 02:10 Tylenol PO Q4H PRN Fever >101 Dextrose 50 ml 05/28/19 02:13 06/03/19 08:48 D50w (25gm) Syringe IV 50 ml PRN PRN Administration Hypoglycemia Heparin Sodium (Porcine) 5,000 unit 05/28/19 10:00 06/13/19 22:18 Heparin SUB-Q 5,000 unit Q12HR LIBERTAD Administration Hydromorphone HCl 0.5 mg 06/10/19 10:44 06/13/19 13:11 Dilaudid IV 0.5 mg ONCE PRN Administration Pain , Severe (7-10) Sodium Chloride 100 mls @ 999 mls/hr 06/08/19 09:02 Nacl 0.9% IV DANG PRN Hypotension Sodium Chloride 1,000 mls @ 125 mls/hr 06/14/19 10:00 Nacl 0.9% 1000 Ml IV DIRECT [facility] Insulin Glargine 10 units 05/29/19 22:00 06/13/19 22:35 Lantus SUB-Q Not Given QHS [facility] Insulin Human Regular 0 units 05/28/19 07:30 06/13/19 17:54 Humulin R SUB-Q Not Given AC [facility] Protocol Insulin Human Regular 0 units 05/28/19 22:00 06/13/19 22:26 [facility] Protocol Morphine Sulfate 2 mg 05/28/19 02:09 06/08/19 21:29 Morphine IV 2 mg Q3H PRN Administration Pain , Severe (7-10) Ondansetron HCl 4 mg 06/04/19 22:23 06/12/19 22:33 Zofran IV 4 mg Q4H PRN Administration Nausea And Vomiting Oxycodone/Acetaminophen 2 tab 05/28/19 16:20 06/13/19 15:22 Percocet 5/325 PO 2 tab Q4H PRN Administration Pain, Moderate (4-6) Simethicone 80 mg 06/01/19 09:11 06/05/19 04:28 Mylicon PO 80 mg Q6H PRN Administration Gas pain
[2019-06-14] MEDS: NACL 0.9% 1000 ML 1,000 ML IV SCH ×2 (10:48→21:10)
[2019-06-14] MEDS: HEPARIN SUB-Q SCH ×2 (10:48→21:10)
--- NOTE | 2019-06-14 14:31 | Progress Note ---
Assessment and Plan Assessment and plan: Patient is a 34-year-old the male who has been admitted here with abdominal abscess, underwent surgical evacuation, has also been treated for sepsis. His baseline creatinine was 0.9 upon admission which increased to 8.4 . He was diagnosed with acute kidney injury due to ATN due to contrast nephropathy, vancomycin toxicity, Sepsis. His renal function continued to worsen so was started on dialysis 06/04 and is still on dialysis. he is very upset that he cannot go home and is verbally abusive to staff including Doctors. PEYTON due to ATN, multifactorial :contrast nephropathy, vancomycin toxicity, seps is and possible baseline CKD. Creatinine continued to worsen, so started on dialysis . Vancomycin was discontinued on 05/24/2019. Continues to monitor through Renal function showing some improvement Nephrology following. Discussed with Nephrology. Dr. Schumacher recommended vasc cath, placed 06/04 started hemodialysis 06/04. HD held and monitoring for renal improvement strict I/O- dw nursing Abdominal wall necrotizing fasciitis/abscess. Patient is status post excisional debridement 05/28/19. Surgery following. Patient with further debridement of abdominal wall on 05/31/19 that revealed multiple abscess cavities along lateral left abdominal wall with copious amount of purulent drainage and necrotic subcutaneous tissue. Wound vac to abdomen. Zyvox completed 06/11 Sepsis. Etiology secondary to above. Blood cultures negative. Antibiotics per ID. completed last dose of Zyvox 06/11 Hyperkalemia Now resolved after Insulin, Dextrose, kayexalate, calcium gluconate. Started hemodialysis 06/04 Diabetes mellitus type 2. Continue Lantus insulin 70/30 insulin. Accu-Cheks and sliding scale insulin Morbid obesity. Disposition. Patient still has PEYTON, awaiting to see if renal recovery without dialysis and also outpatient management of patients wound prior to discharge History Interval history: Patient seen and examined resting comfortable with no new complaints. Sitting up Hospitalist Physical - Physical exam Narrative exam: Gen: Not in acute distress,Lying in bed, morbidly obese HEENT: Normocephalic, atraumatic Neck: supple, no JVD Heart: S1 and S2 reg, no murmurs, rubs or gallop Lungs: Clear, no crackles or wheeze Abd: soft, non tender, non distended, normal BS, wound vac to abdomen Ext: No edema, no clubbing, no cyanosis Neuro:awake,alert, Oriented X 3. No focal neuro signs - Constitutional Vitals: Temp Pulse Resp BP Pulse Ox 97.9 F 49 L 20 124/62 95 06/14/19 05:16 06/14/19 05:16 06/14/19 05:16 06/14/19 05:16 06/14/19 05:16 General appearance: Present: no acute distress Results - Labs CBC & Chem 7: 06/09/19 05:49 06/14/19 06:30 Labs: Laboratory Last Values WBC 6.1 K/mm3 (4.5-11.0) 06/09/19 05:49 RBC 2.83 M/mm3 (3.65-5.03) L 06/09/19 05:49 Hgb 8.6 gm/dl (11.8-15.2) L 06/09/19 05:49 Hct 25.4 % (35.5-45.6) L 06/09/19 05:49 MCV 90 fl (84-94) 06/09/19 05:49 MCH 30 pg (28-32) 06/09/19 05:49 MCHC 34 % (32-34) 06/09/19 05:49 RDW 15.2 % (13.2-15.2) 06/09/19 05:49 Plt Count 322 K/mm3 (140-440) 06/09/19 05:49 Lymph % (Auto) 18.8 % (13.4-35.0) 06/04/19 05:43 [place] % (Auto) 9.8 % (0.0-7.3) H 06/04/19 05:43 Eos % (Auto) 1.3 % (0.0-4.3) 06/04/19 05:43 Baso % (Auto) 0.2 % (0.0-1.8) 06/04/19 05:43 Lymph # 1.4 K/mm3 (1.2-5.4) 06/04/19 05:43 [place] # 0.7 K/mm3 (0.0-0.8) 06/04/19 05:43 Eos # 0.1 K/mm3 (0.0-0.4) 06/04/19 05:43 Baso # 0.0 K/mm3 (0.0-0.1) 06/04/19 05:43 Add Manual Diff Complete 05/29/19 05:24 Total Counted 100 05/29/19 05:24 Seg Neutrophils % 69.9 % (40.0-70.0) 06/04/19 05:43 Seg Neuts % (Manual) 73.0 % (40.0-70.0) H 05/29/19 05:24 0 % 05/29/19 05:24 15.0 % (13.4-35.0) 05/29/19 05:24 Reactive Lymphs % (Man) 1.0 % 05/29/19 05:24 10.0 % (0.0-7.3) H 05/29/19 05:24 1.0 % (0.0-4.3) 05/29/19 05:24 0 % (0.0-1.8) 05/29/19 05:24 0 % 05/29/19 05:24 0 % 05/29/19 05:24 0 % 05/29/19 05:24 0 % 05/29/19 05:24 Nucleated RBC % Not Reportable 05/29/19 05:24 Seg Neutrophils # 5.0 K/mm3 (1.8-7.7) 06/04/19 05:43 Seg Neutrophils # Man 6.0 K/mm3 (1.8-7.7) 05/29/19 05:24 Band Neutrophils # 0.0 K/mm3 05/29/19 05:24 1.2 K/mm3 (1.2-5.4) 05/29/19 05:24 Abs React Lymphs (Man) 0.1 K/mm3 05/29/19 05:24 0.8 K/mm3 (0.0-0.8) 05/29/19 05:24 0.1 K/mm3 (0.0-0.4) 05/29/19 05:24 0.0 K/mm3 (0.0-0.1) 05/29/19 05:24 0.0 K/mm3 05/29/19 05:24 0.0 K/mm3 05/29/19 05:24 0.0 K/mm3 05/29/19 05:24 Blast Cells # 0.0 K/mm3 05/29/19 05:24 WBC Morphology Not Reportable 05/29/19 05:24 Hypersegmented Neuts Not Reportable 05/29/19 05:24 Hyposegmented Neuts Not Reportable 05/29/19 05:24 Hypogranular Neuts Not Reportable 05/29/19 05:24 Not Reportable 05/29/19 05:24 Not Reportable 05/29/19 05:24 Not Reportable 05/29/19 05:24 Not Reportable 05/29/19 05:24 Not Reportable 05/29/19 05:24 Not Reportable 05/29/19 05:24 Consistent w auto 05/29/19 05:24 Not Reportable 05/29/19 05:24 Plt Clumps, EDTA Not Reportable 05/29/19 05:24 Not Reportable 05/29/19 05:24 Not Reportable 05/29/19 05:24 Not Reportable 05/29/19 05:24 Plt Morphology Comment Not Reportable 05/29/19 05:24 RBC Morphology Not Reportable 05/29/19 05:24 Dimorphic RBCs Not Reportable 05/29/19 05:24 Not Reportable 05/29/19 05:24 Not Reportable 05/29/19 05:24 Not Reportable 05/29/19 05:24 1+ 05/29/19 05:24 Not Reportable 05/29/19 05:24 Not Reportable 05/29/19 05:24 Not Reportable 05/29/19 05:24 Not Reportable 05/29/19 05:24 Not Reportable 05/29/19 05:24 Not Reportable 05/29/19 05:24 Not Reportable 05/29/19 05:24 Not Reportable 05/29/19 05:24 Not Reportable 05/29/19 05:24 Not Reportable 05/29/19 05:24 Not Reportable 05/29/19 05:24 Not Reportable 05/29/19 05:24 Not Reportable 05/29/19 05:24 Not Reportable 05/29/19 05:24 Not Reportable 05/29/19 05:24 Acanthocytes (Spur) Not Reportable 05/29/19 05:24 Rouleaux Not Reportable 05/29/19 05:24 Not Reportable 05/29/19 05:24 Not Reportable 05/29/19 05:24 Not Reportable 05/29/19 05:24 Not Reportable 05/29/19 05:24 Hem Pathologist Commnt No 05/29/19 05:24 Sodium 144 mmol/L (137-145) 06/14/19 06:30 Potassium 4.1 mmol/L (3.6-5.0) 06/14/19 06:30 Chloride 103.4 mmol/L (98-107) 06/14/19 06:30 Carbon Dioxide 27 mmol/L (22-30) 06/14/19 06:30 18 mmol/L 06/14/19 06:30 BUN 33 mg/dL (9-20) H 06/14/19 06:30 5.8 mg/dL (0.8-1.5) H 06/14/19 06:30 Estimated GFR 14 ml/min 06/14/19 06:30 6 % 06/14/19 06:30 Glucose 123 mg/dL (75-100) H 06/14/19 06:30 POC Glucose 167 (70-105) H 06/14/19 11:43 17.1 % (4-6) H 05/29/19 05:22 292 Mosm/kg 06/03/19 09:40 Lactic Acid 0.80 mmol/L (0.7-2.0) 05/28/19 00:27 Calcium 9.0 mg/dL (8.4-10.2) 06/14/19 06:30 0.30 mg/dL (0.1-1.2) 05/27/19 21:55 AST 43 units/L (5-40) H 05/27/19 21:55 ALT 48 units/L (7-56) 05/27/19 21:55 163 units/L (35-129) H 05/27/19 21:55 66 units/L (55-170) 06/03/19 09:40 7.9 g/dL (6.3-8.2) 05/27/19 21:55 2.7 g/dL (3.9-5) L 05/27/19 21:55 0.5 % 05/27/19 21:55 Straw (Yellow) 06/03/19 18:44 Clear (Clear) 06/03/19 18:44 5.0 (5.0-7.0) 06/03/19 18:44 Ur Specific [place] 1.005 (1.003-1.030) 06/03/19 18:44 <15 mg/dl mg/dL (Negative) 06/03/19 18:44 Neg mg/dL (Negative) 06/03/19 18:44 Neg mg/dL (Negative) 06/03/19 18:44 Neg (Negative) 06/03/19 18:44 Neg (Negative) 06/03/19 18:44 Neg (Negative) 06/03/19 18:44 < 2.0 mg/dL (<2.0) 06/03/19 18:44 Ur Leukocyte Esterase Neg (Negative) 06/03/19 18:44 5.0 /HPF (0.0-6.0) 06/03/19 18:44 3.0 /HPF (0.0-6.0) 06/03/19 18:44 U Epithel Cells (Auto) < 1.0 /HPF (0-13.0) 06/03/19 18:44 1+ /HPF (Negative) 06/03/19 18:44 None seen (None Seen) 06/03/19 18:44 48.8 mg/dL (0.1-20.0) H 06/03/19 18:44 74 mmol/L 06/03/19 18:44 Vancomycin Trough 67.6 ug/mL (5.0-20.0) H 05/31/19 15:08 204 mg/dL (82-185) H 06/03/19 09:40 40 mg/dL (15-53) 06/03/19 09:40 Hepatitis A IgM Ab Non-reactive (NonReactive) 06/04/19 12:58 Hep Bs Antigen Non-reactive (Negative) 06/04/19 12:58 Hep B Core IgM Ab Non-reactive (NonReactive) 06/04/19 12:58 Non-reactive (NonReactive) 06/04/19 12:58 Active Medications - Current Medications Current Medications: Generic Name Dose Route Start Last Admin Trade Name Freq PRN Reason Stop Dose Admin Acetaminophen 650 mg 05/28/19 02:10 Tylenol PO Q4H PRN Fever >101 Dextrose 50 ml 05/28/19 02:13 06/03/19 08:48 D50w (25gm) Syringe IV 50 ml PRN PRN Administration Hypoglycemia Heparin Sodium (Porcine) 5,000 unit 05/28/19 10:00 06/14/19 10:48 Heparin SUB-Q 5,000 unit Q12HR LIBERTAD Administration Hydromorphone HCl 0.5 mg 06/10/19 10:44 06/13/19 13:11 Dilaudid IV 0.5 mg ONCE PRN Administration Pain , Severe (7-10) Sodium Chloride 100 mls @ 999 mls/hr 06/08/19 09:02 Nacl 0.9% IV DANG PRN Hypotension Sodium Chloride 1,000 mls @ 125 mls/hr 06/14/19 10:00 06/14/19 10:48 Nacl 0.9% 1000 Ml IV 125 mls/hr DIRECT LIBERTAD Administration Insulin Glargine 10 units 05/29/19 22:00 06/13/19 22:35 Lantus SUB-Q Not Given [facility] Insulin Human Regular 0 units 05/28/19 07:30 06/14/19 08:00 Humulin R SUB-Q Not Given [facility] Protocol Insulin Human Regular 0 units 05/28/19 22:00 06/13/19 22:26 Humulin R SUB-Q Not Given [facility] Protocol Morphine Sulfate 2 mg 05/28/19 02:09 06/08/19 21:29 Morphine IV 2 mg Q3H PRN Administration Pain , Severe (7-10) Ondansetron HCl 4 mg 06/04/19 22:23 06/12/19 22:33 Zofran IV 4 mg Q4H PRN Administration Nausea And Vomiting Oxycodone/Acetaminophen 2 tab 05/28/19 16:20 06/13/19 15:22 Percocet 5/325 PO 2 tab Q4H PRN Administration Pain, Moderate (4-6) Simethicone 80 mg 06/01/19 09:11 06/05/19 04:28 Mylicon PO 80 mg Q6H PRN Administration Gas pain Nutrition/Malnutrition Assess - Dietary Evaluation Nutrition/Malnutrition Findings: Nutrition Notes Start: 05/28/19 13:42 Freq: Status: Active Protocol: Document 06/13/19 16:26 RM (Rec: 06/13/19 16:28 RM [id number]) Nutrition Notes Initial or Follow up Brief Note Height 6 ft 1 in Weight 277 kg [place] Body Weight (kg) 83.63 BMI 80.5 Subjective/Other Information Screened for low BMI of 0.1. Current wt recorded as 322g. Corrected wt according to previous wt in record. Nutrition Intervention Revisit per MD consult or patient Sign Off request:
[2019-06-14] MEDS: LANTUS SUB-Q SCH (22:51)
[2019-06-15 07:14] LABS: Calcium 8.7 mg/dL (8.4-10.2)
[2019-06-15] MEDS: HumuLIN R SUB-Q SCH ×4 (08:10→22:57)
[2019-06-15] MEDS: HEPARIN SUB-Q SCH ×2 (09:50→22:52)
--- NOTE | 2019-06-15 09:59 | Progress Note ---
Assessment and Plan Assessment and plan: Patient is a 34-year-old the male who has been admitted here with abdominal abscess, underwent surgical evacuation, has also been treated for sepsis. His baseline creatinine was 0.9 upon admission which increased to 8.4 . He was diagnosed with acute kidney injury due to ATN due to contrast nephropathy, vancomycin toxicity, Sepsis. His renal function continued to worsen so was started on dialysis 06/04 and is still on dialysis. he is very upset that he cannot go home and is verbally abusive to staff including Doctors. PEYTON due to ATN, multifactorial :contrast nephropathy, vancomycin toxicity, seps is and possible baseline CKD. Creatinine continued to worsen, so started on dialysis . Vancomycin was discontinued on 05/24/2019. Continues to monitor through Renal function showing some improvement Nephrology following. Discussed with Nephrology. Dr. Schumacher recommended vasc cath, placed 06/04 started hemodialysis 06/04. HD held and monitoring for renal improvement strict I/O- dw nursing Abdominal wall necrotizing fasciitis/abscess. Patient is status post excisional debridement 05/28/19. Surgery following. Patient with further debridement of abdominal wall on 05/31/19 that revealed multiple abscess cavities along lateral left abdominal wall with copious amount of purulent drainage and necrotic subcutaneous tissue. Wound vac to abdomen. Zyvox completed 06/11 Sepsis. Etiology secondary to above. Blood cultures negative. Antibiotics per ID. completed last dose of Zyvox 06/11 Hyperkalemia Now resolved after Insulin, Dextrose, kayexalate, calcium gluconate. Started hemodialysis 06/04 Diabetes mellitus type 2. Continue Lantus insulin 70/30 insulin. Accu-Cheks and sliding scale insulin Morbid obesity. Disposition. Patient still has PEYTON, awaiting to see if renal recovery without dialysis and also outpatient management of patients wound prior to discharge Creatnine contnues to improve off HD. awaiting Monday to see what resources are available to care for wound and plan discharge History Interval history: Patient seen and examined resting comfortable with no new complaints. Sitting up. SPOUSE TO COME ON MONDAY FOR DISCUSSION ABOUT DISCHARGE PLAN Hospitalist Physical - Physical exam Narrative exam: Gen: Not in acute distress,Lying in bed, morbidly obese HEENT: Normocephalic, atraumatic Neck: supple, no JVD Heart: S1 and S2 reg, no murmurs, rubs or gallop Lungs: Clear, no crackles or wheeze Abd: soft, non tender, non distended, normal BS, wound vac to abdomen Ext: No edema, no clubbing, no cyanosis Neuro:awake,alert, Oriented X 3. No focal neuro signs - Constitutional Vitals: Temp Pulse Resp BP Pulse Ox 98.4 F 62 16 144/86 96 06/15/19 04:45 06/15/19 04:45 06/15/19 04:45 06/15/19 04:45 06/15/19 04:45 General appearance: Present: no acute distress Results - Labs CBC & Chem 7: 06/09/19 05:49 06/15/19 05:08 Labs: Laboratory Last Values WBC 6.1 K/mm3 (4.5-11.0) 06/09/19 05:49 RBC 2.83 M/mm3 (3.65-5.03) L 06/09/19 05:49 Hgb 8.6 gm/dl (11.8-15.2) L 06/09/19 05:49 Hct 25.4 % (35.5-45.6) L 06/09/19 05:49 MCV 90 fl (84-94) 06/09/19 05:49 MCH 30 pg (28-32) 06/09/19 05:49 MCHC 34 % (32-34) 06/09/19 05:49 RDW 15.2 % (13.2-15.2) 06/09/19 05:49 Plt Count 322 K/mm3 (140-440) 06/09/19 05:49 Lymph % (Auto) 18.8 % (13.4-35.0) 06/04/19 05:43 [place] % (Auto) 9.8 % (0.0-7.3) H 06/04/19 05:43 Eos % (Auto) 1.3 % (0.0-4.3) 06/04/19 05:43 Baso % (Auto) 0.2 % (0.0-1.8) 06/04/19 05:43 Lymph # 1.4 K/mm3 (1.2-5.4) 06/04/19 05:43 [place] # 0.7 K/mm3 (0.0-0.8) 06/04/19 05:43 Eos # 0.1 K/mm3 (0.0-0.4) 06/04/19 05:43 Baso # 0.0 K/mm3 (0.0-0.1) 06/04/19 05:43 Add Manual Diff Complete 05/29/19 05:24 Total Counted 100 05/29/19 05:24 Seg Neutrophils % 69.9 % (40.0-70.0) 06/04/19 05:43 Seg Neuts % (Manual) 73.0 % (40.0-70.0) H 05/29/19 05:24 0 % 05/29/19 05:24 15.0 % (13.4-35.0) 05/29/19 05:24 Reactive Lymphs % (Man) 1.0 % 05/29/19 05:24 10.0 % (0.0-7.3) H 05/29/19 05:24 1.0 % (0.0-4.3) 05/29/19 05:24 0 % (0.0-1.8) 05/29/19 05:24 0 % 05/29/19 05:24 0 % 05/29/19 05:24 0 % 05/29/19 05:24 0 % 05/29/19 05:24 Nucleated RBC % Not Reportable 05/29/19 05:24 Seg Neutrophils # 5.0 K/mm3 (1.8-7.7) 06/04/19 05:43 Seg Neutrophils # Man 6.0 K/mm3 (1.8-7.7) 05/29/19 05:24 Band Neutrophils # 0.0 K/mm3 05/29/19 05:24 1.2 K/mm3 (1.2-5.4) 05/29/19 05:24 Abs React Lymphs (Man) 0.1 K/mm3 05/29/19 05:24 0.8 K/mm3 (0.0-0.8) 05/29/19 05:24 0.1 K/mm3 (0.0-0.4) 05/29/19 05:24 0.0 K/mm3 (0.0-0.1) 05/29/19 05:24 0.0 K/mm3 05/29/19 05:24 0.0 K/mm3 05/29/19 05:24 0.0 K/mm3 05/29/19 05:24 Blast Cells # 0.0 K/mm3 05/29/19 05:24 WBC Morphology Not Reportable 05/29/19 05:24 Hypersegmented Neuts Not Reportable 05/29/19 05:24 Hyposegmented Neuts Not Reportable 05/29/19 05:24 Hypogranular Neuts Not Reportable 05/29/19 05:24 Not Reportable 05/29/19 05:24 Not Reportable 05/29/19 05:24 Not Reportable 05/29/19 05:24 Not Reportable 05/29/19 05:24 Not Reportable 05/29/19 05:24 Not Reportable 05/29/19 05:24 Consistent w auto 05/29/19 05:24 Not Reportable 05/29/19 05:24 Plt Clumps, EDTA Not Reportable 05/29/19 05:24 Not Reportable 05/29/19 05:24 Not Reportable 05/29/19 05:24 Not Reportable 05/29/19 05:24 Plt Morphology Comment Not Reportable 05/29/19 05:24 RBC Morphology Not Reportable 05/29/19 05:24 Dimorphic RBCs Not Reportable 05/29/19 05:24 Not Reportable 05/29/19 05:24 Not Reportable 05/29/19 05:24 Not Reportable 05/29/19 05:24 1+ 05/29/19 05:24 Not Reportable 05/29/19 05:24 Not Reportable 05/29/19 05:24 Not Reportable 05/29/19 05:24 Not Reportable 05/29/19 05:24 Not Reportable 05/29/19 05:24 Not Reportable 05/29/19 05:24 Not Reportable 05/29/19 05:24 Not Reportable 05/29/19 05:24 Not Reportable 05/29/19 05:24 Not Reportable 05/29/19 05:24 Not Reportable 05/29/19 05:24 Not Reportable 05/29/19 05:24 Not Reportable 05/29/19 05:24 Not Reportable 05/29/19 05:24 Not Reportable 05/29/19 05:24 Acanthocytes (Spur) Not Reportable 05/29/19 05:24 Rouleaux Not Reportable 05/29/19 05:24 Not Reportable 05/29/19 05:24 Not Reportable 05/29/19 05:24 Not Reportable 05/29/19 05:24 Not Reportable 05/29/19 05:24 Hem Pathologist Commnt No 05/29/19 05:24 Sodium 145 mmol/L (137-145) 06/15/19 05:08 Potassium 4.0 mmol/L (3.6-5.0) 06/15/19 05:08 Chloride 105.0 mmol/L (98-107) 06/15/19 05:08 Carbon Dioxide 25 mmol/L (22-30) 06/15/19 05:08 19 mmol/L 06/15/19 05:08 BUN 32 mg/dL (9-20) H 06/15/19 05:08 5.1 mg/dL (0.8-1.5) H 06/15/19 05:08 Estimated GFR 16 ml/min 06/15/19 05:08 6 % 06/15/19 05:08 Glucose 104 mg/dL (75-100) H 06/15/19 05:08 POC Glucose 107 (70-105) H 06/15/19 08:08 17.1 % (4-6) H 05/29/19 05:22 292 Mosm/kg 06/03/19 09:40 Lactic Acid 0.80 mmol/L (0.7-2.0) 05/28/19 00:27 Calcium 8.7 mg/dL (8.4-10.2) 06/15/19 05:08 0.30 mg/dL (0.1-1.2) 05/27/19 21:55 AST 43 units/L (5-40) H 05/27/19 21:55 ALT 48 units/L (7-56) 05/27/19 21:55 163 units/L (35-129) H 05/27/19 21:55 66 units/L (55-170) 06/03/19 09:40 7.9 g/dL (6.3-8.2) 05/27/19 21:55 2.7 g/dL (3.9-5) L 05/27/19 21:55 0.5 % 05/27/19 21:55 Straw (Yellow) 06/03/19 18:44 Clear (Clear) 06/03/19 18:44 5.0 (5.0-7.0) 06/03/19 18:44 Ur Specific [place] 1.005 (1.003-1.030) 06/03/19 18:44 <15 mg/dl mg/dL (Negative) 06/03/19 18:44 Neg mg/dL (Negative) 06/03/19 18:44 Neg mg/dL (Negative) 06/03/19 18:44 Neg (Negative) 06/03/19 18:44 Neg (Negative) 06/03/19 18:44 Neg (Negative) 06/03/19 18:44 < 2.0 mg/dL (<2.0) 06/03/19 18:44 Ur Leukocyte Esterase Neg (Negative) 06/03/19 18:44 5.0 /HPF (0.0-6.0) 06/03/19 18:44 3.0 /HPF (0.0-6.0) 06/03/19 18:44 U Epithel Cells (Auto) < 1.0 /HPF (0-13.0) 06/03/19 18:44 1+ /HPF (Negative) 06/03/19 18:44 None seen (None Seen) 06/03/19 18:44 48.8 mg/dL (0.1-20.0) H 06/03/19 18:44 74 mmol/L 06/03/19 18:44 Vancomycin Trough 67.6 ug/mL (5.0-20.0) H 05/31/19 15:08 204 mg/dL (82-185) H 06/03/19 09:40 40 mg/dL (15-53) 06/03/19 09:40 Hepatitis A IgM Ab Non-reactive (NonReactive) 06/04/19 12:58 Hep Bs Antigen Non-reactive (Negative) 06/04/19 12:58 Hep B Core IgM Ab Non-reactive (NonReactive) 06/04/19 12:58 Non-reactive (NonReactive) 06/04/19 12:58 Active Medications - Current Medications Current Medications: Generic Name Dose Route Start Last Admin Trade Name Freq PRN Reason Stop Dose Admin Acetaminophen 650 mg 05/28/19 02:10 Tylenol PO Q4H PRN Fever >101 Dextrose 50 ml 05/28/19 02:13 06/03/19 08:48 D50w (25gm) Syringe IV 50 ml PRN PRN Administration Hypoglycemia Heparin Sodium (Porcine) 5,000 unit 05/28/19 10:00 06/15/19 09:50 Heparin SUB-Q 5,000 unit Q12HR LIBERTAD Administration Hydromorphone HCl 0.5 mg 06/10/19 10:44 06/13/19 13:11 Dilaudid IV 0.5 mg ONCE PRN Administration Pain , Severe (7-10) Sodium Chloride 100 mls @ 999 mls/hr 06/08/19 09:02 Nacl 0.9% IV DANG PRN Hypotension Sodium Chloride 1,000 mls @ 125 mls/hr 06/14/19 10:00 06/14/19 21:10 Nacl 0.9% 1000 Ml IV 125 mls/hr DIRECT LIBERTAD Administration Insulin Glargine 10 units 05/29/19 22:00 06/14/19 22:51 [facility] Insulin Human Regular 0 units 05/28/19 07:30 06/15/19 08:10 Humulin R SUB-Q Not Given [facility] Protocol Insulin Human Regular 0 units 05/28/19 22:00 06/14/19 22:51 Humulin R SUB-Q Not [facility] Protocol Morphine Sulfate 2 mg 05/28/19 02:09 06/08/19 21:29 Morphine IV 2 mg Q3H PRN Administration Pain , Severe (7-10) Ondansetron HCl 4 mg 06/04/19 22:23 06/12/19 22:33 Zofran IV 4 mg Q4H PRN Administration Nausea And Vomiting Oxycodone/Acetaminophen 2 tab 05/28/19 16:20 06/13/19 15:22 Percocet 5/325 PO 2 tab Q4H PRN Administration Pain, Moderate (4-6) Simethicone 80 mg 06/01/19 09:11 06/05/19 04:28 Mylicon PO 80 mg Q6H PRN Administration Gas pain Nutrition/Malnutrition Assess - Dietary Evaluation Nutrition/Malnutrition Findings: Nutrition Notes Start: 05/28/19 13:42 Freq: Status: Active Protocol: Document 06/13/19 16:26 RM (Rec: 06/13/19 16:28 RM [id number]) Nutrition Notes Initial or Follow up Brief Note Height 6 ft 1 in Weight 277 kg [place] Body Weight (kg) 83.63 BMI 80.5 Subjective/Other Information Screened for low BMI of 0.1. Current wt recorded as 322g. Corrected wt according to previous wt in record. Nutrition Intervention Revisit per MD consult or patient Sign Off request:
--- NOTE | 2019-06-15 10:21 | Progress Note ---
Assessment and Plan Impression * Acute kidney injury * Abdominal wall abscess * Obesity * Diabetes * Hyperkalemia Recommendations * Etiology of his acute kidney injury most likely ATN. Most likely secondary to contrast nephropathy, sepsis and vancomycin toxicity * some evidence of renal recovery at this time. * Patient is currently with a Vas-Cath. * hold hd for now, follow up 24hr crcl * Wound care and antibiotic as per infectious disease/surgical services * Patient is not ready for discharge from renal standpoint * Reassess need for next dialysis next Monday or Monday Subjective Date of service: 06/15/19 Principal diagnosis: abdominal wall abscess Interval history: resting well in bed today Objective - Exam Narrative Exam: General appearance: well-developed, well-nourished, appears stated age EENT: PERRL, mucous membranes moist Neck: no JVD, no thyromegaly, no carotid bruit, supple, other (right IJ Vas-Cath in place) Respiratory: Present: Clear to Ascultation Cardiology: regular, normal heart rate, S1S2, no murmurs Gastrointestinal: normoactive bowel sounds, other (wound VAC in his left abdominal wall) Integumentary: other (1+ edema) - Vital Signs Vital signs: Vital Signs - 12hr 06/15/19 04:45 Temperature 98.4 F Pulse Rate 62 Respiratory 16 Rate Blood Pressure 144/86 O2 Sat by Pulse 96 Oximetry - Lab 06/09/19 05:49 06/15/19 05:08 Most recent lab results Calcium 8.7 mg/dL (8.4-10.2) 06/15/19 05:08 48.8 mg/dL (0.1-20.0) H 06/03/19 18:44 74 mmol/L 06/03/19 18:44 Medications & Allergies - Medications Allergies/Adverse Reactions: Allergies No Known Allergies Allergy (Verified 05/27/19 22:21) Home Medications: Home Medications Medication Instructions Recorded Confirmed Last Taken Type No Known Home Medications [No 05/28/19 05/28/19 Unknown History Reported Home Medications] Active Medications: Generic Name Dose Route Start Last Admin Trade Name Freq PRN Reason Stop Dose Admin Acetaminophen 650 mg 05/28/19 02:10 Tylenol PO Q4H PRN Fever >101 Dextrose 50 ml 05/28/19 02:13 06/03/19 08:48 D50w (25gm) Syringe IV 50 ml PRN PRN Administration Hypoglycemia Heparin Sodium (Porcine) 5,000 unit 05/28/19 10:00 06/15/19 09:50 Heparin SUB-Q 5,000 unit Q12HR LIBERTAD Administration Hydromorphone HCl 0.5 mg 06/10/19 10:44 06/13/19 13:11 Dilaudid IV 0.5 mg ONCE PRN Administration Pain , Severe (7-10) Sodium Chloride 100 mls @ 999 mls/hr 06/08/19 09:02 Nacl 0.9% IV DANG PRN Hypotension Sodium Chloride 1,000 mls @ 125 mls/hr 06/14/19 10:00 06/14/19 21:10 Nacl 0.9% 1000 Ml IV 125 mls/hr DIRECT LIBERTAD Administration Insulin Glargine 10 units 05/29/19 22:00 06/14/19 22:51 [facility] Human Regular 0 units 05/28/19 07:30 06/15/19 08:10 Humulin R SUB-Q Not Given [facility] Protocol Insulin Human Regular 0 units 05/28/19 22:00 06/14/19 22:51 [facility]ulin R [facility]Q [facility] Protocol Morphine Sulfate 2 mg 05/28/19 02:09 06/08/19 21:29 Morphine IV 2 mg Q3H PRN Administration Pain , Severe (7-10) Ondansetron HCl 4 mg 06/04/19 22:23 06/12/19 22:33 Zofran IV 4 mg Q4H PRN Administration Nausea And Vomiting Oxycodone/Acetaminophen 2 tab 05/28/19 16:20 06/13/19 15:22 Percocet 5/325 PO 2 tab Q4H PRN Administration Pain, Moderate (4-6) Simethicone 80 mg 06/01/19 09:11 06/05/19 04:28 Mylicon PO 80 mg Q6H PRN Administration Gas pain
[2019-06-15 17:26] LABS: Creatinine Clearance Urine TNR; Creatinine,Urine TNR mg/dL (0.1-20.0); Patient Height,Urine TNR inches; Patient Weight,Urine TNR lbs; Total Volume,Urine TNR ml
[2019-06-15] MEDS: ZOFRAN IV PRN (20:28)
[2019-06-15] MEDS: LANTUS SUB-Q SCH (22:52)
[2019-06-16] MEDS: NACL 0.9% 1000 ML 1,000 ML IV SCH ×3 (00:26→15:51)
[2019-06-16 06:59] LABS: Calcium 8.8 mg/dL (8.4-10.2)
[2019-06-16] MEDS: HumuLIN R SUB-Q SCH ×4 (09:15→23:05)
[2019-06-16] MEDS: HEPARIN SUB-Q SCH ×2 (09:17→21:30)
--- NOTE | 2019-06-16 10:17 | Progress Note ---
Assessment and Plan Assessment and plan: Patient is a 34-year-old the male who has been admitted here with abdominal abscess, underwent surgical evacuation, has also been treated for sepsis. His baseline creatinine was 0.9 upon admission which increased to 8.4 . He was diagnosed with acute kidney injury due to ATN due to contrast nephropathy, vancomycin toxicity, Sepsis. His renal function continued to worsen so was started on dialysis 06/04 and is still on dialysis. he is very upset that he cannot go home and is verbally abusive to staff including Doctors. PEYTON due to ATN, multifactorial :contrast nephropathy, vancomycin toxicity, seps is and possible baseline CKD. Creatinine continued to worsen, so started on dialysis . Vancomycin was discontinued on 05/24/2019. Continues to monitor through Renal function showing some improvement Nephrology following. Discussed with Nephrology. Dr. Schumacher recommended vasc cath, placed 06/04 started hemodialysis 06/04. HD held and monitoring for renal improvement strict I/O- dw nursing Abdominal wall necrotizing fasciitis/abscess. Patient is status post excisional debridement 05/28/19. Surgery following. Patient with further debridement of abdominal wall on 05/31/19 that revealed multiple abscess cavities along lateral left abdominal wall with copious amount of purulent drainage and necrotic subcutaneous tissue. Wound vac to abdomen. Zyvox completed 06/11 Sepsis. Etiology secondary to above. Blood cultures negative. Antibiotics per ID. completed last dose of Zyvox 06/11 Hyperkalemia Now resolved after Insulin, Dextrose, kayexalate, calcium gluconate. Started hemodialysis 06/04 Diabetes mellitus type 2. Continue Lantus insulin 70/30 insulin. Accu-Cheks and sliding scale insulin Morbid obesity. Disposition. Patient still has PEYTON, but recovering without dialysis, awaiting for outpatient management of patients wound prior to discharge Creativy gilnues to improve off HD. awaiting Monday to see what resources are available to care for wound and plan discharge History Interval history: Patient seen and examined resting comfortable with no new complaints. laying down today. SPOUSE TO COME ON MONDAY FOR DISCUSSION ABOUT DISCHARGE PLAN Hospitalist Physical - Physical exam Narrative exam: Gen: Not in acute distress,Lying in bed, morbidly obese HEENT: Normocephalic, atraumatic Neck: supple, no JVD Heart: S1 and S2 reg, no murmurs, rubs or gallop Lungs: Clear, no crackles or wheeze Abd: soft, non tender, non distended, normal BS, wound vac to abdomen Ext: No edema, no clubbing, no cyanosis Neuro:awake,alert, Oriented X 3. No focal neuro signs - Constitutional Vitals: Temp Pulse Resp BP Pulse Ox 97.8 F 50 L 16 108/53 96 06/16/19 05:42 06/16/19 05:42 06/16/19 05:42 06/16/19 05:42 06/16/19 05:42 General appearance: Present: no acute distress Results - Labs CBC & Chem 7: 06/09/19 05:49 06/16/19 05:27 Labs: Laboratory Last Values WBC 6.1 K/mm3 (4.5-11.0) 06/09/19 05:49 RBC 2.83 M/mm3 (3.65-5.03) L 06/09/19 05:49 Hgb 8.6 gm/dl (11.8-15.2) L 06/09/19 05:49 Hct 25.4 % (35.5-45.6) L 06/09/19 05:49 MCV 90 fl (84-94) 06/09/19 05:49 MCH 30 pg (28-32) 06/09/19 05:49 MCHC 34 % (32-34) 06/09/19 05:49 RDW 15.2 % (13.2-15.2) 06/09/19 05:49 Plt Count 322 K/mm3 (140-440) 06/09/19 05:49 Lymph % (Auto) 18.8 % (13.4-35.0) 06/04/19 05:43 [place] % (Auto) 9.8 % (0.0-7.3) H 06/04/19 05:43 Eos % (Auto) 1.3 % (0.0-4.3) 06/04/19 05:43 Baso % (Auto) 0.2 % (0.0-1.8) 06/04/19 05:43 Lymph # 1.4 K/mm3 (1.2-5.4) 06/04/19 05:43 [place] # 0.7 K/mm3 (0.0-0.8) 06/04/19 05:43 Eos # 0.1 K/mm3 (0.0-0.4) 06/04/19 05:43 Baso # 0.0 K/mm3 (0.0-0.1) 06/04/19 05:43 Add Manual Diff Complete 05/29/19 05:24 Total Counted 100 05/29/19 05:24 Seg Neutrophils % 69.9 % (40.0-70.0) 06/04/19 05:43 Seg Neuts % (Manual) 73.0 % (40.0-70.0) H 05/29/19 05:24 0 % 05/29/19 05:24 15.0 % (13.4-35.0) 05/29/19 05:24 Reactive Lymphs % (Man) 1.0 % 05/29/19 05:24 10.0 % (0.0-7.3) H 05/29/19 05:24 1.0 % (0.0-4.3) 05/29/19 05:24 0 % (0.0-1.8) 05/29/19 05:24 0 % 05/29/19 05:24 0 % 05/29/19 05:24 0 % 05/29/19 05:24 0 % 05/29/19 05:24 Nucleated RBC % Not Reportable 05/29/19 05:24 Seg Neutrophils # 5.0 K/mm3 (1.8-7.7) 06/04/19 05:43 Seg Neutrophils # Man 6.0 K/mm3 (1.8-7.7) 05/29/19 05:24 Band Neutrophils # 0.0 K/mm3 05/29/19 05:24 1.2 K/mm3 (1.2-5.4) 05/29/19 05:24 Abs React Lymphs (Man) 0.1 K/mm3 05/29/19 05:24 0.8 K/mm3 (0.0-0.8) 05/29/19 05:24 0.1 K/mm3 (0.0-0.4) 05/29/19 05:24 0.0 K/mm3 (0.0-0.1) 05/29/19 05:24 0.0 K/mm3 05/29/19 05:24 0.0 K/mm3 05/29/19 05:24 0.0 K/mm3 05/29/19 05:24 Blast Cells # 0.0 K/mm3 05/29/19 05:24 WBC Morphology Not Reportable 05/29/19 05:24 Hypersegmented Neuts Not Reportable 05/29/19 05:24 Hyposegmented Neuts Not Reportable 05/29/19 05:24 Hypogranular Neuts Not Reportable 05/29/19 05:24 Not Reportable 05/29/19 05:24 Not Reportable 05/29/19 05:24 Not Reportable 05/29/19 05:24 Not Reportable 05/29/19 05:24 Not Reportable 05/29/19 05:24 Not Reportable 05/29/19 05:24 Consistent w auto 05/29/19 05:24 Not Reportable 05/29/19 05:24 Plt Clumps, EDTA Not Reportable 05/29/19 05:24 Not Reportable 05/29/19 05:24 Not Reportable 05/29/19 05:24 Not Reportable 05/29/19 05:24 Plt Morphology Comment Not Reportable 05/29/19 05:24 RBC Morphology Not Reportable 05/29/19 05:24 Dimorphic RBCs Not Reportable 05/29/19 05:24 Not Reportable 05/29/19 05:24 Not Reportable 05/29/19 05:24 Not Reportable 05/29/19 05:24 1+ 05/29/19 05:24 Not Reportable 05/29/19 05:24 Not Reportable 05/29/19 05:24 Not Reportable 05/29/19 05:24 Not Reportable 05/29/19 05:24 Not Reportable 05/29/19 05:24 Not Reportable 05/29/19 05:24 Not Reportable 05/29/19 05:24 Not Reportable 05/29/19 05:24 Not Reportable 05/29/19 05:24 Not Reportable 05/29/19 05:24 Not Reportable 05/29/19 05:24 Not Reportable 05/29/19 05:24 Not Reportable 05/29/19 05:24 Not Reportable 05/29/19 05:24 Not Reportable 05/29/19 05:24 Acanthocytes (Spur) Not Reportable 05/29/19 05:24 Rouleaux Not Reportable 05/29/19 05:24 Not Reportable 05/29/19 05:24 Not Reportable 05/29/19 05:24 Not Reportable 05/29/19 05:24 Not Reportable 05/29/19 05:24 Hem Pathologist Commnt No 05/29/19 05:24 Sodium 142 mmol/L (137-145) 06/16/19 05:27 Potassium 4.1 mmol/L (3.6-5.0) 06/16/19 05:27 Chloride 104.7 mmol/L (98-107) 06/16/19 05:27 Carbon Dioxide 22 mmol/L (22-30) 06/16/19 05:27 19 mmol/L 06/16/19 05:27 BUN 31 mg/dL (9-20) H 06/16/19 05:27 4.6 mg/dL (0.8-1.5) H 06/16/19 05:27 Estimated GFR 18 ml/min 06/16/19 05:27 7 % 06/16/19 05:27 Glucose 105 mg/dL (75-100) H 06/16/19 05:27 POC Glucose 103 (70-105) 06/16/19 07:53 17.1 % (4-6) H 05/29/19 05:22 292 Mosm/kg 06/03/19 09:40 Lactic Acid 0.80 mmol/L (0.7-2.0) 05/28/19 00:27 Calcium 8.8 mg/dL (8.4-10.2) 06/16/19 05:27 0.30 mg/dL (0.1-1.2) 05/27/19 21:55 AST 43 units/L (5-40) H 05/27/19 21:55 ALT 48 units/L (7-56) 05/27/19 21:55 163 units/L (35-129) H 05/27/19 21:55 66 units/L (55-170) 06/03/19 09:40 7.9 g/dL (6.3-8.2) 05/27/19 21:55 2.7 g/dL (3.9-5) L 05/27/19 21:55 0.5 % 05/27/19 21:55 Straw (Yellow) 06/03/19 18:44 Clear (Clear) 06/03/19 18:44 5.0 (5.0-7.0) 06/03/19 18:44 Ur Specific [place] 1.005 (1.003-1.030) 06/03/19 18:44 <15 mg/dl mg/dL (Negative) 06/03/19 18:44 Neg mg/dL (Negative) 06/03/19 18:44 Neg mg/dL (Negative) 06/03/19 18:44 Neg (Negative) 06/03/19 18:44 Neg (Negative) 06/03/19 18:44 Neg (Negative) 06/03/19 18:44 < 2.0 mg/dL (<2.0) 06/03/19 18:44 Ur Leukocyte Esterase Neg (Negative) 06/03/19 18:44 5.0 /HPF (0.0-6.0) 06/03/19 18:44 3.0 /HPF (0.0-6.0) 06/03/19 18:44 U Epithel Cells (Auto) < 1.0 /HPF (0-13.0) 06/03/19 18:44 1+ /HPF (Negative) 06/03/19 18:44 None seen (None Seen) 06/03/19 18:44 TNR 06/15/19 16:00 TNR 06/15/19 16:00 Height (in) TNR 06/15/19 16:00 Weight (lb) TNR 06/15/19 16:00 TNR 06/15/19 16:00 74 mmol/L 06/03/19 18:44 Vancomycin Trough 67.6 ug/mL (5.0-20.0) H 05/31/19 15:08 204 mg/dL (82-185) H 06/03/19 09:40 40 mg/dL (15-53) 06/03/19 09:40 Hepatitis A IgM Ab Non-reactive (NonReactive) 06/04/19 12:58 Hep Bs Antigen Non-reactive (Negative) 06/04/19 12:58 Hep B Core IgM Ab Non-reactive (NonReactive) 06/04/19 12:58 Non-reactive (NonReactive) 06/04/19 12:58 Active Medications - Current Medications Current Medications: Generic Name Dose Route Start Last Admin Trade Name Freq PRN Reason Stop Dose Admin Acetaminophen 650 mg 05/28/19 02:10 Tylenol PO Q4H PRN Fever >101 Dextrose 50 ml 05/28/19 02:13 06/03/19 08:48 D50w (25gm) Syringe IV 50 ml PRN PRN Administration Hypoglycemia Heparin Sodium (Porcine) 5,000 unit 05/28/19 10:00 06/16/19 09:17 Heparin SUB-Q 5,000 unit Q12HR [facility] Administration Hydromorphone HCl 0.5 mg 06/10/19 10:44 06/13/19 13:11 Dilaudid IV 0.5 mg ONCE PRN Administration Pain , Severe (7-10) Sodium Chloride 100 mls @ 999 mls/hr 06/08/19 09:02 Nacl 0.9% IV DANG PRN Hypotension Sodium Chloride 1,000 mls @ 125 mls/hr 06/14/19 10:00 06/16/19 06:53 Nacl 0.9% 1000 Ml IV 125 mls/hr DIRECT [facility] Administration Insulin Glargine 10 units 05/29/19 22:00 06/15/19 22:52 Lantus SUB-Q 10 units QHS [facility] Administration Insulin Human Regular 0 units 05/28/19 07:30 06/16/19 09:15 Humulin R SUB-Q Not Given AC [facility] Protocol Insulin Human Regular 0 units 05/28/19 22:00 06/15/19 22:57 [facility] Protocol Morphine Sulfate 2 mg 05/28/19 02:09 06/08/19 21:29 Morphine IV 2 mg Q3H PRN Administration Pain , Severe (7-10) Ondansetron HCl 4 mg 06/04/19 22:23 06/15/19 20:28 Zofran IV 4 mg Q4H PRN Administration Nausea And Vomiting Oxycodone/Acetaminophen 2 tab 05/28/19 16:20 06/13/19 15:22 Percocet 5/325 PO 2 tab Q4H PRN Administration Pain, Moderate (4-6) Simethicone 80 mg 06/01/19 09:11 06/05/19 04:28 Mylicon PO 80 mg Q6H PRN Administration Gas pain Nutrition/Malnutrition Assess - Dietary Evaluation Nutrition/Malnutrition Findings: Nutrition Notes Start: 05/28/19 13:42 Freq: Status: Active Protocol: Document 06/13/19 16:26 RM (Rec: 06/13/19 16:28 RM [id number]) Nutrition Notes Initial or Follow up Brief Note Height 6 ft 1 in Weight 277 kg [place] Body Weight (kg) 83.63 BMI 80.5 Subjective/Other Information Screened for low BMI of 0.1. Current wt recorded as 322g. Corrected wt according to previous wt in record. Nutrition Intervention Revisit per MD consult or patient Sign Off request:
--- NOTE | 2019-06-16 11:29 | Progress Note ---
Assessment and Plan Impression * Acute kidney injury * Abdominal wall abscess * Obesity * Diabetes * Hyperkalemia Recommendations * Etiology of his acute kidney injury most likely ATN. Most likely secondary to contrast nephropathy, sepsis and vancomycin toxicity * some evidence of renal recovery at this time. * cr is 4.6 and better * Patient is currently with a Vas-Cath. remove in am if labs are stable * hold hd for now, follow up 24hr crcl * Wound care and antibiotic as per infectious disease/surgical services * Patient is not ready for discharge from renal standpoint but like can dc tomorrow without vasc cath if labs are better Subjective Date of service: 06/16/19 Principal diagnosis: abdominal wall abscess Interval history: resting well in bed today Objective - Exam Narrative Exam: General appearance: well-developed, well-nourished, appears stated age EENT: PERRL, mucous membranes moist Neck: no JVD, no thyromegaly, no carotid bruit, supple, other (right IJ Vas-Cath in place) Respiratory: Present: Clear to Ascultation Cardiology: regular, normal heart rate, S1S2, no murmurs Gastrointestinal: normoactive bowel sounds, other (wound VAC in his left abdominal wall) Integumentary: other (1+ edema) - Vital Signs Vital signs: Vital Signs - 12hr 06/16/19 05:42 Temperature 97.8 F Pulse Rate 50 L Respiratory 16 Rate Blood Pressure 108/53 O2 Sat by Pulse 96 Oximetry - Lab 06/09/19 05:49 06/16/19 05:27 Most recent lab results Calcium 8.8 mg/dL (8.4-10.2) 06/16/19 05:27 TNR 06/15/19 16:00 74 mmol/L 06/03/19 18:44 Medications & Allergies - Medications Allergies/Adverse Reactions: Allergies No Known Allergies Allergy (Verified 05/27/19 22:21) Home Medications: Home Medications Medication Instructions Recorded Confirmed Last Taken Type No Known Home Medications [No 05/28/19 05/28/19 Unknown History Reported Home Medications] Active Medications: Generic Name Dose Route Start Last Admin Trade Name Freq PRN Reason Stop Dose Admin Acetaminophen 650 mg 05/28/19 02:10 Tylenol PO Q4H PRN Fever >101 Dextrose 50 ml 05/28/19 02:13 06/03/19 08:48 D50w (25gm) Syringe IV 50 ml PRN PRN Administration Hypoglycemia Heparin Sodium (Porcine) 5,000 unit 05/28/19 10:00 06/16/19 09:17 Heparin SUB-Q 5,000 unit Q12HR [facility] Administration Hydromorphone HCl 0.5 mg 06/10/19 10:44 06/13/19 13:11 Dilaudid IV 0.5 mg ONCE PRN Administration Pain , Severe (7-10) Sodium Chloride 100 mls @ 999 mls/hr 06/08/19 09:02 Nacl 0.9% IV DANG PRN Hypotension Sodium Chloride 1,000 mls @ 125 mls/hr 06/14/19 10:00 06/16/19 06:53 Nacl 0.9% 1000 Ml IV 125 mls/hr DIRECT [facility] Administration Insulin Glargine 10 units 05/29/19 22:00 06/15/19 22:52 Lantus SUB-Q 10 units QHS [facility] Administration Insulin Human Regular 0 units 05/28/19 07:30 06/16/19 09:15 Humulin R SUB-Q Not Given AC [facility] Protocol Insulin Human Regular 0 units 05/28/19 22:00 06/15/19 22:57 Humulin R SUB-Q Not Given QHS [facility] Protocol Morphine Sulfate 2 mg 05/28/19 02:09 06/08/19 21:29 Morphine IV 2 mg Q3H PRN Administration Pain , Severe (7-10) Ondansetron HCl 4 mg 06/04/19 22:23 06/15/19 20:28 Zofran IV 4 mg Q4H PRN Administration Nausea And Vomiting Oxycodone/Acetaminophen 2 tab 05/28/19 16:20 06/13/19 15:22 Percocet 5/325 PO 2 tab Q4H PRN Administration Pain, Moderate (4-6) Simethicone 80 mg 06/01/19 09:11 06/05/19 04:28 Mylicon PO 80 mg Q6H PRN Administration Gas pain
[2019-06-16 16:47] LABS: Creatinine,Urine 59.7 mg/dL (0.1-20.0)
[2019-06-16] MEDS: LANTUS SUB-Q SCH (23:06)
[2019-06-17] MEDS: NACL 0.9% 1000 ML 1,000 ML IV SCH (02:32)
--- NOTE | 2019-06-17 08:13 | Progress Note ---
Assessment and Plan Impression * Acute kidney injury etiology of his acute kidney injury most likely ATN due to multifactorial etiologies:contrast nephropathy, sepsis and vancomycin toxicity * Abdominal wall abscess * Obesity * Diabetes * Hyperkalemia - resolved Recommendations * Renal function is gradually improving - SCr trending down and patient reports good UOP * Hold HD for now * Will remove vascath * 24h urine CrCl noted * Wound care and antibiotic as per infectious disease/surgical services * Will need outpatient nephrology follow up next week Subjective Date of service: 06/17/19 Principal diagnosis: abdominal wall abscess Interval history: Patient has no complaints. Reports nausea has resolved. Appetite is good. Denies SOB. Reports frequent urination. Objective - Vital Signs Vital signs: Vital Signs - 12hr 06/16/19 06/17/19 23:40 05:56 Temperature 98.6 F 98.9 F Pulse Rate 75 70 Respiratory 20 18 Rate Blood Pressure 146/85 146/87 O2 Sat by Pulse 99 95 Oximetry - General Appearance General appearance: well-developed, well-nourished EENT: PERRL, mucous membranes moist Respiratory: Present: Clear to Ascultation Cardiology: regular, S1S2 Gastrointestinal: other (wound vac) Integumentary: no rash Neurologic: no focal deficit, alert and oriented x3 Musculoskeletal: other (no edema) Psychiatric: cooperative - Lab 06/09/19 05:49 06/17/19 06:49 Most recent lab results Calcium 8.8 mg/dL (8.4-10.2) 06/16/19 05:27 59.7 mg/dL (0.1-20.0) H 06/16/19 13:50 74 mmol/L 06/03/19 18:44 Medications & Allergies - Medications Allergies/Adverse Reactions: Allergies No Known Allergies Allergy (Verified 05/27/19 22:21) Home Medications: Home Medications Medication Instructions Recorded Confirmed Last Taken Type No Known Home Medications [No 05/28/19 05/28/19 Unknown History Reported Home Medications] Active Medications: Generic Name Dose Route Start Last Admin Trade Name Freq PRN Reason Stop Dose Admin Acetaminophen 650 mg 05/28/19 02:10 Tylenol PO Q4H PRN Fever >101 Dextrose 50 ml 05/28/19 02:13 06/03/19 08:48 D50w (25gm) Syringe IV 50 ml PRN PRN Administration Hypoglycemia Heparin Sodium (Porcine) 5,000 unit 05/28/19 10:00 06/16/19 21:30 Heparin SUB-Q 5,000 unit Q12HR [facility] Administration Hydromorphone HCl 0.5 mg 06/10/19 10:44 06/13/19 13:11 Dilaudid IV 0.5 mg ONCE PRN Administration Pain , Severe (7-10) Sodium Chloride 100 mls @ 999 mls/hr 06/08/19 09:02 Nacl 0.9% IV DANG PRN Hypotension Sodium Chloride 1,000 mls @ 125 mls/hr 06/14/19 10:00 06/17/19 02:32 Nacl 0.9% 1000 Ml IV 125 mls/hr DIRECT [facility] Administration Insulin Glargine 10 units 05/29/19 22:00 06/16/19 23:06 Lantus SUB-Q 10 units QHS [facility] Administration Insulin Human Regular 0 units 05/28/19 07:30 06/16/19 17:17 Humulin R SUB-Q Not Given AC [facility] Protocol Insulin Human Regular 0 units 05/28/19 22:00 06/16/19 23:05 Humulin R SUB-Q 2 units QHS [facility] Administration Protocol Morphine Sulfate 2 mg 05/28/19 02:09 06/08/19 21:29 Morphine IV 2 mg Q3H PRN Administration Pain , Severe (7-10) Ondansetron HCl 4 mg 06/04/19 22:23 06/15/19 20:28 Zofran IV 4 mg Q4H PRN Administration Nausea And Vomiting Oxycodone/Acetaminophen 2 tab 05/28/19 16:20 06/13/19 15:22 Percocet 5/325 PO 2 tab Q4H PRN Administration Pain, Moderate (4-6) Simethicone 80 mg 06/01/19 09:11 06/05/19 04:28 Mylicon PO 80 mg Q6H PRN Administration Gas pain
[2019-06-17 08:22] LABS: Calcium 8.2 mg/dL (8.4-10.2)
[2019-06-17] MEDS: HumuLIN R SUB-Q SCH ×2 (08:43→13:12)
[2019-06-17] MEDS ORDERED: TRIPLE ANTIBIOTIC TP ONE (09:40)
[2019-06-17] MEDS: HEPARIN SUB-Q SCH (10:38)
--- NOTE | 2019-06-17 10:54 | Discharge Summary ---
Providers - Providers Date of Admission: 05/28/19 02:06 Attending physician: DAVID GREENE MD 05/28/19 06:00 Consult to Physician [CONS] Routine Comment: Consulting Provider: GAGANDEEP ALLISON Physician Instructions: Reason For Exam: ABCESS ANTERIOR ABDOMINAL WALL 05/28/19 16:18 Consult to Wound/ET Nurse [CONS] Routine Reason For Exam: nec fasc, s/p debridement 05/28/19 16:19 Consult to Physician [CONS] Routine Comment: Consulting Provider: LUCIANO CHIANG Physician Instructions: Reason For Exam: necrotizing fasciitis lower abdominal wall 06/02/19 15:23 Consult to Physician [CONS] Routine Comment: Consulting Provider: MARLEE MORIN Physician Instructions: Reason For Exam: ARF 06/04/19 11:58 Consult to Physician [CONS] Routine Comment: Consulting Provider: FAITH JACKSON Physician Instructions: Reason For Exam: vasc cath placement for dialysis per Dr. Schumacher Primary care physician: BAND ATTACHER Hospitalization Condition: Stable Hospital course: Patient is a 34-year-old the male who has been admitted here with abdominal abscess, underwent surgical evacuation, has also been treated for sepsis. His baseline creatinine was 0.9 upon admission which increased to 8.4 . He was diagnosed with acute kidney injury due to ATN due to contrast nephropathy, vancomycin toxicity, Sepsis. His renal function continued to worsen so was started on dialysis 06/04 and is still on dialysis. he is very upset that he cannot go home and is verbally abusive to staff including Doctors. PEYTON due to ATN, multifactorial :contrast nephropathy, vancomycin toxicity, sepsis and possible baseline CKD. Creatinine continued to worsen, so started on dialysis . Vancomycin was discontinued on 05/24/2019. Continues to monitor through Renal function showing some improvement Nephrology following. Discussed with Nephrology. Dr. Schumacher recommended vasc cath, placed 06/04 started hemodialysis 06/04. HD held and monitoring for renal improvement strict I/O- dw nursing Abdominal wall necrotizing fasciitis/abscess. Patient is status post excisional debridement 05/28/19. Surgery following. Patient with further debridement of abdominal wall on 05/31/19 that revealed multiple abscess cavities along lateral left abdominal wall with copious amount of purulent drainage and necrotic subcutaneous tissue. Wound vac to abdomen. Zyvox completed 06/11 Sepsis. Etiology secondary to above. Blood cultures negative. Antibiotics per ID. completed last dose of Zyvox 06/11 Hyperkalemia Now resolved after Insulin, Dextrose, kayexalate, calcium gluconate. Started hemodialysis 06/04 Diabetes mellitus type 2. Continue Lantus insulin 70/30 insulin. Accu-Cheks and sliding scale insulin Morbid obesity. Disposition. Patient still has PEYTON, but recovering without dialysis, awaiting for outpatient management of patients wound prior to discharge Creatnine contnues to improve off HD. awaiting Monday to see what resources are available to care for wound and plan discharge History Interval history: Patient seen and examined resting comfortable with no new complaints. laying down today. SPOUSE TO COME ON MONDAY FOR DISCUSSION ABOUT DISCHARGE PLAN Hospitalist Physical - Physical exam Narrative exam: Gen: Not in acute distress,Lying in bed, morbidly obese HEENT: Normocephalic, atraumatic Neck: supple, no JVD Heart: S1 and S2 reg, no murmurs, rubs or gallop Lungs: Clear, no crackles or wheeze Abd: soft, non tender, non distended, normal BS, wound vac to abdomen Ext: No edema, no clubbing, no cyanosis Neuro:awake,alert, Oriented X 3. No focal neuro signs Disposition: [id number] HOME UNDER HOME [facility] Time spent for discharge: 35 mins Exam - Constitutional Vitals: Temp Pulse Resp BP Pulse Ox 98.9 F 70 18 146/87 95 06/17/19 05:56 06/17/19 05:56 06/17/19 05:56 06/17/19 05:56 06/17/19 05:56 Plan Activity: advance as tolerated, fall precautions Diet: low fat, diabetic Wound: per your surgeon's advice, per wound nurse instructions Special Instructions: record daily weights, record daily BP diary, record blood sugar diary Additional Instructions: start lisinopril when ok with renal Follow up with: PRIMARY CAREMD [Primary Care Provider] - 3-5 Days MARLEE MORIN MD [Staff Physician] - 7 Days CASSI GONZALEZ DO [Staff Physician] - 7 Days Prescriptions: Insulin Glargine [Lantus VIAL] 10 units SUB-Q QHS 30 Days units Insulin Regular, Human [HumuLIN R] 0 unit SQ AC #1 vial
[2019-06-17 13:04] VITALS: BP 136/73
[2019-06-17] MEDS: PERCOCET 5/325 PO PRN (13:15)
== END 2019-06-17 15:55 | disposition home health service (06) | DRG 853 ==
LOC: ED 21:42 → 4A 05-28 02:06 → 3A 06-10 15:16
PROVIDERS: ADMIT Internal Medicine; ATTEND Internal Medicine
PROC: 0JB80ZZ Excision of Abdomen Subcutaneous Tissue and Fascia, Open Approach (ICD-10-PCS; principal; 2019-05-28)
PROC: 0JB80ZZ Excision of Abdomen Subcutaneous Tissue and Fascia, Open Approach (ICD-10-PCS; 2019-05-31)
PROC: 0JB80ZZ Excision of Abdomen Subcutaneous Tissue and Fascia, Open Approach (ICD-10-PCS; 2019-06-03)
PROC: 2W13X6Z Compression of Abdominal Wall using Pressure Dressing (ICD-10-PCS; 2019-06-03)
PROC: 02H633Z Insertion of Infusion Device into Right Atrium, Percutaneous Approach (ICD-10-PCS; 2019-06-04)
PROC: B244ZZZ Ultrasonography of Right Heart (ICD-10-PCS; 2019-06-04)
PROC: B2141ZZ Fluoroscopy of Right Heart using Low Osmolar Contrast (ICD-10-PCS; 2019-06-04)
PROC: 5A1D70Z Performance of Urinary Filtration, Intermittent, Less than 6 Hours Per Day (ICD-10-PCS; 2019-06-04)
PROC: 5A1D70Z Performance of Urinary Filtration, Intermittent, Less than 6 Hours Per Day (ICD-10-PCS; 2019-06-06)
PROC: 2W03X6Z Change Pressure Dressing on Abdominal Wall (ICD-10-PCS; 2019-06-07)
PROC: 5A1D70Z Performance of Urinary Filtration, Intermittent, Less than 6 Hours Per Day (ICD-10-PCS; 2019-06-08)
DX: A41.9 Sepsis, unspecified organism (principal); N17.0 Acute kidney failure with tubular necrosis; M72.6 Necrotizing fasciitis; L02.211 Cutaneous abscess of abdominal wall; L03.311 Cellulitis of abdominal wall; Z68.45 Body mass index [BMI] 70 or greater, adult; E87.0 Hyperosmolality and hypernatremia; E87.5 Hyperkalemia; D64.9 Anemia, unspecified; E66.01 Morbid (severe) obesity due to excess calories; F17.210 Nicotine dependence, cigarettes, uncomplicated; E11.65 Type 2 diabetes mellitus with hyperglycemia; Z72.89 Other problems related to lifestyle; Z79.899 Other long term (current) drug therapy
CPT/HCPCS: 36415; 36556; 71045; 74177; 76770; 77001; 80048; 80053; 80074; 80202; 81001; 82140; 82550; 82565; 82570; 82575; 82962; 83036; 83930; 84300; 85007; 85025; 85027; 86160; 87040; 87075; 87116; 89050; 99406; G0378; A6250; C1752; J0330; J0610; J1170; J1644; J1815; J1885; J2250; J2270; J2370; J2405; J2543; J2704; J2765; J3010; J3370; J7030; J7040; J7050; Q9967

== ENCOUNTER 2019-06-21 10:56 | Outpatient (CLI) | payer OTHER ==
[2019-06-21] MEDS ORDERED: XYLOCAINE TOPICAL 4% TP ONE (11:07)
== END 2019-06-21 10:57 | disposition home or self-care (01) ==
LOC: WOUND 10:56
PROVIDERS: ATTEND Surgery
DX: T81.89XA Other complications of procedures, not elsewhere classified, initial encounter (principal); M72.6 Necrotizing fasciitis; E10.22 Type 1 diabetes mellitus with diabetic chronic kidney disease; N18.6 End stage renal disease; E66.01 Morbid (severe) obesity due to excess calories; F17.210 Nicotine dependence, cigarettes, uncomplicated; Z68.41 Body mass index [BMI] 40.0-44.9, adult; Y83.8 Other surgical procedures as the cause of abnormal reaction of the patient, or of later complication, without mention of misadventure at the time of the procedure; Y92.89 Other specified places as the place of occurrence of the external cause
CPT/HCPCS: 97606

== ENCOUNTER 2019-06-25 10:56 | Outpatient (CLI) | payer OTHER ==
[2019-06-25] MEDS ORDERED: XYLOCAINE TOPICAL 4% TP ONE (11:03)
== END 2019-06-25 10:57 | disposition home or self-care (01) ==
LOC: WOUND 10:56
PROVIDERS: ATTEND Surgery
DX: T81.89XD Other complications of procedures, not elsewhere classified, subsequent encounter (principal); M72.6 Necrotizing fasciitis; E10.22 Type 1 diabetes mellitus with diabetic chronic kidney disease; N18.6 End stage renal disease; E66.01 Morbid (severe) obesity due to excess calories; Z68.41 Body mass index [BMI] 40.0-44.9, adult; F17.210 Nicotine dependence, cigarettes, uncomplicated; Y83.8 Other surgical procedures as the cause of abnormal reaction of the patient, or of later complication, without mention of misadventure at the time of the procedure
CPT/HCPCS: 97605; 97606

== ENCOUNTER 2019-06-28 13:27 | Outpatient (CLI) | payer OTHER | END 2019-06-28 13:28 | disposition home or self-care (01) | LOC: WOUND 13:27 | PROVIDERS: ATTEND Surgery | DX: T81.89XD Other complications of procedures, not elsewhere classified, subsequent encounter (principal); M72.6 Necrotizing fasciitis; E10.22 Type 1 diabetes mellitus with diabetic chronic kidney disease; N18.6 End stage renal disease; E66.01 Morbid (severe) obesity due to excess calories; Z68.41 Body mass index [BMI] 40.0-44.9, adult; F17.210 Nicotine dependence, cigarettes, uncomplicated; Y83.8 Other surgical procedures as the cause of abnormal reaction of the patient, or of later complication, without mention of misadventure at the time of the procedure | CPT/HCPCS: 97606 ==

== ENCOUNTER 2019-07-02 09:35 | Outpatient (CLI) | payer OTHER | END 2019-07-02 09:36 | disposition home or self-care (01) | LOC: WOUND 09:35 | PROVIDERS: ATTEND Surgery | DX: T81.89XD Other complications of procedures, not elsewhere classified, subsequent encounter (principal); M72.6 Necrotizing fasciitis; E11.22 Type 2 diabetes mellitus with diabetic chronic kidney disease; N18.6 End stage renal disease; E66.01 Morbid (severe) obesity due to excess calories; F17.210 Nicotine dependence, cigarettes, uncomplicated; Z68.41 Body mass index [BMI] 40.0-44.9, adult; Y83.8 Other surgical procedures as the cause of abnormal reaction of the patient, or of later complication, without mention of misadventure at the time of the procedure | CPT/HCPCS: 99213; G0463 ==

== ENCOUNTER 2022-07-16 14:20 | Inpatient (IN) | payer SELFPAY ==
[2022-07-16] MEDS ORDERED: SODIUM CHLORIDE 0.9% 1000 ML 1,000 ML IV ONE ×2 (14:28→17:54)
--- NOTE | 2022-07-16 14:39 | Emergency Department Report ---
ED Neuro Deficit HPI - General Stated Complaint: STROKE Time Seen by Provider: 07/16/22 14:26 Source: patient, family, old records reviewed (Patient has had previous hospi talizations here for cellulitis/abscess requiring surgical intervention) Mode of arrival: Stretcher Limitations: Physical Limitation (left arm) - History of Present Illness Initial Comments: 37-year old male with a past medical history of diabetes on insulin and a smoker presents to the hospital with complaints of sudden onset of left arm weakness and paresthesias that started 2 hours prior to arrival. Prior to symptom onset patient was leaning forward on both forearms to allow his to obtain access to his chronic gluteal abscess. Patient denies history of neck pain or radiculopathy. Patient states he has had a gluteal abscess since October 2021. He was evaluated by an urgent care center in January he received I&D with antibiotics. Currently he is self treating with leftover penicillin antibiotics and having his assist with cleaning up and drainage. Patient states he is having intermittent fevers the last several weeks including last night. His sugar has been poorly controlled despite medication compliance and he last took insulin 2 hours prior to arrival and remains hyperglycemic in the ED with a glucose of 422. Patient complains of mild pain to the left shoulder. He denies other neurologic deficits at this time. Patient is right-hand dominant. Last tetanus shot was in 2018 - Related Data Home Medications: Previous Rx's Medication Instructions Recorded Last Taken Type Insulin Regular, Human [HumuLIN R] 0 unit SQ AC #1 vial 06/17/19 Unknown Rx Clindamycin [Clindamycin CAP] 300 mg PO Q6H #40 capsule 06/09/20 Unknown Rx Famotidine [Pepcid] 20 mg PO BID #30 tablet 06/09/20 Unknown Rx Insulin Glargine [Lantus VIAL] 25 units SUB-Q QHS 30 Days #2 vial 06/09/20 Unknown Rx Sulfamethoxazole/Trimethoprim 1 each PO BID #28 tablet 06/09/20 Unknown Rx [Bactrim DS TAB] oxyCODONE /ACETAMINOPHEN [Percocet 1 tab PO Q6H PRN #20 tablet 06/09/20 Unknown Rx 5/325 mg] methOCARBAMOL [Robaxin TAB] 750 mg PO Q8H #14 tablet 06/17/20 Unknown Rx traMADoL [Ultram] 50 mg PO Q6HR PRN #20 tablet 06/17/20 Unknown Rx Allergies/Adverse Reactions: Allergies Allergy/AdvReac Type Severity Reaction Status Date / Time No Known Allergies Allergy Verified 07/16/22 15:00 ED Review of Systems ROS: Stated complaint: STROKE Other details as noted in HPI Comment: All other systems reviewed and negative ED Past Medical Hx - Past Medical History Hx Hypertension: No Hx Heart Attack/AMI: No Hx Congestive Heart Failure: No Hx Diabetes: Yes Hx Liver Disease: Yes (Increased LFTs. Albumin 2.7) Hx Renal Disease: Yes (kidney failure in the past. "normal function now" per pt.) Hx Sickle Cell Disease: No Hx Seizures: Yes (in the past) Hx Asthma: No Hx COPD: No Hx HIV: No Additional medical history: Morbid Obesity - Surgical History Hx Pacemaker: No Hx Internal Defibrillator: No Additional Surgical History: necrotic fascia - Social History Smoking Status: Current Every Day Smoker - Medications Home Medications: Home Medications Medication Instructions Recorded Confirmed Last Taken Type Insulin Regular, Human [HumuLIN R] 0 unit SQ AC #1 vial 06/17/19 06/07/20 Unknown Rx Clindamycin [Clindamycin CAP] 300 mg PO Q6H #40 capsule 06/09/20 Unknown Rx Famotidine [Pepcid] 20 mg PO BID #30 tablet 06/09/20 Unknown Rx Insulin Glargine [Lantus VIAL] 25 units SUB-Q QHS 30 Days #2 vial 06/09/20 Unknown Rx Sulfamethoxazole/Trimethoprim 1 each PO BID #28 tablet 06/09/20 Unknown Rx [Bactrim DS TAB] oxyCODONE /ACETAMINOPHEN [Percocet 1 tab PO Q6H PRN #20 tablet 06/09/20 Unknown Rx 5/325 mg] methOCARBAMOL [Robaxin TAB] 750 mg PO Q8H #14 tablet 06/17/20 Unknown Rx traMADoL [Ultram] 50 mg PO Q6HR PRN #20 tablet 06/17/20 Unknown Rx ED Neuro Physical Exam - General Suspected Stroke: Yes - NIHSS Assessment Interval: Baseline 1a. Level of Consciousness: alert/keenly responsive 1b. LOC Questions: answers both correctly 1c. LOC Commands: performs tasks correctly 2. Best Gaze: normal 3. Visual: no visual loss 4. Facial Palsy: normal symmetrical movement 5b. Motor Arm Right: no drift 5a. Motor Arm Left: no gravity effort 6a. Motor Leg Left: no drift 6b. Motor Leg Right: no drift 7. Limb Ataxia: absent 8. Sensory: normal 9. Best Language: mild/moderate aphasia 10. Dysarthria: normal 11. Extinction/Inattention: no abnormality Total Score: 4 Stroke Severity: Minor Stroke - Other Other exam information: General: No acute distress Head: Atraumatic Eyes: normal appearance ENT: Moist mucous membranes Neck: Normal appearance, no midline tenderness Chest: Clear to auscultation bilaterally CV: Regular rate and rhythm Abdomen: Soft, normal bowel sounds, nontender, nondistended, no rebound or guar ding Back: Normal inspection Extremity: Normal inspection, full range of motion Neuro: Alert O x 3 see NIH stroke scale. Left arm weakness Psych: Appropriate behavior Skin: Fluid drainage with palpation from pilonidal area with significant area of induration 15 x 7 cm to the right upper gluteal fold and buttock area. Secondary area of drainage noted. Positive erythema and warmth with tenderness to palpation ED Course Vital Signs 07/16/22 14:20 Temperature 99.1 F Pulse Rate 91 H Respiratory 16 Rate Blood Pressure 162/110 [Left] O2 Sat by Pulse 100 Oximetry - Consultations Consultation #1: 07/16/22 case d/w DR Johnson. After evaluating patient and imaging review tPA was not recommended given high risk for sepsis 17:52 I called surgeon reporting consultant Dr Alvarez via answering service. Awaiting call back 07/16/22 18:[address] Alvarez. Request n.p.o. after midnight for possible surgical I&D. States that patient does require neuro clearance prior to surgical intervention. Otherwise he may need local versus general anesthesia if incision and drainage is needed - Lab Data Result diagrams: 07/16/22 16:06 07/16/22 16:06 Lab Results 07/16/22 07/16/22 07/16/22 Range/Units 14:21 16:06 16:06 WBC 16.1 H (4.5-11.0) K/mm3 RBC 4.61 (3.65-5.03) M/mm3 Hgb 13.0 (11.8-15.2) gm/dl Hct 40.0 (35.5-45.6) % MCV 87 (84-94) fl MCH 28 (28-32) pg MCHC 33 (32-34) % RDW 15.7 H (13.2-15.2) % Plt Count 310 (140-440) K/mm3 Lymph % (Auto) 11.1 L (13.4-35.0) % [place] % (Auto) 9.0 H (0.0-7.3) % Eos % (Auto) 3.1 (0.0-4.3) % Baso % (Auto) 0.5 (0.0-1.8) % Lymph # (Auto) 1.8 (1.2-5.4) K/mm3 [place] # (Auto) 1.4 H (0.0-0.8) K/mm3 Eos # (Auto) 0.5 H (0.0-0.4) K/mm3 Baso # (Auto) 0.1 (0.0-0.1) K/mm3 Seg Neutrophils % 76.3 H (40.0-70.0) % Seg Neutrophils # 12.3 H (1.8-7.7) K/mm3 PT 14.3 (12.2-14.9) Sec. INR 1.00 (0.87-1.13) APTT 28.0 (24.2-36.6) Sec. Thrombin Time 18.5 (15.1-19.6) Sec. VBG pH (7.320-7.420) Sodium (137-145) mmol/L Potassium (3.6-5.0) mmol/L Chloride (98-107) mmol/L Carbon Dioxide (22-30) mmol/L Anion Gap mmol/L BUN (9-20) mg/dL Creatinine (0.8-1.3) mg/dL Estimated GFR ml/min BUN/Creatinine Ratio % Glucose (75-100) mg/dL POC Glucose 422 H (70-105) mg/dL Lactic Acid (0.7-2.0) mmol/L Calcium (8.4-10.2) mg/dL Phosphorus (2.5-4.5) mg/dL Magnesium (1.7-2.3) mg/dL Total Bilirubin (0.1-1.2) mg/dL AST (5-40) units/L ALT (7-56) units/L Alkaline Phosphatase (35-129) units/L Total Creatine Kinase (55-170) units/L CK-MB (CK-2) (0.0-4.0) ng/mL CK-MB (CK-2) Rel Index (0-4) Troponin T (0.00-0.029) ng/mL Total Protein (6.3-8.2) g/dL Albumin (3.9-5) g/dL Albumin/Globulin Ratio % Urine Color (Yellow) Urine Turbidity (Clear) Specific [place] (Man) (1.003-1.030) Ur Protein (Man) (Negative) mg/dL Ur Ketones (Man) (Negative) Ur Nitrite (Man) (Negative) Ur Reducing Substances Urine Bilirubin (Man) (Negative) Urine Ictotest Leukocyte Esterase (Man) (Negative) Urine WBC (Auto) (0.0-6.0) /HPF Urine RBC (Auto) (0.0-6.0) /HPF U Epithel Cells (Auto) (0-13.0) /HPF Urine RBC (Manual) (Negative) Urine Mucus /HPF Urine Opiates Screen Urine Methadone Screen Ur Barbiturates Screen Ur Phencyclidine Scrn Ur Amphetamines Screen U Benzodiazepines Scrn Urine Cocaine Screen U Marijuana (THC) Screen Drugs of Abuse Note 07/16/22 07/16/22 07/16/22 Range/Units 16:06 16:06 16:06 WBC (4.5-11.0) K/mm3 RBC (3.65-5.03) M/mm3 Hgb (11.8-15.2) gm/dl Hct (35.5-45.6) % MCV (84-94) fl MCH (28-32) pg MCHC (32-34) % RDW (13.2-15.2) % Plt Count (140-440) K/mm3 Lymph % (Auto) (13.4-35.0) % [place] % (Auto) (0.0-7.3) % Eos % (Auto) (0.0-4.3) % Baso % (Auto) (0.0-1.8) % Lymph # (Auto) (1.2-5.4) K/mm3 [place] # (Auto) (0.0-0.8) K/mm3 Eos # (Auto) (0.0-0.4) K/mm3 Baso # (Auto) (0.0-0.1) K/mm3 Seg Neutrophils % (40.0-70.0) % Seg Neutrophils # (1.8-7.7) K/mm3 PT (12.2-14.9) Sec. INR (0.87-1.13) APTT (24.2-36.6) Sec. Thrombin Time (15.1-19.6) Sec. VBG pH (7.320-7.420) Sodium 132 L (137-145) mmol/L Potassium 4.5 (3.6-5.0) mmol/L Chloride 96.7 L (98-107) mmol/L Carbon Dioxide 22 (22-30) mmol/L Anion Gap 18 mmol/L BUN 17 (9-20) mg/dL Creatinine 0.9 (0.8-1.3) mg/dL Estimated GFR > 60 ml/min BUN/Creatinine Ratio 19 % Glucose 417 H (75-100) mg/dL POC Glucose (70-105) mg/dL Lactic Acid 1.40 (0.7-2.0) mmol/L Calcium 9.2 (8.4-10.2) mg/dL Phosphorus 3.60 (2.5-4.5) mg/dL Magnesium 1.80 (1.7-2.3) mg/dL Total Bilirubin 0.30 (0.1-1.2) mg/dL AST 13 (5-40) units/L ALT 16 (7-56) units/L Alkaline Phosphatase 116 (35-129) units/L Total Creatine Kinase 87 (55-170) units/L CK-MB (CK-2) < 1.0 (0.0-4.0) ng/mL CK-MB (CK-2) Rel Index 1.1 (0-4) Troponin T < 0.010 (0.00-0.029) ng/mL Total Protein 7.0 (6.3-8.2) g/dL Albumin 3.5 L (3.9-5) g/dL Albumin/Globulin Ratio 1.0 % Urine Color (Yellow) Urine Turbidity (Clear) Specific [place] (Man) (1.003-1.030) Ur Protein (Man) (Negative) mg/dL Ur Ketones (Man) (Negative) Ur Nitrite (Man) (Negative) Ur Reducing Substances Urine Bilirubin (Man) (Negative) Urine Ictotest Leukocyte Esterase (Man) (Negative) Urine WBC (Auto) (0.0-6.0) /HPF Urine RBC (Auto) (0.0-6.0) /HPF U Epithel Cells (Auto) (0-13.0) /HPF Urine RBC (Manual) (Negative) Urine Mucus /HPF Urine Opiates Screen Urine Methadone Screen Ur Barbiturates Screen Ur Phencyclidine Scrn Ur Amphetamines Screen U Benzodiazepines Scrn Urine Cocaine Screen U Marijuana (THC) Screen Drugs of Abuse Note 07/16/22 07/16/22 07/16/22 Range/Units 16:44 17:05 17:05 WBC (4.5-11.0) K/mm3 RBC (3.65-5.03) M/mm3 Hgb (11.8-15.2) gm/dl Hct (35.5-45.6) % MCV (84-94) fl MCH (28-32) pg MCHC (32-34) % RDW (13.2-15.2) % Plt Count (140-440) K/mm3 Lymph % (Auto) (13.4-35.0) % [place] % (Auto) (0.0-7.3) % Eos % (Auto) (0.0-4.3) % Baso % (Auto) (0.0-1.8) % Lymph # (Auto) (1.2-5.4) K/mm3 [place] # (Auto) (0.0-0.8) K/mm3 Eos # (Auto) (0.0-0.4) K/mm3 Baso # (Auto) (0.0-0.1) K/mm3 Seg Neutrophils % (40.0-70.0) % Seg Neutrophils # (1.8-7.7) K/mm3 PT (12.2-14.9) Sec. INR (0.87-1.13) APTT (24.2-36.6) Sec. Thrombin Time (15.1-19.6) Sec. VBG pH (7.320-7.420) Sodium (137-145) mmol/L Potassium (3.6-5.0) mmol/L Chloride (98-107) mmol/L Carbon Dioxide (22-30) mmol/L Anion Gap mmol/L BUN (9-20) mg/dL Creatinine (0.8-1.3) mg/dL Estimated GFR ml/min BUN/Creatinine Ratio % Glucose (75-100) mg/dL POC Glucose (70-105) mg/dL Lactic Acid 1.80 (0.7-2.0) mmol/L Calcium (8.4-10.2) mg/dL Phosphorus (2.5-4.5) mg/dL Magnesium (1.7-2.3) mg/dL Total Bilirubin (0.1-1.2) mg/dL AST (5-40) units/L ALT (7-56) units/L Alkaline Phosphatase (35-129) units/L Total Creatine Kinase (55-170) units/L CK-MB (CK-2) (0.0-4.0) ng/mL CK-MB (CK-2) Rel Index (0-4) Troponin T (0.00-0.029) ng/mL Total Protein (6.3-8.2) g/dL Albumin (3.9-5) g/dL Albumin/Globulin Ratio % Urine Color Straw (Yellow) Urine Turbidity Clear (Clear) Specific [place] (Man) 1.005 (1.003-1.030) Ur Protein (Man) 1+ (Negative) mg/dL Ur Ketones (Man) 40 (Negative) Ur Nitrite (Man) Negative (Negative) Ur Reducing Substances Not Reportable Urine Bilirubin (Man) Negative (Negative) Urine Ictotest Not Reportable Leukocyte Esterase (Man) Negative (Negative) Urine WBC (Auto) < 1.0 (0.0-6.0) /HPF Urine RBC (Auto) 1.0 (0.0-6.0) /HPF U Epithel Cells (Auto) 1.0 (0-13.0) /HPF Urine RBC (Manual) 4+ (Negative) Urine Mucus Few /HPF Urine Opiates Screen Negative Urine Methadone Screen Negative Ur Barbiturates Screen Negative Ur Phencyclidine Scrn Negative Ur Amphetamines Screen Negative U Benzodiazepines Scrn Negative Urine Cocaine Screen Negative U Marijuana (THC) Screen Negative Drugs of Abuse Note Disclamer 07/16/22 Range/Units 17:21 WBC (4.5-11.0) K/mm3 RBC (3.65-5.03) M/mm3 Hgb (11.8-15.2) gm/dl Hct (35.5-45.6) % MCV (84-94) fl MCH (28-32) pg MCHC (32-34) % RDW (13.2-15.2) % Plt Count (140-440) K/mm3 Lymph % (Auto) (13.4-35.0) % [place] % (Auto) (0.0-7.3) % Eos % (Auto) (0.0-4.3) % Baso % (Auto) (0.0-1.8) % Lymph # (Auto) (1.2-5.4) K/mm3 [place] # (Auto) (0.0-0.8) K/mm3 Eos # (Auto) (0.0-0.4) K/mm3 Baso # (Auto) (0.0-0.1) K/mm3 Seg Neutrophils % (40.0-70.0) % Seg Neutrophils # (1.8-7.7) K/mm3 PT (12.2-14.9) Sec. INR (0.87-1.13) APTT (24.2-36.6) Sec. Thrombin Time (15.1-19.6) Sec. VBG pH 7.312 L (7.320-7.420) Sodium (137-145) mmol/L Potassium (3.6-5.0) mmol/L Chloride (98-107) mmol/L Carbon Dioxide (22-30) mmol/L Anion Gap mmol/L BUN (9-20) mg/dL Creatinine (0.8-1.3) mg/dL Estimated GFR ml/min BUN/Creatinine Ratio % Glucose (75-100) mg/dL POC Glucose (70-105) mg/dL Lactic Acid (0.7-2.0) mmol/L Calcium (8.4-10.2) mg/dL Phosphorus (2.5-4.5) mg/dL Magnesium (1.7-2.3) mg/dL Total Bilirubin (0.1-1.2) mg/dL AST (5-40) units/L ALT (7-56) units/L Alkaline Phosphatase (35-129) units/L Total Creatine Kinase (55-170) units/L CK-MB (CK-2) (0.0-4.0) ng/mL CK-MB (CK-2) Rel Index (0-4) Troponin T (0.00-0.029) ng/mL Total Protein (6.3-8.2) g/dL Albumin (3.9-5) g/dL Albumin/Globulin Ratio % Urine Color (Yellow) Urine Turbidity (Clear) Specific [place] (Man) (1.003-1.030) Ur Protein (Man) (Negative) mg/dL Ur Ketones (Man) (Negative) Ur Nitrite (Man) (Negative) Ur Reducing Substances Urine Bilirubin (Man) (Negative) Urine Ictotest Leukocyte Esterase (Man) (Negative) Urine WBC (Auto) (0.0-6.0) /HPF Urine RBC (Auto) (0.0-6.0) /HPF U Epithel Cells (Auto) (0-13.0) /HPF Urine RBC (Manual) (Negative) Urine Mucus /HPF Urine Opiates Screen Urine Methadone Screen Ur Barbiturates Screen Ur Phencyclidine Scrn Ur Amphetamines Screen U Benzodiazepines Scrn Urine Cocaine Screen U Marijuana (THC) Screen Drugs of Abuse Note - EKG Data -: EKG Interpreted by Md EKG shows normal: sinus rhythm, ST-T waves (no stemi) Rate: tachycardia (100) When compared to previous EKG there are: previous EKG unavailable - Radiology Data Radiology results: report reviewed CT head without contrast INDICATION : Stroke symptoms. TECHNIQUE: Axial imaging performed from the skull apex through the skull base without the use of contrast. All CT scans at this location are performed using CT dose reduction for ALARA by means of automated exposure control. COMPARISON: None FINDINGS: Parenchyma: No mass, stroke or hemorrhage. Ventricles: Ventricles are normal in size and appear symmetric. Soft tissues: Soft tissues including the orbits appear normal. Bones: No acute osseous abnormality. Sinuses: Sinuses and mastoid air cells are clear. IMPRESSION: No acute abnormality. CT cervical spine wo con INDICATION: left arm weakness. TECHNIQUE: All CT scans at this location are performed using the following dose modulation technique: Automated exposure control. CONTRAST: None. COMPARISON: None available. FINDINGS: Satisfactory alignment without bony injury or significant degenerative change. No significant soft tissue abnormality or soft tissue injury. IMPRESSION: Unremarkable CT cervical spine without contrast. CTA neck without and with intravenous contrast material CLINICAL HISTORY: stroke sx TECHNIQUE: Following acquisition of a timing bolus 0.625 mm thick contiguous axial scans were obtained from aortic arch to the skull base during rapid bolus intravenous contrast infusion. In addition to evaluation of axial source images multiplanar reconstructions were produced and reviewed for this report. 3 plane MIP reconstructions were produced and reviewed. Contrast dose report: Omnipaque 350: 100 ml, administered intravenously All CT examinations performed at this facility utilize modulated dose reduction, iterative reconstruction or weight-based dosing, as appropriate, to obtain a radiation dose which is as low as can reasonably be achieved. FINDINGS: Thoracic aorta:No abnormalities are identified along the course of the thoracic aorta..The origins of the great vessels have an unremarkable appearance. Brachiocephalic artery, left common carotid artery origin and left subclavian artery all have an unremarkable appearance. Right carotid artery:No abnormalities are seen along the course of the RCCA, at the right carotid bifurcation or along the cervical portions of the MARIA C. Left carotid artery: No abnormalities are noted along the course of the left common carotid artery, at the left carotid bifurcation or along the course of the cervical segments of the LICA. Posterior circulation: Retrograde flow of contrast material into right-sided paraspinous and supraclavicular venous collaterals results in beam hardening artifact and limits evaluation of the V1 segment and proximal V2 segment of the right vertebral artery. The vertebral arteries have an otherwise unremarkable appearance. Both vertebral arteries contribute to the basilar artery origin. The basilar artery has an unremarkable appearance. The degree of stenosis, if any, is determined utilizing NASCET like criteria. In this case there is no indication of hemodynamically significant stenosis at the carotid bifurcations or elsewhere. Evaluation of the nonvascular soft tissue structures reveal no abnormality. There is no indication of cervical lymphadenopathy. No abnormalities are seen along the course of the airway. Visualized portions of the parotid glands and the submandibular salivary glands have a normal appearance. Thyroid gland has a normal appearance. Evaluation of the lung apices reveals no evidence of lung nodule or infiltrate. Evaluation of the cervical spine revealed no significant abnormalities. IMPRESSION: 1. No indication of hemodynamically significant stenosis at the carotid bifurcations or elsewhere. 2. Evaluation of the V1 segment and proximal V2 segments of the right vertebral artery is limited due to retrograde flow of contrast material into right-sided paraspinous and supraclavicular venous collaterals. This results in beam hardening artifact. CTA head with intravenous contrast CLINICAL HISTORY: stroke sx TECHNIQUE: 0.625 mm thick contiguous axial scans were obtained from the skull base to the skull vertex during rapid bolus administration of intravenous contrast material. Multiplanar reconstructions were produced in the coronal and sagittal planes. In addition 3 plane MIP instructions were produced and reviewed for this report. The axial source images and reconstructed images were reviewed for this report. CONTRAST DOSE REPORT: Omnipaque 350: 100 ml administered intravenously. All CT scans at this location are performed using CT dose reduction for ALARA by means of automated exposure control. FINDINGS: Internal carotid arteries:Mc, cavernous, opthalmic, clinoid and supraclinoid segments of the ICAs have an unremarkable appearance. Middle cerebral arteries:Normal and symmetrical M1 segments of the middle cerebral arteries are demonstrated. No abnormalities are seen on evaluation of the insular or opercular branches. Anterior cerebral arteries:Bilaterally symmetrical A1 segments are demonstrated. No abnormalities are seen along the course of the A2 segments or their visualized pericallosal branches. An intact anterior communicating artery is identified. Vertebral arteries:Bilaterally symmetrical vertebral arteries are demonstrated. Both vertebral arteries contribute to the basilar artery origin. Basilar artery:Basilar artery has an unremarkable appearance. Posterior cerebral arteries:Bilaterally symmetrical posterior cerebral arteries are identified. A right posterior communicating artery is identified. [place] of [place]:Not intact. see above. Dural sinuses: Dural venous sinuses are well demonstrated on this exam. There is no evidence of dural sinus thrombosis. IMPRESSION: 1. No indication of intercranial stenosis or large vessel occlusion. CT PELVIS WO CON INDICATION: gluteal abscess and cellulitis. TECHNIQUE: All CT scans at this location are performed using the following dose modulation technique: Automated exposure control. CONTRAST: None. COMPARISON: None available. FINDINGS: No intrapelvic abnormality. Skin thickening with inflammation within the soft tissues at the left gluteal region. Several areas of high density are present likely representing hemorrhage. The largest discrete area measures approximately 4 cm. No drainable fluid collection is seen. Milder involvement at the medial aspect of the right gluteal soft tissues. IMPRESSION: Suspected hematoma and inflammation at the gluteal tissues left greater than right without drainable abscess identified. - Medical Decision Making 37-year-old obese male with diabetes and smoking who has had a intermittent but infection for the past 9 months. Patient has been self treating at home with penicillin dressing wounds and cleaning up drainage. Patient presents with sudden onset of left arm weakness and numbness after leaning in a forward position on forearms that began 2 hours prior to ED arrival. Code stroke initiated for possible acute CVA. Large vessel occlusion and hemorrhage ruled out. Given patient's long-term infection, leukocytosis, and self-reported intermittent fevers we cannot rule out spinal abscess as cause of sudden onset of left arm weakness. Neurologist informed me not to provide antiplatelet medication until patient has negative blood cultures. I have discussed CT pelvis imaging findings with Dr. Alvarez. Clinically I do not suspect that patient has a hematoma and appears to have a cellulitis plus or minus abscess. Patient will need surgical evaluation to determine if incision and drainage is needed. Dr. Alvarez states that patient needs to be cleared by neurology before general anesthesia. As an alternative local anesthesia can be attempted if warranted and tolerated. Patient will need further MRI imaging to determine cause of left-sided arm weakness. At this time there are no signs of severe sepsis or septic shock. Patient treated with cefepime and Vanco. Patient also has hyperglycemia without signs of DKA. Treated with IV fluids and insulin. Cultures pending. Hospitalist to admit Critical Care Time: Yes Critical care time in (mins) excluding proc time.: 45 Critical care attestation.: If time is entered above; I have spent that time in minutes in the direct care of this critically ill patient, excluding procedure time. Critical Care Time: 45 Minutes of critical care time excluding procedures were used in the care of the patient. I came immediately to the bedside upon patient's arrival. I obtained history from EMS at the bedside. I discussed treatment plan with the nursing team members. I reviewed electronic record. I spoke with family to obtain medical history. Patient required multiple interventions and reassessments. Spoke with hospitalist and consultants for collaborative care ED Disposition Clinical Impression: Diabetes mellitus type 1, uncontrolled, Morbid obesity, Cellulitis, gluteal, Gluteal abscess, Sepsis, Acute focal neurological deficit, Left arm weakness Disposition: 09 ADMITTED INPATIENT Is pt being admited?: Yes Condition: Stable Instructions: Diabetes Mellitus Type 2 in Adults (ED) Time of Disposition: 18:13
--- NOTE | 2022-07-16 14:57 | Cat Scan Report ---
CT cervical spine wo con INDICATION: left arm weakness. TECHNIQUE: All CT scans at this location are performed using the following dose modulation technique: Automated exposure control. CONTRAST: None. COMPARISON: None available. FINDINGS: Satisfactory alignment without bony injury or significant degenerative change. No significa nt soft tissue abnormality or soft tissue injury. IMPRESSION: Unremarkable CT cervical spine without contrast. Signer Name: Armando Thomas MD Signed: 07/16/2022 2:54 PM Workstation Name: [id number]
--- NOTE | 2022-07-16 15:01 | Cat Scan Report ---
CT head without contrast INDICATION : Stroke symptoms. TECHNIQUE: Axial imaging performed from the skull apex through the skull base without the use of con trast. All CT scans at this location are performed using CT dose reduction for ALARA by means of aut omated exposure control. COMPARISON: None FINDINGS: Parenchyma: No mass, stroke or hemorrhage. Ventricles: Ventricles are normal in size and appear symmetric. Soft tissues: Soft tissues including the orbits appear normal. Bones: No acute osseous abnormality. Sinuses: Sinuses and mastoid air cells are clear. IMPRESSION: No acute abnormality. Signer Name: Armando Thomas MD Signed: 07/16/2022 2:56 PM Workstation Name: [id number]
--- NOTE | 2022-07-16 15:10 | Consultation ---
History of Present Illness History of present illness: [facility] Consult Note # Demographics Consult Type: Acute Stroke Level 1 (0-4.5 hrs) Patient Location: Emergency Room First Name: Jose Last Name: Ely Date of : 1985 Age: 37 Gender: Male Facility: [facility] Time of Initial Page ( Time): 07/16/2022, 14:21 Time of Return Call ( Time): 07/16/2022, 14:22 # HPI Chief Complaint: weakness (focal) History: 37M with DM presents with left-arm weakness x2 hours. Has been treating a gluteal abscess since 10/2021. Was leaning on both arms today for cleaning it for about 15 minutes, and then noted the left arm to be "". Also having intermittent fevers and has been taking intermittent penicillin doses. Fingerstick 400s. Symptoms started at 1215. # Scores Time of exam and NIHSS (): 07/16/2022, 14:54 Level of Consciousness 1a: [0] = Alert; keenly responsive LOC Questions 1b: [0] = Answers both questions correctly LOC Commands 1c: [0] = Performs both tasks correctly Best Gaze 2: [0] = Normal Visual 3: [0] = No visual loss Facial Palsy 4: [0] = Normal symmetrical movements Motor Arm Left 5a: [3] = No effort against gravity Motor Arm Right 5b: [0] = No drift Motor Leg Left 6a: [0] = No drift Motor Leg Right 6b: [0] = No drift Limb Ataxia 7: [0] = Absent Sensory 8: [1] = Gskm-go-elmydizs sensory loss Best Language 9: [0] = No aphasia Dysarthria 10: [0] = Normal Extinction and Inattention 11: [0] = No abnormality NIHSS Total: 4 # Data Time Head CT personally read by me ( Time): 07/16/2022, 14:[address]: no bleed preliminarily reviewed by me, please refer to radiology read for official reading CTA Head: no large vessel occlusion preliminarily reviewed by me, please refer to radiology read for official reading CTA Neck: patent vessels preliminarily reviewed by me, please refer to radiology read for official r eading # Assessment Impression: Ischemic Stroke (Acute) intermittent fevers with persistent gluteal abscess, in setting of DM, rule out bacteremia and endocarditis # Plan Thrombolytic/Intervention: NOT IV Thrombolysis or IA Intervention candidate Thrombolytic Exclusion: other (see below) high risk for bacteremia/endocarditis Intraarterial Exclusion: no large vessel occlusion (LVO) Target Blood Pressure: SBP < 220 DBP < 105 Labs: hemoglobin A1c lipid panel blood cultures Medication: antibiotics as per ED team Other: If patient has any neurological deterioration please call me back immediately permissive hypertension telemetry monitoring I have discussed my recommendations with the referring provider Consult on-site neurology for further work-up and management Disposition: admit # Logistics Telemedicine: Interactive 2 way audio and visual telecommunication technology was utilized during this visit Electronically signed at 07/16/2022 15:09 (Eastern Time) by German Johnson MD Medications and Allergies Allergies Allergy/AdvReac Type Severity Reaction Status Date / Time No Known Allergies Allergy Verified 07/16/22 15:00 Home Medications Medication Instructions Recorded Confirmed Last Taken Type Insulin Regular, Human [HumuLIN R] 0 unit SQ AC #1 vial 06/17/19 06/07/20 Unknown Rx Clindamycin [Clindamycin CAP] 300 mg PO Q6H #40 capsule 06/09/20 Unknown Rx Famotidine [Pepcid] 20 mg PO BID #30 tablet 06/09/20 Unknown Rx Insulin Glargine [Lantus VIAL] 25 units SUB-Q QHS 30 Days #2 vial 06/09/20 Unknown Rx Sulfamethoxazole/Trimethoprim 1 each PO BID #28 tablet 06/09/20 Unknown Rx [Bactrim DS TAB] oxyCODONE /ACETAMINOPHEN [Percocet 1 tab PO Q6H PRN #20 tablet 06/09/20 Unknown Rx 5/325 mg] methOCARBAMOL [Robaxin TAB] 750 mg PO Q8H #14 tablet 06/17/20 Unknown Rx traMADoL [Ultram] 50 mg PO Q6HR PRN #20 tablet 06/17/20 Unknown Rx Active Meds: Active Medications Sodium Chloride (Nacl 0.9% 1000 Ml) 1,000 mls @ 999 mls/hr IV BOLUS ONE Stop: 07/16/22 15:28 Physical Examination - Vital Signs Vital Signs: Vital Signs Temp Pulse Resp BP Pulse Ox 99.1 F 91 H 16 162/110 100 07/16/22 14:20 07/16/22 14:20 07/16/22 14:20 07/16/22 14:20 07/16/22 14:20 Results - Laboratory Findings Abnormal Lab Findings: Abnormal Labs 07/16/22 14:21 POC Glucose 422 H
--- NOTE | 2022-07-16 15:31 | Cat Scan Report ---
CTA neck without and with intravenous contrast material CLINICAL HISTORY: stroke sx TECHNIQUE: Following acquisition of a timing bolus 0.625 mm thick contiguous axial scans were obtained from aort ic arch to the skull base during rapid bolus intravenous contrast infusion. In addition to evaluation of axial source images multiplanar reconstructions were produced and reviewed for this report. 3 coreen ne MIP reconstructions were produced and reviewed. Contrast dose report: Omnipaque 350: 100 ml, administered intravenously All CT examinations performed at this facility utilize modulated dose reduction, iterative reconstruc tion or weight-based dosing, as appropriate, to obtain a radiation dose which is as low as can reason ably be achieved. FINDINGS: Thoracic aorta:No abnormalities are identified along the course of the thoracic aorta..The origins of the great vessels have an unremarkable appearance. Brachiocephalic artery, left common carotid arter y origin and left subclavian artery all have an unremarkable appearance. Right carotid artery:No abnormalities are seen along the course of the RCCA, at the right carotid bif urcation or along the cervical portions of the MARIA C. Left carotid artery: No abnormalities are noted along the course of the left common carotid artery, a t the left carotid bifurcation or along the course of the cervical segments of the LICA. Posterior circulation: Retrograde flow of contrast material into right-sided paraspinous and supracla vicular venous collaterals results in beam hardening artifact and limits evaluation of the V1 segment and proximal V2 segment of the right vertebral artery. The vertebral arteries have an otherwise unre markable appearance. Both vertebral arteries contribute to the basilar artery origin. The basilar art yamila has an unremarkable appearance. The degree of stenosis, if any, is determined utilizing NASCET like criteria. In this case there is no indication of hemodynamically significant stenosis at the carotid bifurcations or elsewhere. Evaluation of the nonvascular soft tissue structures reveal no abnormality. There is no indication of cervical lymphadenopathy. No abnormalities are seen along the course of the airway. Visualized porti ons of the parotid glands and the submandibular salivary glands have a normal appearance. Thyroid gla nd has a normal appearance. Evaluation of the lung apices reveals no evidence of lung nodule or infil trate. Evaluation of the cervical spine revealed no significant abnormalities. IMPRESSION: 1. No indication of hemodynamically significant stenosis at the carotid bifurcations or elsewhere. 2. Evaluation of the V1 segment and proximal V2 segments of the right vertebral artery is limited due to retrograde flow of contrast material into right-sided paraspinous and supraclavicular venous paul aterals. This results in beam hardening artifact. CTA head with intravenous contrast CLINICAL HISTORY: stroke sx TECHNIQUE: 0.625 mm thick contiguous axial scans were obtained from the skull base to the skull vertex during r apid bolus administration of intravenous contrast material. Multiplanar reconstructions were produced in the coronal and sagittal planes. In addition 3 plane MIP instructions were produced and reviewed for this report. The axial source images and reconstructed images were reviewed for this report. CONTRAST DOSE REPORT: Omnipaque 350: 100 ml administered intravenously. All CT scans at this location are performed using CT dose reduction for ALARA by means of automated e xposure control. FINDINGS: Internal carotid arteries:Mc, cavernous, opthalmic, clinoid and supraclinoid segments of the ICAs have an unremarkable appearance. Middle cerebral arteries:Normal and symmetrical M1 segments of the middle cerebral arteries are demon strated. No abnormalities are seen on evaluation of the insular or opercular branches. Anterior cerebral arteries:Bilaterally symmetrical A1 segments are demonstrated. No abnormalities are seen along the course of the A2 segments or their visualized pericallosal branches. An intact anteri or communicating artery is identified. Vertebral arteries:Bilaterally symmetrical vertebral arteries are demonstrated. Both vertebral arteri es contribute to the basilar artery origin. Basilar artery:Basilar artery has an unremarkable appearance. Posterior cerebral arteries:Bilaterally symmetrical posterior cerebral arteries are identified. A ri ght posterior communicating artery is identified. [place] of [place]:Not intact. see above. Dural sinuses: Dural venous sinuses are well demonstrated on this exam. There is no evidence of dural sinus thrombosis. IMPRESSION: 1. No indication of intercranial stenosis or large vessel occlusion. Signer Name: Cody Yu MD Signed: 07/16/2022 3:27 PM Workstation Name: [email or web address]
[2022-07-16] MEDS ORDERED: CEFEPIME/NS 2 GM/100 ML 2 GM/100 ML BAG IV ONE (15:34)
[2022-07-16] MEDS ORDERED: VANCOMYCIN 2,000 MG in SODIUM CHLORIDE 0.9% 500 ML 500 ML IV ONE (16:00)
[2022-07-16] MEDS ORDERED: ONDANSETRON 4 MG/2 ML INJ IV ONE (16:22)
[2022-07-16] MEDS ORDERED: MORPHINE 4 MG/1 ML INJ IV ONE (16:22)
[2022-07-16 16:33] LABS: Basophils # (Auto) 0.1 K/mm3 (0.0-0.1); Basophils % (Auto) 0.5 % (0.0-1.8); Eosinophils # (Auto) 0.5 K/mm3 (0.0-0.4); Eosinophils % (Auto) 3.1 % (0.0-4.3); Lymphocytes # (Auto) 1.8 K/mm3 (1.2-5.4); Lymphocytes % (Auto) 11.1 % (13.4-35.0); Mean Corpuscular HGB Conc 33 % (32-34); Mean Corpuscular Volume 87 fl (84-94); Monocytes # (Auto) 1.4 K/mm3 (0.0-0.8); Platelet Count 310 K/mm3 (140-440); Red Blood Count 4.61 M/mm3 (3.65-5.03); Red Cell Distribution Width 15.7 % (13.2-15.2)
[2022-07-16 16:43] LABS: Thrombin Time 18.5 Sec. (15.1-19.6)
[2022-07-16 16:52] LABS: Alanine Aminotransferase 16 units/L (7-56); Albumin 3.5 g/dL (3.9-5); BUN/Creatinine Ratio 19; Blood Urea Nitrogen 17 mg/dL (9-20); Calcium 9.2 mg/dL (8.4-10.2); Hemolysis Index 7
[2022-07-16 17:06] LABS: Creatine Kinase MB < 1.0 ng/mL (0.0-4.0)
--- NOTE | 2022-07-16 17:33 | Cat Scan Report ---
CT PELVIS WO CON INDICATION: gluteal abscess and cellulitis. TECHNIQUE: All CT scans at this location are performed using the following dose modulation technique: Automated exposure control. CONTRAST: None. COMPARISON: None available. FINDINGS: No intrapelvic abnormality. Skin thickening with inflammation within the soft tissues at th e left gluteal region. Several areas of high density are present likely representing hemorrhage. The largest discrete area measures approximately 4 cm. No drainable fluid collection is seen. Milder invo lvement at the medial aspect of the right gluteal soft tissues. IMPRESSION: Suspected hematoma and inflammation at the gluteal tissues left greater than right without drainable abscess identified. Signer Name: Armando Thomas MD Signed: 07/16/2022 5:29 PM Workstation Name: [email or web address]
[2022-07-16 17:35] LABS: Mucus,Urine FEW /HPF; WBC,Urine < 1.0 /HPF (0.0-6.0)
[2022-07-16 17:41] LABS: Amphetamine Screen,Urine Negative; Benzodiazepines Screen,Urine Negative; Cannabinoid Screen,Urine Negative; Cocaine Screen,Urine Negative; Methadone Screen,Urine Negative; Opiate Screen,Urine Negative
[2022-07-16 17:45] LABS: Color,Urine Straw (Yellow)
[2022-07-16] MEDS ORDERED: INSULIN REGULAR, HUMAN 100 UNITS/1 ML IV ONE (17:54)
[2022-07-16] MEDS ORDERED: ONDANSETRON 4 MG/2 ML INJ IV PRN ×2 (19:11→21:22)
[2022-07-16] MEDS ORDERED: ACETAMINOPHEN 325 MG TAB PO PRN ×2 (19:11→21:22)
--- NOTE | 2022-07-16 21:17 | History and Physical Report ---
History of Present Illness Date of examination: 07/16/22 Date of admission: 07/16/2022 Chief complaint: Left upper extremity weakness for 2 hours History of present illness: 37-year-old -[place] male with history of insulin-dependent diabetes and abscess on the left gluteal region for about 8 months--- treated intermittently with penicillin comes in for left upper extremity weakness for 2 hours. No left upper extremity pain. Patient also states that he has been having intermittent fever for the last several weeks. His blood glucose levels are poorly co ntrolled. No numbness or pain in the left upper extremity. No loss of consciousness. Low-grade fever off-and-on. Patient had necrotizing fasciitis of the left abdominal wall in the past for which she was treated here at [facility]. - Past Medical History --Diabetes: Insulin-dependent --Seizures: Yes (in the past) --Additional medical history: Morbid Obesity - Surgical History --Necrotizing fasciitis - Social History --Smoking Status: Current Every Day Smoker - Family history --Htn Review of Systems ROS: Constitutional low-grade fever off-and-on HEENT no sore throat no post nasal drip no diplopia Neck no neck stiffness no lymph gland enlargement Chest and lungs no shortness of breath cough or wheezing CVS no chest pain no diaphoresis no palpitations GI no nausea no vomiting no diarrhea Genitourinary system no dysuria no flank pain Musculoskeletal system no muscle pains no joint 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 Skin abscess left gluteal region Psychiatric no depression no homicidal or suicidal tendencies Hematologic no lymphedema or bruising Endocrine no polydipsia no polyuria no cold intolerance no heat intolerance Medications and Allergies Allergies Allergy/AdvReac Type Severity Reaction Status Date / Time watermelon Allergy Itching Verified 07/17/22 01:20 Home Medications Medication Instructions Recorded Confirmed Last Taken Type Insulin Regular, Human [HumuLIN R] 0 unit SQ AC #1 vial 06/17/19 06/07/20 Unknown Rx Clindamycin [Clindamycin CAP] 300 mg PO Q6H #40 capsule 06/09/20 07/17/22 02/19/22 Rx Famotidine [Pepcid] 20 mg PO BID #30 tablet 06/09/20 07/17/22 02/19/22 Rx Insulin Glargine [Lantus VIAL] 25 units SUB-Q QHS 30 Days #2 vial 06/09/20 Unknown Rx Sulfamethoxazole/Trimethoprim 1 each PO BID #28 tablet 06/09/20 07/17/22 02/19/22 Rx [Bactrim DS TAB] oxyCODONE /ACETAMINOPHEN [Percocet 1 tab PO Q6H PRN #20 tablet 06/09/20 07/17/22 02/18/22 Rx 5/325 mg] methOCARBAMOL [Robaxin TAB] 750 mg PO Q8H #14 tablet 06/17/20 07/17/22 02/19/22 Rx traMADoL [Ultram] 50 mg PO Q6HR PRN #20 tablet 06/17/20 07/17/22 02/18/22 Rx NovoLOG Mix 70/30 VIAL 07/17/22 07/16/22 History Active Meds: Active Medications Acetaminophen (Acetaminophen 325 Mg Tab) 650 mg PO Q4H PRN PRN Reason: Pain MILD(1-3)/Fever >100.5/REDDY Morphine Sulfate (Morphine 2 Mg/1 Ml Inj) 2 mg IV Q4H PRN PRN Reason: Pain, Moderate (4-6) Ondansetron HCl (Ondansetron 4 Mg/2 Ml Inj) 4 mg IV Q8H PRN PRN Reason: Nausea And Vomiting Sodium Chloride (Sodium Chloride 0.9% 10 Ml Flush Syringe) 10 ml IV BID LIBERTAD Sodium Chloride (Sodium Chloride 0.9% 10 Ml Flush Syringe) 10 ml IV PRN PRN PRN Reason: LINE FLUSH Exam - Constitutional Vitals: Temp Pulse Resp BP Pulse Ox 99.1 F 96 H 18 119/76 100 07/16/22 14:20 07/16/22 18:28 07/16/22 18:28 07/16/22 20:15 07/16/22 20:15 General appearance: Present: no acute distress, well-nourished - EENT Eyes: Present: PERRL ENT: hearing intact, clear oral mucosa - Neck Neck: Present: supple, normal ROM - Respiratory Respiratory effort: normal Respiratory: bilateral: CTA - Cardiovascular Heart rate: 78 Rhythm: regular Heart Sounds: Present: S1 & S2. Absent: rub, click - Extremities Extremities: pulses symmetrical, No edema Peripheral Pulses: within normal limits - Abdominal General gastrointestinal: Present: soft, non-tender, non-distended, normal bowel sounds Male genitourinary: Present: normal - Integumentary Integumentary: Present: clear, warm, dry - Musculoskeletal Musculoskeletal: gait normal, strength equal bilaterally - Psychiatric Psychiatric: appropriate mood/affect, intact judgment & insight - Neurologic Neurologic: CNII-XII intact, focal deficits (Left upper extremity weakness. 3/5 power), moves all extremities HEART Score - HEART Score Troponin: Troponin T < 0.010 ng/mL (0.00-0.029) 07/16/22 16:06 Results - Labs CBC & Chem 7: 07/17/22 04:42 07/17/22 04:42 Labs: Laboratory Last Values WBC 16.1 K/mm3 (4.5-11.0) H 07/16/22 16:06 RBC 4.61 M/mm3 (3.65-5.03) 07/16/22 16:06 Hgb 13.0 gm/dl (11.8-15.2) 07/16/22 16:06 Hct 40.0 % (35.5-45.6) 07/16/22 16:06 MCV 87 fl (84-94) 07/16/22 16:06 MCH 28 pg (28-32) 07/16/22 16:06 MCHC 33 % (32-34) 07/16/22 16:06 RDW 15.7 % (13.2-15.2) H 07/16/22 16:06 Plt Count 310 K/mm3 (140-440) 07/16/22 16:06 Lymph % (Auto) 11.1 % (13.4-35.0) L 07/16/22 16:06 [place] % (Auto) 9.0 % (0.0-7.3) H 07/16/22 16:06 Eos % (Auto) 3.1 % (0.0-4.3) 07/16/22 16:06 Baso % (Auto) 0.5 % (0.0-1.8) 07/16/22 16:06 Lymph # (Auto) 1.8 K/mm3 (1.2-5.4) 07/16/22 16:06 [place] # (Auto) 1.4 K/mm3 (0.0-0.8) H 07/16/22 16:06 Eos # (Auto) 0.5 K/mm3 (0.0-0.4) H 07/16/22 16:06 Baso # (Auto) 0.1 K/mm3 (0.0-0.1) 07/16/22 16:06 Seg Neutrophils % 76.3 % (40.0-70.0) H 07/16/22 16:06 Seg Neutrophils # 12.3 K/mm3 (1.8-7.7) H 07/16/22 16:06 PT 14.3 Sec. (12.2-14.9) 07/16/22 16:06 INR 1.00 (0.87-1.13) 07/16/22 16:06 APTT 28.0 Sec. (24.2-36.6) 07/16/22 16:06 Thrombin Time 18.5 Sec. (15.1-19.6) 07/16/22 16:06 VBG pH 7.312 (7.320-7.420) L 07/16/22 17:21 Sodium 132 mmol/L (137-145) L 07/16/22 16:06 Potassium 4.5 mmol/L (3.6-5.0) 07/16/22 16:06 Chloride 96.7 mmol/L (98-107) L 07/16/22 16:06 Carbon Dioxide 22 mmol/L (22-30) 07/16/22 16:06 Anion Gap 18 mmol/L 07/16/22 16:06 BUN 17 mg/dL (9-20) 07/16/22 16:06 Creatinine 0.9 mg/dL (0.8-1.3) 07/16/22 16:06 Estimated GFR > 60 ml/min 07/16/22 16:06 BUN/Creatinine Ratio 19 % 07/16/22 16:06 Glucose 417 mg/dL (75-100) H 07/16/22 16:06 POC Glucose 422 mg/dL (70-105) H 07/16/22 14:21 Lactic Acid 1.80 mmol/L (0.7-2.0) 07/16/22 16:44 Calcium 9.2 mg/dL (8.4-10.2) 07/16/22 16:06 Phosphorus 3.60 mg/dL (2.5-4.5) 07/16/22 16:06 Magnesium 1.80 mg/dL (1.7-2.3) 07/16/22 16:06 Total Bilirubin 0.30 mg/dL (0.1-1.2) 07/16/22 16:06 AST 13 units/L (5-40) 07/16/22 16:06 ALT 16 units/L (7-56) 07/16/22 16:06 Alkaline Phosphatase 116 units/L (35-129) 07/16/22 16:06 Total Creatine Kinase 87 units/L (55-170) 07/16/22 16:06 CK-MB (CK-2) < 1.0 ng/mL (0.0-4.0) 07/16/22 16:06 CK-MB (CK-2) Rel Index 1.1 (0-4) 07/16/22 16:06 Troponin T < 0.010 ng/mL (0.00-0.029) 07/16/22 16:06 Total Protein 7.0 g/dL (6.3-8.2) 07/16/22 16:06 Albumin 3.5 g/dL (3.9-5) L 07/16/22 16:06 Albumin/Globulin Ratio 1.0 % 07/16/22 16:06 Urine Color Straw (Yellow) 07/16/22 17:05 Urine Turbidity Clear (Clear) 07/16/22 17:05 Specific [place] (Man) 1.005 (1.003-1.030) 07/16/22 17:05 Ur Protein (Man) 1+ mg/dL (Negative) 07/16/22 17:05 Ur Ketones (Man) 40 (Negative) 07/16/22 17:05 Ur Nitrite (Man) Negative (Negative) 07/16/22 17:05 Ur Reducing Substances Not Reportable 07/16/22 17:05 Urine Bilirubin (Man) Negative (Negative) 07/16/22 17:05 Urine Ictotest Not Reportable 07/16/22 17:05 Leukocyte Esterase (Man) Negative (Negative) 07/16/22 17:05 Urine WBC (Auto) < 1.0 /HPF (0.0-6.0) 07/16/22 17:05 Urine RBC (Auto) 1.0 /HPF (0.0-6.0) 07/16/22 17:05 U Epithel Cells (Auto) 1.0 /HPF (0-13.0) 07/16/22 17:05 Urine RBC (Manual) 4+ (Negative) 07/16/22 17:05 Urine Mucus Few /HPF 07/16/22 17:05 Urine Opiates Screen Negative 07/16/22 17:05 Urine Methadone Screen Negative 07/16/22 17:05 Ur Barbiturates Screen Negative 07/16/22 17:05 Ur Phencyclidine Scrn Negative 07/16/22 17:05 Ur Amphetamines Screen Negative 07/16/22 17:05 U Benzodiazepines Scrn Negative 07/16/22 17:05 Urine Cocaine Screen Negative 07/16/22 17:05 U Marijuana (THC) Screen Negative 07/16/22 17:05 Drugs of Abuse Note Disclamer 07/16/22 17:05 Short CBC 07/16/22 07/17/22 Range/Units 16:06 04:42 WBC 16.1 H 12.3 H (4.5-11.0) K/mm3 Hgb 13.0 12.0 (11.8-15.2) gm/dl Hct 40.0 37.1 (35.5-45.6) % Plt Count 310 294 (140-440) K/mm3 BMP 07/16/22 07/17/22 16:06 04:42 Sodium 132 L 135 L Potassium 4.5 4.0 Chloride 96.7 L 102.4 Carbon Dioxide 22 21 L BUN 17 14 Creatinine 0.9 0.6 L Glucose 417 H 261 H Calcium 9.2 9.1 Cardiac Enzymes 07/16/22 Range/Units 16:06 Total Creatine Kinase 87 (55-170) units/L CK-MB (CK-2) < 1.0 (0.0-4.0) ng/mL Troponin T < 0.010 (0.00-0.029) ng/mL Liver Function 07/16/22 07/17/22 Range/Units 16:06 04:42 Total Bilirubin 0.30 0.30 (0.1-1.2) mg/dL AST 13 14 (5-40) units/L ALT 16 17 (7-56) units/L Alkaline Phosphatase 116 107 (35-129) units/L Albumin 3.5 L 3.1 L (3.9-5) g/dL Urine 07/16/22 Range/Units 17:05 Urine Color Straw (Yellow) Assessment and Plan Advance Directives: Yes (Full Code) VTE prophylaxis?: Chemical Plan of care discussed with patient/family: Yes - Patient Problems (1) Gluteal abscess Current Visit: Yes Status: Acute Plan to address problem: Patient initiated on IV Unasyn and IV vancomycin Surgery consult for possible incision and drainage Patient has left gluteal abscess 6 cm X 6 cm (2) Left arm weakness Current Visit: Yes Status: Acute Plan to address problem: Sudden onset Differential diagnosis CVA and functional component MRI C-spine and brain requested Per teleneurology NIHSS score was 4 Teleneurology recommended MRI brain (3) Insulin dependent diabetes mellitus Current Visit: Yes Status: Chronic Plan to address problem: Poorly controlled Increase Lantus dosage High-dose sliding scale coverage Add metformin Check hemoglobin A1c (4) Morbid obesity with BMI of 40.0-44.9, adult Current Visit: Yes Status: Chronic Plan to address problem: Patient counseled about his obesity and a referral to bariatric surgery to be given (5) Hyponatremia Current Visit: Yes Status: Acute Plan to address problem: Function of high blood glucose levels Should correct with correction of blood glucose levels (6) DVT prophylaxis Current Visit: Yes Status: Acute Plan to address problem: On anticoagulation GI prophylaxis (7) Advance care planning Current Visit: Yes Status: Acute Plan to address problem: Disease education conducted, care plan discussed, diagnosis discussed and prognosis discussed. Patient is full code. Patient acknowledged understanding with care plan. +30 minutes.
[2022-07-16] MEDS ORDERED: SODIUM CHLORIDE 0.9% 1000 ML 1,000 ML IV SCH (21:30)
[2022-07-16] MEDS ORDERED: VANCOMYCIN PHARMACY TO DOSE IV SCH (22:00)
[2022-07-16] MEDS: MORPHINE 2 MG/1 ML INJ IV PRN (23:42)
[2022-07-17] MEDS: AMPICILLIN/SULBACTA 3GM/100ML 3 GM/100 ML BAG IV SCH ×4 (00:01→17:09)
[2022-07-17 05:02] LABS: Basophils # (Auto) 0.1 K/mm3 (0.0-0.1); Basophils % (Auto) 0.6 % (0.0-1.8); Eosinophils # (Auto) 0.5 K/mm3 (0.0-0.4); Eosinophils % (Auto) 4.1 % (0.0-4.3); Hematocrit 37.1 % (35.5-45.6); Lymphocytes # (Auto) 1.6 K/mm3 (1.2-5.4); Lymphocytes % (Auto) 13.2 % (13.4-35.0); Mean Corpuscular HGB Conc 32 % (32-34); Mean Corpuscular Volume 86 fl (84-94); Monocytes % (Auto) 8.5 % (0.0-7.3); Platelet Count 294 K/mm3 (140-440); Red Blood Count 4.33 M/mm3 (3.65-5.03); Red Cell Distribution Width 15.2 % (13.2-15.2)
[2022-07-17 05:21] LABS: Alanine Aminotransferase 17 units/L (7-56); Albumin 3.1 g/dL (3.9-5); Blood Urea Nitrogen 14 mg/dL (9-20); Calcium 9.1 mg/dL (8.4-10.2); Hemolysis Index 1
[2022-07-17 05:26] LABS: BUN/Creatinine Ratio 23
[2022-07-17] MEDS: VANCOMYCIN 2,000 MG in SODIUM CHLORIDE 0.9% 500 ML 500 ML IV SCH ×2 (05:58→17:09)
[2022-07-17] MEDS ORDERED: traMADol 50 MG TAB PO PRN (07:16)
[2022-07-17] MEDS: INSULIN LISPRO 100 UNIT/ML SUB-Q SCH ×2 (08:00→12:10)
--- NOTE | 2022-07-17 09:41 | Electrocardiograph Report ---
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
[2022-07-17] MEDS ORDERED: INSULIN GLARGINE 100 UNITS/ML SUB-Q SCH (10:00)
--- NOTE | 2022-07-17 10:00 | Progress Note ---
Assessment and Plan Assessment and plan: #Left gluteal abscess Likely secondary to uncontrolled type 2 diabetes Failed multiple antibiotic regimens in outpatient setting. Patient describes having recent I&D and antibiotics within the last [address] pelvis revealing gluteal abscess sick centimeters by 6 cm. Continue Unasyn 3 g every 6 hours, vancomycin every 12 hours General surgery consulted; appreciate recs. Patient will either undergo bedside I&D or OR I&D. Wound cultures will be collected. Infectious disease consulted; pending recs #Upper extremity weakness #Possible CVA Unremarkable CT head noncontrast and CT angio head neck Pending MRI C-spine and brain (recommended by Teleneurology). Neurology consulted; pending recs. Possibly secondary to uncontrolled type 2 diabetes. Consider physical therapy evaluation if symptoms remain. #Insulin dependent type II diabetes mellitus hyperglycemia - hemoglobin A1c: Pending - home regimen: Glargine 25 units nightly - current regimen: Glargine 25 units nightly + moderate SSI - blood glucose goal 140-180 while inpatient - continue to monitor #GERD Continue home Famotidine 20 mg twice daily #Hyponatremiaruled out #Morbid obesity #Weight loss counseling #Exercise counseling - BMI 40.2 - Counseled patient on the importance of weight loss, incorporating exercise, and dietary changes (lean meats, fresh fruits and vegetables, and water intake). Patient expresses understanding. - Time: +15 min #Mild protein caloric malnutrition Albumin 3.1 Starting dietary supplementation #Advanced care planning -Disease education conducted, care plan discussed, diagnoses discussed, prognosis discussed, and patient acknowledges understanding with care plan -Time: +30 min Disposition Plan: Continue medical management Total Time Spent with Patient (Minutes): 45 minutes History Interval history: No acute events overnight. Hospitalist Physical - Constitutional Vitals: Temp Pulse Resp BP Pulse Ox 98.4 F 95 H 17 124/79 99 07/17/22 08:22 07/17/22 07:53 07/17/22 05:49 07/17/22 07:53 07/17/22 07:53 General appearance: Present: no acute distress, well-nourished, obese - EENT Eyes: Present: PERRL, EOM intact ENT: hearing intact, clear oral mucosa, dentition normal - Neck Neck: Present: supple, normal ROM - Respiratory Respiratory effort: normal Respiratory: bilateral: CTA - Cardiovascular Rhythm: regular Heart Sounds: Present: S1 & S2 - Extremities Extremities: no ischemia, pulses intact, pulses symmetrical, No edema, normal temperature, normal color, Full ROM Peripheral Pulses: within normal limits - Abdominal General gastrointestinal: soft, non-tender, non-distended, normal bowel sounds - Integumentary Integumentary: Present: clear, warm, dry, erythema (Left gluteal abscess) - Psychiatric Psychiatric: appropriate mood/affect, intact judgment & insight, memory intact, cooperative - Neurologic Neurologic: CNII-XII intact, moves all extremities, other (4/5 strength of left upper extremity) - Allied Health Allied health notes reviewed: nursing HEART Score - HEART Score Troponin: Troponin T < 0.010 ng/mL (0.00-0.029) 07/16/22 16:06 Results - Labs CBC & Chem 7: 07/17/22 04:42 07/17/22 04:42 Labs: Laboratory Last Values WBC 12.3 K/mm3 (4.5-11.0) H 07/17/22 04:42 RBC 4.33 M/mm3 (3.65-5.03) 07/17/22 04:42 Hgb 12.0 gm/dl (11.8-15.2) 07/17/22 04:42 Hct 37.1 % (35.5-45.6) 07/17/22 04:42 MCV 86 fl (84-94) 07/17/22 04:42 MCH 28 pg (28-32) 07/17/22 04:42 MCHC 32 % (32-34) 07/17/22 04:42 RDW 15.2 % (13.2-15.2) 07/17/22 04:42 Plt Count 294 K/mm3 (140-440) 07/17/22 04:42 Lymph % (Auto) 13.2 % (13.4-35.0) L 07/17/22 04:42 [place] % (Auto) 8.5 % (0.0-7.3) H 07/17/22 04:42 Eos % (Auto) 4.1 % (0.0-4.3) 07/17/22 04:42 Baso % (Auto) 0.6 % (0.0-1.8) 07/17/22 04:42 Lymph # (Auto) 1.6 K/mm3 (1.2-5.4) 07/17/22 04:42 [place] # (Auto) 1.0 K/mm3 (0.0-0.8) H 07/17/22 04:42 Eos # (Auto) 0.5 K/mm3 (0.0-0.4) H 07/17/22 04:42 Baso # (Auto) 0.1 K/mm3 (0.0-0.1) 07/17/22 04:42 Seg Neutrophils % 73.6 % (40.0-70.0) H 07/17/22 04:42 Seg Neutrophils # 9.0 K/mm3 (1.8-7.7) H 07/17/22 04:42 PT 14.3 Sec. (12.2-14.9) 07/16/22 16:06 INR 1.00 (0.87-1.13) 07/16/22 16:06 APTT 28.0 Sec. (24.2-36.6) 07/16/22 16:06 Thrombin Time 18.5 Sec. (15.1-19.6) 07/16/22 16:06 VBG pH 7.312 (7.320-7.420) L 07/16/22 17:21 Sodium 135 mmol/L (137-145) L 07/17/22 04:42 Potassium 4.0 mmol/L (3.6-5.0) 07/17/22 04:42 Chloride 102.4 mmol/L (98-107) 07/17/22 04:42 Carbon Dioxide 21 mmol/L (22-30) L 07/17/22 04:42 Anion Gap 16 mmol/L 07/17/22 04:42 BUN 14 mg/dL (9-20) 07/17/22 04:42 Creatinine 0.6 mg/dL (0.8-1.3) L 07/17/22 04:42 Estimated GFR > 60 ml/min 07/17/22 04:42 BUN/Creatinine Ratio 23 % 07/17/22 04:42 Glucose 261 mg/dL (75-100) H 07/17/22 04:42 POC Glucose 248 mg/dL (70-105) H 07/17/22 07:56 Lactic Acid 1.80 mmol/L (0.7-2.0) 07/16/22 16:44 Calcium 9.1 mg/dL (8.4-10.2) 07/17/22 04:42 Phosphorus 3.60 mg/dL (2.5-4.5) 07/16/22 16:06 Magnesium 1.80 mg/dL (1.7-2.3) 07/16/22 16:06 Total Bilirubin 0.30 mg/dL (0.1-1.2) 07/17/22 04:42 AST 14 units/L (5-40) 07/17/22 04:42 ALT 17 units/L (7-56) 07/17/22 04:42 Alkaline Phosphatase 107 units/L (35-129) 07/17/22 04:42 Total Creatine Kinase 87 units/L (55-170) 07/16/22 16:06 CK-MB (CK-2) < 1.0 ng/mL (0.0-4.0) 07/16/22 16:06 CK-MB (CK-2) Rel Index 1.1 (0-4) 07/16/22 16:06 Troponin T < 0.010 ng/mL (0.00-0.029) 07/16/22 16:06 Total Protein 7.2 g/dL (6.3-8.2) 07/17/22 04:42 Albumin 3.1 g/dL (3.9-5) L 07/17/22 04:42 Albumin/Globulin Ratio 0.8 % 07/17/22 04:42 Urine Color Straw (Yellow) 07/16/22 17:05 Urine Turbidity Clear (Clear) 07/16/22 17:05 Specific [place] (Man) 1.005 (1.003-1.030) 07/16/22 17:05 Ur Protein (Man) 1+ mg/dL (Negative) 07/16/22 17:05 Ur Ketones (Man) 40 (Negative) 07/16/22 17:05 Ur Nitrite (Man) Negative (Negative) 07/16/22 17:05 Ur Reducing Substances Not Reportable 07/16/22 17:05 Urine Bilirubin (Man) Negative (Negative) 07/16/22 17:05 Urine Ictotest Not Reportable 07/16/22 17:05 Leukocyte Esterase (Man) Negative (Negative) 07/16/22 17:05 Urine WBC (Auto) < 1.0 /HPF (0.0-6.0) 07/16/22 17:05 Urine RBC (Auto) 1.0 /HPF (0.0-6.0) 07/16/22 17:05 U Epithel Cells (Auto) 1.0 /HPF (0-13.0) 07/16/22 17:05 Urine RBC (Manual) 4+ (Negative) 07/16/22 17:05 Urine Mucus Few /HPF 07/16/22 17:05 Urine Opiates Screen Negative 07/16/22 17:05 Urine Methadone Screen Negative 07/16/22 17:05 Ur Barbiturates Screen Negative 07/16/22 17:05 Ur Phencyclidine Scrn Negative 07/16/22 17:05 Ur Amphetamines Screen Negative 07/16/22 17:05 U Benzodiazepines Scrn Negative 07/16/22 17:05 Urine Cocaine Screen Negative 07/16/22 17:05 U Marijuana (THC) Screen Negative 07/16/22 17:05 Drugs of Abuse Note Disclamer 07/16/22 17:05 Microbiology: Microbiology 07/16/22 16:06 Peripheral/Venous Blood Culture - Preliminary Culture in Progress 07/16/22 16:06 Peripheral/Venous Blood Culture - Preliminary Culture in Progress [place]/IV: Voiding Method Urinal Active Medications - Current Medications Current Medications: Generic Name Dose Route Start Last Admin Trade Name Freq PRN Reason Stop Dose Admin Acetaminophen 650 mg 07/16/22 21:22 Acetaminophen 325 Mg Tab PO Q4H PRN Pain MILD(1-3)/Fever >100.5/REDDY Ampicillin Sodium/Sulbactam Sodium 3 gm in 100 mls @ 100 mls/hr 07/17/22 00:00 07/17/22 05:58 Unasyn/Ns 3 Gm/100 Ml IV 100 mls/hr Q6HR [facility] Administration Protocol Sodium Chloride 1,000 mls @ 75 mls/hr 07/16/22 21:30 07/17/22 00:01 Nacl 0.9% 1000 Ml IV 75 mls/hr DIRECT [facility]ERT[facility] Administration Vancomycin HCl 2,000 mg/ 540 mls @ 250 mls/hr 07/17/22 06:00 07/17/22 05:58 Sodium Chloride IV 250 mls/hr Q12H [facility]ERT[facility] Administration Insulin Glargine 25 units 07/17/22 10:00 Insulin Glargine 100 Units/Ml SUB-Q BID [facility] Insulin Human Lispro 0 unit 07/17/22 07:30 Insulin Lispro 100 Unit/Ml SUB-Q ACHS [facility] Protocol Methocarbamol 750 mg 07/17/22 08:00 Methocarbamol 750 Mg Tab PO Q8H [facility] Morphine Sulfate 2 mg 07/16/22 19:12 07/16/22 23:42 Morphine 2 Mg/1 Ml Inj IV 2 mg Q4H PRN Administration Pain, Moderate (4-6) Ondansetron HCl 4 mg 07/16/22 21:22 Ondansetron 4 Mg/2 Ml Inj IV Q8H PRN Nausea And Vomiting Oxycodone/Acetaminophen 1 tab 07/16/22 21:22 Oxycodone /Acetaminophen 5-325mg Tab PO Q6H PRN Pain, Moderate (4-6) Sodium Chloride 10 ml 07/16/22 22:00 07/16/22 23:44 Sodium Chloride 0.9% 10 Ml Flush Syringe IV 10 ml BID [facility] Administration Sodium Chloride 10 ml 07/16/22 21:22 Sodium Chloride 0.9% 10 Ml Flush Syringe IV PRN PRN LINE FLUSH Tramadol HCl 50 mg 07/17/22 07:16 Tramadol 50 Mg Tab PO Q6HR PRN PAIN
[2022-07-17 10:12] LABS: Chol/HDL Ratio 2.56 %
--- NOTE | 2022-07-17 11:33 | Consultation ---
History of Present Illness Consult date: 07/17/22 Reason for consult: wound care - History of present illness History of present illness: Patient is a 37-year-old diabetic obese male who presented to the emergency room with acute left upper extremity weakness and numbness. Patient was being worked up for cerebral pathology as the cause. Patient says that he has had multiple subcutaneous abscesses that have required draining and treatment over the years. He has had several on his buttocks since October 2021, and an incision and drainage of 1 in January 2022. He says that the abscesses on his buttocks have not completely resolved and his has been helping him with dressing changes and he was doing a course of penicillin. General surgery consulted to see if his current gluteal wound needs to be drained. Patient had a CT scan that did not see a drainable collection but some inflammatory changes and findings with possible hematoma. Patient had cerebral and neck scans that at this time show no acute pathology. Neurology is following. Past History Past Medical History: diabetes, seizures, other (necrotizing fasciitis) Past Surgical History: Other (Surgery for necrotizing fasciitis on his abdominal wall) Social history: Family history: other (hyn) Medications and Allergies Allergies Allergy/AdvReac Type Severity Reaction Status Date / Time watermelon Allergy Itching Verified 07/17/22 07:18 Home Medications Medication Instructions Recorded Confirmed Last Taken Type Insulin Regular, Human [HumuLIN R] 0 unit SQ AC #1 vial 06/17/19 07/17/22 Unkno wn Rx Clindamycin [Clindamycin CAP] 300 mg PO Q6H #40 capsule 06/09/20 07/17/22 02/19/22 Rx Famotidine [Pepcid] 20 mg PO BID #30 tablet 06/09/20 07/17/22 02/19/22 Rx Insulin Glargine [Lantus VIAL] 25 units SUB-Q QHS 30 Days #2 vial 06/09/20 07/17/22 Unknown Rx Sulfamethoxazole/Trimethoprim 1 each PO BID #28 tablet 06/09/20 07/17/22 02/19/22 Rx [Bactrim DS TAB] oxyCODONE /ACETAMINOPHEN [Percocet 1 tab PO Q6H PRN #20 tablet 06/09/20 07/17/22 02/18/22 Rx 5/325 mg] methOCARBAMOL [Robaxin TAB] 750 mg PO Q8H #14 tablet 06/17/20 07/17/22 02/19/22 Rx traMADoL [Ultram] 50 mg PO Q6HR PRN #20 tablet 06/17/20 07/17/22 02/18/22 Rx NovoLOG Mix 70/30 VIAL 30 units SQ BID 07/17/22 07/17/22 07/16/22 History Active Meds: Active Medications Acetaminophen (Acetaminophen 325 Mg Tab) 650 mg PO Q4H PRN PRN Reason: Pain MILD(1-3)/Fever >100.5/REDDY Ampicillin Sodium/Sulbactam Sodium (Unasyn/Ns 3 Gm/100 Ml) 3 gm in 100 mls @ 100 mls/hr IV Q6HR LIBERTAD; Protocol Last Admin: 07/17/22 05:58 Dose: 100 mls/hr Sodium Chloride (Nacl 0.9% 1000 Ml) 1,000 mls @ 75 mls/hr IV DIRECT LIBERTAD Last Admin: 07/17/22 00:01 Dose: 75 mls/hr Vancomycin HCl 2,000 mg/ (Sodium Chloride) 540 mls @ 250 mls/hr IV Q12H [facility] Last Admin: 07/17/22 05:58 Dose: 250 mls/hr Insulin Glargine (Insulin Glargine 100 Units/Ml) 25 units SUB-Q BID [facility] Last Admin: 07/17/22 10:36 Dose: 25 units Insulin Human Lispro (Insulin Lispro 100 Unit/Ml) 0 unit SUB-Q ACHS LIBERT[facility]; Protoc ol Last Admin: 07/17/22 08:00 Dose: 4 unit Methocarbamol (Methocarbamol 750 Mg Tab) 750 mg PO Q8H LIBERTAD Last Admin: 07/17/22 10:36 Dose: 750 mg Morphine Sulfate (Morphine 2 Mg/1 Ml Inj) 2 mg IV Q4H PRN PRN Reason: Pain, Moderate (4-6) Last Admin: 07/16/22 23:42 Dose: 2 mg Ondansetron HCl (Ondansetron 4 Mg/2 Ml Inj) 4 mg IV Q8H PRN PRN Reason: Nausea And Vomiting Oxycodone/Acetaminophen (Oxycodone /Acetaminophen 5-325mg Tab) 1 tab PO Q6H PRN PRN Reason: Pain, Moderate (4-6) Sodium Chloride (Sodium Chloride 0.9% 10 Ml Flush Syringe) 10 ml IV BID LIBERTAD Last Admin: 07/17/22 10:37 Dose: 10 ml Sodium Chloride (Sodium Chloride 0.9% 10 Ml Flush Syringe) 10 ml IV PRN PRN PRN Reason: LINE FLUSH Tramadol HCl (Tramadol 50 Mg Tab) 50 mg PO Q6HR PRN PRN Reason: PAIN Review of Systems All systems: negative - Constitutional chronic pain - Integumentary wounds, boils - Neurological weakness, numbness, tingling Exam Vital Signs Temp Pulse Resp BP Pulse Ox 99.1 F 91 H 16 162/110 100 07/16/22 14:20 07/16/22 14:20 07/16/22 14:20 07/16/22 14:20 07/16/22 14:20 - General physical appearance Positive: well developed, no distress, no pain, obese - ENT Positive: no hearing loss - Respiratory Positive: normal expansion, normal respiratory effort - Cardiovascular Heart Sounds: Present: S1 & S2 - Extremities Extremities: no ischemia, No edema - Abdomen Abdomen: Present: soft. Absent: tender - Integumentary other (Patient has b/l gluteal skin hyperpigmentation & induration, small skin defect @ the apex of his gluteal cleft w/ minimal clear fluid w/ pressure. has a 1-2 cm wound on L gluteal cheek that when manipulated does express some purulence. No significant pain or odor) - Neurologic Neurologic: alert and oriented to time, place and person, motor strength and sensation are grossly intact, CN II-XII intact Results - Labs 07/17/22 04:42 07/17/22 04:42 Abnormal lab results 07/16/22 07/16/22 07/16/22 Range/Units 14:21 16:06 16:06 WBC 16.1 H (4.5-11.0) K/mm3 RDW 15.7 H (13.2-15.2) % Lymph % (Auto) 11.1 L (13.4-35.0) % [place] % (Auto) 9.0 H (0.0-7.3) % [place] # (Auto) 1.4 H (0.0-0.8) K/mm3 Eos # (Auto) 0.5 H (0.0-0.4) K/mm3 Seg Neutrophils % 76.3 H (40.0-70.0) % Seg Neutrophils # 12.3 H (1.8-7.7) K/mm3 VBG pH (7.320-7.420) Sodium 132 L (137-145) mmol/L Chloride 96.7 L (98-107) mmol/L Carbon Dioxide (22-30) mmol/L Creatinine (0.8-1.3) mg/dL Glucose 417 H (75-100) mg/dL POC Glucose 422 H (70-105) mg/dL Hemoglobin A1c (4-6) % Albumin 3.5 L (3.9-5) g/dL 07/16/22 07/16/22 07/16/22 Range/Units 17:21 18:14 21:19 WBC (4.5-11.0) K/mm3 RDW (13.2-15.2) % Lymph % (Auto) (13.4-35.0) % [place] % (Auto) (0.0-7.3) % [place] # (Auto) (0.0-0.8) K/mm3 Eos # (Auto) (0.0-0.4) K/mm3 Seg Neutrophils % (40.0-70.0) % Seg Neutrophils # (1.8-7.7) K/mm3 VBG pH 7.312 L (7.320-7.420) Sodium (137-145) mmol/L Chloride (98-107) mmol/L Carbon Dioxide (22-30) mmol/L Creatinine (0.8-1.3) mg/dL Glucose (75-100) mg/dL POC Glucose 326 H 227 H (70-105) mg/dL Hemoglobin A1c (4-6) % Albumin (3.9-5) g/dL 07/16/22 07/17/22 07/17/22 Range/Units 22:53 04:42 04:42 WBC 12.3 H (4.5-11.0) K/mm3 RDW (13.2-15.2) % Lymph % (Auto) 13.2 L (13.4-35.0) % [place] % (Auto) 8.5 H (0.0-7.3) % [place] # (Auto) 1.0 H (0.0-0.8) K/mm3 Eos # (Auto) 0.5 H (0.0-0.4) K/mm3 Seg Neutrophils % 73.6 H (40.0-70.0) % Seg Neutrophils # 9.0 H (1.8-7.7) K/mm3 VBG pH (7.320-7.420) Sodium 135 L (137-145) mmol/L Chloride (98-107) mmol/L Carbon Dioxide 21 L (22-30) mmol/L Creatinine 0.6 L (0.8-1.3) mg/dL Glucose 261 H (75-100) mg/dL POC Glucose 249 H (70-105) mg/dL Hemoglobin A1c (4-6) % Albumin 3.1 L (3.9-5) g/dL 07/17/22 07/17/22 Range/Units 07:56 09:06 WBC (4.5-11.0) K/mm3 RDW (13.2-15.2) % Lymph % (Auto) (13.4-35.0) % [place] % (Auto) (0.0-7.3) % [place] # (Auto) (0.0-0.8) K/mm3 Eos # (Auto) (0.0-0.4) K/mm3 Seg Neutrophils % (40.0-70.0) % Seg Neutrophils # (1.8-7.7) K/mm3 VBG pH (7.320-7.420) Sodium (137-145) mmol/L Chloride (98-107) mmol/L Carbon Dioxide (22-30) mmol/L Creatinine (0.8-1.3) mg/dL Glucose (75-100) mg/dL POC Glucose 248 H (70-105) mg/dL Hemoglobin A1c 15.0 H (4-6) % Albumin (3.9-5) g/dL Diabetes panel 07/16/22 07/17/22 07/17/22 Range/Units 16:06 04:42 09:06 Sodium 132 L 135 L (137-145) mmol/L Potassium 4.5 4.0 (3.6-5.0) mmol/L Chloride 96.7 L 102.4 (98-107) mmol/L Carbon Dioxide 22 21 L (22-30) mmol/L BUN 17 14 (9-20) mg/dL Creatinine 0.9 0.6 L (0.8-1.3) mg/dL Glucose 417 H 261 H (75-100) mg/dL Hemoglobin A1c 15.0 H (4-6) % Calcium 9.2 9.1 (8.4-10.2) mg/dL AST 13 14 (5-40) units/L ALT 16 17 (7-56) units/L Alkaline Phosphatase 116 107 (35-129) units/L Total Protein 7.0 7.2 (6.3-8.2) g/dL Albumin 3.5 L 3.1 L (3.9-5) g/dL Triglycerides (2-149) mg/dL HDL Cholesterol (40-59) mg/dL 07/17/22 Range/Units 09:06 Sodium (137-145) mmol/L Potassium (3.6-5.0) mmol/L Chloride (98-107) mmol/L Carbon Dioxide (22-30) mmol/L BUN (9-20) mg/dL Creatinine (0.8-1.3) mg/dL Glucose (75-100) mg/dL Hemoglobin A1c (4-6) % Calcium (8.4-10.2) mg/dL AST (5-40) units/L ALT (7-56) units/L Alkaline Phosphatase (35-129) units/L Total Protein (6.3-8.2) g/dL Albumin (3.9-5) g/dL Triglycerides 103 (2-149) mg/dL HDL Cholesterol 46 (40-59) mg/dL Calcium panel 07/16/22 07/16/22 07/17/22 Range/Units 16:06 16:06 04:42 Calcium 9.2 9.1 (8.4-10.2) mg/dL Phosphorus 3.60 (2.5-4.5) mg/dL Albumin 3.5 L 3.1 L (3.9-5) g/dL Pituitary panel 07/16/22 07/17/22 Range/Units 16:06 04:42 Sodium 132 L 135 L (137-145) mmol/L Potassium 4.5 4.0 (3.6-5.0) mmol/L Chloride 96.7 L 102.4 (98-107) mmol/L Carbon Dioxide 22 21 L (22-30) mmol/L BUN 17 14 (9-20) mg/dL Creatinine 0.9 0.6 L (0.8-1.3) mg/dL Glucose 417 H 261 H (75-100) mg/dL Calcium 9.2 9.1 (8.4-10.2) mg/dL Adrenal panel 07/16/22 07/17/22 Range/Units 16:06 04:42 Sodium 132 L 135 L (137-145) mmol/L Potassium 4.5 4.0 (3.6-5.0) mmol/L Chloride 96.7 L 102.4 (98-107) mmol/L Carbon Dioxide 22 21 L (22-30) mmol/L BUN 17 14 (9-20) mg/dL Creatinine 0.9 0.6 L (0.8-1.3) mg/dL Glucose 417 H 261 H (75-100) mg/dL Calcium 9.2 9.1 (8.4-10.2) mg/dL Total Bilirubin 0.30 0.30 (0.1-1.2) mg/dL AST 13 14 (5-40) units/L ALT 16 17 (7-56) units/L Alkaline Phosphatase 116 107 (35-129) units/L Total Protein 7.0 7.2 (6.3-8.2) g/dL Albumin 3.5 L 3.1 L (3.9-5) g/dL Assessment and Plan 37-year-old obese diabetic male presents with acute onset of left upper extremity weakness and tingling. So far general neurological work-up has been negative for acute treatment pathology. Patient is afebrile and stable. Surgery consulted for chronic gluteal abscess wound. Continue antibiotics. When neurology (MRI ordered) clears the patient will take patient to operating room for incision, drainage, and wound exploration of left gluteal wound. Pathology and treatment options discussed with the patient expressed understanding. We will continue to follow.
[2022-07-17] MEDS ORDERED: DEXTROSE 50% IN WATER (25GM) 50 ML SYRINGE IV PRN (14:05)
[2022-07-17] MEDS: INSULIN REGULAR, HUMAN 100 UNITS/1 ML SUB-Q SCH ×4 (16:50→22:23)
[2022-07-17] MEDS ORDERED: INSULIN NPH/REGULAR 70/30 INJ SUB-Q SCH (17:00)
[2022-07-17] MEDS: oxyCODONE /ACETAMINOPHEN 5-325MG TAB PO PRN ×2 (17:09→22:42)
[2022-07-18] MEDS: AMPICILLIN/SULBACTA 3GM/100ML 3 GM/100 ML BAG IV SCH ×3 (01:24→21:40)
[2022-07-18 05:24] LABS: Basophils % (Auto) 0.6 % (0.0-1.8); Eosinophils # (Auto) 0.4 K/mm3 (0.0-0.4); Eosinophils % (Auto) 4.7 % (0.0-4.3); Hematocrit 35.1 % (35.5-45.6); Hemoglobin 11.6 gm/dl (11.8-15.2); Lymphocytes # (Auto) 1.7 K/mm3 (1.2-5.4); Lymphocytes % (Auto) 19.8 % (13.4-35.0); Mean Corpuscular HGB Conc 33 % (32-34); Mean Corpuscular Volume 86 fl (84-94); Monocytes # (Auto) 0.8 K/mm3 (0.0-0.8); Platelet Count 275 K/mm3 (140-440); Red Blood Count 4.09 M/mm3 (3.65-5.03); Red Cell Distribution Width 15.4 % (13.2-15.2)
[2022-07-18 05:54] LABS: Blood Urea Nitrogen 16 mg/dL (9-20); Calcium 8.4 mg/dL (8.4-10.2); Hemolysis Index 4
[2022-07-18 06:02] LABS: BUN/Creatinine Ratio 23
[2022-07-18] MEDS: VANCOMYCIN 2,000 MG in SODIUM CHLORIDE 0.9% 500 ML 500 ML IV SCH ×2 (06:24→23:09)
[2022-07-18] MEDS: INSULIN REGULAR, HUMAN 100 UNITS/1 ML SUB-Q SCH ×8 (08:54→21:18)
[2022-07-18] MEDS: MORPHINE 2 MG/1 ML INJ IV PRN ×3 (08:58→21:39)
[2022-07-18] MEDS: INSULIN NPH/REGULAR 70/30 INJ SUB-Q SCH ×2 (09:36→18:37)
--- NOTE | 2022-07-18 10:15 | Event Note ---
Date: 07/18/22 Chart reviewed. WBC normalized. Pt afebrile and stable. If neurology has evaluated him to be without acute neurological pathology and is cleared for procedure under anesthesia will reevaluate and likely schedule patient for incision and drainage on exploration of buttock wounds.
--- NOTE | 2022-07-18 13:10 | Progress Note ---
Assessment and Plan Assessment and plan: #Left gluteal abscess Likely secondary to uncontrolled type 2 diabetes Failed multiple antibiotic regimens in outpatient setting. Patient describes having recent I&D and antibiotics within the last [address] pelvis revealing gluteal abscess sick centimeters by 6 cm. Continue Unasyn 3 g every 6 hours, vancomycin every 12 hours General surgery consulted; appreciate recs. Patient will either undergo bedside I&D or OR I&D. Wound cultures will be collected. Infectious disease consulted; pending recs #Upper extremity weakness #Possible CVA Unremarkable CT head noncontrast and CT angio head neck Pending MRI C-spine and brain (recommended by Teleneurology). Neurology consulted; pending recs. Possibly secondary to uncontrolled type 2 diabetes. Consider physical therapy evaluation if symptoms remain. #Insulin dependent type II diabetes mellitus hyperglycemia - hemoglobin A1c: Pending - home regimen: Glargine 25 units nightly - current regimen: Glargine 25 units nightly + moderate SSI - blood glucose goal 140-180 while inpatient - continue to monitor #GERD Continue home Famotidine 20 mg twice daily #Hyponatremiaruled out #Morbid obesity #Weight loss counseling #Exercise counseling - BMI 40.2 - Counseled patient on the importance of weight loss, incorporating exercise, and dietary changes (lean meats, fresh fruits and vegetables, and water intake). Patient expresses understanding. - Time: +15 min #Mild protein caloric malnutrition Albumin 3.1 Continue dietary supplementation #Advanced care planning -Disease education conducted, care plan discussed, diagnoses discussed, prognosis discussed, and patient acknowledges understanding with care plan -Time: +30 min Disposition Plan: Continue medical management Total Time Spent with Patient (Minutes): 45 min History Interval history: No acute events overnight. Hospitalist Physical - Constitutional Vitals: Temp Pulse Resp BP Pulse Ox 98.0 F 89 18 119/80 99 07/18/22 12:56 07/18/22 12:56 07/18/22 12:56 07/18/22 12:56 07/18/22 12:56 General appearance: Present: no acute distress, well-nourished, obese - EENT Eyes: Present: PERRL, EOM intact ENT: hearing intact, clear oral mucosa, dentition normal - Neck Neck: Present: supple, normal ROM - Respiratory Respiratory effort: normal Respiratory: bilateral: CTA - Cardiovascular Rhythm: regular Heart Sounds: Present: S1 & S2 - Extremities Extremities: no ischemia, pulses intact, pulses symmetrical, No edema, normal temperature, normal color Peripheral Pulses: within normal limits - Abdominal General gastrointestinal: soft, non-tender, non-distended, normal bowel sounds - Integumentary Integumentary: Present: clear, warm, dry, erythema (L gluteal abscess) - Psychiatric Psychiatric: appropriate mood/affect, intact judgment & insight, memory intact, cooperative - Neurologic Neurologic: CNII-XII intact, moves all extremities - Allied Health Allied health notes reviewed: nursing HEART Score - HEART Score Troponin: Troponin T < 0.010 ng/mL (0.00-0.029) 07/16/22 16:06 Results - Labs CBC & Chem 7: 07/18/22 04:45 07/18/22 04:45 Labs: Laboratory Last Values WBC 8.4 K/mm3 (4.5-11.0) 07/18/22 04:45 RBC 4.09 M/mm3 (3.65-5.03) 07/18/22 04:45 Hgb 11.6 gm/dl (11.8-15.2) L 07/18/22 04:45 Hct 35.1 % (35.5-45.6) L 07/18/22 04:45 MCV 86 fl (84-94) 07/18/22 04:45 MCH 28 pg (28-32) 07/18/22 04:45 MCHC 33 % (32-34) 07/18/22 04:45 RDW 15.4 % (13.2-15.2) H 07/18/22 04:45 Plt Count 275 K/mm3 (140-440) 07/18/22 04:45 Lymph % (Auto) 19.8 % (13.4-35.0) 07/18/22 04:45 [place] % (Auto) 10.0 % (0.0-7.3) H 07/18/22 04:45 Eos % (Auto) 4.7 % (0.0-4.3) H 07/18/22 04:45 Baso % (Auto) 0.6 % (0.0-1.8) 07/18/22 04:45 Lymph # (Auto) 1.7 K/mm3 (1.2-5.4) 07/18/22 04:45 [place] # (Auto) 0.8 K/mm3 (0.0-0.8) 07/18/22 04:45 Eos # (Auto) 0.4 K/mm3 (0.0-0.4) 07/18/22 04:45 Baso # (Auto) 0.0 K/mm3 (0.0-0.1) 07/18/22 04:45 Seg Neutrophils % 64.9 % (40.0-70.0) 07/18/22 04:45 Seg Neutrophils # 5.5 K/mm3 (1.8-7.7) 07/18/22 04:45 PT 14.3 Sec. (12.2-14.9) 07/16/22 16:06 INR 1.00 (0.87-1.13) 07/16/22 16:06 APTT 28.0 Sec. (24.2-36.6) 07/16/22 16:06 Thrombin Time 18.5 Sec. (15.1-19.6) 07/16/22 16:06 VBG pH 7.312 (7.320-7.420) L 07/16/22 17:21 Sodium 139 mmol/L (137-145) 07/18/22 04:45 Potassium 4.2 mmol/L (3.6-5.0) 07/18/22 04:45 Chloride 106.9 mmol/L (98-107) 07/18/22 04:45 Carbon Dioxide 20 mmol/L (22-30) L 07/18/22 04:45 Anion Gap 16 mmol/L 07/18/22 04:45 BUN 16 mg/dL (9-20) 07/18/22 04:45 Creatinine 0.7 mg/dL (0.8-1.3) L 07/18/22 04:45 Estimated GFR > 60 ml/min 07/18/22 04:45 BUN/Creatinine Ratio 23 % 07/18/22 04:45 Glucose 229 mg/dL (75-100) H 07/18/22 04:45 POC Glucose 324 mg/dL (70-105) H 07/17/22 20:52 Hemoglobin A1c 15.0 % (4-6) H 07/17/22 09:06 Lactic Acid 1.80 mmol/L (0.7-2.0) 07/16/22 16:44 Calcium 8.4 mg/dL (8.4-10.2) 07/18/22 04:45 Phosphorus 3.60 mg/dL (2.5-4.5) 07/16/22 16:06 Magnesium 1.80 mg/dL (1.7-2.3) 07/16/22 16:06 Total Bilirubin 0.30 mg/dL (0.1-1.2) 07/17/22 04:42 AST 14 units/L (5-40) 07/17/22 04:42 ALT 17 units/L (7-56) 07/17/22 04:42 Alkaline Phosphatase 107 units/L (35-129) 07/17/22 04:42 Total Creatine Kinase 87 units/L (55-170) 07/16/22 16:06 CK-MB (CK-2) < 1.0 ng/mL (0.0-4.0) 07/16/22 16:06 CK-MB (CK-2) Rel Index 1.1 (0-4) 07/16/22 16:06 Troponin T < 0.010 ng/mL (0.00-0.029) 07/16/22 16:06 Total Protein 7.2 g/dL (6.3-8.2) 07/17/22 04:42 Albumin 3.1 g/dL (3.9-5) L 07/17/22 04:42 Albumin/Globulin Ratio 0.8 % 07/17/22 04:42 Triglycerides 103 mg/dL (2-149) 07/17/22 09:06 Cholesterol 118 mg/dL (50-199) 07/17/22 09:06 LDL Cholesterol Direct 55 mg/dL (50-130) 07/17/22 09:06 HDL Cholesterol 46 mg/dL (40-59) 07/17/22 09:06 Cholesterol/HDL Ratio 2.56 % 07/17/22 09:06 Urine Color Straw (Yellow) 07/16/22 17:05 Urine Turbidity Clear (Clear) 07/16/22 17:05 Specific [place] (Man) 1.005 (1.003-1.030) 07/16/22 17:05 Ur Protein (Man) 1+ mg/dL (Negative) 07/16/22 17:05 Ur Ketones (Man) 40 (Negative) 07/16/22 17:05 Ur Nitrite (Man) Negative (Negative) 07/16/22 17:05 Ur Reducing Substances Not Reportable 07/16/22 17:05 Urine Bilirubin (Man) Negative (Negative) 07/16/22 17:05 Urine Ictotest Not Reportable 07/16/22 17:05 Leukocyte Esterase (Man) Negative (Negative) 07/16/22 17:05 Urine WBC (Auto) < 1.0 /HPF (0.0-6.0) 07/16/22 17:05 Urine RBC (Auto) 1.0 /HPF (0.0-6.0) 07/16/22 17:05 U Epithel Cells (Auto) 1.0 /HPF (0-13.0) 07/16/22 17:05 Urine RBC (Manual) 4+ (Negative) 07/16/22 17:05 Urine Mucus Few /HPF 07/16/22 17:05 Urine Opiates Screen Negative 07/16/22 17:05 Urine Methadone Screen Negative 07/16/22 17:05 Ur Barbiturates Screen Negative 07/16/22 17:05 Ur Phencyclidine Scrn Negative 07/16/22 17:05 Ur Amphetamines Screen Negative 07/16/22 17:05 U Benzodiazepines Scrn Negative 07/16/22 17:05 Urine Cocaine Screen Negative 07/16/22 17:05 U Marijuana (THC) Screen Negative 07/16/22 17:05 Drugs of Abuse Note Disclamer 07/16/22 17:05 Microbiology: Microbiology 07/16/22 16:06 Peripheral/Venous Blood Culture - Preliminary NO GROWTH AFTER 24 HOURS 07/16/22 16:06 Peripheral/Venous Blood Culture - Preliminary NO GROWTH AFTER 24 HOURS [place]/IV: Voiding Method Urinal Active Medications - Current Medications Current Medications: Generic Name Dose Route Start Last Admin Trade Name Freq PRN Reason Stop Dose Admin Acetaminophen 650 mg 07/16/22 21:22 Acetaminophen 325 Mg Tab PO Q4H PRN Pain MILD(1-3)/Fever >100.5/REDDY Dextrose 50 ml 07/17/22 14:05 Dextrose 50% In Water (25gm) 50 Ml Syringe IV Q30MIN PRN Hypoglycemia Protocol Ampicillin Sodium/Sulbactam Sodium 3 gm in 100 mls @ 100 mls/hr 07/17/22 00:00 07/18/22 06:21 Unasyn/Ns 3 Gm/100 Ml IV 100 mls/hr Q6HR LIBERTAD Administration Protocol Vancomycin HCl 2,000 mg/ 540 mls @ 250 mls/hr 07/17/22 06:00 07/18/22 06:24 Sodium Chloride IV 250 mls/hr Q12H LIBERTAD Administration Insulin Human Isoph/Insulin Regular 30 unit 07/18/22 07:41 07/18/22 09:36 Insulin Nph/Regular 70/30 Inj SUB-Q 30 unit BIDDIAB LIBERTAD Administration Insulin Human Regular 0 units 07/17/22 16:30 07/18/22 08:54 Insulin Regular, Human 100 Units/1 Ml SUB-Q 3 units ACHS LIBERTAD Administration Protocol Insulin Human Regular 8 units 07/17/22 16:30 07/18/22 08:55 Insulin Regular, Human 100 Units/1 Ml SUB-Q 8 units ACHS LIBERTAD Administration Methocarbamol 750 mg 07/17/22 08:00 07/18/22 08:58 Methocarbamol 750 Mg Tab PO 750 mg Q8H LIBERTAD Administration Morphine Sulfate 2 mg 07/16/22 19:12 07/18/22 08:58 Morphine 2 Mg/1 Ml Inj IV 2 mg Q4H PRN Administration Pain, Moderate (4-6) Ondansetron HCl 4 mg 07/16/22 21:22 Ondansetron 4 Mg/2 Ml Inj IV Q8H PRN Nausea And Vomiting Oxycodone/Acetaminophen 1 tab 07/16/22 21:22 07/17/22 22:42 Oxycodone /Acetaminophen 5-325mg Tab PO 1 tab Q6H PRN Administration Pain, Moderate (4-6) Sodium Chloride 10 ml 07/16/22 22:00 07/18/22 08:59 Sodium Chloride 0.9% 10 Ml Flush Syringe IV 10 ml BID LIBERTAD Administration Sodium Chloride 10 ml 07/16/22 21:22 07/18/22 06:24 Sodium Chloride 0.9% 10 Ml Flush Syringe IV 10 ml PRN PRN Administration LINE FLUSH Tramadol HCl 50 mg 07/17/22 07:16 Tramadol 50 Mg Tab PO Q6HR PRN PAIN
--- NOTE | 2022-07-18 15:22 | Consultation ---
History of Present Illness Consult date: 07/18/22 Reason for Consult: Weakness Left Arm History of present illness: Main complaint Left arm weakness and numbess acute onset . The patient reports that this happened while sitting . Improving in the last 24 hours .There is no vaccination . Past History Past Medical History: diabetes, seizures, other (necrotizing fasciitis) Past Surgical History: Other (Surgery for necrotizing fasciitis on his abdominal wall) Social history: Family history: other (hyn) Medications and Allergies Allergies Allergy/AdvReac Type Severity Reaction Status Date / Time watermelon Allergy Itching Verified 07/18/22 11:13 Home Medications Medication Instructions Recorded Confirmed Last Taken Type Insulin Glargine [Lantus VIAL] 25 units SUB-Q QHS 30 Days #2 vial 06/09/20 07/18/22 Unknown Rx Insulin NPH/Regular [Novolin 70/30] 30 units SQ BIDDIAB 07/18/22 07/18/22 Unknown History Multivit-Minerals/Folic Acid 200 mcg PO QDAY 07/18/22 07/18/22 Unknown History [Multivitamin Gummies] Active Meds: Active Medications Acetaminophen (Acetaminophen 325 Mg Tab) 650 mg PO Q4H PRN PRN Reason: Pain MILD(1-3)/Fever >100.5/REDDY Dextrose (Dextrose 50% In Water (25gm) 50 Ml Syringe) 50 ml IV Q30MIN PRN; Protocol PRN Reason: Hypoglycemia Ampicillin Sodium/Sulbactam Sodium (Unasyn/Ns 3 Gm/100 Ml) 3 gm in 100 mls @ 100 mls/hr IV Q6HR LIBERTAD; Protocol Last Admin: 07/18/22 06:21 Dose: 100 mls/hr Vancomycin HCl 2,000 mg/ (Sodium Chloride) 540 mls @ 250 mls/hr IV Q12H LIBERTAD Last Admin: 07/18/22 06:24 Dose: 250 mls/hr Insulin Human Isoph/Insulin Regular (Insulin Nph/Regular 70/30 Inj) 30 unit SUB-Q BIDDIAB LIBERTAD Last Admin: 07/18/22 09:36 Dose: 30 unit Insulin Human Regular (Insulin Regular, Human 100 Units/1 Ml) 0 units SUB-Q ACHS [facility]; Protocol Last Admin: 07/18/22 13:31 Dose: 2 units Insulin Human Regular (Insulin Regular, Human 100 Units/1 Ml) 8 units SUB-Q ACHS [facility] Last Admin: 07/18/22 13:33 Dose: 8 units Methocarbamol (Methocarbamol 750 Mg Tab) 750 mg PO Q8H [facility] Last Admin: 07/18/22 08:58 Dose: 750 mg Morphine Sulfate (Morphine 2 Mg/1 Ml Inj) 2 mg IV Q4H PRN PRN Reason: Pain, Moderate (4-6) Last Admin: 07/18/22 14:49 Dose: 2 mg Ondansetron HCl (Ondansetron 4 Mg/2 Ml Inj) 4 mg IV Q8H PRN PRN Reason: Nausea And Vomiting Oxycodone/Acetaminophen (Oxycodone /Acetaminophen 5-325mg Tab) 1 tab PO Q6H PRN PRN Reason: Pain, Moderate (4-6) Last Admin: 07/17/22 22:42 Dose: 1 tab Sodium Chloride (Sodium Chloride 0.9% 10 Ml Flush Syringe) 10 ml IV BID [facility] Last Admin: 07/18/22 08:59 Dose: 10 ml Sodium Chloride (Sodium Chloride 0.9% 10 Ml Flush Syringe) 10 ml IV PRN PRN PRN Reason: LINE FLUSH Last Admin: 07/18/22 06:24 Dose: 10 ml Tramadol HCl (Tramadol 50 Mg Tab) 50 mg PO Q6HR PRN PRN Reason: PAIN Physical Examination - Vital Signs Vital Signs: Vital Signs Temp Pulse Resp BP Pulse Ox 99.1 F 91 H 16 162/110 100 07/16/22 14:20 07/16/22 14:20 07/16/22 14:20 07/16/22 14:20 07/16/22 14:20 - Physical Exam Narrative exam: There is weakness in the left upper extremity strength is 3+/5. There is a wrist drop . There is weakness in the proximal muscle . There is no facial weakness . Gait is normal . Results - Laboratory Findings CBC and BMP: 07/18/22 04:45 07/18/22 04:45 Abnormal Lab Findings: Abnormal Labs 07/16/22 07/16/22 07/16/22 14:21 16:06 16:06 WBC 16.1 H Hgb Hct RDW 15.7 H Lymph % (Auto) 11.1 L [place] % (Auto) 9.0 H Eos % (Auto) [place] # (Auto) 1.4 H Eos # (Auto) 0.5 H Seg Neutrophils % 76.3 H Seg Neutrophils # 12.3 H VBG pH Sodium 132 L Chloride 96.7 L Carbon Dioxide Creatinine Glucose 417 H POC Glucose 422 H Hemoglobin A1c Albumin 3.5 L 07/16/22 07/16/22 07/16/22 17:21 18:14 21:19 WBC Hgb Hct RDW Lymph % (Auto) [place] % (Auto) Eos % (Auto) [place] # (Auto) Eos # (Auto) Seg Neutrophils % Seg Neutrophils # VBG pH 7.312 L Sodium Chloride Carbon Dioxide Creatinine Glucose POC Glucose 326 H 227 H Hemoglobin A1c Albumin 07/16/22 07/17/22 07/17/22 22:53 04:42 04:42 WBC 12.3 H Hgb Hct RDW Lymph % (Auto) 13.2 L [place] % (Auto) 8.5 H Eos % (Auto) [place] # (Auto) 1.0 H Eos # (Auto) 0.5 H Seg Neutrophils % 73.6 H Seg Neutrophils # 9.0 H VBG pH Sodium 135 L Chloride Carbon Dioxide 21 L Creatinine 0.6 L Glucose 261 H POC Glucose 249 H Hemoglobin A1c Albumin 3.1 L 07/17/22 07/17/22 07/17/22 07:56 09:06 12:08 WBC Hgb Hct RDW Lymph % (Auto) [place] % (Auto) Eos % (Auto) [place] # (Auto) Eos # (Auto) Seg Neutrophils % Seg Neutrophils # VBG pH Sodium Chloride Carbon Dioxide Creatinine Glucose POC Glucose 248 H 314 H Hemoglobin A1c 15.0 H Albumin 07/17/22 07/17/22 07/18/22 16:16 20:52 04:45 WBC Hgb 11.6 L Hct 35.1 L RDW 15.4 H Lymph % (Auto) [place] % (Auto) 10.0 H Eos % (Auto) 4.7 H [place] # (Auto) Eos # (Auto) Seg Neutrophils % Seg Neutrophils # VBG pH Sodium Chloride Carbon Dioxide Creatinine Glucose POC Glucose 157 H 324 H Hemoglobin A1c Albumin 07/18/22 04:45 WBC Hgb Hct RDW Lymph % (Auto) [place] % (Auto) Eos % (Auto) [place] # (Auto) Eos # (Auto) Seg Neutrophils % Seg Neutrophils # VBG pH Sodium Chloride Carbon Dioxide 20 L Creatinine 0.7 L Glucose 229 H POC Glucose Hemoglobin A1c Albumin Assessment and Plan 1. Left Brachial Plexopathy - acute onset . 2. Left Radial Neuropathy . 3. Left Cervical Radiculopathy . 4. CVA - less likely Needs Agressive OT , Reviewed Prior workup . Discussed Risk Factors for CVA - NCV out pt. Follow up in [address] Domínguez
[2022-07-19] MEDS: AMPICILLIN/SULBACTA 3GM/100ML 3 GM/100 ML BAG IV SCH ×3 (01:25→05:30)
[2022-07-19 06:21] VITALS: BP 127/68
[2022-07-19] MEDS: INSULIN REGULAR, HUMAN 100 UNITS/1 ML SUB-Q SCH ×2 (07:30→07:37)
[2022-07-19] MEDS: INSULIN NPH/REGULAR 70/30 INJ SUB-Q SCH (08:00)
--- NOTE | 2022-07-19 10:08 | Magnetic Resonance Report ---
MR cervical spine wo con INDICATION / CLINICAL INFORMATION: Left upper extremity weakness. TECHNIQUE: Multisequence, multiplanar images of the cervical spine were obtained. COMPARISON: None available. FINDINGS: ALIGNMENT: Normal alignment. VERTEBRAE:No aggressive osseous marrow signal. Vertebral body heights are preserved. SPINAL CORD: No abnormal cord signal [id number] ANALYSIS: C2-C3: No significant spinal canal stenosis. No significant foraminal narrowing. C3-C4: No significant spinal canal stenosis. No significant foraminal narrowing. C4-C5: No significant spinal canal stenosis. No significant foraminal narrowing. C5-C6: No significant spinal canal stenosis. No significant foraminal narrowing. C6-C7: No significant spinal canal stenosis. No significant foraminal narrowing. C7-T1: No significant spinal canal stenosis. No significant foraminal narrowing. PARASPINAL SOFT TISSUES: No significant abnormality. ADDITIONAL FINDINGS: None. IMPRESSION: 1. No significant cervical spine abnormality. CERVICAL GRADING DEFINITIONS FOR THE PURPOSES OF THIS REPORT: Cervical canal stenosis: No stenosis: No significant attenuation of the CSF spaces Mild stenosis: Attenuation or effacement of the ventral CSF Moderate stenosis: Effacement of both the ventral and dorsal CSF, cord flattening, but so me CSF remaining Severe stenosis: Effacement of all CSF, cord compression Cervical neural foraminal stenosis (Monse et al. [place] J Radiol. 2015 Sep-Oct;16(6):1294-302): No stenosis: No attenuation of the fat in the foramen Mild stenosis: Narrowest point of the foramen is larger than the extraforaminal nerve Moderate stenosis: Narrowest point of the foramen remains greater than 50% of the caliber of the extraforaminal nerve Severe stenosis: Narrowest point of the foramen is less than 50% of the caliber of th e extraforaminal nerve Signer Name: Cory Brice MD Signed: 07/19/2022 10:04 AM Workstation Name: [id number]
--- NOTE | 2022-07-19 10:09 | Magnetic Resonance Report ---
MRI BRAIN WITHOUT CONTRAST INDICATION / CLINICAL INFORMATION: Left upper extremity weakness. TECHNIQUE: Multiplanar, multisequence MR images of the brain were obtained. COMPARISON: Head CT on 07/16/2022 FINDINGS: BRAIN / INTRACRANIAL CONTENTS: No acute ischemia, acute hemorrhage, mass effect, midline shift, or hy drocephalus. No chronic infarct or significant atrophy. No significant demyelinating changes. CRANIOCERVICAL JUNCTION: No significant abnormality. VASCULAR FLOW-VOIDS: No significant abnormality. ORBITS: No significant abnormality of visualized orbits. SINUSES / MASTOIDS: No significant abnormality of visualized sinuses and mastoid air cells. ADDITIONAL FINDINGS: None. IMPRESSION: 1. No acute findings or findings to explain the patient's symptoms. Signer Name: Cory Brice MD Signed: 07/19/2022 10:05 AM Workstation Name: [id number]
--- NOTE | 2022-07-19 12:23 | Discharge Summary ---
Providers - Providers Date of Admission: 07/16/22 19:11 Date of discharge: 07/19/22 Attending physician: SIDRA ALEMAN MD 07/16/22 17:59 Consult to Physician [CONS] Urgent Comment: Consulting Provider: BARBARA HINKLE Physician Instructions: Reason For Exam: buttock cellulitis with drainage 07/16/22 21:22 Consult to Physician [CONS] Routine Comment: Consulting Provider: BRIELLE BRYAN Physician Instructions: Reason For Exam: LUE weakness 07/17/22 01:23 Consult to Wound/ET Nurse [CONS] Routine Reason For Exam: wound eval 07/17/22 06:57 Consult to Physician [CONS] Routine Comment: Consulting Provider: BRIELLE BRYAN Physician Instructions: Reason For Exam: Left upper extremity weakness Primary care physician: EDDIE MORALES Hospitalization Reason for admission: CVA rule out Condition: Stable Hospital course: Patient is a 37-year-old female with history of insulin-dependent diabetes and chronic left gluteal abscess who presented with left upper extremity weakness. He was admitted for CVA rule out. Initial CT of the head and CT cervical spine were negative. CT angiogram of the head and neck were unremarkable. CT of the pelvis showed suspected hematoma inflammation at gluteal tissues left greater than right without drainable abscess. MRI of the cervical spine was also unremarkable. General surgery was consulted. It was recommended to take the patient to the ER for exploration of left gluteal wound. Patient left AMA prior to procedure. Disposition: LEFT AGAINST MEDICAL ADVICE Final Discharge Diagnosis (Prints w/discharge instructions): CVA ruled out. Left gluteal abscess. Insulin-dependent type 2 diabetes with hyperglycemia. GERD. Hyponatremia ruled out. Morbid obesity. Mild protein caloric malnutrition Time spent for discharge: 20 minutes Core Measure Documentation - Palliative Care Palliative Care/ Comfort Measures: Not Applicable - Core Measures Any of the following diagnoses?: none Exam - Physical Exam Narrative exam: Patient left AMA prior to examination - Constitutional Vitals: Temp Pulse Resp BP Pulse Ox 98.1 F 77 18 127/68 100 07/19/22 04:02 07/19/22 07:53 07/19/22 04:02 07/19/22 04:02 07/19/22 07:53 Plan Follow up with: EDDIE MORALES MD [Primary Care Provider] - 7 Days Forms: AMA Form
== END 2022-07-19 10:30 | disposition left against medical advice (07) | DRG 872 ==
LOC: ED 14:20 → 4A 19:11
PROVIDERS: ADMIT Internal Medicine; ATTEND Student in an Organized Health Care Education/Training Program
DX: A41.9 Sepsis, unspecified organism (principal); E44.1 Mild protein-calorie malnutrition; L02.31 Cutaneous abscess of buttock; L03.317 Cellulitis of buttock; Z68.41 Body mass index [BMI] 40.0-44.9, adult; E11.65 Type 2 diabetes mellitus with hyperglycemia; B96.89 Other specified bacterial agents as the cause of diseases classified elsewhere; E66.01 Morbid (severe) obesity due to excess calories; F17.200 Nicotine dependence, unspecified, uncomplicated; K21.9 Gastro-esophageal reflux disease without esophagitis
CPT/HCPCS: 36415; 70450; 70496; 70498; 70551; 72125; 72141; 72192; 80048; 80053; 80061; 80202; 80307; 81001; 82140; 82550; 82553; 82805; 82962; 83036; 83735; 84100; 84484; 85025; 85610; 85670; 85730; 87040; 93005; 96365; 96375; 99291; G0378; Q0177; Q9967; J0295; J0692; J1815; J2270; J2405; J3370; J7030; J7040